=== PATIENT | female | born 1955 | race Caucasian/White ===

== ENCOUNTER 2017-02-05 14:26 | Emergency (ER) | payer MEDICARE, MEDICAID ==
[~2017-02-05] VITALS: Ht 165.1 cm; Wt 52.0 kg
[~2017-02-05 14:26] MED LIST: ALBU6.7H INH; ATOR40TA PO; CITA20TA4 PO; KLON2TAB PO; METH5SOL3 PO; METO25 PO; PERC10TA27 PO; PLAV75TA PO; ZITH250T PO
[2017-02-05 14:34] VITALS: BP 118/73; PULSE 71; RESP 20; TEMP 97.7; O2SAT 86
[2017-02-05 14:39] VITALS: O2SAT 94
[2017-02-05] MEDS ORDERED: LYRI75CA PO (14:51)
[2017-02-05] MEDS ORDERED: PLAV75TA29 PO (14:51)
[2017-02-05] MEDS ORDERED: ALBUAER3 INH (14:51)
[2017-02-05] MEDS ORDERED: CLON2TAB PO (14:51)
[2017-02-05] MEDS ORDERED: PERC10TA27 PO (14:51)
[2017-02-05] MEDS ORDERED: CITA20TA4 PO (14:51)
[2017-02-05] MEDS ORDERED: NITR1SUB3 SL (14:51)
[2017-02-05] MEDS ORDERED: ADVA100A INH (14:51)
[2017-02-05] MEDS ORDERED: PRED5TAB PO (14:51)
[2017-02-05] MEDS ORDERED: METO25TA3 PO (14:51)
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
[2017-02-05 15:06] LABS: BASOPHIL # 0.1 TH/MM3 (0-0.2); BASOPHIL % 0.9 % (0.0-2.0); EOSINOPHIL % 0.2 % (0.0-4.0); HEMATOCRIT 33.3 % (35.0-46.0); LYMPH % 10.7 % (9.0-44.0); LYMPHOCYTE # 1.1 TH/MM3 (1.0-4.8); MEAN CELL VOLUME 90.8 FL (80.0-100.0); MEAN CORPUSCULAR HEMOGLOBIN 28.1 PG (27.0-34.0); MONO % 3.8 % (0.0-8.0); NEUT % 84.4 % (16.0-70.0); PLATELET COUNT 511 TH/MM3 (150-450); RED BLOOD COUNT 3.67 MIL/MM3 (4.00-5.30); RED CELL DISTRIBUTION WIDTH 16.9 % (11.6-17.2); WHITE BLOOD COUNT 10.6 TH/MM3 (4.0-11.0)
--- NOTE | 2017-02-05 15:07 | RADHPO ---
EXAM DATE/TIME: 02/05/2017 14:49 [facility] COMPARISON: CHEST SINGLE AP, June 15, 2016, 11:47. INDICATIONS : Short of breath, right low chest pain MEDICAL HISTORY : Chronic obstructive pulmonary disease. Emphysema. SURGICAL HISTORY : CABG. ENCOUNTER: Initial ACUITY: 3 days PAIN SCORE: 9/10 LOCATION: Right lower chest FINDINGS: A single view of the chest demonstrates the lungs to be symmetrically aerated without evidence of mas s, infiltrate or effusion. The cardiomediastinal contours are unremarkable. Osseous structures are intact. The patient is status post median sternotomy. CONCLUSION: No acute disease. Marc Bender MD on February 05, 2017 at 14:54 Board Certified Radiologist. This report was verified electronically.
[2017-02-05 15:11] LABS: HEMO FLAGS DIFF FINAL
[2017-02-05] MEDS ORDERED: ONDANSETRON HCL 4 MG/2 ML VIAL IV PUSH ONE (15:15)
[2017-02-05] MEDS ORDERED: HYDROmorphone HCL PF 1 MG/ML VIAL IV PUSH ONE (15:15)
[2017-02-05 15:56] VITALS: BP 121/66; PULSE 64; RESP 18; O2SAT 96
[2017-02-05 16:10] LABS: CHLORIDE 101 MEQ/L (98-107); POTASSIUM 4.7 MEQ/L (3.5-5.1); SODIUM (NA) 139 MEQ/L (136-145)
[2017-02-05 16:13] LABS: ANION GAP 7 MEQ/L (5-15); BICARBONATE 31.5 MEQ/L (21.0-32.0); BLOOD UREA NITROGEN 14 MG/DL (7-18)
[2017-02-05 16:16] LABS: GLOMERULAR FILTRATION RATE 83 ML/MIN (>89)
[2017-02-05 16:30] LABS: CREATINE KINASE 47 U/L (26-192)
--- NOTE | 2017-02-06 11:23 | EKG ---
Date Performed: 02/05/2017 Time Performed: 14:31:42 PTAGE: 62 years EKG: Sinus rhythm . Normal ECG PREVIOUS TRACING : 06/15/2016 12.03 DOCTOR: Flip Henson Interpretating Date/Time 02/06/2017 11:18:52
== END 2017-02-05 16:43 | disposition home or self-care (01) ==
LOC: PHED 14:26
DX: R07.89 Other chest pain (principal); J44.9 Chronic obstructive pulmonary disease, unspecified; I10 Essential (primary) hypertension; G25.81 Restless legs syndrome; F17.210 Nicotine dependence, cigarettes, uncomplicated; Z99.81 Dependence on supplemental oxygen
CPT/HCPCS: 71010; 80048; 82550; 84484; 85025; 93005; 96374; 96375; 99285; J1170; J2405

== ENCOUNTER 2017-03-12 19:20 | Emergency (ER) | payer MEDICARE, MEDICAID ==
[~2017-03-12 19:20] MED LIST changes: +ADVA100A INH; -ALBU6.7H INH; +ALBUAER3 INH; -ATOR40TA PO; +CLON2TAB PO; -KLON2TAB PO; +LYRI75CA PO; -METH5SOL3 PO; -METO25 PO; +METO25TA3 PO; +NITR1SUB3 SL; -PLAV75TA PO; +PLAV75TA29 PO; +PRED5TAB PO; -ZITH250T PO
[2017-03-12 19:35] VITALS: BP 135/75; PULSE 56; RESP 20; O2SAT 100
[2017-03-12] MEDS ORDERED: SODIUM CHLORIDE 0.9% FLUSH 10 ML FLUSH IVF PRN (19:45)
[2017-03-12] MEDS ORDERED: methylPREDNISolone SOD SUCC 125 MG/2 ML VIAL IVP ONE (19:45)
--- NOTE | 2017-03-12 19:54 | PD ---
HPI Chief Complaint: General Weakness Time Seen by Provider: 19:44 Travel History International Travel<30 days: No Contact w/Intl Traveler<30days: No Traveled to known affect area: No History of Present Illness HPI 62-year-old female presents to the emergency department by private transportation for complaint of increasing shortness of breath generalized pain and diarrhea. Patient has history of COPD tobaccoism CAD with three-vessel CABG as well as chronic pain syndrome. Patient is followed by Dr. Carroll is her pain management provider and does not recall the name of her primary care provider. Patient states she has had no change in her medications. Patient denies fever or chills. Patient has had cough productive of white sputum. Patient denies hemoptysis. Patient has dyspnea at rest and on exertion but does not report orthopnea or PND. Patient states she has chest pain back pain arm pain and leg pain head pain abdominal pain. Pain is 9/10 in intensity. Patient denies any injury or fall. Patient denies any upper or lower extremity numbness tingling or weakness and does not report any ataxia gait. Patient states she's been using supplemental oxygen at home as needed. Patient is ordered 2 L per minute nasal cannula at all times reportedly. Patient states she did take ibuprofen today without symptom relief. Patient did not take aspirin prior to arrival to the emergency department. Patient does not report any associated sweats nausea vomiting or referred neck jaw back shoulder arm pain. Patient is unable to identify exacerbating or alleviating factors. Denies recent antibiotic use/prescription. Does not describe diarrhea is explosive bloody or mucoid. PFSH Past Medical History Narrative Medical Arthritis COPD CAD CABG hypertension hepatitis C tobaccoism; nursing notes reviewed Arthritis: Yes Cardiovascular Problems: Yes COPD: Yes Diminished Hearing: No Hepatitis: Yes (C) Hypertension: Yes Respiratory: Yes Menopausal: Yes Social History Alcohol Use: No Tobacco Use: Yes Substance Use: No Allergies-Medications (Allergen,Severity, Reaction): Coded Allergies: Morphine (Verified Allergy, Intermediate, ITCHING, NAUSEA, 02/05/17) Vicodin (Verified Allergy, Intermediate, ITCHING, NAUSEA, 02/05/17) Reported Meds & Prescriptions Reported Meds & Active Scripts Active Reported Lyrica (Pregabalin) 75 Mg Cap 75 Mg PO HS Nitroglycerin SL (Nitroglycerin) 0.4 Mg Subl 0.4 Mg SL DIRECTED PRN ONE TABLET UNDER THE TONGUE NEEDED FOR CHEST PAIN, MAY REPEAT EVERY FIVE MINUTES FOR A TOTAL OF 3 DOSES OR CALL 911 IF NO RELIEF Prednisone 5 Mg Tab 5 Mg PO DAILY Proair Hfa 8.5 GM Inh (Albuterol Sulfate) 90 Mcg/Act Aer 2 Puff INH Q4-6H PRN 108 mcg/actuation Advair Diskus Inh (Fluticasone-Salmeterol Inh) 100-50 Mcg/Blist Aer 1 Puff INH BID Rinse mouth after use. Percocet (Oxycodone-Acetaminophen) 10-325 mg Tab 1 Tab PO Q6H PRN Metoprolol Tartrate 25 Mg Tab 25 Mg PO BID Plavix (Clopidogrel Bisulfate) 75 Mg Tab 75 Mg PO DAILY Clonazepam 2 Mg Tab 5 Mg PO HS Citalopram (Citalopram Hydrobromide) 20 Mg Tab 20 Mg PO HS Review of Systems Except as stated in HPI: all other systems reviewed are Neg General / Constitutional: No: Fever, Chills HENT: No: Congestion Cardiovascular: Positive: Chest Pain or Discomfort Respiratory: Positive: Cough, Shortness of Breath, Wheezing Gastrointestinal: Positive: Nausea, Diarrhea, No: Vomiting, Abdominal Pain Genitourinary: No: Dysuria, Flank Pain Musculoskeletal: Positive: Myalgias, Arthralgias Skin: No Rash Neurologic: Positive: Weakness Psychiatric: Positive: Anxiety Hematologic/Lymphatic: Positive: Easy Bruising Physical Exam Narrative GENERAL: Thin elderly appearing female in mild to moderate respiratory distress with some work of breathing and speaking in interrupted sentences. SKIN: Warm and dry. HEAD: Atraumatic. Normocephalic. EYES: Pupils equal and round. No scleral icterus. No injection or drainage. ENT: No nasal bleeding or discharge. Mucous membranes pink and moist. NECK: Trachea midline. No JVD. CARDIOVASCULAR: Regular rate and rhythm. RESPIRATORY: Accessory muscle use. Clear to auscultation. Breath sounds equal and diminished bilaterally. GASTROINTESTINAL: Abdomen soft, non-tender, nondistended. Hepatic and splenic margins not palpable. MUSCULOSKELETAL: Extremities without clubbing, cyanosis, or edema. No obvious deformities. NEUROLOGICAL: Awake and alert. No obvious cranial nerve deficits. Motor grossly within normal limits. Five out of 5 muscle strength in the arms and legs. Normal speech. PSYCHIATRIC: Appropriate mood and affect; insight and judgment normal. Data Data Last Documented VS Vital Signs Date Time Temp Pulse Resp B/P Pulse Ox O2 Delivery O2 Flow Rate FiO2 03/12/17 21:38 97.7 61 18 119/75 97 Nasal Cannula 2 03/12/17 20:45 96 Orders Complete Blood Count With Diff (03/12/17 19:44) Basic Metabolic Panel (Bmp) (03/12/17 19:44) B-Type Natriuretic Peptide (03/12/17 19:44) Act Partial Throm Time (Ptt) (03/12/17 19:44) Prothrombin Time / Inr (Pt) (03/12/17 19:44) Magnesium (Mg) (03/12/17 19:44) Ckmb (Isoenzyme) Profile (03/12/17:44) Troponin I (03/12/17 19:44) Urinalysis - C+S If Indicated (03/12/17 19:44) Iv Access Insert/Monitor (03/12/17 19:44) Electrocardiogram (03/12/17 19:44) Ecg Monitoring (03/12/17 19:44) Oximetry (03/12/17 19:44) Oxygen Administration (03/12/17 19:44) Chest, Single Ap (03/12/17 19:44) Sodium Chloride 0.9% Flush (Ns Flush) (03/12/17 19:45) Methylprednisolone So Succ Inj (Solumedr (03/12/17 19:45) Albuterol-Ipratropium Neb (Duoneb Neb) (03/12/17 19:45) Aspirin Chew (Aspirin Chew) (03/12/17 20:00) Lactic Acid (03/12/17 20:23) Blood Culture (03/12/17 20:23) Oxycodone-Acetamin 5-325 Mg (Percocet (03/12/17 21:30) Labs Laboratory Tests Test 03/12/17 03/12/17 20:11 20:42 White Blood Count 9.1 TH/MM3 Red Blood Count 4.15 MIL/MM3 Hemoglobin 11.2 GM/DL Hematocrit 35.0 % Mean Corpuscular Volume 84.2 FL Mean Corpuscular Hemoglobin 26.9 PG Mean Corpuscular Hemoglobin 31.9 % Concent Red Cell Distribution Width 17.6 % Platelet Count 415 TH/MM3 Mean Platelet Volume 8.6 FL Neutrophils (%) (Auto) 61.2 % Lymphocytes (%) (Auto) 28.8 % Monocytes (%) (Auto) 9.0 % Eosinophils (%) (Auto) 0.6 % Basophils (%) (Auto) 0.4 % Neutrophils # (Auto) 5.6 TH/MM3 Lymphocytes # (Auto) 2.6 TH/MM3 Monocytes # (Auto) 0.8 TH/MM3 Eosinophils # (Auto) 0.1 TH/MM3 Basophils # (Auto) 0.0 TH/MM3 CBC Comment DIFF FINAL Differential Comment Prothrombin Time 10.7 SEC Prothromb Time International 1.0 RATIO Ratio Activated Partial 25.4 SEC Thromboplast Time Sodium Level 145 MEQ/L Potassium Level 4.0 MEQ/L Chloride Level 108 MEQ/L Carbon Dioxide Level 29.8 MEQ/L Anion Gap 7 MEQ/L Blood Urea Nitrogen 23 MG/DL Creatinine 0.58 MG/DL Estimat Glomerular Filtration 105 ML/MIN Rate Random Glucose 100 MG/DL Lactic Acid Level 0.7 mmol/L Calcium Level 9.3 MG/DL Magnesium Level 2.2 MG/DL Total Creatine Kinase 55 U/L Troponin I LESS THAN 0.02 NG/ML B-Type Natriuretic Peptide 21 PG/ML Urine Color YELLOW Urine Turbidity SLIGHT Urine pH 5.5 Urine Specific [place] 1.023 Urine Protein NEG mg/dL Urine Glucose (UA) NEG mg/dL Urine Ketones NEG mg/dL Urine Occult Blood NEG Urine Nitrite NEG Urine Bilirubin NEG Urine Leukocyte Esterase NEG Urine WBC 0-2 /hpf Urine Squamous Epithelial 0-5 /hpf Cells Urine Amorphous Sediment MOD Urine Bacteria OCC /hpf Urine Mucus MOD /lpf Microscopic Urinalysis Comment CULT NOT INDICATED MDM Medical Decision Making Medical Screen Exam Complete: Yes Emergency Medical Condition: Yes Medical Record Reviewed: Yes Interpretation(s) Last Impressions Chest X-Ray 03/12/171943 Signed Impressions: Service Date/Time: Sunday, March 12, 2017 19:56 - CONCLUSION: No infiltrates seen. Hilar and left lung calcifications, stable. Lino Langford MD CBC & BMP Diagram 03/12/17 20:11 Vital Signs Date Time Temp Pulse Resp B/P Pulse Ox O2 Delivery O2 Flow Rate FiO2 03/12/17 20:00 96 Nasal Cannula 2.00 03/12/17 19:35 56 20 135/75 100 Nasal Cannula 2 03/12/17 19:35 20 ck: 55, not elevated ; troponin I: less than 0.02, not elevated; bnp: 21, not elevated lactic acid: 0.7, not elevated Differential Diagnosis Dyspnea, exacerbation COPD, pneumonia, CHF, ACS, OK, anemia, dehydration, ileus I disturbance, UTI, diarrheal illness, colitis Narrative Course Patient placed on classroom monitor IV access obtained specimens collected and sent for resulting EKG performed imaging study done EKG shows sinus bradycardia rate [address] elevation nonspecific anterolateral ST-T changes; patient administered aspirin 162 mg of stress 2 and Solu-Medrol 25 mg blood cultures and lactic acid Chest x-ray no lobar infiltrate cardiomegaly or vascular congestion or effusion ; lung sounds improved after DuoNeb updrafts 2 Patient given Percocet 5/325 for her chronic restless leg and chronic back pain ; patient reports feels clinically improved and is desirous of being discharged home does not want to be admitted or observed; lab values resulted and no acute abnormality identified; lung sounds remained improved after updraft treatments 2; patient reports she has adequate amount of albuterol solution and nebulizer at home to continue as needed nebulized treatments every 4-6 hours; patient is aware she needs to follow up with her primary care provider as well as her pain management provider; patient is encouraged to return to the emergency for free concerns or change condition. Diagnosis Primary Impression: COPD (chronic obstructive pulmonary disease) Qualified Code: J43.9 - Pulmonary emphysema, unspecified emphysema type Additional Impression: Bronchitis Referrals: Pain Management call for appointment Primary Care Physician 1 day Patient Instructions: General Instructions Additional Instructions: Continue current medications as currently prescribed Use albuterol nebulized treatments as needed for wheezing and shortness of breath Follow-up with primary care provider call office in a.m. to schedule follow-up appointment this week Use acetaminophen/Tylenol as needed for fever 100.4F or greater Return to the emergency department for any concerns or change in condition Disposition: 01 DISCHARGE HOME Condition: Stable Yessica Vasques MD Mar 12, 2017 19:54
[2017-03-12] MEDS: RESP: ALBUTEROL 2.5 MG/IPRATROPIUM 0.5 MG NEB (SCH) INH ×2 (19:56→20:12)
[2017-03-12 20:00] VITALS: O2SAT 96
[2017-03-12] MEDS ORDERED: ASPIRIN 81 MG CHEW TAB CHEW ONE (20:00)
--- NOTE | 2017-03-12 20:17 | RADHPO ---
EXAM DATE/TIME: 03/12/2017 19:56 [facility] COMPARISON: CHEST SINGLE AP, June 15, 2016, 11:47. CHEST SINGLE AP, February 05, 2017, 14:49. INDICATIONS : Shortness of breath. MEDICAL HISTORY : Chronic obstructive pulmonary disease. Emphysema. SURGICAL HISTORY : CABG. ENCOUNTER: Initial ACUITY: 1 day PAIN SCORE: 0/10 LOCATION: Bilateral chest FINDINGS: The lungs are symmetrically aerated. Diffuse multiple calcifications in the perihilar region and in the left upper lung are similar to prior. The heart is normal in size. Both hemidiaphragms well del ineated. Evidence of prior median sternotomy and surgery left upper quadrant of the abdomen. CONCLUSION: No infiltrates seen. Hilar and left lung calcifications, stable. Lino Langford MD on March 12, 2017 at 20:14 Board Certified Radiologist. This report was verified electronically.
[2017-03-12 20:45] VITALS: BP 123/87; PULSE 68; RESP 18
[2017-03-12 20:53] LABS: CHLORIDE 108 MEQ/L (98-107); SODIUM (NA) 145 MEQ/L (136-145)
[2017-03-12 20:54] LABS: AUTOMATED NEUTROPHIL # 5.6 TH/MM3 (1.8-7.7); BASOPHIL % 0.4 % (0.0-2.0); EOSINOPHIL # 0.1 TH/MM3 (0-0.4); EOSINOPHIL % 0.6 % (0.0-4.0); HEMO FLAGS DIFF FINAL; LYMPH % 28.8 % (9.0-44.0); LYMPHOCYTE # 2.6 TH/MM3 (1.0-4.8); MEAN CELL VOLUME 84.2 FL (80.0-100.0); MEAN CORPUSCULAR HEMOGLOBIN 26.9 PG (27.0-34.0); MEAN CORPUSCULAR HGB CONC 31.9 % (32.0-36.0); NEUT % 61.2 % (16.0-70.0); PLATELET COUNT 415 TH/MM3 (150-450); RED BLOOD COUNT 4.15 MIL/MM3 (4.00-5.30); RED CELL DISTRIBUTION WIDTH 17.6 % (11.6-17.2); WHITE BLOOD COUNT 9.1 TH/MM3 (4.0-11.0)
[2017-03-12 20:56] LABS: ANION GAP 7 MEQ/L (5-15); APTT (PATIENT) 25.4 SEC (24.3-30.1); BICARBONATE 29.8 MEQ/L (21.0-32.0); BLOOD UREA NITROGEN 23 MG/DL (7-18); MAGNESIUM 2.2 MG/DL (1.5-2.5); PROTHROMBIN TIME - PATIENT 10.7 SEC (9.8-11.6)
[2017-03-12 20:59] LABS: GLOMERULAR FILTRATION RATE 105 ML/MIN (>89)
[2017-03-12 21:04] LABS: BLOOD, URINE NEG (NEG); GLUCOSE,URINE NEG (NEG); KETONE, URINE NEG (NEG); NITRITE,URINE NEG (NEG); PH, URINE 5.5 (5.0-8.5)
[2017-03-12 21:10] LABS: MUCUS URINE MOD /lpf (OCC); URINE COLOR YELLOW (YELLW/STRAW)
[2017-03-12 21:11] LABS: BACTERIA, URINE OCC /hpf; SQUAMOUS EPITHELIAL CELL URINE 0-5 /hpf (0-5); WBC, URINE 0-2 /hpf (0-5)
[2017-03-12 21:12] LABS: COMMENT (UR) CULT NOT INDICATED; CULTURE IF INDICATED CULT NOT INDICATED
[2017-03-12 21:15] LABS: CREATINE KINASE 55 U/L (26-192)
[2017-03-12] MEDS ORDERED: oxyCODONE/ACETAMINOPHEN 5 MG/325 MG TAB PO ONE (21:30)
[2017-03-12 21:38] VITALS: BP 119/75; PULSE 61; RESP 18; TEMP 97.7; O2SAT 97
--- NOTE | 2017-03-13 11:30 | EKG ---
Date Performed: 03/12/2017 Time Performed: 19:47:22 PTAGE: 62 years EKG: Sinus bradycardia. Septal and lateral ST-T changes are nonspecific Since previous tracing, no significant change noted Borderline ECG PREVIOUS TRACING : 02/05/2017 14.31 DOCTOR: Denny Soto Interpretating Date/Time 03/13/2017 11:28:39
== END 2017-03-12 22:06 | disposition home or self-care (01) ==
LOC: PHED 19:20
DX: J44.9 Chronic obstructive pulmonary disease, unspecified (principal); R00.1 Bradycardia, unspecified; I25.10 Atherosclerotic heart disease of native coronary artery without angina pectoris; B19.20 Unspecified viral hepatitis C without hepatic coma; I10 Essential (primary) hypertension; Z95.1 Presence of aortocoronary bypass graft; Z72.0 Tobacco use
CPT/HCPCS: 71010; 80048; 81001; 82550; 83605; 83735; 83880; 84484; 85025; 85610; 85730; 87040; 93005; 94640; 94664; 96374; 99285; J2930

== ENCOUNTER 2017-03-23 13:22 | Inpatient (IN) | payer MEDICARE, MEDICAID ==
[2017-03-23] VITALS (10 sets, daily range): BP systolic 97–132; BP diastolic 64–70; PULSE 49–65; RESP 16–18; TEMP 98.7; O2SAT 92–98
[2017-03-23] MEDS ORDERED: PLAV75TA29 PO (13:33)
[2017-03-23 13:59] LABS: AUTOMATED NEUTROPHIL # 6.4 TH/MM3 (1.8-7.7); BASOPHIL # 0.1 TH/MM3 (0-0.2); BASOPHIL % 0.6 % (0.0-2.0); EOSINOPHIL % 0.4 % (0.0-4.0); HEMATOCRIT 34.9 % (35.0-46.0); HEMO FLAGS DIFF FINAL; LYMPH % 18.8 % (9.0-44.0); LYMPHOCYTE # 1.7 TH/MM3 (1.0-4.8); MEAN CELL VOLUME 83.4 FL (80.0-100.0); MEAN CORPUSCULAR HEMOGLOBIN 26.1 PG (27.0-34.0); MEAN CORPUSCULAR HGB CONC 31.3 % (32.0-36.0); MONO % 10.9 % (0.0-8.0); NEUT % 69.3 % (16.0-70.0); PLATELET COUNT 395 TH/MM3 (150-450); RED BLOOD COUNT 4.18 MIL/MM3 (4.00-5.30); WHITE BLOOD COUNT 9.2 TH/MM3 (4.0-11.0)
[2017-03-23 14:09] LABS: CHLORIDE 107 MEQ/L (98-107); POTASSIUM 3.7 MEQ/L (3.5-5.1); SODIUM (NA) 143 MEQ/L (136-145)
[2017-03-23 14:18] LABS: ANION GAP 11 MEQ/L (5-15); BICARBONATE 25.1 MEQ/L (21.0-32.0); BLOOD UREA NITROGEN 44 MG/DL (7-18)
[2017-03-23 14:21] LABS: GLOMERULAR FILTRATION RATE 42 ML/MIN (>89)
--- NOTE | 2017-03-23 14:22 | PD ---
HPI Chief Complaint: Chest Pain Time Seen by Provider: 14:10 Travel History International Travel<30 days: No Contact w/Intl Traveler<30days: No Traveled to known affect area: No History of Present Illness HPI 62yo F with PMH of COPD, restless leg syndrome, CAD s/p CABG, chronic pain syndrome who follows with pain management presents to the ED with c/o chest pain that started at 5am. States pain started in right chest then radiates to left chest and down left arm. Associated with some sob, diaphoresis. +Nausea. Pt has COPD and uses oxygen at home at night. Denies any abdominal pain, focal weakness or numbness. 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 Pt takes oxycodone 10mg for pain and states it is not helping. PFSH Past Medical History Arthritis: Yes Depression: Yes Cardiovascular Problems: Yes COPD: Yes Diminished Hearing: No Hepatitis: Yes (C) Hypertension: Yes Musculoskeletal: Yes (CHRONIC PAIN) Respiratory: Yes Influenza Vaccination: Yes ?: Not Menopausal: Yes Past Surgical History Coronary Artery Bypass Graft: Yes (double bypass) Other Surgery: Yes (splenectomy) Social History Alcohol Use: No Tobacco Use: Yes (5-6 cigs daily) Substance Use: No Allergies-Medications (Allergen,Severity, Reaction): Coded Allergies: Morphine (Verified Allergy, Intermediate, ITCHING, NAUSEA, 03/23/17) Vicodin (Verified Allergy, Intermediate, ITCHING, NAUSEA, 03/23/17) Reported Meds & Prescriptions Reported Meds & Active Scripts Active Reported Plavix (Clopidogrel Bisulfate) 75 Mg Tab 75 Mg PO DAILY Lyrica (Pregabalin) 75 Mg Cap 75 Mg PO HS Nitroglycerin SL (Nitroglycerin) 0.4 Mg Subl 0.4 Mg SL DIRECTED PRN ONE TABLET UNDER THE TONGUE NEEDED FOR CHEST PAIN, MAY REPEAT EVERY FIVE MINUTES FOR A TOTAL OF 3 DOSES OR CALL 911 IF NO RELIEF Prednisone 5 Mg Tab 5 Mg PO DAILY Proair Hfa 8.5 GM Inh (Albuterol Sulfate) 90 Mcg/Act Aer 2 Puff INH Q4-6H PRN 108 mcg/actuation Advair Diskus Inh (Fluticasone-Salmeterol Inh) 100-50 Mcg/Blist Aer 1 Puff INH BID Rinse mouth after use. Percocet (Oxycodone-Acetaminophen) 10-325 mg Tab 1 Tab PO Q6H PRN Metoprolol Tartrate 25 Mg Tab 25 Mg PO BID Clonazepam 2 Mg Tab 5 Mg PO HS Citalopram (Citalopram Hydrobromide) 20 Mg Tab 20 Mg PO HS Review of Systems Except as stated in HPI: all other systems reviewed are Neg Physical Exam Narrative GEN: 62yo F not in distress. SKIN: warm and dry. HEAD: Normocephalic, atraumatic. ENT: Pupils equal and reactive. CV: S1, S2. Lungs: CTA B/L, equal breath sounds. Abd: soft, NT/ND. EXT: No edema. No calf tenderness. NEURO: No focal neurologic deficits. Data Data Last Documented VS Vital Signs Date Time Temp Pulse Resp B/P Pulse Ox O2 Delivery O2 Flow Rate FiO2 03/23/17 15:19 61 03/23/17 15:19 18 109/70 98 Nasal Cannula 2 03/23/17 13:24 98.7 Orders Electrocardiogram (03/23/17 13:38) Complete Blood Count With Diff (03/23/17 13:38) Basic Metabolic Panel (Bmp) (03/23/17 13:38) Ckmb (Isoenzyme) Profile (03/23/17 13:38) Troponin I (03/23/17 13:38) Chest, Single Ap (03/23/17 13:38) Iv Access Insert/Monitor (03/23/17 13:38) Ecg Monitoring (03/23/17 13:38) Oxygen Administration (03/23/17 13:38) Oximetry (03/23/17 13:38) Morphine Inj (Morphine Inj) (03/23/17 15:00) Aspirin (Aspirin) (03/23/17 15:15) Admit Order (Ed Use Only) (03/23/17 15:51) Labs Laboratory Tests Test 03/23/17 13:25 White Blood Count 9.2 TH/MM3 Red Blood Count 4.18 MIL/MM3 Hemoglobin 10.9 GM/DL Hematocrit 34.9 % Mean Corpuscular Volume 83.4 FL Mean Corpuscular Hemoglobin 26.1 PG Mean Corpuscular Hemoglobin 31.3 % Concent Red Cell Distribution Width 18.0 % Platelet Count 395 TH/MM3 Mean Platelet Volume 9.4 FL Neutrophils (%) (Auto) 69.3 % Lymphocytes (%) (Auto) 18.8 % Monocytes (%) (Auto) 10.9 % Eosinophils (%) (Auto) 0.4 % Basophils (%) (Auto) 0.6 % Neutrophils # (Auto) 6.4 TH/MM3 Lymphocytes # (Auto) 1.7 TH/MM3 Monocytes # (Auto) 1.0 TH/MM3 Eosinophils # (Auto) 0.0 TH/MM3 Basophils # (Auto) 0.1 TH/MM3 CBC Comment DIFF FINAL Differential Comment Sodium Level 143 MEQ/L Potassium Level 3.7 MEQ/L Chloride Level 107 MEQ/L Carbon Dioxide Level 25.1 MEQ/L Anion Gap 11 MEQ/L Blood Urea Nitrogen 44 MG/DL Creatinine 1.30 MG/DL Estimat Glomerular Filtration 42 ML/MIN Rate Random Glucose 96 MG/DL Calcium Level 9.5 MG/DL Total Creatine Kinase 60 U/L Troponin I LESS THAN 0.02 NG/ML MDM Medical Decision Making Medical Screen Exam Complete: Yes Emergency Medical Condition: Yes Interpretation(s) EKG: NSR 64bpm. Normal axis. LVH. Differential Diagnosis ACS vs. pneumonia vs. chronic pain vs. musculoskeletal pain Narrative Course 62yo F with atypical chest pain. However, pt has CAD with history of CABG and has not had recent cardiac work up. Labs reviewed, no leukocytosis. Mild anemia, at baseline. Troponin negative. Creatinine elevated at 1.3, which is elevated from baseline. Will give NS IVF. CXR negative for acute findings. Pt given aspirin and morphine for pain. States she is not allergic to morphine and she had tingling from it but no sob or swelling. Pt wants morphine and after morphine, pain improved and no adverse reaction noted. Discussed with Dr. Toledo and accepted to his service for chest pain center. Diagnosis Primary Impression: OTHER CHEST PAIN Admitting Information Admitting Physician Requests: Faby Garcia DO Mar 23, 2017 14:22
[2017-03-23 14:27] LABS: CREATINE KINASE 60 U/L (26-192)
--- NOTE | 2017-03-23 14:28 | RADRPT ---
EXAM DATE/TIME: 03/23/2017 14:11 [facility] COMPARISON: No previous studies available for comparison. INDICATIONS : Chest pain, body aches, short of breath. MEDICAL HISTORY : Hypertension. Chronic obstructive pulmonary disease. Hepatitis C. Arthritis. SURGICAL HISTORY : CABG. Splenectomy. Left arm. ENCOUNTER: Subsequent ACUITY: 2 weeks PAIN SCORE: 9/10 LOCATION: chest FINDINGS: Postoperative median sternotomy. No focal consolidation. Minimal basal atelectasis or scarring. No ef fusion. Calcified granulomata in both lungs. No pneumothorax. CONCLUSION: 1. No acute findings. Minimal basal scarring. Remote granulomas disease. Previous CABG. Familia Hewitt MD on March 23, 2017 at 14:23 Board Certified Radiologist. This report was verified electronically.
[2017-03-23] MEDS ORDERED: MORPHINE SULFATE 4 MG/ML INJ IV PUSH ONE (15:00)
[2017-03-23] MEDS ORDERED: ASPIRIN 325 MG TAB PO ONE (15:15)
[2017-03-23] MEDS ORDERED: SODIUM CHLORID 0.9% 500 ML INJ 500 ML IV ONE (16:00)
[2017-03-23 17:03] LABS: CREATINE KINASE 51 U/L (26-192)
[2017-03-23] MEDS ORDERED: NITROGLYCERIN 0.4 MG SL 25 TABS/BTL SL PRN (17:15)
[2017-03-23] MEDS ORDERED: ACETAMINOPHEN 500 MG CPLT PO PRN (17:15)
[2017-03-23] MEDS ORDERED: RESP: ALBUTEROL 2.5 MG/IPRATROPIUM 0.5 MG NEB (PRN) NEB (17:15)
[2017-03-23] MEDS ORDERED: SODIUM CHLORIDE 0.9% FLUSH 10 ML FLUSH IV FLUSH PRN (17:15)
[2017-03-23] MEDS ORDERED: ONDANSETRON HCL 4 MG/2 ML VIAL IV PRN (17:15)
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
[2017-03-23] MEDS: oxyCODONE/ACETAMINOPHEN 10 MG/325 MG TAB PO PRN ×2 (17:41→23:12)
[2017-03-23] MEDS: NS + KCL 20 MEQ INJ 1,000 ML IV SCH (18:21)
[2017-03-23 20:16] LABS: CREATINE KINASE 45 U/L (26-192)
[2017-03-23] MEDS: BUDESONIDE-FORMOTEROL 80/4.5 MCG INHALER INH SCH (21:00)
[2017-03-23] MEDS: CITALOPRAM HYDROBROMIDE 20 MG TAB PO SCH (21:17)
[2017-03-23] MEDS: METOPROLOL TARTRATE 25 MG TAB PO SCH (21:17)
[2017-03-23] MEDS: PREGABALIN 75 MG CAP PO SCH (21:17)
[2017-03-23] MEDS: clonazePAM 1 MG TAB PO SCH (21:17)
[2017-03-23] MEDS: SODIUM CHLORIDE 0.9% FLUSH 10 ML FLUSH IV FLUSH SCH (21:18)
[2017-03-24] VITALS (11 sets, daily range): BP systolic 95–117; BP diastolic 56–68; PULSE 50–60; RESP 12–20; TEMP 96.4–97.9; O2SAT 83–97
[2017-03-24] MEDS: oxyCODONE/ACETAMINOPHEN 10 MG/325 MG TAB PO PRN ×3 (04:38→19:29)
[2017-03-24] MEDS: NS + KCL 20 MEQ INJ 1,000 ML IV SCH ×2 (06:18→17:50)
[2017-03-24 06:51] LABS: POTASSIUM 4.1 MEQ/L (3.5-5.1)
[2017-03-24] MEDS: predniSONE 5 MG TAB PO SCH (08:28)
[2017-03-24] MEDS: METOPROLOL TARTRATE 25 MG TAB PO SCH ×2 (08:28→21:06)
[2017-03-24] MEDS: ASPIRIN 325 MG TAB PO SCH (08:28)
[2017-03-24] MEDS: CLOPIDOGREL 75 MG TAB PO SCH (08:29)
[2017-03-24] MEDS: BUDESONIDE-FORMOTEROL 80/4.5 MCG INHALER INH SCH ×2 (08:30→21:06)
[2017-03-24] MEDS: SODIUM CHLORIDE 0.9% FLUSH 10 ML FLUSH IV FLUSH SCH ×2 (08:31→21:00)
[2017-03-24] MEDS ORDERED: REGADENOSON INJ 0.4 MG/5 ML SYR IV ONE (10:04)
--- NOTE | 2017-03-24 11:08 | RADRPT ---
EXAM DATE/TIME: 03/24/2017 09:45 [place] COMPARISON: No previous studies available for comparison. INDICATIONS : Right sided chest pain. Angina. Myocardial infarction. DOSE: 25.9 mCi Tc99m Myoview at stress. 8.2 mCi Tc99m Myoview at rest. 0.4 mg Lexiscan STRESS SYMPTOMS: Short of breath. EJECTION FRACTION: 52% MEDICAL HISTORY : Hepatitis C. Hypertension. Chronic obstructive pulmonary disease. SURGICAL HISTORY : CABG ENCOUNTER: Initial ACUITY: 2 days PAIN SCALE: 2/10 LOCATION: Right chest TECHNIQUE: The patient underwent pharmacologic stress with infusion of prescribed dose. Continuous ECG tracing was monitored during stress. Gated SPECT imaging was performed after stress and conventional SPECT i maging was performed at rest. The examination was performed on a SPECT/CT scanner, both attenuation and non-corrected datasets were reviewed. FINDINGS: DISTRIBUTION: The maximum perfused segment at stress is in the anterolateral wall. PERFUSION STUDY: The pattern of perfusion at stress is within normal limits. GATED STUDY: There is intact wall motion and thickening without hypokinetic or dyskinetic segments. CONCLUSION: 1. No reversibility to suggest ischemia. 2. Normal wall motion with ejection fraction 52%. RISK CATEGORY: Low (<1% Annual Mortality Rate) Familia Hewitt MD on March 24, 2017 at 11:05 Board Certified Radiologist. This report was verified electronically.
--- NOTE | 2017-03-24 12:58 | HHI.PR ---
Subjective Remarks patient c/o cough and dyspnea at rest worsened on exertion denies cp denies fevers/chills Patient has had episodes of oxygen desaturation into the low 90s. bradycardic overnight now much improved. Objective Vitals Vital Signs Date Time Temp Pulse Resp B/P Pulse Ox O2 Delivery O2 Flow Rate FiO2 03/24/17 12:00 97.9 60 19 117/66 94 03/24/17 09:16 94 Nasal Cannula 2.00 03/24/17 08:00 97.7 52 18 106/63 95 03/24/17 08:00 50 03/24/17 04:00 96.4 51 16 103/68 96 03/24/17 00:00 97.8 55 18 116/66 96 03/23/17 23:37 49 03/23/17 22:10 98 Nasal Cannula 2.00 03/23/17 22:09 52 03/23/17 19:04 99 Nasal Cannula 2 03/23/17 19:04 99 Nasal Cannula 2 03/23/17 19:04 65 16 97/64 98 Nasal Cannula 2 03/23/17 18:22 60 18 132/69 98 Nasal Cannula 2 03/23/17 18:21 18 03/23/17 17:55 98 Nasal Cannula 2.00 03/23/17 16:41 63 03/23/17 16:41 63 18 132/65 97 Nasal Cannula 2 03/23/17 15:19 61 03/23/17 15:19 63 18 109/70 98 Nasal Cannula 2 03/23/17 15:17 18 03/23/17 13:51 65 18 131/66 92 Room Air 03/23/17 13:44 97 Room Air 03/23/17 13:25 64 03/23/17 13:24 98.7 65 18 119/70 95 I/O 03/23/17 03/23/17 03/23/17 03/24/17 03/24/17 03/24/17 07:00 15:00 23:00 07:00 15:00 23:00 Intake Total 800 ml 314 ml Balance 800 ml 314 ml Intake IV Total 800 ml 314 ml # Voids 2 Result Diagram: 03/23/17 1325 03/24/17 0607 Imaging Last Impressions Myocardial Perfusion Scan Nuc Med 03/24/17 0000 Signed Impressions: Service Date/Time: Friday, March 24, 2017 09:45 - CONCLUSION: 1. No reversibility to suggest ischemia. 2. Normal wall motion with ejection fraction 52%%. RISK CATEGORY: Low (<1%% Annual Mortality Rate) Familia Hewitt MD Chest X-Ray 03/23/17 1338 Signed Impressions: Service Date/Time: March 14:11 - CONCLUSION: 1. No acute findings. Minimal basal scarring. Remote granulomas disease. Previous CABG. Familia Hewitt MD Objective Remarks GENERAL: Well-developed, well-nourished, in no acute distress. alert and orientated HEENT: Head is normocephalic without any lesions or masses noted. Facial features are symmetric. Eyes: Pupils equal round reactive to light. Extraocular muscles are intact. Conjunctivae were clear. Oropharyngeal: Pharynx without any erythema edema. Tongue is midline without deviation. Buccal mucosa is moist without any masses or lesions NECK: Supple without any masses. Trachea midline no deviation. No JVD, no bruits are appreciated CARDIAC: Regular rhythm, regular rate. S1/S2 are heard. No murmurs gallops or rubs. Reproducible palpable tenderness noted along the mid sternum LUNGS: There is decreased air entry bilaterally with diffuse end expiratory wheezing. No rhonchi or crackles auscultated. ABDOMEN: Soft, nontender. Nondistended. Bowel sounds heard in all 4 quadrants. No organomegaly or masses. Negative rebound, negative guarding EXTREMITIES: No edema, pulses are equal bilaterally. No cyanosis or clubbing NEUROLOGY: Mood and affect appear appropriate. Cranial nerves II through XII grossly intact. Muscle strength 5/5 in upper and lower extremities bilaterally. Deep tendon reflexes are 2+ in upper and lower extremities bilaterally. Procedures None Medications and IVs Current Medications Medications (Trade) Dose Ordered Sig/Anthony Route Start Time Stop Time Status Last Admin (NS Flush) 2 ml UNSCH PRN IV FLUSH 03/23/17 17:15 (NS Flush) 2 ml BID IV FLUSH 03/23/17 21:00 03/23/17 21:18 (Tylenol) 500 mg Q4H PRN PO 03/23/17 17:15 (Zofran Inj) 4 mg Q6H PRN IV 03/23/17 17:15 (Nitrostat Sl) 0.4 mg Q5M PRN SL 03/23/17 17:15 (Aspirin) 325 mg DAILY PO 03/24/17 09:00 03/24/17 08:28 (CeleXA) 20 mg HS PO 03/23/17 21:00 03/23/17 21:17 (KlonoPIN) 5 mg HS PO 03/23/17 21:00 03/23/17 21:17 (Plavix) 75 mg DAILY PO 03/24/17 09:00 03/24/17 08:29 (Lopressor) 25 mg BID PO 03/23/17 21:00 03/24/17 08:28 (Deltasone) 5 mg DAILY PO 03/24/17 09:00 03/24/17 08:28 (Lyrica) 75 mg HS PO 03/23/17 21:00 03/23/17 21:17 (Symbicort 80-4.5 Mcg Inh) 2 puff BID INH 03/23/17 21:00 03/24/17 08:30 Oxycodone/ Acetaminophen 1 tab 1 tab Q6H PRN PO 03/23/17 17:15 03/24/17 12:01 (NS + KCl 20 Meq Inj) 1,000 ml @ 84 mls/hr [id number] IV 03/23/17 18:00 03/24/17 06:18 Urinary Catheter: No Vascular Central Line Catheter: No A/P Problem List: (1) Chest pain ICD Code: R07.9 Status: Acute Plan: Patient was placed under observation in the medical floor Patient does have increased risk factors include age, hypertension, tobacco use Enzymes trended and negative 3. Serial EKGs monitored, last one on 03/23 shows sinus bradycardia without ischemic changes. Patient underwent a nuclear stress test which is negative Patient has been coughing and feeling short of breath. There is expiratory wheezing on exam. I believe the chest pain could be secondary to COPD exacerbation or [place] skeletal after cough and vomiting. Continue current treatment with aspirin, beta todd, nitroglycerin and Percocet when necessary for pain (2) CANDIDO (acute kidney injury) ICD Code: N17.9 Status: Resolved Plan: Data on admission 1.30, likely due to dehydration secondary to vomiting. Creatinine much improved down to 0.55 after IV fluid administration. (3) COPD with exacerbation ICD Code: J44.1 Status: Acute Plan: She was complaining of shortness of breath, persistent and worsening cough along with expiratory wheezing bilaterally on exam. I will start the patient on IV Solu Medrol and IV Levaquin. I will also obtain a home walk test to determine's the patient need for oxygen at home (4) Chronic respiratory failure ICD Code: J96.10 Status: Chronic Plan: On home oxygen. Continue to keep on oxygen saturation more than 92%. Problem Qualifiers (1) Chronic respiratory failure: Qualified Code: J96.11 - Chronic respiratory failure with hypoxia Martir Clark MD Mar 24, 2017 12:57
[2017-03-24] MEDS ORDERED: methylPREDNISolone SOD SUCC 125 MG/2 ML VIAL IV PUSH ONE (13:00)
[2017-03-24] MEDS: LEVOFLOXACIN 750 MG PREMIX INJ 150 ML IV SCH (13:18)
--- NOTE | 2017-03-24 15:33 | TR ---
Date Performed: 03/24/2017 Time Performed: 10:16:09 DOCTOR: Bre Magana DRUG LIST: CLINICAL HISTORY: CHEST PAIN REASON FOR TEST: REASON FOR ENDING: OBSERVATION: CONCLUSION: Lexiscan stress test was performed under standard four minute protocol. Radionuclid e was injected one minute prior to ending the test. No electrocardiographic abormalities were present to suggest ischemia. Nuclear imaging and interpretation are pending. COMMENTS:
--- NOTE | 2017-03-24 15:35 | EKG ---
Date Performed: 03/23/2017 Time Performed: 16:28:54 PTAGE: 62 years EKG: Sinus rhythm NONSPECIFIC T-WAVE ABNORMALITY BORDERLINE ECG Since PREVIOUS TRACING , no significant change noted PREVIOUS TRACIN03/23/2017 13.29 DOCTOR: Bre Magana Interpretating Date/Time 03/24/2017 15:34:30
--- NOTE | 2017-03-24 15:35 | EKG ---
Date Performed: 03/23/2017 Time Performed: 20:16:18 PTAGE: 62 years EKG: SINUS BRADYCARDIA BORDERLINE ECG Since PREVIOUS TRACING , no significant change noted PREVIOUS TRACIN03/23/2017 16.28 DOCTOR: Bre Magana Interpretating Date/Time 03/24/2017 15:33:38
--- NOTE | 2017-03-24 15:36 | EKG ---
Date Performed: 03/23/2017 Time Performed: 13:29:02 PTAGE: 62 years EKG: Sinus rhythm LEFT VENTRICULAR HYPERTROPHY AND ST-T CHANGE ABNORMAL ECG Since PREVIOUS TRACING , no significant change noted PREVIOUS TRACIN03/12/2017 19.47 DOCTOR: Bre Magana Interpretating Date/Time 03/24/2017 15:34:41
[2017-03-24] MEDS: methylPREDNISolone SOD SUCC 40 MG/1 ML VIAL IV PUSH SCH (17:45)
[2017-03-24] MEDS: CITALOPRAM HYDROBROMIDE 20 MG TAB PO SCH (21:05)
[2017-03-24] MEDS: PREGABALIN 75 MG CAP PO SCH (21:06)
[2017-03-24] MEDS: clonazePAM 1 MG TAB PO SCH (21:06)
[2017-03-25] VITALS (9 sets, daily range): BP systolic 100–143; BP diastolic 58–87; PULSE 48–71; RESP 14–22; TEMP 96.2–99.2; O2SAT 93–99
[2017-03-25] MEDS: oxyCODONE/ACETAMINOPHEN 10 MG/325 MG TAB PO PRN ×4 (00:54→20:55)
[2017-03-25] MEDS: methylPREDNISolone SOD SUCC 40 MG/1 ML VIAL IV PUSH SCH ×4 (00:54→20:52)
[2017-03-25] MEDS: NS + KCL 20 MEQ INJ 1,000 ML IV SCH ×2 (05:45→21:13)
[2017-03-25] MEDS: predniSONE 5 MG TAB PO SCH (09:39)
[2017-03-25] MEDS: METOPROLOL TARTRATE 25 MG TAB PO SCH ×2 (09:39→20:54)
[2017-03-25] MEDS: BUDESONIDE-FORMOTEROL 80/4.5 MCG INHALER INH SCH ×2 (09:39→20:52)
[2017-03-25] MEDS: CLOPIDOGREL 75 MG TAB PO SCH (09:39)
[2017-03-25] MEDS: ASPIRIN 325 MG TAB PO SCH (09:39)
[2017-03-25 10:06] LABS: AUTOMATED NEUTROPHIL # 7.7 TH/MM3 (1.8-7.7); BASOPHIL # 0.1 TH/MM3 (0-0.2); BASOPHIL % 1.1 % (0.0-2.0); EOSINOPHIL # 0.1 TH/MM3 (0-0.4); HEMATOCRIT 33.4 % (35.0-46.0); LYMPH % 14.2 % (9.0-44.0); LYMPHOCYTE # 1.3 TH/MM3 (1.0-4.8); MEAN CELL VOLUME 85.1 FL (80.0-100.0); MEAN CORPUSCULAR HEMOGLOBIN 25.8 PG (27.0-34.0); MEAN CORPUSCULAR HGB CONC 30.3 % (32.0-36.0); MONO % 1.4 % (0.0-8.0); NEUT % 82.3 % (16.0-70.0); PLATELET COUNT 360 TH/MM3 (150-450); RED BLOOD COUNT 3.92 MIL/MM3 (4.00-5.30); RED CELL DISTRIBUTION WIDTH 18.4 % (11.6-17.2); WHITE BLOOD COUNT 9.3 TH/MM3 (4.0-11.0)
[2017-03-25 10:15] LABS: CHLORIDE 109 MEQ/L (98-107); POTASSIUM 4.2 MEQ/L (3.5-5.1); SODIUM (NA) 144 MEQ/L (136-145)
[2017-03-25 10:17] LABS: HEMO FLAGS AUTO DIFF
[2017-03-25 10:27] LABS: BLOOD UREA NITROGEN 14 MG/DL (7-18); GLOMERULAR FILTRATION RATE 91 ML/MIN (>89)
[2017-03-25 10:28] LABS: ALKALINE PHOSPHATASE 43 U/L (45-117); ALT (GPT) 16 U/L (10-53); ANION GAP 9 MEQ/L (5-15); AST (GOT) 12 U/L (15-37); BICARBONATE 25.7 MEQ/L (21.0-32.0); TOTAL BILIRUBIN ADULT 0.1 MG/DL (0.2-1.0)
[2017-03-25 10:51] LABS: SCAN/DIFF AUTO DIFF CONFIRMED
[2017-03-25] MEDS ORDERED: GLUCAGON 1 MG/ML VIAL OTHER PRN (12:30)
[2017-03-25] MEDS ORDERED: DEXTROSE 50% IN WATER 50 ML VIAL(D50) IV PRN (12:30)
--- NOTE | 2017-03-25 12:35 | HHI.PR ---
Subjective Remarks Patient states she feels sick to her stomch nauseous denies cp/sob cough improving Patient is having episodes of oxygen desaturation Objective Vitals Vital Signs Date Time Temp Pulse Resp B/P Pulse Ox O2 Delivery O2 Flow Rate FiO2 03/25/17 10:12 64 03/25/17 08:00 97.3 71 20 143/87 94 03/25/17 08:00 93 Nasal Cannula 2.00 03/25/17 05:02 97.1 60 14 111/70 95 03/25/17 00:57 96.2 59 16 100/61 93 03/24/17 20:56 97.0 54 12 95/56 96 03/24/17 20:30 97 Nasal Cannula 2.00 03/24/17 19:59 56 03/24/17 16:00 97.7 54 20 105/63 96 03/24/17 13:54 18 83 03/24/17 13:41 18 92 I/O 03/24/17 03/24/17 03/24/17 03/25/17 03/25/17 03/25/17 07:00 15:00 23:00 07:00 15:00 23:00 Intake Total 314 ml 360 ml 1228 ml Balance 314 ml 360 ml 1228 ml Intake Oral 360 ml IV Total 314 ml 1228 ml # Voids 3 1 3 # Bowel Movements 0 Result Diagram: 03/25/17 0948 03/25/17 0948 Imaging Last Impressions Myocardial Perfusion Scan Nuc Med 03/24/17 0000 Signed Impressions: Service Date/Time: Friday, March 24, 2017 09:45 - CONCLUSION: 1. No reversibility to suggest ischemia. 2. Normal wall motion with ejection fraction 52%%. RISK CATEGORY: Low (<1%% Annual Mortality Rate) Familia Hewitt MD Chest X-Ray 03/23/17 1338 Signed Impressions: Service Date/Time: March 14:11 - CONCLUSION: 1. No acute findings. Minimal basal scarring. Remote granulomas disease. Previous CABG. Familia Hewitt MD Objective Remarks GENERAL: Well-developed, well-nourished, in no acute distress. alert and orientated HEENT: Head is normocephalic without any lesions or masses noted. Facial features are symmetric. Eyes: Pupils equal round reactive to light. Extraocular muscles are intact. Conjunctivae were clear. Oropharyngeal: Pharynx without any erythema edema. Tongue is midline without deviation. Buccal mucosa is moist without any masses or lesions NECK: Supple without any masses. Trachea midline no deviation. No JVD, no bruits are appreciated CARDIAC: Regular rhythm, regular rate. S1/S2 are heard. No murmurs gallops or rubs. Reproducible palpable tenderness noted along the mid sternum LUNGS: There is decreased air entry bilaterally with diffuse end expiratory wheezing. No rhonchi or crackles auscultated. ABDOMEN: Soft, nontender. Nondistended. Bowel sounds heard in all 4 quadrants. No organomegaly or masses. Negative rebound, negative guarding EXTREMITIES: No edema, pulses are equal bilaterally. No cyanosis or clubbing NEUROLOGY: Mood and affect appear appropriate. Cranial nerves II through XII grossly intact. Muscle strength 5/5 in upper and lower extremities bilaterally. Deep tendon reflexes are 2+ in upper and lower extremities bilaterally. Procedures None Medications and IVs Current Medications Medications (Trade) Dose Ordered Sig/Anthony Route Start Time Stop Time Status Last Admin (NS Flush) 2 ml UNSCH PRN IV FLUSH 03/23/17 17:15 (NS Flush) 2 ml BID IV FLUSH 03/23/17 21:00 03/23/17 21:18 (Tylenol) 500 mg Q4H PRN PO 03/23/17 17:15 (Zofran Inj) 4 mg Q6H PRN IV 03/23/17 17:15 (Nitrostat Sl) 0.4 mg Q5M PRN SL 03/23/17 17:15 (Aspirin) 325 mg DAILY PO 03/24/17 09:00 03/25/17 09:39 (CeleXA) 20 mg HS PO 03/23/17 21:00 03/24/17 21:05 (KlonoPIN) 5 mg HS PO 03/23/17 21:00 03/24/17 21:06 (Plavix) 75 mg DAILY PO 03/24/17 09:00 03/25/17 09:39 (Lopressor) 25 mg BID PO 03/23/17 21:00 03/25/17 09:39 (Deltasone) 5 mg DAILY PO 03/24/17 09:00 03/25/17 09:39 (Lyrica) 75 mg HS PO 03/23/17 21:00 03/24/17 21:06 (Symbicort 80-4.5 Mcg Inh) 2 puff BID INH 03/23/17 21:00 03/25/17 09:39 Oxycodone/ Acetaminophen 1 tab 1 tab Q6H PRN PO 03/23/17 17:15 03/25/17 06:17 (NS + KCl 20 Meq Inj) 1,000 ml @ 84 mls/hr [id number] IV 03/23/17 18:00 03/24/17 06:18 Methylprednisolone Sodium Succinate 40 mg 40 mg Q6HR IV PUSH 03/24/17 18:00 03/25/17 06:17 (Levaquin 750 Mg Premix Inj) 150 ml @ 100 mls/hr Q24H IV 03/24/17 13:00 03/24/17 13:18 Urinary Catheter: No Vascular Central Line Catheter: No A/P Problem List: (1) Chest pain ICD Code: R07.9 Status: Acute Plan: Patient was placed under observation in the medical floor Patient does have increased risk factors include age, hypertension, tobacco use Enzymes trended and negative 3. Serial EKGs monitored, last one on 03/23 shows sinus bradycardia without ischemic changes. Patient underwent a nuclear stress test which is negative Patient has been coughing and feeling short of breath. There is expiratory wheezing on exam. I believe the chest pain could be secondary to COPD exacerbation or [place] skeletal after cough and vomiting. Continue current treatment with aspirin, beta todd, nitroglycerin and Percocet when necessary for pain (2) CANDIDO (acute kidney injury) ICD Code: N17.9 Status: Resolved Plan: Creatinine on admission 1.30, likely due to dehydration secondary to vomiting. Creatinine much improved down to 0.55 after IV fluid administration. (3) COPD with exacerbation ICD Code: J44.1 Status: Acute Plan: She was complaining of shortness of breath, persistent and worsening cough along with expiratory wheezing bilaterally on exam. The patient was started on IVs for Medrol and IV Levaquin for a moderate COPD exacerbation. Patient having episodes of oxygen saturation in the low 80s. Patient has chronic respiratory failure and is currently on home oxygen 03/25 shows of breath improving, cough much improved. I will decrease the dose of IV Solu Medrol to every 12 hours. Continue supplemental oxygen to keep oxygen saturation more than 92%, continue bronchodilator therapy. (4) Chronic respiratory failure ICD Code: J96.10 Status: Chronic Plan: On home oxygen. Continue to keep on oxygen saturation more than 92%. Assessment and Plan GI prophylaxis: We'll start the patient on PPI since she's having some abdominal discomfort. DVT prophylaxis: SCDs, will add Lovenox subcutaneously Discharge Planning Discharge pending clinical improvement. Possible discharge in a.m. Problem Qualifiers (1) Chest pain: Qualified Code: R07.9 - Chest pain, unspecified type (2) Chronic respiratory failure: Qualified Code: J96.11 - Chronic respiratory failure with hypoxia Martir Clark MD Mar 25, 2017 12:35
[2017-03-25] MEDS: LEVOFLOXACIN 750 MG PREMIX INJ 150 ML IV SCH (13:30)
[2017-03-25] MEDS: SODIUM CHLORIDE 0.9% FLUSH 10 ML FLUSH IV FLUSH SCH ×2 (13:34→20:52)
[2017-03-25] MEDS: INSULIN ASPART SUPPLEMENTAL SCALE SQ SCH ×2 (16:00→20:55)
[2017-03-25] MEDS: CITALOPRAM HYDROBROMIDE 20 MG TAB PO SCH (20:54)
[2017-03-25] MEDS: PREGABALIN 75 MG CAP PO SCH (20:54)
[2017-03-25] MEDS: clonazePAM 1 MG TAB PO SCH (20:54)
[2017-03-26 00:20] VITALS: BP 121/66; PULSE 55; RESP 18; TEMP 97.6; O2SAT 95
[2017-03-26] MEDS: oxyCODONE/ACETAMINOPHEN 10 MG/325 MG TAB PO PRN ×2 (04:59→14:37)
[2017-03-26 05:06] VITALS: BP 121/68; PULSE 49; RESP 14; TEMP 97; O2SAT 90
[2017-03-26] MEDS: NS + KCL 20 MEQ INJ 1,000 ML IV SCH (06:32)
[2017-03-26] MEDS: INSULIN ASPART SUPPLEMENTAL SCALE SQ SCH (07:00)
[2017-03-26 08:00] VITALS: BP 125/67; PULSE 44; RESP 20; TEMP 97.5; O2SAT 96
[2017-03-26] MEDS: BUDESONIDE-FORMOTEROL 80/4.5 MCG INHALER INH SCH (08:50)
[2017-03-26] MEDS: SODIUM CHLORIDE 0.9% FLUSH 10 ML FLUSH IV FLUSH SCH (08:50)
[2017-03-26] MEDS: methylPREDNISolone SOD SUCC 40 MG/1 ML VIAL IV PUSH SCH (08:50)
[2017-03-26] MEDS: predniSONE 5 MG TAB PO SCH (08:51)
[2017-03-26] MEDS: CLOPIDOGREL 75 MG TAB PO SCH (08:51)
[2017-03-26] MEDS: ASPIRIN 325 MG TAB PO SCH (08:51)
[2017-03-26 12:00] VITALS: BP 137/74; PULSE 49; RESP 20; TEMP 97.2; O2SAT 97
[2017-03-26] MEDS ORDERED: LEVO500T8 PO (12:43)
[2017-03-26] MEDS ORDERED: METO25TA3 PO (12:43)
[2017-03-26] MEDS ORDERED: PLAV75TA29 PO (12:43)
[2017-03-26] MEDS ORDERED: PRED20 PO (12:43)
[2017-03-26] MEDS ORDERED: ADVA100A INH (12:43)
--- NOTE | 2017-03-26 12:44 | HHI.DCPOC ---
Discharge Care Plan Diagnosis: (1) Chronic obstructive pulmonary disease (2) Chest pain (3) Chronic respiratory failure (4) CANDIDO (acute kidney injury) (5) COPD with exacerbation (6) Chest pain, musculoskeletal Goals to Promote Your Health * To prevent worsening of your condition and complications * To maintain your health at the optimal level Directions to Meet Your Goals Take your medications as prescribed Follow your dietary instruction Follow activity as directed Keep your appointments as scheduled Take your immunizations and boosters as scheduled If your symptoms worsen call your PCP, if no PCP go to Urgent Care Center or Emergency Room Smoking is Dangerous to Your Health. Avoid second hand smoke Call the 24-hour hour crisis hotline for domestic abuse at Martir Clark MD Mar 26, 2017 12:44
--- NOTE | 2017-03-26 12:47 | HHI.DS ---
Discharge Summary Admission Date Mar 23, 2017 at 15:51 Discharge Date: Mar 26, 2017 Admitting Diagnosis Chest pain (1) Chest pain ICD Code: R07.9 Diagnosis: Principal (2) CANDIDO (acute kidney injury) ICD Code: N17.9 Diagnosis: Principal (3) COPD with exacerbation ICD Code: J44.1 Diagnosis: Principal (4) Chronic respiratory failure ICD Code: J96.10 Diagnosis: Principal Procedures None Brief History - From Admission Written by Blaise Noel, acting as scribe for Dr. Tloedo on 03/23/17 at 17:33. 62-year-old female with known history of chronic respiratory failure, chronic obstructive pulmonary disease, hypertension, restless leg syndrome, anxiety who presented to the hospital because of nausea, vomiting, diaphoresis, chest pain. Patient states that her symptoms started yesterday where she just didn't feel right, had general malaise. She started having nausea, vomiting and diaphoresis. She woke up this morning and she had pain all over and then started developing pain in the right side of her chest. She took a nitroglycerin and the pain went away. The patient got up and exerts herself she started developing pain in the middle part of her chest radiating into her back and left arm. She had some nausea but no vomiting, she developed diaphoresis. She was short of breath and the pain was worsened with deep breath. He did have some lightheadedness and dizziness when standing. Because reasons her daughter brought her to the hospital for evaluation. Patient workup done emergency department and the ER physician recommended patient be observed in the chest pain center. At the time evaluating the patient she is resting comfortably in bed. She is without pain at this time. I discussed with her the plan for observation and stress testing and she is in agreement. CBC/BMP: 03/25/17 0948 03/25/17 0948 Significant Findings Laboratory Tests Test 03/23/17 03/23/17 03/23/17 03/24/17 13:25 16:28 19:50 06:07 Hemoglobin 10.9 GM/DL (11.6-15.3) Hematocrit 34.9 % (35.0-46.0) Mean Corpuscular Hemoglobin 26.1 PG (27.0-34.0) Mean Corpuscular Hemoglobin 31.3 % Concent (32.0-36.0) Red Cell Distribution Width 18.0 % (11.6-17.2) Monocytes (%) (Auto) 10.9 % (0.0-8.0) Monocytes # (Auto) 1.0 TH/MM3 (0-0.9) Blood Urea Nitrogen 44 MG/DL (7-18) 28 MG/DL (7-18) Creatinine 1.30 MG/DL (0.50-1.00) Estimat Glomerular Filtration 42 ML/MIN (>89) Rate Troponin I LESS THAN 0.02 LESS THAN 0.02 LESS THAN 0.02 NG/ML NG/ML NG/ML (0.02-0.05) (0.02-0.05) (0.02-0.05) Chloride Level 113 MEQ/L (98-107) Calcium Level 8.0 MG/DL (8.5-10.1) Test 03/25/17 09:48 Red Blood Count 3.92 MIL/MM3 (4.00-5.30) Hemoglobin 10.1 GM/DL (11.6-15.3) Hematocrit 33.4 % (35.0-46.0) Mean Corpuscular Hemoglobin 25.8 PG (27.0-34.0) Mean Corpuscular Hemoglobin 30.3 % Concent (32.0-36.0) Red Cell Distribution Width 18.4 % (11.6-17.2) Neutrophils (%) (Auto) 82.3 % (16.0-70.0) Chloride Level 109 MEQ/L (98-107) Random Glucose 246 MG/DL (74-106) Total Bilirubin 0.1 MG/DL (0.2-1.0) Aspartate Amino Transf 12 U/L (15-37) (AST/SGOT) Alkaline Phosphatase 43 U/L (45-117) Total Protein 6.0 GM/DL (6.4-8.2) Albumin 2.8 GM/DL (3.4-5.0) Imaging Last Impressions Myocardial Perfusion Scan Nuc Med 03/24/17 0000 Signed Impressions: Service Date/Time: Friday, March 24, 2017 09:45 - CONCLUSION: 1. No reversibility to suggest ischemia. 2. Normal wall motion with ejection fraction 52%%. RISK CATEGORY: Low (<1%% Annual Mortality Rate) Familia Hewitt MD Chest X-Ray 03/23/17 1338 Signed Impressions: Service Date/Time: March 14:11 - CONCLUSION: 1. No acute findings. Minimal basal scarring. Remote granulomas disease. Previous CABG. Familia Hewitt MD PE at Discharge GENERAL: Well-developed, well-nourished, in no acute distress. alert and orientated HEENT: Head is normocephalic without any lesions or masses noted. Facial features are symmetric. Eyes: Pupils equal round reactive to light. Extraocular muscles are intact. Conjunctivae were clear. Oropharyngeal: Pharynx without any erythema edema. Tongue is midline without deviation. Buccal mucosa is moist without any masses or lesions NECK: Supple without any masses. Trachea midline no deviation. No JVD, no bruits are appreciated CARDIAC: Regular rhythm, regular rate. S1/S2 are heard. No murmurs gallops or rubs. Reproducible palpable tenderness noted along the mid sternum LUNGS: There is decreased air entry bilaterally with diffuse end expiratory wheezing. No rhonchi or crackles auscultated. ABDOMEN: Soft, nontender. Nondistended. Bowel sounds heard in all 4 quadrants. No organomegaly or masses. Negative rebound, negative guarding EXTREMITIES: No edema, pulses are equal bilaterally. No cyanosis or clubbing NEUROLOGY: Mood and affect appear appropriate. Cranial nerves II through XII grossly intact. Muscle strength 5/5 in upper and lower extremities bilaterally. Deep tendon reflexes are 2+ in upper and lower extremities bilaterally. Pt update on day of discharge Denies cp. SOB back to baseline. Denies fevers and chills. Stable vital signs. Pt Condition on Discharge: Stable Discharge Disposition: Discharge Home Discharge Time: > 30 minutes Discharge Instructions DIET: Follow Instructions for: Heart Healthy Diet Activities you can perform: Regular-No Restrictions Activities to Avoid: Strenuous Activity Follow up Referrals: PCP Follow-up - 1 Week New Medications: Levofloxacin (Levofloxacin) 500 Mg Tablet 500 MG PO DAILY Infection #5 Ref 0 TAB Prednisone (Prednisone) 20 Mg Tab 20 MG PO DIRECTED 40 MG twice a day x 3 days, then 20 MG daily x 3 days, then 10 MG daily x 3 days Inflammation #11 Ref 0 TAB Continued Medications: Albuterol 8.5 GM Inh (Proair Hfa 8.5 GM Inh) 90 Mcg/Act Aer 2 PUFF INH Q4-6H 108 mcg/actuation PRN SHORTNESS OF BREATH #1 Ref 0 INHALER Citalopram (Citalopram) 20 Mg Tab 20 MG PO HS Control Depression #30 Ref 0 TAB Clonazepam (Clonazepam) 2 Mg Tab 5 MG PO HS #60 Ref 0 TAB Clopidogrel (Plavix) 75 Mg Tab 75 MG PO DAILY Blood Clot Prevention #30 Ref 0 TAB (This prescription has been renewed) Fluticasone-Salmeterol Inh (Advair Diskus Inh) 100-50 Mcg/Blist Aer 1 PUFF INH BID Rinse mouth after use. Asthma Management #1 Ref 0 INHALER (This prescription has been renewed) Metoprolol Tartrate (Metoprolol Tartrate) 25 Mg Tab 25 MG PO BID Blood Pressure Management #60 Ref 0 TAB (This prescription has been renewed) Nitroglycerin SL (Nitroglycerin SL) 0.4 Mg Subl 0.4 MG SL DIRECTED ONE TABLET UNDER THE TONGUE NEEDED FOR CHEST PAIN, MAY REPEAT EVERY FIVE MINUTES FOR A TOTAL OF 3 DOSES OR CALL 911 IF NO RELIEF PRN CHEST PAIN #100 Ref 0 TAB.SL Oxycodone-Acetaminophen (Percocet) 10-325 mg Tab 1 TAB PO Q6H PRN PAIN Ref 0 TAB Prednisone (Prednisone) 5 Mg Tab 5 MG PO DAILY Ref 0 TAB Pregabalin (Lyrica) 75 Mg Cap 75 MG PO HS #30 Ref 0 CAP Martir Clark MD Mar 26, 2017 12:47
[2017-03-26 13:50] LABS: HEMOGLOBIN A1a 0.9 %; HEMOGLOBIN A1b 2.1 %; HEMOGLOBIN Ao 81.9 %; HEMOGLOBIN LA1C 3.2 %; HEMOGLOBIN P3 4.4 %
== END 2017-03-26 15:16 | disposition home or self-care (01) | DRG 191 ==
LOC: PHED 13:22 → PHEDA 15:51 → PH3A 20:26 → OBSVTOIN 03-25 10:33
PROVIDERS: ADMIT Hospitalist; ATTEND Hospitalist
DX: J44.1 Chronic obstructive pulmonary disease with (acute) exacerbation (principal); J96.11 Chronic respiratory failure with hypoxia; N17.9 Acute kidney failure, unspecified; G25.81 Restless legs syndrome; I25.10 Atherosclerotic heart disease of native coronary artery without angina pectoris; G89.4 Chronic pain syndrome; F32.9 Major depressive disorder, single episode, unspecified; I10 Essential (primary) hypertension; F17.210 Nicotine dependence, cigarettes, uncomplicated; R73.9 Hyperglycemia, unspecified; D64.9 Anemia, unspecified; F41.9 Anxiety disorder, unspecified; M19.90 Unspecified osteoarthritis, unspecified site; E86.0 Dehydration; R00.1 Bradycardia, unspecified; Z95.1 Presence of aortocoronary bypass graft; Z99.81 Dependence on supplemental oxygen
CPT/HCPCS: 71010; 78452; 80048; 80053; 82550; 82948; 83036; 84484; 85025; 93005; 93017; A9502; J1956; J2270; J2785; J2920; J2930; J3480; J7040; J7512

== ENCOUNTER 2017-04-19 13:01 | Emergency (ER) | payer MEDICARE, MEDICAID ==
[~2017-04-19 13:01] MED LIST changes: +LEVO500T8 PO; +PRED20 PO
[2017-04-19 13:11] VITALS: BP 110/61; PULSE 49; RESP 24; TEMP 98.1; O2SAT 89
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
[2017-04-19] MEDS: RESP: ALBUTEROL 2.5 MG/IPRATROPIUM 0.5 MG NEB (SCH) INH ×4 (13:29→14:12)
[2017-04-19 13:30] VITALS: RESP 18; O2SAT 100; O2SAT 97
[2017-04-19] MEDS ORDERED: SODIUM CHLORIDE 0.9% FLUSH 10 ML FLUSH IVF PRN (13:30)
[2017-04-19] MEDS ORDERED: methylPREDNISolone SOD SUCC 125 MG/2 ML VIAL IVP ONE (13:30)
[2017-04-19 13:55] LABS: CHLORIDE 107 MEQ/L (98-107); POTASSIUM 4.1 MEQ/L (3.5-5.1); SODIUM (NA) 143 MEQ/L (136-145)
[2017-04-19 13:57] LABS: BASOPHIL # 0.2 TH/MM3 (0-0.2); BASOPHIL % 1.5 % (0.0-2.0); EOSINOPHIL # 0.1 TH/MM3 (0-0.4); EOSINOPHIL % 0.9 % (0.0-4.0); HEMATOCRIT 34.5 % (35.0-46.0); LYMPH % 14.9 % (9.0-44.0); LYMPHOCYTE # 1.6 TH/MM3 (1.0-4.8); MEAN CELL VOLUME 82.2 FL (80.0-100.0); MEAN CORPUSCULAR HEMOGLOBIN 25.2 PG (27.0-34.0); MEAN CORPUSCULAR HGB CONC 30.7 % (32.0-36.0); MONO % 6.8 % (0.0-8.0); NEUT % 75.9 % (16.0-70.0); PLATELET COUNT 406 TH/MM3 (150-450); RED CELL DISTRIBUTION WIDTH 18.3 % (11.6-17.2); WHITE BLOOD COUNT 10.6 TH/MM3 (4.0-11.0)
[2017-04-19 13:59] LABS: ANION GAP 5 MEQ/L (5-15); APTT (PATIENT) 24.2 SEC (24.3-30.1); BICARBONATE 31.2 MEQ/L (21.0-32.0); BLOOD UREA NITROGEN 18 MG/DL (7-18); PROTHROMBIN TIME - PATIENT 10.7 SEC (9.8-11.6)
--- NOTE | 2017-04-19 14:00 | RADRPT ---
EXAM DATE/TIME: 04/19/2017 13:45 [facility] COMPARISON: CHEST SINGLE AP, March 23, 2017, 14:11. INDICATIONS : Short of breath, chest pain. MEDICAL HISTORY : Chronic obstructive pulmonary disease. Hypertension SURGICAL HISTORY : CABG. Splenectomy. ENCOUNTER: Initial ACUITY: 3 days PAIN SCORE: 2/10 LOCATION: Bilateral chest FINDINGS: Lungs are hyperexpanded with mild interstitial prominence similar to prior exam. Calcified granuloma are again noted in the lungs bilaterally. There are also calcified hilar nodes. No significant pleura l or parenchymal opacities. Median sternotomy wires are again noted. Cardiomediastinal contours are s table. Remainder of the exam is unchanged. CONCLUSION: 1. No acute abnormality or significant interval change. Cody Lamb MD on April 19, 2017 at 13:57 Board Certified Radiologist. This report was verified electronically.
[2017-04-19 14:02] LABS: ALT (GPT) 20 U/L (10-53); AST (GOT) 19 U/L (15-37); GLOMERULAR FILTRATION RATE 73 ML/MIN (>89)
[2017-04-19 14:03] LABS: TOTAL BILIRUBIN ADULT 0.3 MG/DL (0.2-1.0)
[2017-04-19 14:04] LABS: HEMO FLAGS DIFF FINAL
[2017-04-19 14:05] VITALS: BP 108/60; PULSE 54; RESP 18; O2SAT 98
[2017-04-19 14:05] LABS: ALKALINE PHOSPHATASE 57 U/L (45-117)
[2017-04-19 14:26] LABS: CREATINE KINASE 35 U/L (26-192)
[2017-04-19] MEDS ORDERED: PRED50 PO (15:00)
[2017-04-19] MEDS ORDERED: ADVA100A INH (15:00)
[2017-04-19] MEDS ORDERED: ZITHTAB PO (15:00)
[2017-04-19] MEDS ORDERED: ALBUAER3 INH (15:00)
[2017-04-19 15:05] VITALS: BP 110/63; PULSE 50; RESP 18; O2SAT 98
--- NOTE | 2017-04-20 19:11 | EKG ---
Date Performed: 04/19/2017 Time Performed: 13:27:34 PTAGE: 62 years EKG: SINUS BRADYCARDIA LEFT VENTRICULAR HYPERTROPHY AND ST-T CHANGE ABNORMAL ECG PREVIOUS TRACING : 03/23/2017 20.16 Compared to prior tracing no significant change DOCTOR: Bre Magana Interpretating Date/Time 04/20/2017 19:08:44
== END 2017-04-19 15:28 | disposition home or self-care (01) ==
LOC: PHED 13:01
DX: J44.9 Chronic obstructive pulmonary disease, unspecified (principal); J45.909 Unspecified asthma, uncomplicated; I10 Essential (primary) hypertension; F17.210 Nicotine dependence, cigarettes, uncomplicated
CPT/HCPCS: 71010; 80053; 82550; 83880; 84484; 85025; 85610; 85730; 87040; 93005; 94640; 94664; 96374; 99285; J2930

== ENCOUNTER 2017-05-25 21:06 | Inpatient (IN) | payer MEDICARE, MEDICAID ==
[~2017-05-25] VITALS: Ht 165.1 cm; Wt 48.5 kg
[2017-05-25 21:00] VITALS: O2SAT 97
[~2017-05-25 21:06] MED LIST changes: -PRED20 PO; +PRED50 PO; +ZITHTAB PO
[2017-05-25 21:13] VITALS: BP 138/79; PULSE 51; RESP 20; TEMP 97.4; O2SAT 98
[2017-05-25 21:25] VITALS: O2SAT 100
[2017-05-25] MEDS ORDERED: SODIUM CHLORIDE 0.9% FLUSH 10 ML FLUSH IVF PRN ×2 (21:30→23:45)
[2017-05-25] MEDS: RESP: ALBUTEROL 2.5 MG/IPRATROPIUM 0.5 MG NEB (SCH) INH ×2 (21:39→21:40)
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
[2017-05-25 21:50] LABS: BLOOD, URINE NEG (NEG); GLUCOSE,URINE NEG (NEG); KETONE, URINE NEG (NEG); NITRITE,URINE NEG (NEG); PH, URINE 5.5 (5.0-8.5)
[2017-05-25 21:55] LABS: AUTOMATED NEUTROPHIL # 7.3 TH/MM3 (1.8-7.7); BASOPHIL # 0.1 TH/MM3 (0-0.2); BASOPHIL % 0.7 % (0.0-2.0); EOSINOPHIL # 0.2 TH/MM3 (0-0.4); EOSINOPHIL % 1.3 % (0.0-4.0); HEMATOCRIT 29.3 % (35.0-46.0); LYMPH % 24.3 % (9.0-44.0); LYMPHOCYTE # 2.8 TH/MM3 (1.0-4.8); MEAN CELL VOLUME 83.8 FL (80.0-100.0); MEAN CORPUSCULAR HEMOGLOBIN 25.1 PG (27.0-34.0); MONO % 10.7 % (0.0-8.0); PLATELET COUNT 410 TH/MM3 (150-450); RED BLOOD COUNT 3.49 MIL/MM3 (4.00-5.30); RED CELL DISTRIBUTION WIDTH 19.4 % (11.6-17.2); WHITE BLOOD COUNT 11.6 TH/MM3 (4.0-11.0)
[2017-05-25 21:57] LABS: CHLORIDE 106 MEQ/L (98-107); HEMO FLAGS DIFF FINAL; POTASSIUM 3.2 MEQ/L (3.5-5.1); SODIUM (NA) 142 MEQ/L (136-145)
[2017-05-25 22:01] LABS: ANION GAP 5 MEQ/L (5-15); BICARBONATE 30.9 MEQ/L (21.0-32.0); BLOOD UREA NITROGEN 17 MG/DL (7-18); MAGNESIUM 1.7 MG/DL (1.5-2.5)
[2017-05-25 22:02] LABS: APTT (PATIENT) 22.7 SEC (24.3-30.1); PROTHROMBIN TIME - PATIENT 10.7 SEC (9.8-11.6)
[2017-05-25 22:03] LABS: COMMENT (UR) CULT NOT INDICATED; CULTURE IF INDICATED CULT NOT INDICATED; SQUAMOUS EPITHELIAL CELL URINE 0-5 /hpf (0-5); URINE COLOR STRAW (YELLW/STRAW); WBC, URINE 0-2 /hpf (0-5)
[2017-05-25 22:04] LABS: ALT (GPT) 22 U/L (10-53); AST (GOT) 19 U/L (15-37); GLOMERULAR FILTRATION RATE 77 ML/MIN (>89)
[2017-05-25 22:05] LABS: TOTAL BILIRUBIN ADULT 0.3 MG/DL (0.2-1.0)
[2017-05-25 22:06] LABS: ALKALINE PHOSPHATASE 66 U/L (45-117)
[2017-05-25 22:09] LABS: CREATINE KINASE 43 U/L (26-192)
[2017-05-25 22:22] LABS: BLOOD GAS BASE EXCESS 7.3 mmol/L (-2-2); BLOOD GAS HCO3 32 mmol/L (22-26); BLOOD GAS METHEMOGLOBIN 0.7 % (0-2); BLOOD GAS O2 HGB SATURATION 91 % (90-100); BLOOD GAS OXYGEN CONTENT 11.3 Vol % (12.0-20.0); BLOOD GAS PCO2 55 mmHG (38-42); BLOOD GAS PO2 80 mmHG (61-120); BLOOD GAS TOTAL HGB 8.7 G/DL (12.0-16.0); TEMP CORR TO 98.6
[2017-05-25 22:23] LABS: CRITICAL VALUE YES; DRAW SITE RT BRACHIAL; FIO2 40 %; NUMBER OF ARTERIAL PUNCTURES 1; OXYGEN DEVICE BIPAP; STAT YES; ULNAR PULSE Y; VENT SETTINGS IPAP10/EPAP5
[2017-05-25 22:30] VITALS: BP 130/74; PULSE 55; O2SAT 100
[2017-05-25 22:45] VITALS: O2SAT 93
[2017-05-25] MEDS ORDERED: POTASSIUM CHLORIDE 20 MEQ CONTROLLED RELEASE TAB PO ONE ×2 (22:45→23:45)
[2017-05-25 23:00] VITALS: BP 118/74; PULSE 58; RESP 18; O2SAT 93
--- NOTE | 2017-05-25 23:00 | RADRPT ---
EXAM DATE/TIME: 05/25/2017 21:32 [facility] COMPARISON: CHEST SINGLE AP, April 19, 2017, 13:45. INDICATIONS : Short of breath. MEDICAL HISTORY : Hypertension. SURGICAL HISTORY : CABG. Splenectomy. ENCOUNTER: Initial ACUITY: 2 days PAIN SCORE: 0/10 LOCATION: Bilateral chest FINDINGS: A single view of the chest demonstrates the lungs to be symmetrically aerated without evidence of mas s, infiltrate or effusion. The cardiomediastinal contours are unremarkable. Osseous structures are intact. Clips overlie left upper abdomen consistent with splenectomy CONCLUSION: Normal examination. Extensive hilar calcifications. Clips suggest median sternotomy Jose Martin Kitchen MD on May 25, 2017 at 22:58 Board Certified Radiologist. This report was verified electronically.
[2017-05-25] MEDS ORDERED: IOHEXOL 350 MG/ML 10 ML VIAL (for RAD DIAG) IV PUSH ONE (23:45)
[2017-05-25] MEDS ORDERED: RESP: ALBUTEROL 2.5 MG/IPRATROPIUM 0.5 MG NEB (PRN) NEB (23:45)
[2017-05-25] MEDS ORDERED: SODIUM CHLORIDE 0.9% FLUSH 10 ML FLUSH IV FLUSH PRN (23:45)
[2017-05-25] MEDS ORDERED: NALOXONE HCL 0.4 MG/ML AMP IV PRN (23:45)
[2017-05-26] VITALS (8 sets, daily range): BP systolic 116–137; BP diastolic 68–82; PULSE 56–117; RESP 16–22; TEMP 96–97.3; O2SAT 89–95
[2017-05-26] MEDS ORDERED: IOHEXOL 350 MG/ML 10 ML VIAL (for RAD DIAG) IVCONTRAST ONE (00:07)
[2017-05-26] MEDS: methylPREDNISolone SOD SUCC 40 MG/1 ML VIAL IV PUSH SCH ×4 (00:31→17:45)
--- NOTE | 2017-05-26 00:34 | RADRPT ---
EXAM DATE/TIME: 05/26/2017 00:07 [facility] COMPARISON: No previous studies available for comparison. INDICATIONS : Shortness of breath for 1 week IV CONTRAST: 75 cc Omnipaque 350 (iohexol) IV RADIATION DOSE: 5.50 CTDIvol (mGy) MEDICAL HISTORY : Chronic obstructive pulmonary disease. Hepatitis C. Hypertension. SURGICAL HISTORY : Splenectomy. CABG ENCOUNTER: Initial ACUITY: 1 week PAIN SCALE: 8/10 LOCATION: chest TECHNIQUE: Volumetric scanning of the chest was performed using a pulmonary embolism protocol MIP images were re constructed. Using automated exposure control and adjustment of the mA and/or kV according to patien t size, radiation dose was kept as low as reasonably achievable to obtain optimal diagnostic quality images. DICOM format image data is available electronically for review and comparison. Follow-up recommendations for detected pulmonary nodules are based at a minimum on nodule size and pa tient risk factors according to Fleischner Society Guidelines. FINDINGS: PULMONARY ARTERIES: In the left lower lobe there is a density change in the anterior segment of the left lower lobe pulmo nary artery suggesting a pulmonary embolism. LUNGS: There is no consolidation or pneumothorax . No concerning pulmonary nodule is visualized. There is d iffuse interstitial lung disease present particularly in the periphery and apices with bullous diseas e PLEURAE: There is no pleural thickening or pleural effusion. MEDIASTINUM: There is good visualization of the great vessels of the middle mediastinum. No evidence of mediastin al or hilar adenopathy/mass. MUSCULOSKELETAL: Within normal limits for patient age. MISCELLANEOUS: The visualized upper abdominal organs demonstrate no acute abnormality. CONCLUSION: A filling defect in the anterior segment left lower lobe pulmonary artery suspicious for pulmonary em bolism. The rest of the lower lobe pulmonary arteries are unremarkable. Jose Martin Kitchen MD on May 26, 2017 at 0:29 Board Certified Radiologist. This report was verified electronically.
[2017-05-26] MEDS ORDERED: PREGABALIN 75 MG CAP PO ONE (00:45)
[2017-05-26] MEDS ORDERED: oxyCODONE/ACETAMINOPHEN 5 MG/325 MG TAB PO ONE (00:45)
[2017-05-26] MEDS ORDERED: HEPARIN-D5W 25,000 U/250 ML 250 ML IV PRN (01:11)
[2017-05-26] MEDS ORDERED: HEPARIN SODIUM - IV 10,000 UNITS/10 ML VIAL IV ONE (01:15)
[2017-05-26] MEDS: RESP: ALBUTEROL 2.5 MG/IPRATROPIUM 0.5 MG NEB (SCH) NEB ×5 (03:20→20:11)
[2017-05-26] MEDS ORDERED: POTASSIUM CHLORIDE 25 MEQ EFFERVESCENT TAB PO ONE (03:30)
[2017-05-26 07:01] LABS: AUTOMATED NEUTROPHIL # 8.2 TH/MM3 (1.8-7.7); BASOPHIL % 0.2 % (0.0-2.0); EOSINOPHIL % 0.1 % (0.0-4.0); HEMATOCRIT 28.6 % (35.0-46.0); LYMPH % 5.1 % (9.0-44.0); LYMPHOCYTE # 0.5 TH/MM3 (1.0-4.8); MEAN CELL VOLUME 80.6 FL (80.0-100.0); MEAN CORPUSCULAR HEMOGLOBIN 24.9 PG (27.0-34.0); MEAN CORPUSCULAR HGB CONC 30.8 % (32.0-36.0); MONO % 0.6 % (0.0-8.0); PLATELET COUNT 412 TH/MM3 (150-450); RED BLOOD COUNT 3.55 MIL/MM3 (4.00-5.30); RED CELL DISTRIBUTION WIDTH 19.2 % (11.6-17.2); WHITE BLOOD COUNT 8.9 TH/MM3 (4.0-11.0)
[2017-05-26 07:09] LABS: HEMO FLAGS DIFF FINAL
[2017-05-26 07:46] LABS: BICARBONATE 29.4 MEQ/L (21.0-32.0); POTASSIUM 4.2 MEQ/L (3.5-5.1)
[2017-05-26 08:57] LABS: APTT (PATIENT) 49.5 SEC (24.3-30.1)
[2017-05-26] MEDS ORDERED: SODIUM CHLORIDE 0.9% FLUSH 10 ML FLUSH IV FLUSH SCH (09:00)
[2017-05-26] MEDS: SODIUM CHLORIDE 0.9% FLUSH 10 ML FLUSH IV FLUSH SCH ×2 (09:00→20:31)
[2017-05-26] MEDS: PANTOPRAZOLE SOD 40 MG DELAYED RELEASE TAB PO SCH (09:19)
[2017-05-26] MEDS ORDERED: LACTULOSE SYRUP 20 GM/30 ML CUP PO PRN (10:45)
[2017-05-26] MEDS ORDERED: BISACODYL 10 MG SUPP RECTAL PRN (10:45)
[2017-05-26] MEDS ORDERED: SENNOSIDES 8.6 MG TAB PO PRN (10:45)
[2017-05-26] MEDS ORDERED: MAGNESIUM HYDROXIDE SUSP 30 ML CUP PO PRN (10:45)
[2017-05-26] MEDS ORDERED: NITROGLYCERIN 0.4 MG SL 25 TABS/BTL SL PRN (10:45)
[2017-05-26] MEDS ORDERED: ONDANSETRON HCL 4 MG/2 ML VIAL IVP PRN (10:45)
--- NOTE | 2017-05-26 11:54 | EKG ---
Date Performed: 05/25/2017 Time Performed: 21:37:45 PTAGE: 62 years EKG: Supraventricular rhythm, etiology indeterminate due to baseline artifact BORDERLINE ECG PREVIOUS TRACING : 04/19/2017 13.27 DOCTOR: James Perez Interpretating Date/Time 05/26/2017 11:48:07
[2017-05-26] MEDS: oxyCODONE/ACETAMINOPHEN 10 MG/325 MG TAB PO PRN ×2 (12:43→17:52)
[2017-05-26 14:21] LABS: APTT (PATIENT) 43.8 SEC (24.3-30.1)
--- NOTE | 2017-05-26 15:31 | HHI.HP ---
[facility] FREDRICK Steve Admission Diagnosis exacerbation copd, chf Diagnoses: Chief Complaint: Shortness of breath Travel History International Travel<30 Days: No Contact w/Intl Traveler <30 Da: No Traveled to Known Affected Are: No History of Present Illness This is a 63-year-old female with a history of COPD with ongoing tobacco use, chronic respiratory failure on oxygen, coronary artery disease status post CABG , CVA, hypertension, hepatitis C status post treatment, anxiety and depression. She presents to the emergency department complaining of worsening dyspnea associated with wheezing for the past week. She describes orthopnea, PND and dyspnea on exertion despite oxygen and nebulizations. Denies fever, chills and cough. En route to the hospital as she required BiPAP and 50 mg IV Lasix. She also complained of right sided discomfort that lasted for half an hour scale of 8 out of 10 while she was lying down. No radiation of pain. CTA shows left- sided pulmonary embolism. Patient denies history of DVT, PE, leg pain, swelling and recent immobilization. She has been started on IV heparin drip which she is tolerating. No bleeding. Discussed with patient and daughter, pros and cons of anticoagulation as well as different types. I preferred novel agents. Patient and daughter agreed to proceed with anticoagulation. Discussed with patient's medical record coder, recommended to discontinue Plavix as patient never had cardiac stent. Left message with patient's PCP. All other systems reviewed negative Review of Systems Except as stated in HPI: all other systems reviewed are Neg Past Family Social History Past Medical History As previously mentioned Past Surgical History Orthopedic surgery, CABG and splenectomy Reported Medications Advair Diskus Inh (Fluticasone-Salmeterol Inh) 100-50 Mcg/Blist Aer 1 Puff INH BID Rinse mouth after use. Proair Hfa 8.5 GM Inh (Albuterol Sulfate) 90 Mcg/Act Aer 2 Puff INH Q4-6H PRN 108 mcg/actuation Plavix (Clopidogrel Bisulfate) 75 Mg Tab 75 Mg PO DAILY Metoprolol Tartrate 25 Mg Tab 25 Mg PO BID Reported Lyrica (Pregabalin) 75 Mg Cap 75 Mg PO HS Nitroglycerin SL (Nitroglycerin) 0.4 Mg Subl 0.4 Mg SL DIRECTED PRN ONE TABLET UNDER THE TONGUE NEEDED FOR CHEST PAIN, MAY REPEAT EVERY FIVE MINUTES FOR A TOTAL OF 3 DOSES OR CALL 911 IF NO RELIEF Prednisone 5 Mg Tab 5 Mg PO DAILY Percocet (Oxycodone-Acetaminophen) 10-325 mg Tab 1 Tab PO Q6H PRN Clonazepam 2 Mg Tab 5 Mg PO HS Citalopram (Citalopram Hydrobromide) 20 Mg Tab 20 Mg PO HS Allergies: Coded Allergies: acetaminophen (Unverified Allergy, Intermediate, ITCHING, NAUSEA, 05/16/17) hydrocodone (Unverified Allergy, Intermediate, ITCHING, NAUSEA, 05/16/17) morphine (Unverified Allergy, Intermediate, ITCHING, NAUSEA, 05/16/17) Family History Breast and bone cancer Social History Continues to smoke 5 cigarettes a day. Doesn't drink Physical Exam Vital Signs Vital Signs Date Time Temp Pulse Resp B/P (MAP) Pulse Ox O2 Delivery O2 Flow Rate FiO2 05/26/17 12:21 97.2 67 19 118/71 (87) 93 05/26/17 10:06 93 Nasal Cannula 2.00 05/26/17 08:19 97.0 56 19 117/70 (86) 94 05/26/17 02:55 96.0 57 16 137/82 (100) 95 05/26/17 00:53 56 18 116/68 (84) 93 Nasal Cannula 2.00 05/25/17 23:00 93 Nasal Cannula 2.00 05/25/17 23:00 58 18 118/74 (89) 93 Nasal Cannula 2.00 05/25/17 22:45 93 Nasal Cannula 2.00 05/25/17 22:30 55 130/74 (92) 100 CPAP 40 05/25/17 21:25 100 CPAP 40 05/25/17 21:25 100 05/25/17 21:13 97.4 51 20 138/79 (98) 98 05/25/17 21:00 97 40 Physical Exam GENERAL: This is a well-nourished, well-developed patient, in no apparent distress on 2 L nasal cannula. SKIN: Ecchymosis bilateral lower extremities HEAD: Atraumatic. Normocephalic. No temporal or scalp tenderness. EYES: Pupils equal round and reactive. Extraocular motions intact. No scleral icterus. No injection or drainage. ENT: Nose without bleeding, purulent drainage or septal hematoma. Throat without erythema, tonsillar hypertrophy or exudate. Uvula midline. Airway patent. NECK: Trachea midline. No JVD or lymphadenopathy. Supple, nontender, no meningeal signs. CARDIOVASCULAR: Regular rate and rhythm without murmurs, gallops, or rubs. RESPIRATORY: Clear to auscultation. Decreased breath sounds right lung. No wheezes, rales, or rhonchi. GASTROINTESTINAL: Abdomen soft, non-tender, nondistended. No guarding. MUSCULOSKELETAL: Extremities without clubbing, cyanosis, or edema. No joint tenderness, effusion, or edema noted. No calf tenderness. Negative Homans sign bilaterally. NEUROLOGICAL: Awake and alert. Cranial nerves II through XII intact. Motor and sensory grossly within normal limits. Five out of 5 muscle strength in all muscle groups. Normal speech. Laboratory Laboratory Tests Test 05/25/17 21:10 05/25/17 22:10 05/25/17 22:12 05/25/17 22:41 White Blood Count 11.6 Red Blood Count 3.49 Hemoglobin 8.8 Hematocrit 29.3 Mean Corpuscular Volume 83.8 Mean Corpuscular Hemoglobin 25.1 Mean Corpuscular Hemoglobin Concent 30.0 Red Cell Distribution Width 19.4 Platelet Count 410 Mean Platelet Volume 8.9 Neutrophils (%) (Auto) 63.0 Lymphocytes (%) (Auto) 24.3 Monocytes (%) (Auto) 10.7 Eosinophils (%) (Auto) 1.3 Basophils (%) (Auto) 0.7 Neutrophils # (Auto) 7.3 Lymphocytes # (Auto) 2.8 Monocytes # (Auto) 1.2 Eosinophils # (Auto) 0.2 Basophils # (Auto) 0.1 CBC Comment DIFF FINAL Differential Comment Prothrombin Time 10.7 Prothromb Time International Ratio 1.0 Activated Partial Thromboplast Time 22.7 Urine Color STRAW Urine Turbidity CLEAR Urine pH 5.5 Urine Specific [place] 1.010 Urine Protein NEG Urine Glucose (UA) NEG Urine Ketones NEG Urine Occult Blood NEG Urine Nitrite NEG Urine Bilirubin NEG Urine Leukocyte Esterase NEG Urine WBC 0-2 Urine Squamous Epithelial Cells 0-5 Microscopic Urinalysis Comment CULT NOT INDICATED Blood Urea Nitrogen 17 Creatinine 0.76 Random Glucose 107 Total Protein 6.7 Albumin 3.3 Calcium Level 8.1 Magnesium Level 1.7 Alkaline Phosphatase 66 Aspartate Amino Transf (AST/SGOT) 19 Alanine Aminotransferase (ALT/SGPT) 22 Total Bilirubin 0.3 Sodium Level 142 Potassium Level 3.2 Chloride Level 106 Carbon Dioxide Level 30.9 Anion Gap 5 Estimat Glomerular Filtration Rate 77 Total Creatine Kinase 43 Troponin I LESS THAN 0.02 B-Type Natriuretic Peptide 270 Blood Gas Puncture Site RT BRACHIAL Blood Gas Patient Temperature 98.6 Blood Gas HCO3 32 Blood Gas Base Excess 7.3 Blood Gas Oxygen Saturation 91 Arterial Blood pH 7.39 Arterial Blood Partial Pressure CO2 55 Arterial Blood Partial Pressure O2 80 Arterial Blood Oxygen Content 11.3 Arterial Blood Carboxyhemoglobin 5.0 Arterial Blood Methemoglobin 0.7 Blood Gas Hemoglobin 8.7 Oxygen Delivery Device BIPAP Blood Gas Ventilator Setting IPAP10/[id number] Blood Gas Inspired Oxygen 40 D-Dimer Quantitative (PE/DVT) 3.03 Lactic Acid Level 0.7 Test 05/26/17 06:35 05/26/17 07:50 05/26/17 14:00 White Blood Count 8.9 Red Blood Count 3.55 Hemoglobin 8.8 Hematocrit 28.6 Mean Corpuscular Volume 80.6 Mean Corpuscular Hemoglobin 24.9 Mean Corpuscular Hemoglobin Concent 30.8 Red Cell Distribution Width 19.2 Platelet Count 412 Mean Platelet Volume 9.1 Neutrophils (%) (Auto) 94.0 Lymphocytes (%) (Auto) 5.1 Monocytes (%) (Auto) 0.6 Eosinophils (%) (Auto) 0.1 Basophils (%) (Auto) 0.2 Neutrophils # (Auto) 8.2 Lymphocytes # (Auto) 0.5 Monocytes # (Auto) 0.1 Eosinophils # (Auto) 0.0 Basophils # (Auto) 0.0 CBC Comment DIFF FINAL Differential Comment Blood Urea Nitrogen 15 Creatinine 0.65 Random Glucose 146 Calcium Level 8.7 Sodium Level 141 Potassium Level 4.2 Chloride Level 105 Carbon Dioxide Level 29.4 Anion Gap 7 Estimat Glomerular Filtration Rate 92 Activated Partial Thromboplast Time 49.5 43.8 Date/Time Source Procedure Growth Status 05/25/17 22:15 Blood Peripheral Aerobic Blood Culture - Preliminary NO GROWTH IN 1 DAY Resulted 05/25/17 22:15 Blood Peripheral Anaerobic Blood Culture - Preliminary NO GROWTH IN 1 DAY Resulted Result Diagram: 05/26/17 0635 05/26/17 0635 Imaging EKG tracing interpreted by me with sinus rhythm Chest x-ray with no acute cardiopulmonary disease image reviewed by me Last Impressions Chest X-Ray 05/25/172118 Signed Impressions: Service Date/Time: May 21:32 - CONCLUSION: Normal examination. Extensive hilar calcifications. Clips suggest median sternotomy Jose Martin Kitchen MD CT Angiography 05/25/17 0000 Signed Impressions: Service Date/Time: Friday, May 26, 2017 00:07 - CONCLUSION: A filling defect in the anterior segment left lower lobe pulmonary artery suspicious for pulmonary embolism. The rest of the lower lobe pulmonary arteries are unremarkable. Jose Martin Kitchen MD Caprini VTE Risk Assessment Caprini VTE Risk Assessment: Mod/High Risk (score >= 2) Caprini Risk Assessment Model Point Value = 1 Point Value = 2 Point Value = 3 Point Value = 5 Age 41-60 Minor surgery BMI > 25 kg/m2 Swollen legs Varicose veins or History of unexplained or recurrent spontaneous Oral contraceptives or hormone replacement Sepsis (< 1 month) Serious lung disease, including pneumonia (< 1 month) Abnormal pulmonary function Acute myocardial infarction Congestive heart failure (< 1 month) History of inflammatory bowel disease Medical patient at bed rest Age 61-74 Arthroscopic surgery Major open surgery (> 45 min) Laparoscopic surgery (> 45 min) Malignancy Confined to bed (> 72 hours) Immobilizing plaster cast Central venous access Age >= 75 History of VTE Family history of VTE Factor V Leiden Prothrombin [id number] Lupus anticoagulant Anticardiolipin antibodies Elevated serum homocysteine Heparin-induced thrombocytopenia Other congenital or acquired thrombophilia Stroke (< 1 month) Elective arthroplasty Hip, pelvis, or leg fracture Acute spinal cord injury (< 1 month) Prophylaxis Regimen Total Risk Factor Score Risk Level Prophylaxis Regimen 0-1 Low Early ambulation 2 Moderate Order ONE of the following: *Sequential Compression Device (SCD) *Heparin 5000 units SQ BID 3-4 Higher Order ONE of the following medications: *Heparin 5000 units SQ TID *Enoxaparin/Lovenox 40 mg SQ daily (WT < 150 kg, CrCl > 30 mL/min) *Enoxaparin/Lovenox 30 mg SQ daily (WT < 150 kg, CrCl > 10-29 mL/min) *Enoxaparin/Lovenox 30 mg SQ BID (WT < 150 kg, CrCl > 30 mL/min) AND/OR *Sequential Compression Device (SCD) 5 or more Highest Order ONE of the following medications: *Heparin 5000 units SQ TID (Preferred with Epidurals) *Enoxaparin/Lovenox 40 mg SQ daily (WT < 150 kg, CrCl > 30 mL/min) *Enoxaparin/Lovenox 30 mg SQ daily (WT < 150 kg, CrCl > 10-29 mL/min) *Enoxaparin/Lovenox 30 mg SQ BID (WT < 150 kg, CrCl > 30 mL/min) AND *Sequential Compression Device (SCD) Assessment and Plan Problem List: (1) COPD with exacerbation ICD Code: J44.1 - Chronic obstructive pulmonary disease with (acute) exacerbation Status: Acute (2) Pulmonary embolism ICD Code: I26.99 - Other pulmonary embolism without acute cor pulmonale Status: Acute Assessment and Plan This is a 63-year-old female with a history of COPD with ongoing tobacco use, chronic respiratory failure on oxygen, coronary artery disease status post CABG , CVA, hypertension, hepatitis C status post treatment, anxiety and depression. She presents to the emergency department complaining of worsening dyspnea associated with wheezing for the past week. She also complains of chest pain CTA shows left-sided pulmonary embolism. Acute on chronic respiratory failure status post BiPAP and IV Lasix. Improved continue oxygen to keep saturation at least 92% Acute pulmonary embolism. No clear precipitating factor. Obtain CT of the abdomen and hypercoagulable workup. Continue anticoagulation switch to Xarelto. Discussed with cardiology will discontinue Plavix COPD exacerbation. Improving continue oxygen, nebulizations and steroids. Hypokalemia. Improved status post replacement DVT prophylaxis with SCD and Xarelto Code Status DO NOT INTUBATE Discussed Condition With Patient, daughter and cardiology Problem Qualifiers (1) Pulmonary embolism: Cal Manjarrez MD May 26, 2017 15:31
[2017-05-26] MEDS: METOPROLOL TARTRATE 25 MG TAB PO SCH (20:30)
[2017-05-26] MEDS: BUDESONIDE-FORMOTEROL 80/4.5 MCG INHALER INH SCH (20:30)
[2017-05-26] MEDS: DOCUSATE SODIUM 50 MG/SENNA 8.6 MG TAB PO SCH (20:30)
[2017-05-26] MEDS: RIVAROXABAN 15 MG TAB PO SCH (20:30)
[2017-05-26] MEDS ORDERED: clonazePAM 0.5 MG TAB PO SCH (21:00)
[2017-05-26] MEDS ORDERED: CITALOPRAM HYDROBROMIDE 20 MG TAB PO SCH (21:00)
[2017-05-26] MEDS ORDERED: PREGABALIN 75 MG CAP PO SCH (21:00)
[2017-05-27 00:40] VITALS: BP 119/71; PULSE 67; RESP 20; TEMP 97.7; O2SAT 93
[2017-05-27] MEDS: oxyCODONE/ACETAMINOPHEN 10 MG/325 MG TAB PO PRN ×2 (00:43→06:36)
[2017-05-27] MEDS: methylPREDNISolone SOD SUCC 40 MG/1 ML VIAL IV PUSH SCH ×3 (00:44→13:29)
[2017-05-27 04:51] VITALS: BP 112/82; PULSE 60; RESP 20; TEMP 96.9; O2SAT 93
[2017-05-27 08:00] VITALS: BP 119/69; PULSE 61; RESP 18; TEMP 97.1; O2SAT 93
[2017-05-27] MEDS ORDERED: DIATRIZOATE MEGLUM/DIATRIZOATE SOD 9 ML CUP PO ONE (08:00)
[2017-05-27] MEDS: RESP: ALBUTEROL 2.5 MG/IPRATROPIUM 0.5 MG NEB (SCH) NEB ×2 (08:11→11:48)
[2017-05-27 08:12] VITALS: O2SAT 92
[2017-05-27] MEDS ORDERED: CLOPIDOGREL 75 MG TAB PO SCH (09:00)
[2017-05-27] MEDS ORDERED: ASPIRIN EC 81 MG TABEC PO SCH (09:00)
[2017-05-27] MEDS: METOPROLOL TARTRATE 25 MG TAB PO SCH (09:02)
[2017-05-27] MEDS: PANTOPRAZOLE SOD 40 MG DELAYED RELEASE TAB PO SCH (09:02)
[2017-05-27] MEDS: BUDESONIDE-FORMOTEROL 80/4.5 MCG INHALER INH SCH (09:03)
[2017-05-27] MEDS: DOCUSATE SODIUM 50 MG/SENNA 8.6 MG TAB PO SCH (09:03)
[2017-05-27] MEDS: RIVAROXABAN 15 MG TAB PO SCH (09:03)
[2017-05-27] MEDS: SODIUM CHLORIDE 0.9% FLUSH 10 ML FLUSH IV FLUSH SCH (09:07)
[2017-05-27] MEDS ORDERED: ASPI-99 PO (10:55)
[2017-05-27] MEDS ORDERED: XARE15TA PO (10:55)
[2017-05-27] MEDS ORDERED: PRED20 PO (10:56)
--- NOTE | 2017-05-27 10:57 | HHI.DCPOC ---
Discharge Care Plan Diagnosis: (1) COPD with exacerbation (2) Pulmonary embolism Your Health Problems Are: Difficulty with ADL Exercise Tolerance Goals to Promote Your Health * To prevent worsening of your condition and complications * To maintain your health at the optimal level Directions to Meet Your Goals Take your medications as prescribed Follow your dietary instruction Follow activity as directed Keep your appointments as scheduled Take your immunizations and boosters as scheduled If your symptoms worsen call your PCP, if no PCP go to Urgent Care Center or Emergency Room Smoking is Dangerous to Your Health. Avoid second hand smoke Call the 24-hour hour crisis hotline for domestic abuse at Cal Manjarrez MD May 27, 2017 10:57
[2017-05-27] MEDS ORDERED: IOHEXOL 350 MG/ML 10 ML VIAL (for RAD DIAG) IVCONTRAST ONE ×2 (11:02→11:16)
--- NOTE | 2017-05-27 11:03 | HHI.PR ---
Subjective Remarks Follow-up PE and COPD exacerbation. She feels better denies shortness of breath. She has been out of bed. Tolerating Xarelto. Discussed with RN Objective Vitals Vital Signs Date Time Temp Pulse Resp B/P (MAP) Pulse Ox O2 Delivery O2 Flow Rate FiO2 05/27/17 08:12 92 Nasal Cannula 2.00 05/27/17 08:00 97.1 61 18 119/69 (86) 93 05/27/17 04:51 96.9 60 20 112/82 (92) 93 05/27/17 00:40 97.7 67 20 119/71 (87) 93 05/26/17 20:23 97.3 67 22 119/73 (88) 89 05/26/17 20:10 93 Nasal Cannula 2.00 05/26/17 18:52 18 05/26/17 18:48 97.1 117 19 116/69 (85) 95 05/26/17 12:21 97.2 67 19 118/71 (87) 93 I/O 05/26/17 05/26/17 05/26/17 05/27/17 05/27/17 05/27/17 07:00 15:00 23:00 07:00 15:00 23:00 Intake Total 240 ml 500 ml 322 ml 180 ml Balance 240 ml 500 ml 322 ml 180 ml Intake Oral 240 ml 500 ml 250 ml 180 ml IV Total 72 ml # Voids 2 1 # Bowel Movements 0 1 Result Diagram: 05/26/17 0635 05/26/17 0635 Imaging Last Impressions Chest X-Ray 05/25/179 Signed Impressions: Service Date/Time: May 21:32 - CONCLUSION: Normal examination. Extensive hilar calcifications. Clips suggest median sternotomy Jose Martin Kitchen MD CT Angiography 05/25/17 0000 Signed Impressions: Service Date/Time: Friday, May 26, 2017 00:07 - CONCLUSION: A filling defect in the anterior segment left lower lobe pulmonary artery suspicious for pulmonary embolism. The rest of the lower lobe pulmonary arteries are unremarkable. Jose Martin Kitchen MD Objective Remarks Well-developed, well-nourished in no distress on nasal cannula Ecchymosis bilateral lower extremities from weed wacking(pt advised against such activity and contact sports that increases risk of bleeding leo on Xarelto) No JVD no bruit Regular rate and rhythm Equal in expansion decreased breath sounds no wheezes Abdomen soft nontender Extremities no edema no cyanosis Alert and oriented nonfocal Procedures none A/P Problem List: (1) COPD with exacerbation ICD Code: J44.1 - Chronic obstructive pulmonary disease with (acute) exacerbation Status: Acute (2) Pulmonary embolism ICD Code: I26.99 - Other pulmonary embolism without acute cor pulmonale Status: Acute Assessment and Plan This is a 63-year-old female with a history of COPD with ongoing tobacco use, chronic respiratory failure on oxygen, coronary artery disease status post CABG , CVA, hypertension, hepatitis C status post treatment, anxiety and depression. She presents to the emergency department complaining of worsening dyspnea associated with wheezing for the past week. She also complains of chest pain CTA shows left-sided pulmonary embolism. Acute on chronic respiratory failure status post BiPAP and IV Lasix. Improved continue oxygen to keep saturation at least 92% Acute pulmonary embolism. No clear precipitating factor. Follow-up CT of the abdomen and hypercoagulable workup. Continue anticoagulation with Xarelto. Discussed with cardiology will continue aspirin and discontinue Plavix COPD exacerbation. Improving continue oxygen, nebulizations and steroids. Switch to by mouth steroids. Increase activity Hypokalemia. Improved status post replacement DVT prophylaxis with SCD and Xarelto Discharge Planning Discharge patient to home. She has significantly improved earlier than anticipated Condition on discharge: Improved Regular Diet as tolerated Ad Tiny activity no contact sports and weed wacking Rx written: Xarelto and prednisone Follow-up with primary care physician, pulmonary and cardiology Problem Qualifiers (1) Pulmonary embolism: Cal Manjarrez MD May 27, 2017 11:03
--- NOTE | 2017-05-27 11:27 | RADRPT ---
EXAM DATE/TIME: 05/27/2017 11:02 [facility] COMPARISON: No previous studies available for comparison. INDICATIONS : COPD, evaluate for mass. IV CONTRAST: 75 cc Omnipaque 350 (iohexol) IV ORAL CONTRAST: Prescribed oral contrast ingested. RADIATION DOSE: 4.44 CTDIvol (mGy) MEDICAL HISTORY : Chronic obstructive pulmonary disease. Cerebrovascular disease. Hepatitis C.hypertesnsion. SURGICAL HISTORY : CABG ENCOUNTER: Initial ACUITY: 2 days PAIN SCALE: 0/10 LOCATION: abdomen. TECHNIQUE: Volumetric scanning of the abdomen and pelvis was performed. Using automated exposure control and ad justment of the mA and/or kV according to patient size, radiation dose was kept as low as reasonably achievable to obtain optimal diagnostic quality images. DICOM format image data is available electro nically for review and comparison. FINDINGS: LOWER LUNGS: Emphysema and mild atelectasis seen of the visualized lung bases. LIVER: Homogeneous density without lesion. There is no dilation of the biliary tree. No calcified gallston es. SPLEEN: Normal size without lesion. PANCREAS: Within normal limits. KIDNEYS: 11 mm right upper pole cyst. 2 mm nonobstructing stone in the right mid zone. No hydronephrosis. ADRENAL GLANDS: Within normal limits. VASCULAR: Mildly atherosclerotic abdominal aorta. The vessel has slight dilatation in its mid infrarenal portio n measuring up to 2.6 cm. BOWEL/MESENTERY: There is diverticulosis of the sigmoid colon but no acute inflammatory changes demonstrated. Moderate to large stool throughout the colon. ABDOMINAL WALL: Within normal limits. RETROPERITONEUM: There is no lymphadenopathy. BLADDER: No wall thickening or mass. REPRODUCTIVE: Within normal limits. INGUINAL: There is no lymphadenopathy or hernia. MUSCULOSKELETAL: No acute bony abnormality demonstrated. CONCLUSION: 1. No mass lesion or other acute abnormality. 2. Sigmoid colon diverticulosis. No diverticulitis. 3. Moderate to large stool throughout the colon. Nonobstructive pattern. 4. Atherosclerosis and very mild dilatation of the abdominal aorta. Please see above. 5. Small, benign cyst and a tiny nonobstructing stone of the right kidney. Eladio Merrill MD on May 27, 2017 at 11:19 Board Certified Radiologist. This report was verified electronically.
[2017-05-27 12:00] VITALS: BP 103/59; PULSE 93; RESP 17; TEMP 97.8; O2SAT 93
[2017-05-27] MEDS ORDERED: SENN1TAB PO (13:32)
== END 2017-05-27 15:47 | disposition home or self-care (01) | DRG 175 ==
LOC: PHED 21:06 → PHEDA 23:44 → OBSVTOIN 23:44 → PH3A 05-26 02:55
PROVIDERS: ADMIT Internal Medicine; ATTEND Internal Medicine
PROC: 5A09357 Assistance with Respiratory Ventilation, Less than 24 Consecutive Hours, Continuous Positive Airway Pressure (ICD-10-PCS; principal; 2017-05-25)
DX: I26.99 Other pulmonary embolism without acute cor pulmonale (principal); J96.20 Acute and chronic respiratory failure, unspecified whether with hypoxia or hypercapnia; Z99.81 Dependence on supplemental oxygen; J44.1 Chronic obstructive pulmonary disease with (acute) exacerbation; F17.210 Nicotine dependence, cigarettes, uncomplicated; F41.9 Anxiety disorder, unspecified; F32.9 Major depressive disorder, single episode, unspecified; M19.90 Unspecified osteoarthritis, unspecified site; I25.10 Atherosclerotic heart disease of native coronary artery without angina pectoris; I10 Essential (primary) hypertension; G89.29 Other chronic pain; E87.6 Hypokalemia; Z86.73 Personal history of transient ischemic attack (TIA), and cerebral infarction without residual deficits; Z95.1 Presence of aortocoronary bypass graft
CPT/HCPCS: 36600; 71010; 71275; 74177; 80048; 80053; 81001; 81240; 81241; 81291; 82550; 82805; 83090; 83605; 83735; 83880; 84484; 85025; 85240; 85300; 85303; 85306; 85307; 85379; 85610; 85613; 85730; 86146; 86147; 86148; 87040; 93005; 94002; 94640; 94664; J1644; J2920; Q9963; Q9967

== ENCOUNTER 2017-07-16 16:42 | Inpatient (IN) | payer MEDICARE, MEDICAID ==
[~2017-07-16] VITALS: Ht 162.6 cm; Wt 48.4 kg
[2017-07-16] VITALS (7 sets, daily range): BP systolic 101–151; BP diastolic 58–68; PULSE 50–56; RESP 17–20; TEMP 98.7–98.8; O2SAT 98
[~2017-07-16 16:42] MED LIST changes: +ASPI-99 PO; -LEVO500T8 PO; -PLAV75TA29 PO; +PRED20 PO; -PRED50 PO; +SENN1TAB PO; +XARE15TA PO; -ZITHTAB PO
[2017-07-16] MEDS ORDERED: IOHEXOL 350 MG/ML 10 ML VIAL (for RAD DIAG) IVCONTRAST ONE (16:43)
[2017-07-16] MEDS ORDERED: SODIUM CHLOR 0.9% 1000 ML INJ 1,000 ML IV ONE (16:48)
[2017-07-16 16:59] LABS: BASOPHIL # 0.2 TH/MM3 (0-0.2); BASOPHIL % 1.3 % (0.0-2.0); EOSINOPHIL # 0.1 TH/MM3 (0-0.4); EOSINOPHIL % 0.8 % (0.0-4.0); HEMATOCRIT 29.6 % (35.0-46.0); HEMO FLAGS DIFF FINAL; LYMPH % 24.3 % (9.0-44.0); LYMPHOCYTE # 3.1 TH/MM3 (1.0-4.8); MEAN CELL VOLUME 76.7 FL (80.0-100.0); MEAN CORPUSCULAR HEMOGLOBIN 22.2 PG (27.0-34.0); MONO % 11.7 % (0.0-8.0); NEUT % 61.9 % (16.0-70.0); PLATELET COUNT 443 TH/MM3 (150-450); RED BLOOD COUNT 3.86 MIL/MM3 (4.00-5.30); RED CELL DISTRIBUTION WIDTH 19.5 % (11.6-17.2); WHITE BLOOD COUNT 12.9 TH/MM3 (4.0-11.0)
[2017-07-16] MEDS ORDERED: ATOR40TA16 PO (17:00)
[2017-07-16] MEDS ORDERED: WARF-23 PO (17:00)
[2017-07-16 17:08] LABS: APTT (PATIENT) 26.1 SEC (24.3-30.1); I-STAT POTASSIUM 4.9 MMOL/L (3.5-4.9); I-STAT SODIUM 144 MMOL/L (138-146); INTERNATIONAL NORMALIZED RATIO 1.1 RATIO; PROTHROMBIN TIME - PATIENT 12.7 SEC (9.8-11.6)
--- NOTE | 2017-07-16 17:27 | RADRPT ---
EXAM DATE/TIME: 07/16/2017 16:48 [facility] COMPARISON: No previous studies available for comparison. INDICATIONS : Stroke alert. Right sided weakness. RADIATION DOSE: 56.35 CTDIvol (mGy) ; Patient motion This report was called by Dr. Ramirez to Dr. Zafar at 1720 MEDICAL HISTORY : Non-responsive. SURGICAL HISTORY : Non-responsive. ENCOUNTER: Initial ACUITY: 1 day PAIN SCALE: Non-responsive LOCATION: Bilateral head TECHNIQUE: Multiple contiguous axial images were obtained of the head. Using automated exposure control and adj ustment of the mA and/or kV according to patient size, radiation dose was kept as low as reasonably a chievable to obtain optimal diagnostic quality images. DICOM format image data is available electro nically for review and comparison. FINDINGS: CEREBRUM: The ventricles are normal for age. No evidence of midline shift, mass lesion, hemorrhage or acute in farction. No extra-axial fluid collections are seen. POSTERIOR FOSSA: The cerebellum and brainstem are intact. The 4th ventricle is midline. The cerebellopontine angle i s unremarkable. EXTRACRANIAL: The visualized portion of the orbits is intact. SKULL: The calvaria is intact. No evidence of skull fracture. CONCLUSION: 1. No evidence of acute intracranial pathology. No masses are identified. Edy Ramirez MD on July 16, 2017 at 17:25 Board Certified Radiologist. This report was verified electronically.
[2017-07-16] MEDS ORDERED: ALTEPLASE BOLUS 9 MG/9 ML SYR IV ONE (18:00)
[2017-07-16] MEDS ORDERED: MISCELLANEOUS NURSING INFORMATION XX PRN (18:00)
[2017-07-16] MEDS ORDERED: SODIUM CHLORIDE 0.9% 50 ML BAG IVF ONE (18:00)
[2017-07-16] MEDS ORDERED: ALTEPLASE DRIP 40.5 MG in SYRINGE/BAG 1 EA IV ONE (18:00)
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
[2017-07-16 18:16] LABS: BETA HCG QUANT 4 MIU/ML (0-5); CREATINE KINASE 185 U/L (26-192)
--- NOTE | 2017-07-16 18:21 | RADRPT ---
EXAM DATE/TIME: 07/16/2017 17:35 [facility] COMPARISON: No previous studies available for comparison. INDICATIONS : Stroke alert, Right sided weakness. IV CONTRAST: 96 cc Omnipaque 350 (iohexol) IV RADIATION DOSE: 13.77 CTDIvol (mGy) MEDICAL HISTORY : Stroke. Hepatitis C. SURGICAL HISTORY : Splenectomy. ENCOUNTER: Initial ACUITY: 1 day PAIN SCALE: Non-responsive LOCATION: Bilateral head TECHNIQUE: Volumetric scanning was performed using a multi-row detector CT scanner. The data was post processed with a variety of visualization algorithms including full volume maximum intensity projection, multi -planar sliding thin slab reformation, curved planar reformation, and surface rendering techniques. Using automated exposure control and adjustment of the mA and/or kV according to patient size, radiat ion dose was kept as low as reasonably achievable to obtain optimal diagnostic quality images. DICO M format image data is available electronically for review and comparison. FINDINGS: There is excellent visualization of the major intracranial arteries out to the second-order branch ve ssels. Significant decrease flow is identified in the left middle cerebral artery vessels. There is occlusiv e thrombus identified at the terminus of the M1 segment extending into proximal M2 branches. The right cerebral circulation and posterior circulation are intact. No other stenotic or occlusive l esions identified. CONCLUSION: 1. Occlusive thrombus identified in the distal left M1 and proximal M2 branches of the MCA. 2. No other significant stenotic or occlusive lesions. Scar Evans MD on July 16, 2017 at 18:16 Board Certified Radiologist. This report was verified electronically.
--- NOTE | 2017-07-16 18:25 | RADRPT ---
EXAM DATE/TIME: 07/16/2017 17:35 [facility] COMPARISON: No previous studies available for comparison. INDICATIONS : Stroke alert, right sided weakness. IV CONTRAST: 96 cc Omnipaque 350 (iohexol) IV ; Cumulative dose for multiple exams. RADIATION DOSE: 13.77 CTDIvol (mGy) ; Combined studies MEDICAL HISTORY : Stroke. Hepatitis C. SURGICAL HISTORY : CABG ENCOUNTER: Initial ACUITY: 1 day PAIN SCALE: Non-responsive LOCATION: Bilateral neck Elevated flow velocities and ICA/CCA ratios have been found to correlate with increased degrees of vessel stenosis, calculated as percentage of diameter relative to a normal segment of distal ICA/CCA. TECHNIQUE: Volumetric scanning was performed using a multirow detector CT scanner. The data was post processed with a variety of visualization algorithms including full-volume maximum intensity projection, multip lanar sliding thin-slab reformation, curved-planar reformation, and surface-rendering techniques. Us ing automated exposure control and adjustment of the mA and/or kV according to patient size, radiatio n dose was kept as low as reasonably achievable to obtain optimal diagnostic quality images. DICOM f ormat image data is available electronically for review and comparison. FINDINGS: AORTIC ARCH: There is a three-vessel origin of the great vessels from the aorta. No evidence of ostial narrowing. RIGHT CAROTID: The common carotid artery is intact. The carotid bulb has a normal configuration without ulceration o r narrowing. The internal carotid artery lumen is smooth without stenosis. The external carotid courtney ry is intact. LEFT CAROTID: The common carotid artery is intact. The carotid bulb has a normal configuration without ulceration or narrowing. The internal carotid artery lumen is smooth without stenosis. The external carotid ar julio is intact. VERTEBRALS: Vertebral arteries are asymmetric in size with the right being dominant. The left vertebral artery or iginates from the aortic arch CONCLUSION: 1. Normal extracranial carotid arteries without evidence of stenosis, significant plaque or dissectio n. 2. Dominant right vertebral artery. 3. Small left vertebral artery originating from the aortic arch. Scar Evans MD on July 16, 2017 at 18:20 Board Certified Radiologist. This report was verified electronically.
[2017-07-16] MEDS ORDERED: niCARdipine INJ 25 MG in SODIUM CHLOR 0.9% 250 ML INJ 240 ML IV PRN (18:45)
[2017-07-16] MEDS ORDERED: hydrALAZINE HCL 20 MG/ML VIAL IV PUSH PRN (18:45)
[2017-07-16] MEDS ORDERED: SODIUM CHLORIDE 0.9% FLUSH 5 ML FLUSH IV FLUSH PRN (18:45)
[2017-07-16] MEDS ORDERED: LABETALOL HCL 100 MG/20 ML VIAL IV PUSH PRN (18:45)
[2017-07-16] MEDS ORDERED: DEXTROSE 50% IN WATER 50 ML VIAL(D50) IV PUSH PRN (18:45)
[2017-07-16] MEDS ORDERED: GLUCAGON 1 MG/ML VIAL OTHER PRN (18:45)
[2017-07-16 18:55] LABS: BLOOD, URINE NEG (NEG); GLUCOSE,URINE NEG (NEG); KETONE, URINE NEG (NEG); MUCUS URINE FEW /lpf (OCC); NITRITE,URINE NEG (NEG); SQUAMOUS EPITHELIAL CELL URINE <1 /hpf (0-5); URINE COLOR YELLOW (YELLW/STRAW)
[2017-07-16] MEDS ORDERED: LACTULOSE SYRUP 20 GM/30 ML CUP PO PRN (19:45)
[2017-07-16] MEDS ORDERED: SODIUM CHLORIDE 0.9% FLUSH 10 ML FLUSH IV FLUSH PRN (19:45)
[2017-07-16] MEDS ORDERED: SENNOSIDES 8.6 MG TAB PO PRN (19:45)
[2017-07-16] MEDS ORDERED: ONDANSETRON HCL 4 MG/2 ML VIAL IV PUSH PRN (19:45)
[2017-07-16] MEDS ORDERED: MAGNESIUM HYDROXIDE SUSP 30 ML CUP PO PRN (19:45)
[2017-07-16] MEDS ORDERED: MISCELLANEOUS NURSING INFORMATION XX SCH (19:45)
[2017-07-16] MEDS ORDERED: ALBUTEROL SULFATE 90 MCG/ACT HFA 18 GM INHALER INH PRN (19:45)
[2017-07-16] MEDS ORDERED: CHLORHEXIDINE GLUCONATE 2 % 1 PACK (2 CLOTHS) TOP PRN (19:45)
[2017-07-16] MEDS ORDERED: BISACODYL 10 MG SUPP RECTAL PRN (19:45)
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
--- NOTE | 2017-07-16 20:12 | MB ---
cc: LORRAINE BELLAMY M.D. DATE OF CONSULTATION: 07/16/2017. REASON FOR CONSULTATION: Stroke alert. HISTORY OF PRESENT ILLNESS: She is a 62-year-old seen in neurological evaluation for a stroke alert. The case was discussed with Dr. Zafar on a couple of occasions earlier today. Initially she came in with a sudden onset of aphasia and right hemiplegia. We understood she had been taking Coumadin and apparently the INR a week or so ago was 2.0. We did not think she was going to be a candidate for tPA but her INR turned out to be in barron range. There was no bleed on the CT scan and the patient was subsequently a candidate for tPA which was given. She has made some improvement but still has major neurological deficits. The CT angio neck was unremarkable but the head CT angio showed occlusion in the distal M1 / M2 segment of the left middle cerebral artery. The patient has been on Coumadin for a pulmonary embolus. She has a history of severe COPD, anemia and chronic pain. Apparent history of bypass heart surgery in 2010. She is a smoker and occasional alcohol but no recreational drug use. PHYSICAL EXAMINATION: On exam she was lethargic but awakened and was following some simple commands and now has started to move the right lower extremity, she flexes the knee and wiggles the toes and the foot. There is some mild, about 2/5 movements of the right upper extremity at this point. She moves the left-sided limbs well. Pupils about same size and reactive. She mouthed a few words that were appropriate. LABORATORY DATA: Laboratory data is reviewed and in part discussed above. Basic chemistry is normal with glucose 115. ASSESSMENT: Left middle cerebral artery distribution acute infarct with a thrombus in the distal M1 and proximal M2 branches and tPA given with some mild improvement of the symptomatology. In my discussion with Dr. Zafar the interventional radiologist, Dr. Ramirez, felt that this patient was not a very good candidate for intervention due to the thrombus being distal in the M1 branch, but I will place a call to the radiologist and discuss the possibility of intervention in this setting. The onset of the symptoms was at 4:00 p.m. today, just about four hours ago. Thank you for asking us to assist in her care. MD SCAR Barnett/JUDI /7:53 PM /8:02 PM
[2017-07-16] MEDS: INSULIN ASPART SUPPLEMENTAL SCALE SQ SCH (21:00)
[2017-07-16] MEDS: PREGABALIN 75 MG CAP PO SCH (21:00)
[2017-07-16] MEDS: BUDESONIDE-FORMOTEROL 80/4.5 MCG INHALER INH SCH (21:00)
[2017-07-16] MEDS: DOCUSATE SODIUM 50 MG/SENNA 8.6 MG TAB PO SCH (21:00)
[2017-07-16] MEDS: ATORVASTATIN 40 MG TAB PO SCH (21:00)
--- NOTE | 2017-07-16 21:11 | RADRPT ---
EXAM DATE/TIME: 07/16/2017 20:25 [place] COMPARISON: CT BRAIN W/O CONTRAST, July 16, 2017, 16:48. INDICATIONS : Follow up stroke. RADIATION DOSE: 56.35 CTDIvol (mGy) MEDICAL HISTORY : Non-responsive. SURGICAL HISTORY : Non-responsive. ENCOUNTER: Subsequent ACUITY: 1 day PAIN SCALE: Non-responsive LOCATION: cranial TECHNIQUE: Multiple contiguous axial images were obtained of the head. Using automated exposure control and adj ustment of the mA and/or kV according to patient size, radiation dose was kept as low as reasonably a chievable to obtain optimal diagnostic quality images. DICOM format image data is available electro nically for review and comparison. FINDINGS: CEREBRUM: Increasing hypodensity with mass effect is identified in the left insula and left supratemporal lobe. The degree of hypodensity appears to be greater than one third of the total left MCA distribution. T here is no evidence of acute hemorrhage. POSTERIOR FOSSA: The cerebellum and brainstem are intact. The 4th ventricle is midline. The cerebellopontine angle i s unremarkable. EXTRACRANIAL: The visualized portion of the orbits is intact. SKULL: The calvaria is intact. No evidence of skull fracture. CONCLUSION: 1. Progressive hypodensity in the left insula and temporal lobe characteristic of an involving acute infarct which appears greater than one third of the left MCA distribution. 2. No evidence of acute hemorrhage 3. No other significant abnormality. Scar Evans MD on July 16, 2017 at 21:07 Board Certified Radiologist. This report was verified electronically.
[2017-07-16] MEDS ORDERED: HYDROCORTISONE SOD SUCCINATE 100 MG VIAL IV PUSH ONE (21:30)
[2017-07-16] MEDS: SODIUM CHLORIDE 0.9% FLUSH 10 ML FLUSH IV FLUSH SCH (22:35)
[2017-07-16] MEDS: SODIUM CHLORIDE 0.9% FLUSH 5 ML FLUSH IV FLUSH SCH (22:36)
[2017-07-17] VITALS (15 sets, daily range): BP systolic 121–142; BP diastolic 60–71; PULSE 50–65; RESP 17–30; TEMP 97.9–98.7; O2SAT 94–100
[2017-07-17] MEDS: CHLORHEXIDINE GLUCONATE 2 % 1 PACK (2 CLOTHS) TOP SCH (03:26)
[2017-07-17 04:30] LABS: AUTOMATED NEUTROPHIL # 7.8 TH/MM3 (1.8-7.7); BASOPHIL # 0.1 TH/MM3 (0-0.2); EOSINOPHIL % 0.4 % (0.0-4.0); HEMATOCRIT 29.8 % (35.0-46.0); HEMO FLAGS DIFF FINAL; LYMPH % 11.9 % (9.0-44.0); LYMPHOCYTE # 1.1 TH/MM3 (1.0-4.8); MEAN CELL VOLUME 76.8 FL (80.0-100.0); MEAN CORPUSCULAR HEMOGLOBIN 22.5 PG (27.0-34.0); MONO % 1.8 % (0.0-8.0); NEUT % 84.9 % (16.0-70.0); PLATELET COUNT 465 TH/MM3 (150-450); RED BLOOD COUNT 3.88 MIL/MM3 (4.00-5.30); RED CELL DISTRIBUTION WIDTH 19.6 % (11.6-17.2); WHITE BLOOD COUNT 9.2 TH/MM3 (4.0-11.0)
[2017-07-17 04:35] LABS: MEAN CORPUSCULAR HGB CONC 29.3 % (32.0-36.0)
[2017-07-17 06:04] LABS: ALT (GPT) 14 U/L (10-53); ANION GAP 5 MEQ/L (5-15); AST (GOT) 18 U/L (15-37); BICARBONATE 27.6 MEQ/L (21.0-32.0); BLOOD UREA NITROGEN 12 MG/DL (7-18); CHLORIDE 111 MEQ/L (98-107); GLOMERULAR FILTRATION RATE 122 ML/MIN (>89); MAGNESIUM 1.8 MG/DL (1.5-2.5); POTASSIUM 4.1 MEQ/L (3.5-5.1); SODIUM (NA) 144 MEQ/L (136-145)
[2017-07-17 06:17] LABS: ALKALINE PHOSPHATASE 44 U/L (45-117)
[2017-07-17 06:18] LABS: HDL CHOLESTEROL 59.3 MG/DL (40.0-60.0); LDL CHOLESTEROL 48 MG/DL (0-99); TOTAL BILIRUBIN ADULT 0.2 MG/DL (0.2-1.0)
[2017-07-17] MEDS: predniSONE 5 MG TAB PO SCH ×2 (07:51→08:25)
[2017-07-17] MEDS: ATORVASTATIN 40 MG TAB PO SCH (07:51)
[2017-07-17] MEDS: PREGABALIN 75 MG CAP PO SCH ×5 (07:51→21:00)
[2017-07-17] MEDS: DOCUSATE SODIUM 50 MG/SENNA 8.6 MG TAB PO SCH ×3 (07:51→21:00)
[2017-07-17] MEDS: CITALOPRAM HYDROBROMIDE 20 MG TAB PO SCH ×2 (07:51→08:25)
[2017-07-17] MEDS: SODIUM CHLORIDE 0.9% FLUSH 5 ML FLUSH IV FLUSH SCH ×2 (07:52→21:00)
[2017-07-17] MEDS: SODIUM CHLORIDE 0.9% FLUSH 10 ML FLUSH IV FLUSH SCH ×2 (07:52→21:18)
[2017-07-17] MEDS: BUDESONIDE-FORMOTEROL 80/4.5 MCG INHALER INH SCH ×4 (07:59→21:18)
[2017-07-17] MEDS: PANTOPRAZOLE SODIUM 40 MG VIAL IV PUSH SCH (07:59)
[2017-07-17] MEDS: INSULIN ASPART SUPPLEMENTAL SCALE SQ SCH ×5 (08:00→21:00)
[2017-07-17] MEDS ORDERED: MAGNESIUM OXIDE 400 MG TAB PO PRN (08:15)
[2017-07-17] MEDS ORDERED: MAGNESIUM SULFATE INJ 4 GM in SODIUM CHLORIDE 0.9% INJ 92 ML IV PRN (08:15)
[2017-07-17] MEDS ORDERED: POTASSIUM PHOSPHATE INJ 30 MMOL in SODIUM CHLOR 0.9% 250 ML INJ 250 ML IV PRN (08:15)
[2017-07-17] MEDS ORDERED: POTASSIUM CHLOR 40 MEQ PREMIX 100 ML IV PRN ×2 (08:15)
[2017-07-17] MEDS ORDERED: POTASSIUM CHLOR 20 MEQ PREMIX 100 ML IV PRN (08:15)
[2017-07-17] MEDS ORDERED: MAGNESIUM SULFATE INJ 2 GM in SODIUM CHLORIDE 0.9% INJ 96 ML IV PRN (08:15)
[2017-07-17] MEDS ORDERED: POTASSIUM PHOSPHATE MONOBASIC 500 MG TAB PO/TUBE PRN (08:15)
[2017-07-17] MEDS ORDERED: SODIUM PHOSPHATE INJ 30 MMOL in SODIUM CHLOR 0.9% 250 ML INJ 240 ML IV PRN (08:15)
[2017-07-17] MEDS ORDERED: POTASSIUM PHOSPHATE MONOBASIC 500 MG TAB PO PRN (08:15)
--- NOTE | 2017-07-17 08:56 | HHI.CCPN ---
Subjective Remarks/Hospital Course Hospital Course: This is a 62-year-old female. Date of admission 07/16/2017. Past records includes depression/anxiety, COPD, CABG 2, hepatitis C treated, ongoing tobaccoism, hypertension, restless leg syndrome and osteoarthritis. She is on chronic prednisone treatment. She was last seen in her normal state of health at 1600 hrs. today. She is found to be held including a right facial droop, expressive aphasia and generalized weakness right greater than left side. She was taken to [facility] for evaluation A stroke alert was called. CT brain negative. CT neck revealed a dominant right vertebral artery. A small left vertebral artery. CT angiogram of the brain revealed occlusion of the distal M1 segment and proximal M2 segment of the middle cerebral artery. Was evaluated by Dr. Ramirez radiology interventional along with Dr. Booker/neurology. Due to the location of the occlusion not a candidate for intervention. Patient to receive alteplase 4.5 mg followed by 40.5 mg in the ED. NIH score was 22. One for LOC, 2 for each. She was aphasic. Dysarthric. Right facial droop. Right greater than left- sided weakness. No sensory deficit. Subjective: 07/17: stable. denies complaints. still with slight expressive aphasia. right facial droop is improving. moves all extremities, slightly weaker on the right. Objective Vital Signs Date Time Temp Pulse Resp B/P (MAP) Pulse Ox O2 Delivery O2 Flow Rate FiO2 07/17/17 07:00 94 Room Air 07/17/17 06:00 50 07/17/17 04:00 98.1 22 126/60 (82) 07/17/17 00:05 2.00 07/16/17 17:21 21 Intake and Output 07/17/17 07/17/17 07/18/17 08:00 16:00 00:00 Intake Total 1000 ml Output Total 600 ml Balance 400 ml Result Diagram: 07/17/17 0415 07/17/[address] brain negative. CTA neck with dominant right vertebral artery. Small left vertebral artery. CTA brain with occlusion distal left M1 proximal M2 Objective Remarks GENERAL: 60-year-old female, currently on nasal cannula SKIN: Warm and dry. HEAD: Atraumatic. Normocephalic. EYES: Pupils equal and round around 3 mm bilaterally and reactive. No scleral icterus. No injection or drainage. ENT: No nasal bleeding or discharge. Mucous membranes pink and moist. NECK: Trachea midline. No JVD. CARDIOVASCULAR: normal rate, regular rhythm. RESPIRATORY: Clear to auscultation. Breath sounds equal bilaterally. GASTROINTESTINAL: Abdomen soft, non-tender, nondistended. MUSCULOSKELETAL: Extremities without significant peripheral edema. No obvious deformities. NEUROLOGICAL: Awake and alert. Right facial droop improving. Expressive aphasia improving but persistent. Right upper extremities strength 4 out of 5. RLE AYO 4/5, LUE/LLE 5/5. A/P Assessment and Plan assessment: 62yF with recent PE in 05/2017 now with left M1 MCA CVA s/p systemic TPA. She was noncompliant and subtherapeutic on her coumadin at home. have discussed case with neurology: if repeat serial CT brain negative for hemorrhage at 24h, will restart anticoagulation. With very recent PE, will need to be bridged with either heparin or lovenox. if stable x 24h, can leave ICU. Neuro/Psych: Left MCA CVA Depression/anxiety Restless leg syndrome CT brain 07/16 revealed no acute intracranial findings CTA brain 07/16 revealed occlusion left MCA distal M1/proximal M2 segments Evaluated by Dr. Ramirez, intervention radiology. Not deemed candidate for intervention Evaluated by Dr. Booker, neurology Status post alteplase 4.5 mg IV 1 followed by 41.5 mg over 1 hour Holding clonazepam 0.5 mg twice a day. Resume when clinically indicated Holding pregabalin 75 mg twice a day for restless leg syndrome Okay to resume citalopram 10 mg daily for depression Noted allergies to acetaminophen and hydrocodone morphine Goal keep systolic blood pressure less than 185/110. Check hemoglobin A1c and lipid panel 2-D echocardiogram ordered CV: Hypertension Dyslipidemia Sinus bradycardia Currently holding home medication of metoprolol 25 mg twice a day and aspirin 81 mg daily. Resume as clinically indicated Continue atorvastatin 40 mg by mouth daily for dyslipidemia As needed hydralazine, labetalol and Cardene drip to maintain systolic blood pressure less than 185, diastolic blood pressure less than 110 2-D echocardiogram and lipid panel pending Resp: Recent history of pulmonary embolism COPD Ongoing tobaccoism Nasal cannula to maintain saturations greater than equal to 92% Incentive spirometry while awake Continue fluticasone/salmeterol 100/50 one inhalation twice a day On albuterol inhaler every 4 hours as needed home Tobacco cessation will be encouraged Warfarin is currently on hold GI: History of hepatitis C/treated Patient is currently nothing by mouth Pantoprazole for GI prophylaxis Docusate sodium/senna for bowel regimen nursing bedside swallow evaluation and slow advancement of diet. : No indication for Sage catheter Endo: Chronic prednisone use Check TSH Sliding-scale insulin if indicated to maintain euglycemia between 140 and 180 1 dose of hydrocortisone overnight 50 mg. Prednisone 5 mill grams daily in a.m. Renal: Creatinine currently within normal limits Monitor urine output Accurate I's and O's Heme: Leukocytosis Microcytic anemia Warfarin use - 5 mg daily for pulmonary embolism, subtherapeutic Monitor CBC daily. Follow trends INR was 1.[address] head negative at 24h, will need bridging to therapeutic coumadinization. ID: Monitor for infection MSK: PT/OT/ST evaluate and treat FEN: Replace electrolytes as clinically indicated Access - Utilize peripheral IV. Central line if indicated Prophylaxis - GI - pantoprazole - DVT - SCD/holding pharmacological prophylaxis status post alteplase 24 hours Giorgi Agudelo MD Jul 17, 2017 08:56
--- NOTE | 2017-07-17 09:47 | HHI.PR ---
Review/Management Daily Summary more alert and responsive right hemiparesis less severe, moves and raises UE but finger motor poor right leg motor better than last night global aphasia but verbalizes some words denies pain/hill ct seen, more than 1/3 left mca infarct and localization of embolus discouraged intervention stroke rehab, repeat ct later today per protocol resume coumadin if ct negative bleed, probably no heparin bridging unless underlying medical condition warrants Subjective Subjective Comments No new events reported No headache Active Medications Current Medications Medications (Trade) Dose Ordered Sig/Anthony Route Start Time Stop Time Status Last Admin Miscellaneous Information No Heparin, Warfarin, Aspir... UNSCH PRN XX 07/16/17 18:00 07/17/17 17:59 (NS Flush) 2 ml BID IV FLUSH 07/16/17 21:00 07/17/17 07:52 (NS Flush) 2 ml UNSCH PRN IV FLUSH 07/16/17 18:45 Nicardipine HCl 25 mg/Sodium Chloride 250 ml @ 50 mls/hr TITRATE PRN IV 07/16/17 18:45 (NovoLOG SUPPLEMENTAL SCALE) 1 ACHS SQ 07/16/17 21:00 (D50w (Vial) Inj) 50 ml UNSCH PRN IV PUSH 07/16/17 18:45 (Glucagon Inj) 1 mg UNSCH PRN OTHER 07/16/17 18:45 (Trandate Inj) 10 mg Q1HR PRN IV PUSH 07/16/17 18:45 (Apresoline Inj) 10 mg Q1HR PRN IV PUSH 07/16/17 18:45 (NS Flush) 2 ml UNSCH PRN IV FLUSH 07/16/17 19:45 (NS Flush) 2 ml BID IV FLUSH 07/16/17 21:00 07/17/17 07:52 (Protonix Inj) 40 mg DAILY IV PUSH 07/17/17 09:00 07/17/17 07:59 (Zofran Inj) 4 mg Q6H PRN IV PUSH 07/16/17 19:45 (Albuterol Neb) 2.5 mg Q2HR NEB PRN INH 07/16/17 19:45 Miscellaneous Information 1 Q361D XX 07/16/17 19:45 (Chlorhexidine 2% Cloth) 3 pack Taper DAILY@04 TOP 07/17/17 04:00 07/13/18 03:59 07/17/17 03:26 (Chlorhexidine 2% Cloth) 3 pack UNSCH PRN TOP 07/16/17 19:45 (Ann-Colace) 1 tab BID PO 07/16/17 21:00 07/17/17 08:25 (Milk Of Magnesia Liq) 30 ml Q12H PRN PO 07/16/17 19:45 (Senokot) 17.2 mg Q12H PRN PO 07/16/17 19:45 (Dulcolax Supp) 10 mg DAILY PRN RECTAL 07/16/17 19:45 (Lactulose Liq) 30 ml DAILY PRN PO 07/16/17 19:45 (Lipitor) 40 mg HS PO 07/16/17 21:00 (CeleXA) 10 mg DAILY PO 07/17/17 09:00 07/17/17 08:25 (Deltasone) 5 mg DAILY PO 07/17/17 09:00 07/17/17 08:25 (Lyrica) 75 mg BID PO 07/16/17 21:00 (Symbicort 80-4.5 Mcg Inh) 2 puff BID INH 07/16/17 21:00 (Mag-Ox) 800 mg UNSCH PRN PO 07/17/17 08:15 Magnesium Sulfate 4 gm/Sodium Chloride 100 ml @ 50 mls/hr UNSCH PRN IV 07/17/17 08:15 Magnesium Sulfate 2 gm/Sodium Chloride 100 ml @ 50 mls/hr UNSCH PRN IV 07/17/17 08:15 Potassium Chloride 100 ml @ 50 mls/hr Q2H PRN IV 07/17/17 08:15 Potassium Chloride 100 ml @ 50 mls/hr Q2H PRN IV 07/17/17 08:15 Potassium Chloride 100 ml @ 50 mls/hr Q2H PRN IV 07/17/17 08:15 Potassium Chloride 100 ml @ 25 mls/hr UNSCH PRN IV 07/17/17 08:15 (K-Phos) 2,000 mg Q4H PRN PO 07/17/17 08:15 (K-Phos) 2,000 mg UNSCH PRN PO/TUBE 07/17/17 08:15 Potassium Phosphate 30 mmol/ Sodium Chloride 260 ml @ 42 mls/hr UNSCH PRN IV 07/17/17 08:15 Sodium Phosphate 30 mmol/Sodium Chloride 250 ml @ 42 mls/hr UNSCH PRN IV 07/17/17 08:15 Allergies Allergies Coded Allergies acetaminophen (Unverified Allergy, Intermediate, ITCHING, NAUSEA, 05/16/17) hydrocodone (Unverified Allergy, Intermediate, ITCHING, NAUSEA, 05/16/17) morphine (Unverified Allergy, Intermediate, ITCHING, NAUSEA, 05/16/17) Exam I&O / VS 07/17/17 07/17/17 07/18/17 14:59 22:59 06:59 Intake Total 180 ml Balance 180 ml Intake IV Total 180 ml Vital Signs Date Time Temp Pulse Resp B/P (MAP) Pulse Ox O2 Delivery O2 Flow Rate FiO2 07/17/17 07:00 94 Room Air 07/17/17 06:00 50 07/17/17 04:00 98.1 57 22 126/60 (82) 99 07/17/17 04:00 57 07/17/17 02:00 52 07/17/17 00:05 100 Nasal Cannula 2.00 07/17/17 00:00 98.7 50 17 141/71 (94) 100 07/17/17 00:00 50 07/16/17 22:00 100 Nasal Cannula 2.00 07/16/17 22:00 50 07/16/17 21:00 98.7 51 20 151/68 (95) 98 07/16/17 20:30 07/16/17 18:00 52 18 122/58 (79) 98 Nasal Cannula 2.00 07/16/17 17:25 98 Nasal Cannula 2.00 07/16/17 17:21 98 21 07/16/17 17:15 56 17 101/59 (73) 98 Room Air 07/16/17 17:14 98 Room Air 07/16/17 16:45 98.8 55 20 120/68 (85) 98 Objective Radiology Results Last [address] 07/16/172029 Signed Impressions: Service Date/Time: Sunday, July 16, 2017 20:25 - CONCLUSION: 1. Progressive hypodensity in the left insula and temporal lobe characteristic of an involving acute infarct which appears greater than one third of the left MCA distribution. 2. No evidence of acute hemorrhage 3. No other significant abnormality. Scar Evans MD Head CTA 07/16/17 1727 Signed Impressions: Service Date/Time: Sunday, July 16, 2017 17:35 - CONCLUSION: 1. Occlusive thrombus identified in the distal left M1 and proximal M2 branches of the MCA. 2. No other significant stenotic or occlusive lesions. Scar Evans MD Neck CTA 07/16/17 0000 Signed Impressions: Service Date/Time: Sunday, July 16, 2017 17:35 - CONCLUSION: 1. Normal extracranial carotid arteries without evidence of stenosis, significant plaque or dissection. 2. Dominant right vertebral artery. 3. Small left vertebral artery originating from the aortic arch. Scar Evans MD Head CT 07/16/17 0000 Signed Impressions: Service Date/Time: Sunday, July 16, 2017 16:48 - CONCLUSION: 1. No evidence of acute intracranial pathology. No masses are identified. Edy Ramirez MD Micro and Labs Laboratory Tests Test 07/16/17 16:49 07/16/17 18:00 07/16/17 19:43 07/17/17 04:15 White Blood Count 12.9 9.2 Red Blood Count 3.86 3.88 Hemoglobin 8.6 8.7 Bedside Hemoglobin 10.5 Hematocrit 29.6 29.8 Bedside Hematocrit 31.0 Mean Corpuscular Volume 76.7 76.8 Mean Corpuscular Hemoglobin 22.2 22.5 Mean Corpuscular Hemoglobin Concent 29.0 29.3 Red Cell Distribution Width 19.5 19.6 Platelet Count 443 465 Mean Platelet Volume 8.2 8.2 Neutrophils (%) (Auto) 61.9 84.9 Lymphocytes (%) (Auto) 24.3 11.9 Monocytes (%) (Auto) 11.7 1.8 Eosinophils (%) (Auto) 0.8 0.4 Basophils (%) (Auto) 1.3 1.0 Neutrophils # (Auto) 8.0 7.8 Lymphocytes # (Auto) 3.1 1.1 Monocytes # (Auto) 1.5 0.2 Eosinophils # (Auto) 0.1 0.0 Basophils # (Auto) 0.2 0.1 CBC Comment DIFF FINAL DIFF FINAL Differential Comment Prothrombin Time 12.7 Prothromb Time International Ratio 1.1 Activated Partial Thromboplast Time 26.1 Fibrinogen 328 Bedside Sodium 144 Bedside Potassium 4.9 Bedside Chloride 106 Bedside Blood Urea Nitrogen 25 Bedside Creatinine 0.7 Bedside Glucose 115 Total Creatine Kinase 185 Troponin I LESS THAN 0.02 Human Chorionic Gonadotropin, Quant 4 Urine Color YELLOW Urine Turbidity HAZY Urine pH 6.0 Urine Specific [place] GREATER THAN 1.050 Urine Protein TRACE Urine Glucose (UA) NEG Urine Ketones NEG Urine Occult Blood NEG Urine Nitrite NEG Urine Bilirubin NEG Urine Urobilinogen LESS THAN 2.0 Urine Leukocyte Esterase NEG Urine WBC 2 Urine Squamous Epithelial Cells <1 Urine Mucus FEW Urine Opiates Screen NEG Urine Barbiturates Screen NEG Urine Amphetamines Screen NEG Urine Benzodiazepines Screen POS Urine Cocaine Screen NEG Urine Cannabinoids Screen NEG Nasal Screen MRSA (PCR) MRSA NOT DETECTED Test 07/17/17 05:20 Blood Urea Nitrogen 12 Creatinine 0.51 Random Glucose 114 Total Protein 6.0 Albumin 2.8 Calcium Level 8.2 Phosphorus Level 2.2 Magnesium Level 1.8 Alkaline Phosphatase 44 Aspartate Amino Transf (AST/SGOT) 18 Alanine Aminotransferase (ALT/SGPT) 14 Total Bilirubin 0.2 Sodium Level 144 Potassium Level 4.1 Chloride Level 111 Carbon Dioxide Level 27.6 Anion Gap 5 Estimat Glomerular Filtration Rate 122 Triglycerides Level 80 Cholesterol Level 123 LDL Cholesterol 48 HDL Cholesterol 59.3 Cholesterol/HDL Ratio 2.07 Lexi Booker MD Jul 17, 2017 09:47
[2017-07-17 16:46] LABS: HEMOGLOBIN A1a 1.1 %; HEMOGLOBIN Ao 82.5 %; HEMOGLOBIN LA1C 2.2 %; HEMOGLOBIN P3 4.2 %
[2017-07-17] MEDS: RESP: ALBUTEROL 2.5 MG/3 ML NEB (PRN) INH (20:20)
--- NOTE | 2017-07-17 20:53 | RADRPT ---
EXAM DATE/TIME: 07/17/2017 20:34 [facility] COMPARISON: CT BRAIN W/O CONTRAST, July 16, 2017, 20:25. INDICATIONS : Post-TPA evaluation. RADIATION DOSE: 27.53 CTDIvol (mGy) MEDICAL HISTORY : Stroke. Cardiovascular disease Hypertension. SURGICAL HISTORY : None. ENCOUNTER: Subsequent ACUITY: 1 day PAIN SCALE: 0/10 LOCATION: cranial TECHNIQUE: Multiple contiguous axial images were obtained of the head. Using automated exposure control and adj ustment of the mA and/or kV according to patient size, radiation dose was kept as low as reasonably a chievable to obtain optimal diagnostic quality images. DICOM format image data is available electro nically for review and comparison. FINDINGS: CEREBRUM: The ventricles are normal for age. No evidence of midline shift, mass lesion or hemorrhage. There is evolving hypodensity in the distribution of left middle cerebral artery involving the temporal and p arietal lobe.. No extra-axial fluid collections are seen. POSTERIOR FOSSA: The cerebellum and brainstem are intact. The 4th ventricle is midline. The cerebellopontine angle i s unremarkable. EXTRACRANIAL: The visualized portion of the orbits is intact. SKULL: The calvaria is intact. No evidence of skull fracture. CONCLUSION: Evolving stroke left middle cerebral artery hypodensity distribution of the left temporal and parieta l lobes. No evidence of hemorrhage. Raul Cui MD on July 17, 2017 at 20:50 Board Certified Radiologist. This report was verified electronically.
--- NOTE | 2017-07-17 22:55 | EKG ---
Date Performed: 07/16/2017 Time Performed: 17:15:47 PTAGE: 62 years EKG: SINUS BRADYCARDIA BORDERLINE ECG PREVIOUS TRACING : 05/25/2017 21.37 Compared to prior tracing no significant change DOCTOR: Phi Flores Interpretating Date/Time 07/17/2017 22:49:38
[2017-07-18] VITALS (9 sets, daily range): BP systolic 72–161; BP diastolic 63–85; PULSE 49–70; RESP 20–30; TEMP 97.6–99; O2SAT 92–100
[2017-07-18] MEDS: RESP: ALBUTEROL 2.5 MG/3 ML NEB (PRN) INH ×2 (03:44→06:32)
[2017-07-18] MEDS: CHLORHEXIDINE GLUCONATE 2 % 1 PACK (2 CLOTHS) TOP SCH (04:00)
[2017-07-18 04:27] LABS: HEMATOCRIT 31.8 % (35.0-46.0); MEAN CELL VOLUME 75.3 FL (80.0-100.0); PLATELET COUNT 479 TH/MM3 (150-450); RED BLOOD COUNT 4.23 MIL/MM3 (4.00-5.30); RED CELL DISTRIBUTION WIDTH 19.5 % (11.6-17.2); REVIEW FLAG FINAL; WHITE BLOOD COUNT 12.3 TH/MM3 (4.0-11.0)
[2017-07-18 04:37] LABS: MEAN CORPUSCULAR HGB CONC 29.3 % (32.0-36.0)
[2017-07-18 05:01] LABS: BICARBONATE 27.8 MEQ/L (21.0-32.0); POTASSIUM 3.1 MEQ/L (3.5-5.1)
[2017-07-18] MEDS: POTASSIUM CHLOR 20 MEQ PREMIX 100 ML IV PRN ×4 (05:19→12:50)
--- NOTE | 2017-07-18 05:36 | RADRPT ---
EXAM DATE/TIME: 07/18/2017 05:25 [facility] COMPARISON: CT BRAIN W/O CONTRAST, July 17, 2017, 20:34. CHEST SINGLE AP, May 25, 2017, 21:32. INDICATIONS : Short of breath. MEDICAL HISTORY : Stroke. Cardiovascular disease. Hypertension. SURGICAL HISTORY : CABG. ENCOUNTER: Initial ACUITY: 1 day PAIN SCORE: Non-responsive. LOCATION: Bilateral chest FINDINGS: The cardiac silhouette is normal in transverse diameter. Median sternotomy wires are present. The cash gs are free of acute parenchymal opacity. No effusions are identified. CONCLUSION: 1. No acute cardiopulmonary disease. Edy Ramirez MD on July 18, 2017 at 5:34 Board Certified Radiologist. This report was verified electronically.
[2017-07-18] MEDS: SODIUM CHLORIDE 0.9% FLUSH 5 ML FLUSH IV FLUSH SCH ×2 (07:31→21:00)
[2017-07-18] MEDS: SODIUM CHLORIDE 0.9% FLUSH 10 ML FLUSH IV FLUSH SCH ×2 (07:31→21:00)
[2017-07-18] MEDS: BUDESONIDE-FORMOTEROL 80/4.5 MCG INHALER INH SCH ×2 (07:35→22:41)
[2017-07-18] MEDS: PANTOPRAZOLE SODIUM 40 MG VIAL IV PUSH SCH (07:47)
[2017-07-18] MEDS: DOCUSATE SODIUM 50 MG/SENNA 8.6 MG TAB PO SCH ×2 (07:47→21:23)
[2017-07-18] MEDS: predniSONE 5 MG TAB PO SCH (07:47)
[2017-07-18] MEDS: CITALOPRAM HYDROBROMIDE 20 MG TAB PO SCH (07:47)
[2017-07-18] MEDS: PREGABALIN 75 MG CAP PO SCH ×2 (07:47→22:41)
[2017-07-18] MEDS: ENOXAPARIN SODIUM 60 MG/0.6 ML SYRINGE SQ SCH ×2 (07:47→23:14)
--- NOTE | 2017-07-18 08:19 | HHI.PR ---
Review/Management Daily Summary more alert and responsive right hemiparesis less severe, moves and raises UE but finger motor poor right leg motor better than last night global aphasia but verbalizes some words denies pain/hill ct seen, more than 1/3 left mca infarct and localization of embolus discouraged intervention stroke rehab, repeat ct later today per protocol resume coumadin if ct negative bleed, probably no heparin bridging unless underlying medical condition warrants 07/18 awakened this am, no distress moves 4 limbs with right hemiparesis which is stable aphasia persists on lovenox check echo ldl low 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 Subjective Subjective Comments no obvious distress but aphasic Active Medications Current Medications Medications (Trade) Dose Ordered Sig/Anthony Route Start Time Stop Time Status Last Admin (NS Flush) 2 ml BID IV FLUSH 07/16/17 21:00 07/18/17 07:31 (NS Flush) 2 ml UNSCH PRN IV FLUSH 07/16/17 18:45 Nicardipine HCl 25 mg/Sodium Chloride 250 ml @ 50 mls/hr TITRATE PRN IV 07/16/17 18:45 (Trandate Inj) 10 mg Q1HR PRN IV PUSH 07/16/17 18:45 (Apresoline Inj) 10 mg Q1HR PRN IV PUSH 07/16/17 18:45 (NS Flush) 2 ml UNSCH PRN IV FLUSH 07/16/17 19:45 (NS Flush) 2 ml BID IV FLUSH 07/16/17 21:00 07/18/17 07:31 (Protonix Inj) 40 mg DAILY IV PUSH 07/17/17 09:00 07/18/17 07:47 (Zofran Inj) 4 mg Q6H PRN IV PUSH 07/16/17 19:45 (Albuterol Neb) 2.5 mg Q2HR NEB PRN INH 07/16/17 19:45 07/18/17 06:32 Miscellaneous Information 1 Q361D XX 07/16/17 19:45 (Chlorhexidine 2% Cloth) 3 pack Taper DAILY@04 TOP 07/17/17 04:00 07/13/18 03:59 07/18/17 04:00 (Chlorhexidine 2% Cloth) 3 pack UNSCH PRN TOP 07/16/17 19:45 (Ann-Colace) 1 tab BID PO 07/16/17:00 07/18/17 07:47 (Milk Of Magnesia Liq) 30 ml Q12H PRN PO 07/16/17 19:45 (Senokot) 17.2 mg Q12H PRN PO 07/16/17 19:45 (Dulcolax Supp) 10 mg DAILY PRN RECTAL 07/16/17 19:45 (Lactulose Liq) 30 ml DAILY PRN PO 07/16/17 19:45 (Lipitor) 40 mg HS PO 07/16/17 21:00 (CeleXA) 10 mg DAILY PO 07/17/17 09:00 07/18/17 07:47 (Deltasone) 5 mg DAILY PO 07/17/17 09:00 07/18/17 07:47 (Lyrica) 75 mg BID PO 07/16/17 21:00 07/18/17 07:47 (Symbicort 80-4.5 Mcg Inh) 2 puff BID INH 07/16/17 21:00 07/18/17 07:35 (Mag-Ox) 800 mg UNSCH PRN PO 07/17/17 08:15 Magnesium Sulfate 4 gm/Sodium Chloride 100 ml @ 50 mls/hr UNSCH PRN IV 07/17/17 08:15 Magnesium Sulfate 2 gm/Sodium Chloride 100 ml @ 50 mls/hr UNSCH PRN IV 07/17/17 08:15 Potassium Chloride 100 ml @ 50 mls/hr Q2H PRN IV 07/17/17 08:15 07/18/17 07:53 Potassium Chloride 100 ml @ 50 mls/hr Q2H PRN IV 07/17/17 08:15 Potassium Chloride 100 ml @ 50 mls/hr Q2H PRN IV 07/17/17 08:15 Potassium Chloride 100 ml @ 25 mls/hr UNSCH PRN IV 07/17/17 08:15 (K-Phos) 2,000 mg Q4H PRN PO 07/17/17 08:15 (K-Phos) 2,000 mg UNSCH PRN PO/TUBE 07/17/17 08:15 Potassium Phosphate 30 mmol/ Sodium Chloride 260 ml @ 42 mls/hr UNSCH PRN IV 07/17/17 08:15 Sodium Phosphate 30 mmol/Sodium Chloride 250 ml @ 42 mls/hr UNSCH PRN IV 07/17/17 08:15 07/17/17 12:25 Pharmacy Profile Note 0 ml @ 0 mls/hr UNSCH OTHER 07/18/17 06:30 (Lovenox Inj) 50 mg Q12H SQ 07/18/17 08:00 07/18/17 07:47 Allergies Allergies Coded Allergies acetaminophen (Unverified Allergy, Intermediate, ITCHING, NAUSEA, 05/16/17) hydrocodone (Unverified Allergy, Intermediate, ITCHING, NAUSEA, 05/16/17) morphine (Unverified Allergy, Intermediate, ITCHING, NAUSEA, 05/16/17) Exam I&O / VS 07/18/17 07/18/17 07/19/17 15:00 23:00 07:00 Intake Total 100 ml Balance 100 ml IV Total 100 ml Vital Signs Date Time Temp Pulse Resp B/P (MAP) Pulse Ox O2 Delivery O2 Flow Rate FiO2 07/18/17 08:00 62 07/18/17 08:00 99.0 56 24 72/ 96 07/18/17 07:00 98 Nasal Cannula 2.00 07/18/17 06:00 58 07/18/17 04:00 98.1 70 30 105/85 (92) 92 07/18/17 04:00 70 07/18/17 02:00 49 07/18/17 00:00 54 07/18/17 00:00 98.8 53 24 129/63 (85) 100 07/17/17 22:00 50 07/17/17 20:20 98 Nasal Cannula 2.00 07/17/17 20:20 100 Nasal Cannula 2.00 07/17/17 20:00 65 07/17/17 20:00 98.1 62 30 142/67 (92) 94 07/17/17 18:00 65 07/17/17 16:00 56 07/17/17 16:00 98.4 56 24 136/65 (88) 94 07/17/17 14:00 57 07/17/17 12:00 98.5 55 24 137/65 (89) 96 07/17/17 12:00 55 07/17/17 11:53 96 21 07/17/17 10:00 57 Objective Micro and Labs Laboratory Tests Test 07/18/17 03:42 White Blood Count 12.3 Red Blood Count 4.23 Hemoglobin 9.3 Hematocrit 31.8 Mean Corpuscular Volume 75.3 Mean Corpuscular Hemoglobin 22.0 Mean Corpuscular Hemoglobin Concent 29.3 Red Cell Distribution Width 19.5 Platelet Count 479 Mean Platelet Volume 8.6 Blood Urea Nitrogen 8 Creatinine 0.64 Random Glucose 87 Calcium Level 9.2 Sodium Level 144 Potassium Level 3.1 Chloride Level 107 Carbon Dioxide Level 27.8 Anion Gap 9 Estimat Glomerular Filtration Rate 94 Phosphorus Level 2.5 Lexi Booker MD Jul 18, 2017 08:19
--- NOTE | 2017-07-18 14:15 | ECHRPT ---
Indication: CVA/TIA CONCLUSIONS Normal left ventricular size. Wall thickness is normal. The left ventricular systolic function is low normal or mildly reduced with an estimated ejection fr action in the range of 45-50%. The right ventricle is mildly dilated. The right ventricular systoilc function is mildly decreased. There is trace tricuspid valve regurgitation. The estimated pulmonary arterial pressure is 38.1 mmHg. BP: 126 / 60 HR: 57 Rhythm: Sinus MEASUREMENTS (Male / Female) Normal Values Technical Quality:Fair 2D ECHO LV Diastolic Diameter PLAX 5.0 cm 4.2 - 5.9 / 3.9 - 5.3 cm LV Systolic Diameter PLAX 4.0 cm IVS Diastolic Thickness 0.8 cm 0.6 - 1.0 / 0.6 - 0.9 cm LVPW Diastolic Thickness 0.8 cm 0.6 - 1.0 / 0.6 - 0.9 cm LV Relative Wall Thickness 0.3 LVOT Diameter 2.0 cm Aortic Root Diameter 3.1 cm LA Systolic Diameter LX 3.0 cm 3.0 - 4.0 / 2.7 - 3.8 cm M-MODE AV Cusp Separation MM 1.9 cm DOPPLER AV Peak Velocity 141.0 cm/s AV Peak Gradient 8.0 mmHg AV Mean Gradient 4.0 mmHg AV Velocity Time Integral 25.3 cm LVOT Peak Velocity 109.0 cm/s LVOT Peak Gradient 4.8 mmHg LVOT Velocity Time Integral 17.9 cm LVOT Cardiac Index 2144.1 cm/minm AV Area Cont Eq vti 2.2 cm AV Area Cont Eq pk 2.4 cm Mitral E Point Velocity 81.9 cm/s Mitral A Point Velocity 95.3 cm/s Mitral E to A Ratio 0.9 LV E' Lateral Velocity 6.3 cm/s Mitral E to LV E' Lateral Ratio 12.9 LV E' Septal Velocity 4.9 cm/s Mitral E to LV E' Septal Ratio 16.8 TR Peak Velocity 265.0 cm/s TR Peak Gradient 28.1 mmHg Right Atrial Pressure 10.0 mmHg Pulmonary Artery Systolic Pressu 38.1 mmHg Right Ventricular Systolic Press 38.1 mmHg PV Peak Velocity 88.7 cm/s PV Peak Gradient 3.1 mmHg FINDINGS LEFT VENTRICLE Normal left ventricular size. Wall thickness is normal. The left ventricular systolic function is low normal or mildly reduced with an estimated ejection fr action in the range of 45-50%. RIGHT VENTRICLE The right ventricle is mildly dilated. The right ventricular systoilc function is mildly decreased. TRICUSPID VALVE There is trace tricuspid valve regurgitation. The estimated pulmonary arterial pressure is 38.1 mmHg. Denny Soto MD (Electronically Signed) Final Date:18 July 2017 14:15
--- NOTE | 2017-07-18 14:50 | HHI.CCPN ---
Subjective Remarks/Hospital Course Hospital Course: This is a 62-year-old female. Date of admission 07/16/2017. Past records includes depression/anxiety, COPD, CABG 2, hepatitis C treated, ongoing tobaccoism, hypertension, restless leg syndrome and osteoarthritis. She is on chronic prednisone treatment. She was last seen in her normal state of health at 1600 hrs. today. She is found to be held including a right facial droop, expressive aphasia and generalized weakness right greater than left side. She was taken to [facility] for evaluation A stroke alert was called. CT brain negative. CT neck revealed a dominant right vertebral artery. A small left vertebral artery. CT angiogram of the brain revealed occlusion of the distal M1 segment and proximal M2 segment of the middle cerebral artery. Was evaluated by Dr. Ramirez radiology interventional along with Dr. Booekr/neurology. Due to the location of the occlusion not a candidate for intervention. Patient to receive alteplase 4.5 mg followed by 40.5 mg in the ED. NIH score was 22. One for LOC, 2 for each. She was aphasic. Dysarthric. Right facial droop. Right greater than left- sided weakness. No sensory deficit. Subjective: 07/17: stable. denies complaints. still with slight expressive aphasia. right facial droop is improving. moves all extremities, slightly weaker on the right. 07/18: stable. neuro exam slowly improving. some difficulty with swallowing, but tolerating diet. will add aggressive pulmonary toilet. without evidence of bleed on serial CT. Objective Vital Signs Date Time Temp Pulse Resp B/P (MAP) Pulse Ox O2 Delivery O2 Flow Rate FiO2 07/18/17 12:00 61 07/18/17 12:00 98.7 24 138/74 (95) 97 07/18/17 07:00 Nasal Cannula 2.00 07/17/17 11:53 21 Intake and Output 07/18/17 07/18/17 07/19/17 08:00 16:00 00:00 Intake Total 220 ml 700 ml Balance 220 ml 700 ml Result Diagram: 07/18/17 0342 07/18/[address] brain negative. CTA neck with dominant right vertebral artery. Small left vertebral artery. CTA brain with occlusion distal left M1 proximal M2 Objective Remarks GENERAL: 60-year-old female, currently on nasal cannula SKIN: Warm and dry. HEAD: Atraumatic. Normocephalic. EYES: Pupils equal and round around 3 mm bilaterally and reactive. No scleral icterus. No injection or drainage. ENT: No nasal bleeding or discharge. Mucous membranes pink and moist. NECK: Trachea midline. No JVD. CARDIOVASCULAR: normal rate, regular rhythm. RESPIRATORY: Clear to auscultation. Breath sounds equal bilaterally. GASTROINTESTINAL: Abdomen soft, non-tender, nondistended. MUSCULOSKELETAL: Extremities without significant peripheral edema. No obvious deformities. NEUROLOGICAL: Awake and alert. Right facial droop improving. Expressive aphasia improving but persistent. Right upper extremities strength 4 out of 5. RLE YAO 4/5, LUE/LLE 5/5. A/P Assessment and Plan Assessment: 62yF with recent PE in 05/2017 now with left M1 MCA CVA s/p systemic TPA. She was noncompliant and subtherapeutic on her coumadin at home. Given negative head CT, will start bridge with lovenox back to coumadin. can transfer out of ICU. aggressive pulmonary toilet. will consult hospitalist service. Neuro/Psych: Left MCA CVA Depression/anxiety Restless leg syndrome CT brain 07/16 revealed no acute intracranial findings CTA brain 07/16 revealed occlusion left MCA distal M1/proximal M2 segments Evaluated by Dr. Ramirez, intervention radiology. Not deemed candidate for intervention Evaluated by Dr. Booker, neurology Status post alteplase 4.5 mg IV 1 followed by 41.5 mg over 1 hour Holding clonazepam 0.5 mg twice a day. Resume when clinically indicated Holding pregabalin 75 mg twice a day for restless leg syndrome Okay to resume citalopram 10 mg daily for depression Noted allergies to acetaminophen and hydrocodone morphine Goal keep systolic blood pressure less than 185/110. Check hemoglobin A1c and lipid panel 2-D echocardiogram ordered CV: Hypertension Dyslipidemia Sinus bradycardia Recent PE Currently holding home medication of metoprolol 25 mg twice a day and aspirin 81 mg daily. Resume as clinically indicated Continue atorvastatin 40 mg by mouth daily for dyslipidemia As needed hydralazine, labetalol and Cardene drip to maintain systolic blood pressure less than 185, diastolic blood pressure less than 110 2d echo with RA dilation, EF 40-45%. Resp: Recent history of pulmonary embolism COPD Ongoing tobaccoism Nasal cannula to maintain saturations greater than equal to 92% Incentive spirometry while awake Continue fluticasone/salmeterol 100/50 one inhalation twice a day On albuterol inhaler every 4 hours as needed home Tobacco cessation will be encouraged restart warfarin with therapeutic lovenox GI: History of hepatitis C/treated heart healthy diet as tolerated. Pantoprazole for GI prophylaxis Docusate sodium/senna for bowel regimen passed nursing bedside swallow evaluation : No indication for Sage catheter Endo: Chronic prednisone use Check TSH Sliding-scale insulin if indicated to maintain euglycemia between 140 and 180 1 dose of hydrocortisone overnight 50 mg. Prednisone 5 mg daily in a.m. Renal: Creatinine currently within normal limits Monitor urine output Accurate I's and O's Heme: Leukocytosis Microcytic anemia Warfarin use - 5 mg daily for pulmonary embolism, subtherapeutic Monitor CBC daily. Follow trends INR was 1.1 on admission start lovenox 1mg/kg q12h. coumadin with pharmacy dosing. ID: Monitor for infection MSK: PT/OT/ST evaluate and treat FEN: Replace electrolytes as clinically indicated Access - Utilize peripheral IV. Central line if indicated Prophylaxis - GI - pantoprazole - DVT - SCD/full anticoagulation Transfer to floor with hospitalist following. Giorgi Agudelo MD Jul 18, 2017 14:50
[2017-07-18] MEDS: WARFARIN SOD 5 MG TAB PO SCH (17:15)
[2017-07-18] MEDS: ATORVASTATIN 40 MG TAB PO SCH (21:24)
[2017-07-18] MEDS: IBUPROFEN 600 MG TAB PO PRN (23:14)
[2017-07-19] VITALS (8 sets, daily range): BP systolic 135–149; BP diastolic 72–91; PULSE 46–102; RESP 18–22; TEMP 97.4–98.7; O2SAT 92–98
[2017-07-19] MEDS: CHLORHEXIDINE GLUCONATE 2 % 1 PACK (2 CLOTHS) TOP SCH (04:00)
[2017-07-19] MEDS: RESP: ALBUTEROL 2.5 MG/3 ML NEB (PRN) INH (06:21)
[2017-07-19 06:23] LABS: AUTOMATED NEUTROPHIL # 5.8 TH/MM3 (1.8-7.7); BASOPHIL # 0.1 TH/MM3 (0-0.2); BASOPHIL % 0.7 % (0.0-2.0); EOSINOPHIL # 0.1 TH/MM3 (0-0.4); EOSINOPHIL % 1.1 % (0.0-4.0); HEMATOCRIT 33.3 % (35.0-46.0); HEMO FLAGS DIFF FINAL; LYMPH % 35.7 % (9.0-44.0); LYMPHOCYTE # 4.5 TH/MM3 (1.0-4.8); MEAN CELL VOLUME 74.7 FL (80.0-100.0); MEAN CORPUSCULAR HEMOGLOBIN 22.6 PG (27.0-34.0); MEAN CORPUSCULAR HGB CONC 30.2 % (32.0-36.0); MONO % 16.1 % (0.0-8.0); NEUT % 46.4 % (16.0-70.0); PLATELET COUNT 444 TH/MM3 (150-450); RED BLOOD COUNT 4.45 MIL/MM3 (4.00-5.30); RED CELL DISTRIBUTION WIDTH 19.8 % (11.6-17.2); WHITE BLOOD COUNT 12.5 TH/MM3 (4.0-11.0)
[2017-07-19 06:28] LABS: INTERNATIONAL NORMALIZED RATIO 1.1 RATIO
[2017-07-19 06:50] LABS: ALT (GPT) 15 U/L (10-53); ANION GAP 6 MEQ/L (5-15); AST (GOT) 14 U/L (15-37); BICARBONATE 26.6 MEQ/L (21.0-32.0); BLOOD UREA NITROGEN 9 MG/DL (7-18); CHLORIDE 107 MEQ/L (98-107); GLOMERULAR FILTRATION RATE 94 ML/MIN (>89); MAGNESIUM 2.2 MG/DL (1.5-2.5); POTASSIUM 3.9 MEQ/L (3.5-5.1); SODIUM (NA) 140 MEQ/L (136-145)
[2017-07-19 07:06] LABS: ALKALINE PHOSPHATASE 52 U/L (45-117); FREE T4 1.05 NG/DL (0.76-1.46); TOTAL BILIRUBIN ADULT 0.5 MG/DL (0.2-1.0)
[2017-07-19] MEDS: ENOXAPARIN SODIUM 60 MG/0.6 ML SYRINGE SQ SCH ×2 (08:00→22:47)
[2017-07-19] MEDS: PANTOPRAZOLE SODIUM 40 MG VIAL IV PUSH SCH ×2 (09:00→09:22)
[2017-07-19] MEDS: SODIUM CHLORIDE 0.9% FLUSH 10 ML FLUSH IV FLUSH SCH (09:00)
[2017-07-19] MEDS: BUDESONIDE-FORMOTEROL 80/4.5 MCG INHALER INH SCH ×2 (09:00→21:00)
[2017-07-19] MEDS: CITALOPRAM HYDROBROMIDE 20 MG TAB PO SCH ×2 (09:00→09:22)
[2017-07-19] MEDS: PREGABALIN 75 MG CAP PO SCH ×2 (09:00→17:27)
[2017-07-19] MEDS: predniSONE 5 MG TAB PO SCH ×2 (09:00→09:22)
[2017-07-19] MEDS: DOCUSATE SODIUM 50 MG/SENNA 8.6 MG TAB PO SCH (09:22)
--- NOTE | 2017-07-19 12:05 | HHI.PR ---
Subjective Remarks This is a 62-year-old female. Date of admission 07/16/2017. Past records includes depression/anxiety, COPD, CABG 2, hepatitis C treated, ongoing tobaccoism, hypertension, restless leg syndrome and osteoarthritis. She is on chronic prednisone treatment. She was last seen in her normal state of health at 1600 hrs. today. She is found to be held including a right facial droop, expressive aphasia and generalized weakness right greater than left side. She was taken to [facility] for evaluation A stroke alert was called. CT brain negative. CT neck revealed a dominant right vertebral artery. A small left vertebral artery. CT angiogram of the brain revealed occlusion of the distal M1 segment and proximal M2 segment of the middle cerebral artery. Was evaluated by Dr. Ramirez radiology interventional along with Dr. Booker/neurology. Due to the location of the occlusion not a candidate for intervention. Patient to receive alteplase 4.5 mg followed by 40.5 mg in the ED. NIH score was 22. One for LOC, 2 for each. She was aphasic. Dysarthric. Right facial droop. Right greater than left- sided weakness. No sensory deficit. Subjective: 07/17: stable. denies complaints. still with slight expressive aphasia. right facial droop is improving. moves all extremities, slightly weaker on the right. 07/18: stable. neuro exam slowly improving. some difficulty with swallowing, but tolerating diet. will add aggressive pulmonary toilet. without evidence of bleed on serial CT. 07-19 REMAINS VERY APHASIC SOME DIFFICULTY SWALLOWING SPEECH TO EVAL CONTINUE PT AND OT AND ST UNINTELLIGIBLE SPEECH AT THIS POINT TRANSFERRED TO OUR SERVICE TODAY 07-19 Objective Vitals Vital Signs Date Time Temp Pulse Resp B/P (MAP) Pulse Ox O2 Delivery O2 Flow Rate FiO2 07/19/17 08:00 97.7 54 20 139/77 (97) 97 07/19/17 05:09 95 Nasal Cannula 2.00 07/19/17 04:00 97.4 46 22 149/91 (110) 97 07/19/17 00:00 97.9 59 22 149/80 (103) 93 07/18/17 20:45 Nasal Cannula 2.00 07/18/17 20:00 97.6 55 22 150/63 (92) 97 07/18/17 16:00 98.6 62 20 161/73 (102) 95 07/18/17 15:30 95 Nasal Cannula 2.00 07/18/17 12:00 61 07/18/17 12:00 98.7 61 24 138/74 (95) 97 I/O 07/18/17 07/18/17 07/18/17 07/19/17 07/19/17 07/19/17 07:00 15:00 23:00 07:00 15:00 23:00 Intake Total 120 ml 800 ml Balance 120 ml 800 ml Intake Oral 120 ml 400 ml IV Total 400 ml # Voids 2 2 1 1 # Bowel Movements 2 1 0 Result Diagram: 07/19/17 0614 07/19/17 0614 Other Results Laboratory Tests Test 07/16/17 16:49 07/16/17 18:00 07/16/17 19:43 07/17/17 04:15 White Blood Count 12.9 TH/MM3 9.2 TH/MM3 Red Blood Count 3.86 MIL/MM3 3.88 MIL/MM3 Hemoglobin 8.6 GM/DL 8.7 GM/DL Bedside Hemoglobin 10.5 G/DL Hematocrit 29.6 % 29.8 % Bedside Hematocrit 31.0 % Mean Corpuscular Volume 76.7 FL 76.8 FL Mean Corpuscular Hemoglobin 22.2 PG 22.5 PG Mean Corpuscular Hemoglobin Concent 29.0 % 29.3 % Red Cell Distribution Width 19.5 % 19.6 % Platelet Count 443 TH/MM3 465 TH/MM3 Mean Platelet Volume 8.2 FL 8.2 FL Neutrophils (%) (Auto) 61.9 % 84.9 % Lymphocytes (%) (Auto) 24.3 % 11.9 % Monocytes (%) (Auto) 11.7 % 1.8 % Eosinophils (%) (Auto) 0.8 % 0.4 % Basophils (%) (Auto) 1.3 % 1.0 % Neutrophils # (Auto) 8.0 TH/MM3 7.8 TH/MM3 Lymphocytes # (Auto) 3.1 TH/MM3 1.1 TH/MM3 Monocytes # (Auto) 1.5 TH/MM3 0.2 TH/MM3 Eosinophils # (Auto) 0.1 TH/MM3 0.0 TH/MM3 Basophils # (Auto) 0.2 TH/MM3 0.1 TH/MM3 CBC Comment DIFF FINAL DIFF FINAL Differential Comment Prothrombin Time 12.7 SEC Prothromb Time International Ratio 1.1 RATIO Activated Partial Thromboplast Time 26.1 SEC Fibrinogen 328 mg/dL Bedside Sodium 144 MMOL/L Bedside Potassium 4.9 MMOL/L Bedside Chloride 106 MMOL/L Bedside Blood Urea Nitrogen 25 MG/DL Bedside Creatinine 0.7 MG/DL Bedside Glucose 115 MG/DL Total Creatine Kinase 185 U/L Troponin I LESS THAN 0.02 NG/ML Human Chorionic Gonadotropin, Quant 4 MIU/ML Urine Color YELLOW Urine Turbidity HAZY Urine pH 6.0 Urine Specific [place] GREATER THAN 1.050 Urine Protein TRACE mg/dL Urine Glucose (UA) NEG mg/dL Urine Ketones NEG mg/dL Urine Occult Blood NEG Urine Nitrite NEG Urine Bilirubin NEG Urine Urobilinogen LESS THAN 2.0 MG/DL Urine Leukocyte Esterase NEG Urine WBC 2 /hpf Urine Squamous Epithelial Cells <1 /hpf Urine Mucus FEW /lpf Urine Opiates Screen NEG Urine Barbiturates Screen NEG Urine Amphetamines Screen NEG Urine Benzodiazepines Screen POS Urine Cocaine Screen NEG Urine Cannabinoids Screen NEG Nasal Screen MRSA (PCR) MRSA NOT DETECTED Test 07/17/17 05:20 07/18/17 03:42 07/19/17 06:14 Blood Urea Nitrogen 12 MG/DL 8 MG/DL 9 MG/DL Creatinine 0.51 MG/DL 0.64 MG/DL 0.64 MG/DL Random Glucose 114 MG/DL 87 MG/DL 98 MG/DL Total Protein 6.0 GM/DL 7.1 GM/DL Albumin 2.8 GM/DL 3.5 GM/DL Calcium Level 8.2 MG/DL 9.2 MG/DL 9.6 MG/DL Phosphorus Level 2.2 MG/DL 2.5 MG/DL 3.7 MG/DL Magnesium Level 1.8 MG/DL 2.2 MG/DL Alkaline Phosphatase 44 U/L 52 U/L Aspartate Amino Transf (AST/SGOT) 18 U/L 14 U/L Alanine Aminotransferase (ALT/SGPT) 14 U/L 15 U/L Total Bilirubin 0.2 MG/DL 0.5 MG/DL Sodium Level 144 MEQ/L 144 MEQ/L 140 MEQ/L Potassium Level 4.1 MEQ/L 3.1 MEQ/L 3.9 MEQ/L Chloride Level 111 MEQ/L 107 MEQ/L 107 MEQ/L Carbon Dioxide Level 27.6 MEQ/L 27.8 MEQ/L 26.6 MEQ/L Anion Gap 5 MEQ/L 9 MEQ/L 6 MEQ/L Estimat Glomerular Filtration Rate 122 ML/MIN 94 ML/MIN 94 ML/MIN Hemoglobin A1c 6.5 % Triglycerides Level 80 MG/DL Cholesterol Level 123 MG/DL LDL Cholesterol 48 MG/DL HDL Cholesterol 59.3 MG/DL Cholesterol/HDL Ratio 2.07 RATIO White Blood Count 12.3 TH/MM3 12.5 TH/MM3 Red Blood Count 4.23 MIL/MM3 4.45 MIL/MM3 Hemoglobin 9.3 GM/DL 10.1 GM/DL Hematocrit 31.8 % 33.3 % Mean Corpuscular Volume 75.3 FL 74.7 FL Mean Corpuscular Hemoglobin 22.0 PG 22.6 PG Mean Corpuscular Hemoglobin Concent 29.3 % 30.2 % Red Cell Distribution Width 19.5 % 19.8 % Platelet Count 479 TH/MM3 444 TH/MM3 Mean Platelet Volume 8.6 FL 8.2 FL Neutrophils (%) (Auto) 46.4 % Lymphocytes (%) (Auto) 35.7 % Monocytes (%) (Auto) 16.1 % Eosinophils (%) (Auto) 1.1 % Basophils (%) (Auto) 0.7 % Neutrophils # (Auto) 5.8 TH/MM3 Lymphocytes # (Auto) 4.5 TH/MM3 Monocytes # (Auto) 2.0 TH/MM3 Eosinophils # (Auto) 0.1 TH/MM3 Basophils # (Auto) 0.1 TH/MM3 CBC Comment DIFF FINAL Differential Comment Prothrombin Time 12.0 SEC Prothromb Time International Ratio 1.1 RATIO Free Thyroxine 1.05 NG/DL Thyroid Stimulating Hormone 3rd Gen 0.606 uIU/ML Imaging Last Impressions Chest X-Ray 07/18/17 0000 Signed Impressions: Service Date/Time: Tuesday, July 18, 2017 05:25 - CONCLUSION: 1. No acute cardiopulmonary disease. Edy Ramirez MD Head CT 07/17/17 1800 Signed Impressions: Service Date/Time: Monday, July 17, 2017 20:34 - CONCLUSION: Evolving stroke left middle cerebral artery hypodensity distribution of the left temporal and parietal lobes. No evidence of hemorrhage. Raul Cui MD Head CTA 07/16/17 1727 Signed Impressions: Service Date/Time: Sunday, July 16, 2017 17:35 - CONCLUSION: 1. Occlusive thrombus identified in the distal left M1 and proximal M2 branches of the MCA. 2. No other significant stenotic or occlusive lesions. Scar Evans MD Neck CTA 07/16/17 0000 Signed Impressions: Service Date/Time: Sunday, July 16, 2017 17:35 - CONCLUSION: 1. Normal extracranial carotid arteries without evidence of stenosis, significant plaque or dissection. 2. Dominant right vertebral artery. 3. Small left vertebral artery originating from the aortic arch. Scar Evans MD Objective Remarks GENERAL: 60-year-old female, currently on nasal cannula SKIN: Warm and dry. HEAD: Atraumatic. Normocephalic. EYES: Pupils equal and round around 3 mm bilaterally and reactive. No scleral icterus. No injection or drainage. ENT: No nasal bleeding or discharge. Mucous membranes pink and moist. NECK: Trachea midline. No JVD. SUPPLE CARDIOVASCULAR: normal rate, regular rhythm.S1, S2 NO S3 OR S4 RESPIRATORY: Clear to auscultation. Breath sounds equal bilaterally. GASTROINTESTINAL: Abdomen soft, non-tender, nondistended. MUSCULOSKELETAL: Extremities without significant peripheral edema. No obvious deformities. NEUROLOGICAL: Awake and alert. Right facial droop improving. Expressive aphasia improving but persistent. Right upper extremities strength 4 out of 5. RLE AYO 4/5, LUE/LLE 5/5. NOT ABLE TO ASSESS INSIGHT AND JUDGEMENT NOT ABLE TO ASSESS MOOD AND BEHAVIOR Procedures TPA Medications and IVs Current Medications Sodium Chloride 1,000 ml @ 70 mls/hr [id number] ONCE IV Last administered on 17:35; Start 07/16/17 at 16:48; Stop 07/17/17 at 07:05; Status DC Iohexol (Omnipaque 350 Inj) 96 ml STK-MED ONCE IVCONTRAST Last administered on 07/16/17 16:43; Start 07/16/17 at 16:43; Stop 07/16/17 at 17:46; Status DC Alteplase, Recombinant (Activase Bolus) 4.5 mg ONCE ONCE IV Last administered on 07/16/17 18:03; Start 07/16/17 at 18:00; Stop 07/16/17 at 18:01; Status DC Alteplase, Recombinant 40.5 mg/Syringe / Bag 40.5 ml @ 40.5 mls/hr ONCE ONCE IV Last administered on 07/16/17 18:16; Start 07/16/17 at 18:00; Stop 07/16 at 18:59; Status DC Sodium Chloride (NS Inj) 30 ml ONCE ONCE IVF Last administered on 07/16/17 18:17; Start 07/16/17 at 18:00; Stop 07/16/17 at 18:01; Status DC Miscellaneous Information No Heparin, Warfarin, Aspir... UNSCH PRN XX SEE DOSE INSTRUCTIONS; Start 07/16/17 at 18:00; Stop 07/17/17 at 17:59; Status DC IV Flush (NS Flush) 2 ml BID IV FLUSH Last administered on 07/18/17 21:00; Start 07/16/17 at 21:00 IV Flush (NS Flush) 2 ml UNSCH PRN IV FLUSH FLUSH AFTER USING IV ACCESS; Start 07/16/17 at 18:45 Nicardipine HCl 25 mg/Sodium Chloride 250 ml @ 50 mls/hr TITRATE PRN IV Maintain BP goal; Start 07/16/17 at 18:45; Stop 07/19/17 at 11:33; Status DC Insulin Aspart (NovoLOG SUPPLEMENTAL SCALE) 1 ACHS SQ ; Start 07/16/17 at 21:00 ; Stop 07/18/17 at 07:44; Status DC Dextrose (D50w (Vial) Inj) 50 ml UNSCH PRN IV PUSH HYPOGLYCEMIA-SEE COMMENTS; Start 07/16/17 at 18:45; Stop 07/18/17 at 07:44; Status DC Glucagon (Glucagon Inj) 1 mg UNSCH PRN OTHER HYPOGLYCEMIA-SEE COMMENTS; Start 07/16/17 at 18:45; Stop 07/18/17 at 07:44; Status DC Labetalol HCl (Trandate Inj) 10 mg Q1HR PRN IV PUSH SBP>185, DBP>110, HR>65; Start 07/16/17 at 18:45; Stop 07/19/17 at 03:08; Status DC Hydralazine HCl (Apresoline Inj) 10 mg Q1HR PRN IV PUSH SBP> OR = 185, DBP> OR = 110; Start 07/16/17 at 18:45; Stop 07/19/17 at 03:08; Status DC Sodium Chloride (NS Flush) 2 ml UNSCH PRN IV FLUSH FLUSH AFTER USING IV ACCESS ; Start 07/16/17 at 19:45 Sodium Chloride (NS Flush) 2 ml BID IV FLUSH Last administered on 07/18/17 21 :00; Start 07/16/17 at 21:00 Pantoprazole Sodium (Protonix Inj) 40 mg DAILY IV PUSH Last administered on 09:22; Start 07/17/17 at 09:00 Ondansetron HCl (Zofran Inj) 4 mg Q6H PRN IV PUSH NAUSEA OR VOMITING; Start at 19:45 Albuterol Sulfate (Albuterol Neb) 2.5 mg Q2HR NEB PRN INH SOB/WHEEZING Last administered on 07/19/17 06:21; Start 07/16/17 at 19:45 Miscellaneous Information 1 Q361D XX ; Start 07/16/17 at 19:45 Chlorhexidine Gluconate (Chlorhexidine 2% Cloth) 3 pack Taper DAILY@04 TOP Last administered on 07/18/17 04:00; Start 07/17/17 at 04:00; Stop 07/13/18 at 03:59 Chlorhexidine Gluconate (Chlorhexidine 2% Cloth) 3 pack UNSCH PRN TOP HYGIENIC CARE; Start 07/16/17 at 19:45 Senna/Docusate Sodium (Nan-Colace) 1 tab BID PO Last administered on 09:22; Start 07/16/17 at 21:00 Magnesium Hydroxide (Milk Of Magnesia Liq) 30 ml Q12H PRN PO Mild constipation ; Start 07/16/17 at 19:45 Sennosides (Senokot) 17.2 mg Q12H PRN PO Moderate constipation; Start at 19:45 Bisacodyl (Dulcolax Supp) 10 mg DAILY PRN RECTAL SEVERE CONSITIPATION; Start 07/16/17 at 19:45 Lactulose (Lactulose Liq) 30 ml DAILY PRN PO SEVERE CONSITIPATION; Start 07/16 at 19:45 Albuterol Sulfate (Ventolin Hfa Inh) 2 puff Q4HR PRN INH SHORTNESS OF BREATH; Start 07/16/17 at 19:45; Stop 07/16/17 at 21:37; Status DC Atorvastatin Calcium (Lipitor) 40 mg HS PO Last administered on 07/18/17 21: 24; Start 07/16/17 at 21:00 Citalopram Hydrobromide (CeleXA) 10 mg DAILY PO Last administered on 09:22; Start 07/17/17 at 09:00 Prednisone (Deltasone) 5 mg DAILY PO Last administered on 07/19/17 09:22; Start 07/17/17 at 09:00 Pregabalin (Lyrica) 75 mg BID PO Last administered on 07/18/17 22:41; Start 07/16/17 at 21:00 Budesonide/ Formoterol Fumarate (Symbicort 80-4.5 Mcg Inh) 2 puff BID INH Last administered on 07/18/17 22:41; Start 07/16/17 at 21:00 Hydrocortisone Sodium Succinate (SoluCORTEF INJ) 50 mg ONCE ONCE IV PUSH Last administered on 07/16/17 22:54; Start 07/16/17 at 21:30; Stop 07/16/17 at 21 :31; Status DC Magnesium Oxide (Mag-Ox) 800 mg UNSCH PRN PO For Magnesium 1.2 - 1.6 mg/dL; Start 07/17/17 at 08:15; Stop 07/19/17 at 11:01; Status DC Magnesium Sulfate 4 gm/Sodium Chloride 100 ml @ 50 mls/hr UNSCH PRN IV For Magnesium 0.9 - 1.1 mg/dL; Start 07/17/17 at 08:15; Stop 07/19/17 at 11:01; Status DC Magnesium Sulfate 2 gm/Sodium Chloride 100 ml @ 50 mls/hr UNSCH PRN IV For Magnesium 1.2 - 1.6 mg/dL; Start 07/17/17 at 08:15; Stop 07/19/17 at 11:01; Status DC Potassium Chloride 100 ml @ 50 mls/hr Q2H PRN IV For Potassium 2.8 - 3.2 mEq/ L Last administered on 07/18/17 12:50; Start 07/17/17 at 08:15; Stop at 11:01; Status DC Potassium Chloride 100 ml @ 50 mls/hr Q2H PRN IV For Potassium 3.3 - 3.5 mEq/L ; Start 07/17/17 at 08:15; Stop 07/19/17 at 11:01; Status DC Potassium Chloride 100 ml @ 50 mls/hr Q2H PRN IV For Potassium 2.8 - 3.2 mEq/L ; Start 07/17/17 at 08:15; Stop 07/19/17 at 11:01; Status DC Potassium Chloride 100 ml @ 25 mls/hr UNSCH PRN IV For Potassium 3.3 - 3.5 mEq /L; Start 07/17/17 at 08:15; Stop 07/19/17 at 11:01; Status DC Potassium Phosphate (K-Phos) 2,000 mg Q4H PRN PO For Phosphorus < 2.5 mg/dL; Start 07/17/17 at 08:15; Stop 07/19/17 at 11:01; Status DC Potassium Phosphate (K-Phos) 2,000 mg UNSCH PRN PO/TUBE SEE LABEL COMMENTS; Start 07/17/17 at 08:15; Stop 07/19/17 at 11:01; Status DC Potassium Phosphate 30 mmol/ Sodium Chloride 260 ml @ 42 mls/hr UNSCH PRN IV SEE LABEL COMMENTS; Start 07/17/17 at 08:15; Stop 07/19/17 at 11:01; Status DC Sodium Phosphate 30 mmol/Sodium Chloride 250 ml @ 42 mls/hr UNSCH PRN IV For Phosphorus < 2.5 mg/dL Last administered on 07/17/17 12:25; Start 07/17/17 at 08:15; Stop 07/19/17 at 11:01; Status DC Pharmacy Profile Note 0 ml @ 0 mls/hr UNSCH OTHER ; Start 07/18/17 at 06:30 Enoxaparin Sodium (Lovenox Inj) 50 mg Q12H SQ Last administered on 07/18/17 23:14; Start 07/18/17 at 08:00 Warfarin Sodium (Coumadin) 5 mg DAILY@1600 PO Last administered on 07/18/17 17:15; Start 07/18/17 at 16:00 Patient Medication Teaching (Coumadin Booklet) 1 ONCE ONCE .XX Last administered on 07/18/17 17:42; Start 07/18/17 at 16:00; Stop 07/18/17 at 16 :01; Status DC Ibuprofen (Motrin) 600 mg Q6H PRN PO Headache Last administered on 07/18/17t 23:14; Start 07/18/17 at 23:00 Urinary Catheter: No Vascular Central Line Catheter: No A/P Problem List: (1) CVA (cerebral vascular accident) ICD Code: I63.9 - Cerebral infarction, unspecified (2) Depression ICD Code: F32.9 - Major depressive disorder, single episode, unspecified (3) Hepatitis C ICD Code: B19.20 - Unspecified viral hepatitis C without hepatic coma (4) Osteoarthritis ICD Code: M19.90 - Unspecified osteoarthritis, unspecified site (5) Leukocytosis ICD Code: D72.829 - Elevated white blood cell count, unspecified (6) Current chronic use of systemic steroids ICD Code: Z79.52 - correction (current) use of systemic steroids (7) Anemia ICD Code: D64.9 - Anemia, unspecified Status: Acute (8) COPD (chronic obstructive pulmonary disease) ICD Code: J44.9 - Chronic obstructive pulmonary disease, unspecified Status: Acute Assessment and Plan Assessment: 62yF with recent PE in 05/2017 now with left M1 MCA CVA s/p systemic TPA. She was noncompliant and subtherapeutic on her coumadin at home. Given negative head CT, will start bridge with lovenox back to coumadin. can transfer out of ICU. aggressive pulmonary toilet.WAS TRANSFERRED TO OUR SERVICE 07-19 Neuro/Psych: Left MCA CVA Depression/anxiety Restless leg syndrome CT brain 07/16 revealed no acute intracranial findings CTA brain 07/16 revealed occlusion left MCA distal M1/proximal M2 segments Evaluated by Dr. Ramirez, intervention radiology. Not deemed candidate for intervention Evaluated by Dr. Booker, neurology Status post alteplase 4.5 mg IV 1 followed by 41.5 mg over 1 hour Holding clonazepam 0.5 mg twice a day. Resume when clinically indicated Holding pregabalin 75 mg twice a day for restless leg syndrome Okay to resume citalopram 10 mg daily for depression Noted allergies to acetaminophen and hydrocodone morphine Goal keep systolic blood pressure less than 185/110. Check hemoglobin A1c and lipid panel 2-D echocardiogram ordered CV: Hypertension Dyslipidemia Sinus bradycardia Recent PE Currently holding home medication of metoprolol 25 mg twice a day and aspirin 81 mg daily. Resume as clinically indicated Continue atorvastatin 40 mg by mouth daily for dyslipidemia As needed hydralazine, labetalol and Cardene drip to maintain systolic blood pressure less than 185, diastolic blood pressure less than 110 2d echo with RA dilation, EF 40-45%. LISINOPRIL 5MG PO DAILY Resp: Recent history of pulmonary embolism COPD Ongoing tobaccoism Nasal cannula to maintain saturations greater than equal to 92% Incentive spirometry while awake Continue fluticasone/salmeterol 100/50 one inhalation twice a day On albuterol inhaler every 4 hours as needed home Tobacco cessation will be encouraged restart warfarin with therapeutic lovenox GI: History of hepatitis C/treated heart healthy diet as tolerated. Pantoprazole for GI prophylaxis Docusate sodium/senna for bowel regimen passed nursing bedside swallow evaluation : No indication for Sage catheter Endo: Chronic prednisone use Check TSH Sliding-scale insulin if indicated to maintain euglycemia between 140 and 180 1 dose of hydrocortisone overnight 50 mg. Prednisone 5 mg daily in a.m. Renal: Creatinine currently within normal limits Monitor urine output Accurate I's and O's Heme: Leukocytosis Microcytic anemia Warfarin use - 5 mg daily for pulmonary embolism, subtherapeutic Monitor CBC daily. Follow trends INR was 1.1 on admission start lovenox 1mg/kg q12h. coumadin with pharmacy dosing. ID: Monitor for infection MSK: PT/OT/ST evaluate and treat FEN: Replace electrolytes as clinically indicated Access - Utilize peripheral IV. Central line if indicated Prophylaxis - GI - pantoprazole - DVT - SCD/full anticoagulation TRANSFERRED TO OUR SERVICE 10-18 AM LABS, PT , OT , ST Discharge Planning SAFE PLACEMENT PT AND OT , ST Problem Qualifiers (1) CVA (cerebral vascular accident): Qualified Codes: I63.512 - Cerebral infarction due to unspecified occlusion or stenosis of left middle cerebral artery (2) Depression: Qualified Codes: F33.1 - Major depressive disorder, recurrent, moderate (3) Hepatitis C: (4) Osteoarthritis: (5) Leukocytosis: Qualified Codes: D72.829 - Elevated white blood cell count, unspecified (6) Anemia: Qualified Codes: D64.9 - Anemia, unspecified (7) COPD (chronic obstructive pulmonary disease): Qualified Codes: J44.9 - Chronic obstructive pulmonary disease, unspecified Vernon Schultz DO Jul 19, 2017 12:05
[2017-07-19] MEDS ORDERED: LISINOPRIL 5 MG TAB PO ONE (13:30)
--- NOTE | 2017-07-19 16:28 | RADRPT ---
EXAM DATE/TIME: 07/19/2017 16:53 [facility] COMPARISON: No previous studies available for comparison. INDICATIONS : NG tube placement MEDICAL HISTORY : Stroke. Cardiovascular disease. Hypertension SURGICAL HISTORY : CABG. ENCOUNTER: Initial ACUITY: 1 day PAIN SCORE: 0/10 LOCATION: Bilateral upper quadrant FINDINGS: Examination of the abdomen demonstrates a normal bowel gas pattern. No free air is identified. No o rganomegaly is evident. Osseous structures are intact. Weighted feeding tube with the tip in the reg ion of the body of the stomach. CONCLUSION: Tip of NG tube in the region of the body the stomach. Lino Vázquez Jr., MD on July 19, 2017 at 16:25 Board Certified Radiologist. This report was verified electronically.
[2017-07-19] MEDS: WARFARIN SOD 5 MG TAB PO SCH (17:23)
[2017-07-20] VITALS (7 sets, daily range): BP systolic 91–132; BP diastolic 56–83; PULSE 66–96; RESP 18–20; TEMP 98.3–100.3; O2SAT 90–97
[2017-07-20] MEDS: PREGABALIN 75 MG CAP PO SCH ×3 (00:54→21:22)
[2017-07-20] MEDS: DOCUSATE SODIUM 50 MG/SENNA 8.6 MG TAB PO SCH ×3 (00:54→21:22)
[2017-07-20] MEDS: ATORVASTATIN 40 MG TAB PO SCH ×2 (00:54→21:22)
[2017-07-20] MEDS: SODIUM CHLORIDE 0.9% FLUSH 10 ML FLUSH IV FLUSH SCH ×3 (00:55→21:00)
--- NOTE | 2017-07-20 00:55 | RADRPT ---
EXAM DATE/TIME: 07/20/2017 01:25 [facility] COMPARISON: ABDOMEN SINGLE VIEW, July 19, 2017, 16:53. INDICATIONS : NG tube placement after patient pulled out previous tube MEDICAL HISTORY : Stroke. Cardiovascular disease. Hypertension SURGICAL HISTORY : CABG. ENCOUNTER: Initial ACUITY: 1 day PAIN SCORE: Non-responsive. LOCATION: Bilateral upper quadrant FINDINGS: The bowel gas pattern appears normal. No free air is identified. No organomegaly is evident. Dobbhoff tube is in the stomach. CONCLUSION: 1. Dobbhoff tube in the stomach Edy Ramirez MD on July 20, 2017 at 0:53 Board Certified Radiologist. This report was verified electronically.
[2017-07-20] MEDS: CHLORHEXIDINE GLUCONATE 2 % 1 PACK (2 CLOTHS) TOP SCH ×2 (04:00→21:22)
[2017-07-20 04:59] LABS: AUTOMATED NEUTROPHIL # 10.7 TH/MM3 (1.8-7.7); BASOPHIL # 0.1 TH/MM3 (0-0.2); BASOPHIL % 0.5 % (0.0-2.0); EOSINOPHIL % 0.2 % (0.0-4.0); HEMATOCRIT 33.5 % (35.0-46.0); HEMO FLAGS DIFF FINAL; LYMPH % 17.7 % (9.0-44.0); LYMPHOCYTE # 2.7 TH/MM3 (1.0-4.8); MEAN CELL VOLUME 73.9 FL (80.0-100.0); MEAN CORPUSCULAR HEMOGLOBIN 22.2 PG (27.0-34.0); MONO % 12.5 % (0.0-8.0); NEUT % 69.1 % (16.0-70.0); PLATELET COUNT 433 TH/MM3 (150-450); RED BLOOD COUNT 4.53 MIL/MM3 (4.00-5.30); RED CELL DISTRIBUTION WIDTH 19.8 % (11.6-17.2); WHITE BLOOD COUNT 15.4 TH/MM3 (4.0-11.0)
[2017-07-20 05:08] LABS: INTERNATIONAL NORMALIZED RATIO 1.2 RATIO; PROTHROMBIN TIME - PATIENT 13.9 SEC (9.8-11.6)
[2017-07-20 05:36] LABS: ANION GAP 10 MEQ/L (5-15); AST (GOT) 19 U/L (15-37); BICARBONATE 24.9 MEQ/L (21.0-32.0); BLOOD UREA NITROGEN 18 MG/DL (7-18); CHLORIDE 103 MEQ/L (98-107); GLOMERULAR FILTRATION RATE 89 ML/MIN (>89); MAGNESIUM 2.1 MG/DL (1.5-2.5); POTASSIUM 3.7 MEQ/L (3.5-5.1); SODIUM (NA) 138 MEQ/L (136-145)
[2017-07-20 05:38] LABS: ALKALINE PHOSPHATASE 57 U/L (45-117); ALT (GPT) 17 U/L (10-53); TOTAL BILIRUBIN ADULT 0.5 MG/DL (0.2-1.0)
--- NOTE | 2017-07-20 08:33 | HHI.PR ---
Review/Management Daily Summary more alert and responsive right hemiparesis less severe, moves and raises UE but finger motor poor right leg motor better than last night global aphasia but verbalizes some words denies pain/hill ct seen, more than 1/3 left mca infarct and localization of embolus discouraged intervention stroke rehab, repeat ct later today per protocol resume coumadin if ct negative bleed, probably no heparin bridging unless underlying medical condition warrants 07/18 awakened this am, no distress moves 4 limbs with right hemiparesis which is stable aphasia persists on lovenox check echo ldl low 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 aphasia but has some understanding follows some simple commands right hemiparesis4/5, 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 rehab pt/oob as tolerated Subjective Subjective Comments aphasia persists Active Medications Current Medications Medications (Trade) Dose Ordered Sig/Anthony Route Start Time Stop Time Status Last Admin (NS Flush) 2 ml UNSCH PRN IV FLUSH 07/16/17 19:45 (NS Flush) 2 ml BID IV FLUSH 07/16/17 21:00 07/20/17 00:55 (Protonix Inj) 40 mg DAILY IV PUSH 07/17/17 09:00 07/18/17 07:47 (Zofran Inj) 4 mg Q6H PRN IV PUSH 07/16/17 19:45 (Albuterol Neb) 2.5 mg Q2HR NEB PRN INH 07/16/17 19:45 07/19/17 06:21 Miscellaneous Information 1 Q361D XX 07/16/17 19:45 (Chlorhexidine 2% Cloth) 3 pack Taper DAILY@04 TOP 07/17/17 04:00 07/13/18 03:59 07/18/17 04:00 (Chlorhexidine 2% Cloth) 3 pack UNSCH PRN TOP 07/16/17 19:45 (Ann-Colace) 1 tab BID PO 07/16/17 21:00 07/20/17 00:54 (Milk Of Magnesia Liq) 30 ml Q12H PRN PO 07/16/17 19:45 (Senokot) 17.2 mg Q12H PRN PO 07/16/17 19:45 (Dulcolax Supp) 10 mg DAILY PRN RECTAL 07/16/17 19:45 (Lactulose Liq) 30 ml DAILY PRN PO 07/16/17 19:45 (Lipitor) 40 mg HS PO 07/16/17 21:00 07/20/17 00:54 (CeleXA) 10 mg DAILY PO 07/17/17 09:00 07/18/17 07:47 (Deltasone) 5 mg DAILY PO 07/17/17 09:00 07/18/17 07:47 (Lyrica) 75 mg BID PO 07/16/17 21:00 07/20/17 00:54 (Symbicort 80-4.5 Mcg Inh) 2 puff BID INH 07/16/17 21:00 07/19/17 21:00 Pharmacy Profile Note 0 ml @ 0 mls/hr UNSCH OTHER 07/18/17 06:30 (Lovenox Inj) 50 mg Q12H SQ 07/18/17 08:00 07/19/17 22:47 (Coumadin) 5 mg DAILY@1600 PO 07/18/17 16:00 07/19/17 17:23 (Motrin) 600 mg Q6H PRN PO 07/18/17 23:00 07/18/17 23:14 (Prinivil) 5 mg DAILY PO 07/20/17 09:00 Allergies Allergies Coded Allergies acetaminophen (Unverified Allergy, Intermediate, ITCHING, NAUSEA, 05/16/17) hydrocodone (Unverified Allergy, Intermediate, ITCHING, NAUSEA, 05/16/17) morphine (Unverified Allergy, Intermediate, ITCHING, NAUSEA, 05/16/17) Exam I&O / VS Vital Signs Date Time Temp Pulse Resp B/P (MAP) Pulse Ox O2 Delivery O2 Flow Rate FiO2 07/20/17 05:17 20 97/67 (77) 97 07/20/17 04:30 99.6 86 18 91/64 (73) 96 07/20/17 00:17 100.3 96 18 132/83 (99) 96 07/19/17 21:50 93 07/19/17 21:45 Nasal Cannula 2.00 07/19/17 20:34 98.5 102 18 141/85 (103) 92 07/19/17 16:00 98.7 92 18 135/80 (98) 98 07/19/17 12:00 98.5 62 18 145/72 (96) 97 07/19/17 10:15 Nasal Cannula 2.00 Objective Micro and Labs Laboratory Tests Test 07/20/17 04:42 White Blood Count 15.4 Red Blood Count 4.53 Hemoglobin 10.0 Hematocrit 33.5 Mean Corpuscular Volume 73.9 Mean Corpuscular Hemoglobin 22.2 Mean Corpuscular Hemoglobin Concent 30.0 Red Cell Distribution Width 19.8 Platelet Count 433 Mean Platelet Volume 8.4 Neutrophils (%) (Auto) 69.1 Lymphocytes (%) (Auto) 17.7 Monocytes (%) (Auto) 12.5 Eosinophils (%) (Auto) 0.2 Basophils (%) (Auto) 0.5 Neutrophils # (Auto) 10.7 Lymphocytes # (Auto) 2.7 Monocytes # (Auto) 1.9 Eosinophils # (Auto) 0.0 Basophils # (Auto) 0.1 CBC Comment DIFF FINAL Differential Comment Prothrombin Time 13.9 Prothromb Time International Ratio 1.2 Blood Urea Nitrogen 18 Creatinine 0.67 Random Glucose 111 Total Protein 7.3 Albumin 3.5 Calcium Level 9.4 Phosphorus Level 3.6 Magnesium Level 2.1 Alkaline Phosphatase 57 Aspartate Amino Transf (AST/SGOT) 19 Alanine Aminotransferase (ALT/SGPT) 17 Total Bilirubin 0.5 Sodium Level 138 Potassium Level 3.7 Chloride Level 103 Carbon Dioxide Level 24.9 Anion Gap 10 Estimat Glomerular Filtration Rate 89 Lexi Booker MD Jul 20, 2017 08:33
[2017-07-20] MEDS: BUDESONIDE-FORMOTEROL 80/4.5 MCG INHALER INH SCH ×2 (09:00→21:00)
--- NOTE | 2017-07-20 09:11 | HHI.PR ---
Subjective Remarks f/u; CVA patient was seen with ST at the bedside. resting comfortably with no distress. denies pain. still on restraints. d/w the RN and reportedly had worsening dysphagia yesterday- now NG tube in place. Objective Vitals Vital Signs Date Time Temp Pulse Resp B/P (MAP) Pulse Ox O2 Delivery O2 Flow Rate FiO2 07/20/17 05:17 20 97/67 (77) 97 07/20/17 04:30 99.6 86 18 91/64 (73) 96 07/20/17 00:17 100.3 96 18 132/83 (99) 96 07/19/17 21:50 93 07/19/17 21:45 Nasal Cannula 2.00 07/19/17 20:34 98.5 102 18 141/85 (103) 92 07/19/17 16:00 98.7 92 18 135/80 (98) 98 07/19/17 12:00 98.5 62 18 145/72 (96) 97 07/19/17 10:15 Nasal Cannula 2.00 I/O 07/19/17 07/19/17 07/19/17 07/20/17 07/20/17 07/20/17 06:59 14:59 22:59 06:59 14:59 22:59 # Voids 1 2 1 # Bowel Movements 0 Result Diagram: 07/20/17 0442 07/20/17 0442 Imaging Last Impressions Abdomen X-Ray 07/20/17 0000 Signed Impressions: Service Date/Time: July 01:25 - CONCLUSION: 1. Dobbhoff tube in the stomach Edy Ramirez MD Chest X-Ray 07/18/17 0000 Signed Impressions: Service Date/Time: Tuesday, July 18, 2017 05:25 - CONCLUSION: 1. No acute cardiopulmonary disease. Edy Ramirez MD Head CT 07/17/17 1800 Signed Impressions: Service Date/Time: Monday, July 17, 2017 20:34 - CONCLUSION: Evolving stroke left middle cerebral artery hypodensity distribution of the left temporal and parietal lobes. No evidence of hemorrhage. Raul Cui MD Head CTA 07/16/17 1727 Signed Impressions: Service Date/Time: Sunday, July 16, 2017 17:35 - CONCLUSION: 1. Occlusive thrombus identified in the distal left M1 and proximal M2 branches of the MCA. 2. No other significant stenotic or occlusive lesions. Scar Evans MD Neck CTA 07/16/17 0000 Signed Impressions: Service Date/Time: Sunday, July 16, 2017 17:35 - CONCLUSION: 1. Normal extracranial carotid arteries without evidence of stenosis, significant plaque or dissection. 2. Dominant right vertebral artery. 3. Small left vertebral artery originating from the aortic arch. Scar Evans MD Objective Remarks GENERAL: This is a well-nourished, well-developed patient, in no apparent distress. CARDIOVASCULAR: Regular rate and regular rhythm without murmurs, gallops, or rubs. RESPIRATORY: Clear to auscultation. Breath sounds equal bilaterally. No wheezes , rales, or rhonchi. GASTROINTESTINAL: Abdomen soft, non-tender, nondistended. Normal, active bowel sounds MUSCULOSKELETAL: Extremities without clubbing, cyanosis, or edema. NEURO: awake, aphasic. Procedures TPA Medications and IVs Current Medications Sodium Chloride 1,000 ml @ 70 mls/hr [id number] ONCE IV Last administered on 17:35; Start 07/16/17 at 16:48; Stop 07/17/17 at 07:05; Status DC Iohexol (Omnipaque 350 Inj) 96 ml STK-MED ONCE IVCONTRAST Last administered on 07/16/17 16:43; Start 07/16/17 at 16:43; Stop 07/16/17 at 17:46; Status DC Alteplase, Recombinant (Activase Bolus) 4.5 mg ONCE ONCE IV Last administered on 07/16/17 18:03; Start 07/16/17 at 18:00; Stop 07/16/17 at 18:01; Status DC Alteplase, Recombinant 40.5 mg/Syringe / Bag 40.5 ml @ 40.5 mls/hr ONCE ONCE IV Last administered on 07/16/17 18:16; Start 07/16/17 at 18:00; Stop 07/16 at 18:59; Status DC Sodium Chloride (NS Inj) 30 ml ONCE ONCE IVF Last administered on 07/16/17 18:17; Start 07/16/17 at 18:00; Stop 07/16/17 at 18:01; Status DC Miscellaneous Information No Heparin, Warfarin, Aspir... UNSCH PRN XX SEE DOSE INSTRUCTIONS; Start 07/16/17 at 18:00; Stop 07/17/17 at 17:59; Status DC IV Flush (NS Flush) 2 ml BID IV FLUSH Last administered on 07/18/17t 21:00; Start 07/16/17 at 21:00; Stop 07/19/17 at 16:05; Status DC IV Flush (NS Flush) 2 ml UNSCH PRN IV FLUSH FLUSH AFTER USING IV ACCESS; Start 07/16/17 at 18:45; Stop 07/19/17 at 16:05; Status DC Nicardipine HCl 25 mg/Sodium Chloride 250 ml @ 50 mls/hr TITRATE PRN IV Maintain BP goal; Start 07/16/17 at 18:45; Stop 07/19/17 at 11:33; Status DC Insulin Aspart (NovoLOG SUPPLEMENTAL SCALE) 1 ACHS SQ ; Start 07/16/17 at 21:00 ; Stop 07/18/17 at 07:44; Status DC Dextrose (D50w (Vial) Inj) 50 ml UNSCH PRN IV PUSH HYPOGLYCEMIA-SEE COMMENTS; Start 07/16/17 at 18:45; Stop 07/18/17 at 07:44; Status DC Glucagon (Glucagon Inj) 1 mg UNSCH PRN OTHER HYPOGLYCEMIA-SEE COMMENTS; Start 07/16/17 at 18:45; Stop 07/18/17 at 07:44; Status DC Labetalol HCl (Trandate Inj) 10 mg Q1HR PRN IV PUSH SBP>185, DBP>110, HR>65; Start 07/16/17 at 18:45; Stop 07/19/17 at 03:08; Status DC Hydralazine HCl (Apresoline Inj) 10 mg Q1HR PRN IV PUSH SBP> OR = 185, DBP> OR = 110; Start 07/16/17 at 18:45; Stop 07/19/17 at 03:08; Status DC Sodium Chloride (NS Flush) 2 ml UNSCH PRN IV FLUSH FLUSH AFTER USING IV ACCESS ; Start 07/16/17 at 19:45 Sodium Chloride (NS Flush) 2 ml BID IV FLUSH Last administered on 07/20/17t 00 :55; Start 07/16/17 at 21:00 Pantoprazole Sodium (Protonix Inj) 40 mg DAILY IV PUSH Last administered on 07:47; Start 07/17/17 at 09:00 Ondansetron HCl (Zofran Inj) 4 mg Q6H PRN IV PUSH NAUSEA OR VOMITING; Start at 19:45 Albuterol Sulfate (Albuterol Neb) 2.5 mg Q2HR NEB PRN INH SOB/WHEEZING Last administered on 07/19/17 06:21; Start 07/16/17 at 19:45 Miscellaneous Information 1 Q361D XX ; Start 07/16/17 at 19:45 Chlorhexidine Gluconate (Chlorhexidine 2% Cloth) 3 pack Taper DAILY@04 TOP Last administered on 07/18/17 04:00; Start 07/17/17 at 04:00; Stop 07/13/18 at 03:59 Chlorhexidine Gluconate (Chlorhexidine 2% Cloth) 3 pack UNSCH PRN TOP HYGIENIC CARE; Start 07/16/17 at 19:45 Senna/Docusate Sodium (Ann-Colace) 1 tab BID PO Last administered on 00:54; Start 07/16/17 at 21:00 Magnesium Hydroxide (Milk Of Magnesia Liq) 30 ml Q12H PRN PO Mild constipation ; Start 07/16/17 at 19:45 Sennosides (Senokot) 17.2 mg Q12H PRN PO Moderate constipation; Start at 19:45 Bisacodyl (Dulcolax Supp) 10 mg DAILY PRN RECTAL SEVERE CONSITIPATION; Start 07/16/17 at 19:45 Lactulose (Lactulose Liq) 30 ml DAILY PRN PO SEVERE CONSITIPATION; Start 07/16 at 19:45 Albuterol Sulfate (Ventolin Hfa Inh) 2 puff Q4HR PRN INH SHORTNESS OF BREATH; Start 07/16/17 at 19:45; Stop 07/16/17 at 21:37; Status DC Atorvastatin Calcium (Lipitor) 40 mg HS PO Last administered on 07/20/17 00: 54; Start 07/16/17 at 21:00 Citalopram Hydrobromide (CeleXA) 10 mg DAILY PO Last administered on 07:47; Start 07/17/17 at 09:00 Prednisone (Deltasone) 5 mg DAILY PO Last administered on 07/18/17 07:47; Start 07/17/17 at 09:00 Pregabalin (Lyrica) 75 mg BID PO Last administered on 07/20/17 00:54; Start 07/16/17 at 21:00 Budesonide/ Formoterol Fumarate (Symbicort 80-4.5 Mcg Inh) 2 puff BID INH Last administered on 07/19/17 21:00; Start 07/16/17 at 21:00 Hydrocortisone Sodium Succinate (SoluCORTEF INJ) 50 mg ONCE ONCE IV PUSH Last administered on 07/16/17 22:54; Start 07/16/17 at 21:30; Stop 07/16/17 at 21 :31; Status DC Magnesium Oxide (Mag-Ox) 800 mg UNSCH PRN PO For Magnesium 1.2 - 1.6 mg/dL; Start 07/17/17 at 08:15; Stop 07/19/17 at 11:01; Status DC Magnesium Sulfate 4 gm/Sodium Chloride 100 ml @ 50 mls/hr UNSCH PRN IV For Magnesium 0.9 - 1.1 mg/dL; Start 07/17/17 at 08:15; Stop 07/19/17 at 11:01; Status DC Magnesium Sulfate 2 gm/Sodium Chloride 100 ml @ 50 mls/hr UNSCH PRN IV For Magnesium 1.2 - 1.6 mg/dL; Start 07/17/17 at 08:15; Stop 07/19/17 at 11:01; Status DC Potassium Chloride 100 ml @ 50 mls/hr Q2H PRN IV For Potassium 2.8 - 3.2 mEq/ L Last administered on 07/18/17 12:50; Start 07/17/17 at 08:15; Stop at 11:01; Status DC Potassium Chloride 100 ml @ 50 mls/hr Q2H PRN IV For Potassium 3.3 - 3.5 mEq/L ; Start 07/17/17 at 08:15; Stop 07/19/17 at 11:01; Status DC Potassium Chloride 100 ml @ 50 mls/hr Q2H PRN IV For Potassium 2.8 - 3.2 mEq/L ; Start 07/17/17 at 08:15; Stop 07/19/17 at 11:01; Status DC Potassium Chloride 100 ml @ 25 mls/hr UNSCH PRN IV For Potassium 3.3 - 3.5 mEq /L; Start 07/17/17 at 08:15; Stop 07/19/17 at 11:01; Status DC Potassium Phosphate (K-Phos) 2,000 mg Q4H PRN PO For Phosphorus < 2.5 mg/dL; Start 07/17/17 at 08:15; Stop 07/19/17 at 11:01; Status DC Potassium Phosphate (K-Phos) 2,000 mg UNSCH PRN PO/TUBE SEE LABEL COMMENTS; Start 07/17/17 at 08:15; Stop 07/19/17 at 11:01; Status DC Potassium Phosphate 30 mmol/ Sodium Chloride 260 ml @ 42 mls/hr UNSCH PRN IV SEE LABEL COMMENTS; Start 07/17/17 at 08:15; Stop 07/19/17 at 11:01; Status DC Sodium Phosphate 30 mmol/Sodium Chloride 250 ml @ 42 mls/hr UNSCH PRN IV For Phosphorus < 2.5 mg/dL Last administered on 07/17/17 12:25; Start 07/17/17 at 08:15; Stop 07/19/17 at 11:01; Status DC Pharmacy Profile Note 0 ml @ 0 mls/hr UNSCH OTHER ; Start 07/18/17 at 06:30 Enoxaparin Sodium (Lovenox Inj) 50 mg Q12H SQ Last administered on 07/19/17 22:47; Start 07/18/17 at 08:00 Warfarin Sodium (Coumadin) 5 mg DAILY@1600 PO Last administered on 07/19/17 17:23; Start 07/18/17 at 16:00 Patient Medication Teaching (Coumadin Booklet) 1 ONCE ONCE .XX Last administered on 07/18/17 17:42; Start 07/18/17 at 16:00; Stop 07/18/17 at 16 :01; Status DC Ibuprofen (Motrin) 600 mg Q6H PRN PO Headache Last administered on 07/18/17 23:14; Start 07/18/17 at 23:00 Lisinopril (Prinivil) 5 mg ONCE ONCE PO Last administered on 07/19/17 17:22 ; Start 07/19/17 at 13:30; Stop 07/19/17 at 13:31; Status DC Lisinopril (Prinivil) 5 mg DAILY PO ; Start 07/20/17 at 09:00 A/P Problem List: (1) CVA (cerebral vascular accident) ICD Code: I63.9 - Cerebral infarction, unspecified (2) Depression ICD Code: F32.9 - Major depressive disorder, single episode, unspecified (3) Hepatitis C ICD Code: B19.20 - Unspecified viral hepatitis C without hepatic coma (4) Osteoarthritis ICD Code: M19.90 - Unspecified osteoarthritis, unspecified site (5) Leukocytosis ICD Code: D72.829 - Elevated white blood cell count, unspecified (6) Current chronic use of systemic steroids ICD 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 Ramirez, intervention radiology. Not deemed candidate for intervention Evaluated by Dr. Booker, neurology Status post alteplase 4.5 mg IV 1 followed by 41.5 mg over 1 hour Holding clonazepam and pregabalin . continue citalopram 10 mg daily for depression Noted allergies to acetaminophen and hydrocodone morphine Goal keep systolic blood pressure less than 185/110. echo with EF 45-50% Hypertension Dyslipidemia Sinus bradycardia Recent PE Currently holding home medication of metoprolol 25 mg twice a day and aspirin 81 mg daily. Resume as clinically indicated Continue atorvastatin 40 mg by mouth daily for dyslipidemia continue lisinopril monitor BP and adjust the BP regimen as needed. Recent history of pulmonary embolism COPD Ongoing tobaccoism Nasal cannula to maintain saturations greater than equal to 92% Incentive spirometry while awake Continue fluticasone/salmeterol 100/50 one inhalation twice a day On albuterol inhaler every 4 hours as needed home Tobacco cessation will be encouraged continue warfarin with bridge with Lovenox History of hepatitis C/treated dysphagia NPO for now- per ST continue with tube feeding via NG tube for now. Chronic prednisone use Sliding-scale insulin if indicated to maintain euglycemia between 140 and 180 continue Prednisone . Leukocytosis Microcytic anemia Warfarin use - 5 mg daily for pulmonary embolism, subtherapeutic Monitor CBC . continue Coumadin and subq Lovenox PT/OT/ST evaluate and treat Discharge Planning dc planning to inpatient rehab. patient still on restraints. Problem Qualifiers (1) CVA (cerebral vascular accident): Qualified Codes: I63.512 - Cerebral infarction due to unspecified occlusion or stenosis of left middle cerebral artery (2) Depression: Qualified Codes: F33.1 - Major depressive disorder, recurrent, moderate (3) Hepatitis C: (4) Osteoarthritis: (5) Leukocytosis: Qualified Codes: D72.829 - Elevated white blood cell count, unspecified (6) Anemia: Qualified Codes: D64.9 - Anemia, unspecified (7) COPD (chronic obstructive pulmonary disease): Qualified Codes: J44.9 - Chronic obstructive pulmonary disease, unspecified Vilma Terry MD Jul 20, 2017 09:11
[2017-07-20] MEDS: ENOXAPARIN SODIUM 60 MG/0.6 ML SYRINGE SQ SCH ×2 (09:43→21:21)
[2017-07-20] MEDS: LISINOPRIL 5 MG TAB PO SCH (09:44)
[2017-07-20] MEDS: predniSONE 5 MG TAB PO SCH (09:44)
[2017-07-20] MEDS: CITALOPRAM HYDROBROMIDE 20 MG TAB PO SCH (09:45)
[2017-07-20] MEDS: PANTOPRAZOLE SODIUM 40 MG VIAL IV PUSH SCH (09:45)
[2017-07-20] MEDS: WARFARIN SOD 5 MG TAB PO SCH (16:28)
[2017-07-21] VITALS (10 sets, daily range): BP systolic 98–130; BP diastolic 63–73; PULSE 67–105; RESP 16–20; TEMP 98–100; O2SAT 92–97
[2017-07-21 05:21] LABS: HEMATOCRIT 34.6 % (35.0-46.0); MEAN CELL VOLUME 74.8 FL (80.0-100.0); MEAN CORPUSCULAR HEMOGLOBIN 22.6 PG (27.0-34.0); MEAN CORPUSCULAR HGB CONC 30.3 % (32.0-36.0); PLATELET COUNT 434 TH/MM3 (150-450); RED BLOOD COUNT 4.63 MIL/MM3 (4.00-5.30); RED CELL DISTRIBUTION WIDTH 20.1 % (11.6-17.2); REVIEW FLAG FINAL; WHITE BLOOD COUNT 13.5 TH/MM3 (4.0-11.0)
[2017-07-21 05:27] LABS: INTERNATIONAL NORMALIZED RATIO 1.4 RATIO; PROTHROMBIN TIME - PATIENT 16.1 SEC (9.8-11.6)
[2017-07-21 05:51] LABS: POTASSIUM 3.7 MEQ/L (3.5-5.1)
--- NOTE | 2017-07-21 06:20 | RADRPT ---
EXAM DATE/TIME: 07/21/2017 05:19 [facility] COMPARISON: ABDOMEN SINGLE VIEW, July 20, 2017, 1:25. INDICATIONS : Evaluate NG placement MEDICAL HISTORY : Stroke. Cardiovascular disease. Hypertension SURGICAL HISTORY : CABG. ENCOUNTER: Subsequent ACUITY: 2 days PAIN SCORE: Non-responsive. LOCATION: Bilateral Abdomen FINDINGS: Examination of the abdomen demonstrates placement of a Dobbhoff tube with tip in distal stomach. Nono bstructive bowel gas pattern. No free air is identified. No organomegaly is evident. Osseous struc tures are intact. CONCLUSION: Dobbhoff tube with tip in distal stomach. No evidence of obstruction. Clarence Quintanilla MD on July 21, 2017 at 6:18 Board Certified Radiologist. This report was verified electronically.
--- NOTE | 2017-07-21 08:05 | HHI.PR ---
Review/Management Daily Summary more alert and responsive right hemiparesis less severe, moves and raises UE but finger motor poor right leg motor better than last night global aphasia but verbalizes some words denies pain/hill ct seen, more than 1/3 left mca infarct and localization of embolus discouraged intervention stroke rehab, repeat ct later today per protocol resume coumadin if ct negative bleed, probably no heparin bridging unless underlying medical condition warrants 07/18 awakened this am, no distress moves 4 limbs with right hemiparesis which is stable aphasia persists on lovenox check echo ldl low 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 follows commands well counts fingers barney moving right side even better than yest continue current norah i will off till Monday, call my group PRN neuro Subjective Subjective Comments No acute events reported No headache No chest pain No dyspnea Active Medications Current Medications Medications (Trade) Dose Ordered Sig/Anthony Route Start Time Stop Time Status Last Admin (NS Flush) 2 ml UNSCH PRN IV FLUSH 07/16/17 19:45 (NS Flush) 2 ml BID IV FLUSH 07/16/17 21:00 07/20/17 21:00 (Protonix Inj) 40 mg DAILY IV PUSH 07/17/17 09:00 07/20/17 09:45 (Zofran Inj) 4 mg Q6H PRN IV PUSH 07/16/17 19:45 (Albuterol Neb) 2.5 mg Q2HR NEB PRN INH 07/16/17 19:45 07/19/17 06:21 Miscellaneous Information 1 Q361D XX 07/16/17 19:45 (Chlorhexidine 2% Cloth) 3 pack Taper DAILY@04 TOP 07/17/17 04:00 07/13/18 03:59 07/18/17 04:00 (Chlorhexidine 2% Cloth) 3 pack UNSCH PRN TOP 07/16/17 19:45 (Ann-Colace) 1 tab BID PO 07/16/17 21:00 07/20/17 21:22 (Milk Of Magnesia Liq) 30 ml Q12H PRN PO 07/16/17 19:45 (Senokot) 17.2 mg Q12H PRN PO 07/16/17 19:45 (Dulcolax Supp) 10 mg DAILY PRN RECTAL 07/16/17 19:45 (Lactulose Liq) 30 ml DAILY PRN PO 07/16/17 19:45 (Lipitor) 40 mg HS PO 07/16/17 21:00 07/20/17 21:22 (CeleXA) 10 mg DAILY PO 07/17/17 09:00 07/20/17 09:45 (Deltasone) 5 mg DAILY PO 07/17/17 09:00 07/20/17 09:44 (Lyrica) 75 mg BID PO 07/16/17 21:00 07/20/17 21:22 (Symbicort 80-4.5 Mcg Inh) 2 puff BID INH 07/16/17 21:00 07/19/17 21:00 Pharmacy Profile Note 0 ml @ 0 mls/hr UNSCH OTHER 07/18/17 06:30 (Lovenox Inj) 50 mg Q12H SQ 07/18/17 08:00 07/20/17 21:21 (Coumadin) 5 mg DAILY@1600 PO 07/18/17 16:00 07/20/17 16:28 (Motrin) 600 mg Q6H PRN PO 07/18/17 23:00 07/18/17 23:14 (Prinivil) 5 mg DAILY PO 07/20/17 09:00 07/20/17 09:44 Allergies Allergies Coded Allergies acetaminophen (Unverified Allergy, Intermediate, ITCHING, NAUSEA, 05/16/17) hydrocodone (Unverified Allergy, Intermediate, ITCHING, NAUSEA, 05/16/17) morphine (Unverified Allergy, Intermediate, ITCHING, NAUSEA, 05/16/17) Exam I&O / VS Vital Signs Date Time Temp Pulse Resp B/P (MAP) Pulse Ox O2 Delivery O2 Flow Rate FiO2 07/21/17 05:21 69 07/21/17 04:57 100.0 105 19 115/73 (87) 94 07/21/17 00:32 99.0 67 18 111/71 (84) 94 07/20/17 20:40 98.6 72 18 105/64 (78) 95 07/20/17 19:00 Nasal Cannula 2.00 21 07/20/17 16:03 98.3 75 20 119/56 (77) 90 07/20/17 12:17 98.9 66 20 109/64 (79) 94 07/20/17 11:48 Nasal Cannula 2.00 07/20/17 11:00 18 07/20/17 10:21 98.6 71 20 95/60 (72) 90 Objective Micro and Labs Laboratory Tests Test 07/21/17 05:08 White Blood Count 13.5 Red Blood Count 4.63 Hemoglobin 10.5 Hematocrit 34.6 Mean Corpuscular Volume 74.8 Mean Corpuscular Hemoglobin 22.6 Mean Corpuscular Hemoglobin Concent 30.3 Red Cell Distribution Width 20.1 Platelet Count 434 Mean Platelet Volume 8.7 Prothrombin Time 16.1 Prothromb Time International Ratio 1.4 Blood Urea Nitrogen 23 Creatinine 0.76 Random Glucose 121 Calcium Level 10.0 Sodium Level 141 Potassium Level 3.7 Chloride Level 105 Carbon Dioxide Level 30.0 Anion Gap 6 Estimat Glomerular Filtration Rate 77 Lexi Booker MD Jul 21, 2017 08:05
--- NOTE | 2017-07-21 09:09 | HHI.PR ---
Subjective Remarks in no acute distress. looks fairly comfortable. awake- still on wrist restraints. had a low grade fever earlier. follows the commands. Objective Vitals Vital Signs Date Time Temp Pulse Resp B/P (MAP) Pulse Ox O2 Delivery O2 Flow Rate FiO2 07/21/17 08:28 98.8 78 16 125/71 (89) 93 07/21/17 05:21 69 07/21/17 04:57 100.0 105 19 115/73 (87) 94 07/21/17 00:32 99.0 67 18 111/71 (84) 94 07/20/17 20:40 98.6 72 18 105/64 (78) 95 07/20/17 19:00 Nasal Cannula 2.00 21 07/20/17 16:03 98.3 75 20 119/56 (77) 90 07/20/17 12:17 98.9 66 20 109/64 (79) 94 07/20/17 11:48 Nasal Cannula 2.00 07/20/17 11:00 18 07/20/17 10:21 98.6 71 20 95/60 (72) 90 I/O 07/20/17 07/20/17 07/20/17 07/21/17 07/21/17 07/21/17 07:00 15:00 23:00 07:00 15:00 23:00 # Voids 1 1 1 1 # Bowel Movements 0 1 1 Result Diagram: 07/21/17 0508 07/21/17 0508 Imaging Last Impressions Abdomen X-Ray 07/21/17 0000 Signed Impressions: Service Date/Time: Friday, July 21, 2017 05:19 - CONCLUSION: Dobbhoff tube with tip in distal stomach. No evidence of obstruction. Clarence Quintanilla MD Chest X-Ray 07/18/17 0000 Signed Impressions: Service Date/Time: Tuesday, July 18, 2017 05:25 - CONCLUSION: 1. No acute cardiopulmonary disease. Edy Ramirez MD Head CT 07/17/17 1800 Signed Impressions: Service Date/Time: Monday, July 17, 2017 20:34 - CONCLUSION: Evolving stroke left middle cerebral artery hypodensity distribution of the left temporal and parietal lobes. No evidence of hemorrhage. Raul Cui MD Head CTA 07/16/17 1727 Signed Impressions: Service Date/Time: Sunday, July 16, 2017 17:35 - CONCLUSION: 1. Occlusive thrombus identified in the distal left M1 and proximal M2 branches of the MCA. 2. No other significant stenotic or occlusive lesions. Scar Evans MD Neck CTA 07/16/17 0000 Signed Impressions: Service Date/Time: Sunday, July 16, 2017 17:35 - CONCLUSION: 1. Normal extracranial carotid arteries without evidence of stenosis, significant plaque or dissection. 2. Dominant right vertebral artery. 3. Small left vertebral artery originating from the aortic arch. Scar Evans MD Objective Remarks GENERAL: This is a well-nourished, well-developed patient, in no apparent distress. CARDIOVASCULAR: Regular rate and regular rhythm without murmurs, gallops, or rubs. RESPIRATORY: Clear to auscultation. Breath sounds equal bilaterally. No wheezes , rales, or rhonchi. GASTROINTESTINAL: Abdomen soft, non-tender, nondistended. Normal, active bowel sounds MUSCULOSKELETAL: Extremities without clubbing, cyanosis, or edema. NEURO: awake, aphasic. Procedures TPA Medications and IVs Current Medications Sodium Chloride 1,000 ml @ 70 mls/hr [id number] ONCE IV Last administered on 17:35; Start 07/16/17 at 16:48; Stop 07/17/17 at 07:05; Status DC Iohexol (Omnipaque 350 Inj) 96 ml STK-MED ONCE IVCONTRAST Last administered on 07/16/17 16:43; Start 07/16/17 at 16:43; Stop 07/16/17 at 17:46; Status DC Alteplase, Recombinant (Activase Bolus) 4.5 mg ONCE ONCE IV Last administered on 07/16/17 18:03; Start 07/16/17 at 18:00; Stop 07/16/17 at 18:01; Status DC Alteplase, Recombinant 40.5 mg/Syringe / Bag 40.5 ml @ 40.5 mls/hr ONCE ONCE IV Last administered on 07/16/17 18:16; Start 07/16/17 at 18:00; Stop 07/16 at 18:59; Status DC Sodium Chloride (NS Inj) 30 ml ONCE ONCE IVF Last administered on 10/15/17at 18:17; Start 07/16/17 at 18:00; Stop 07/16/17 at 18:01; Status DC Miscellaneous Information No Heparin, Warfarin, Aspir... UNSCH PRN XX SEE DOSE INSTRUCTIONS; Start 07/16/17 at 18:00; Stop 07/17/17 at 17:59; Status DC IV Flush (NS Flush) 2 ml BID IV FLUSH Last administered on 07/18/17t 21:00; Start 07/16/17 at 21:00; Stop 07/19/17 at 16:05; Status DC IV Flush (NS Flush) 2 ml UNSCH PRN IV FLUSH FLUSH AFTER USING IV ACCESS; Start 07/16/17 at 18:45; Stop 07/19/17 at 16:05; Status DC Nicardipine HCl 25 mg/Sodium Chloride 250 ml @ 50 mls/hr TITRATE PRN IV Maintain BP goal; Start 07/16/17 at 18:45; Stop 07/19/17 at 11:33; Status DC Insulin Aspart (NovoLOG SUPPLEMENTAL SCALE) 1 ACHS SQ ; Start 07/16/17 at 21:00 ; Stop 07/18/17 at 07:44; Status DC Dextrose (D50w (Vial) Inj) 50 ml UNSCH PRN IV PUSH HYPOGLYCEMIA-SEE COMMENTS; Start 07/16/17 at 18:45; Stop 07/18/17 at 07:44; Status DC Glucagon (Glucagon Inj) 1 mg UNSCH PRN OTHER HYPOGLYCEMIA-SEE COMMENTS; Start 07/16/17 at 18:45; Stop 07/18/17 at 07:44; Status DC Labetalol HCl (Trandate Inj) 10 mg Q1HR PRN IV PUSH SBP>185, DBP>110, HR>65; Start 07/16/17 at 18:45; Stop 07/19/17 at 03:08; Status DC Hydralazine HCl (Apresoline Inj) 10 mg Q1HR PRN IV PUSH SBP> OR = 185, DBP> OR = 110; Start 07/16/17 at 18:45; Stop 07/19/17 at 03:08; Status DC Sodium Chloride (NS Flush) 2 ml UNSCH PRN IV FLUSH FLUSH AFTER USING IV ACCESS ; Start 07/16/17 at 19:45 Sodium Chloride (NS Flush) 2 ml BID IV FLUSH Last administered on 07/20/17 21 :00; Start 07/16/17 at 21:00 Pantoprazole Sodium (Protonix Inj) 40 mg DAILY IV PUSH Last administered on 09:45; Start 07/17/17 at 09:00 Ondansetron HCl (Zofran Inj) 4 mg Q6H PRN IV PUSH NAUSEA OR VOMITING; Start at 19:45 Albuterol Sulfate (Albuterol Neb) 2.5 mg Q2HR NEB PRN INH SOB/WHEEZING Last administered on 07/19/17 06:21; Start 07/16/17 at 19:45 Miscellaneous Information 1 Q361D XX ; Start 07/16/17 at 19:45 Chlorhexidine Gluconate (Chlorhexidine 2% Cloth) 3 pack Taper DAILY@04 TOP Last administered on 07/18/17 04:00; Start 07/17/17 at 04:00; Stop 07/13/18 at 03:59 Chlorhexidine Gluconate (Chlorhexidine 2% Cloth) 3 pack UNSCH PRN TOP HYGIENIC CARE; Start 07/16/17 at 19:45 Senna/Docusate Sodium (Ann-Colace) 1 tab BID PO Last administered on 21:22; Start 07/16/17 at 21:00 Magnesium Hydroxide (Milk Of Magnesia Liq) 30 ml Q12H PRN PO Mild constipation ; Start 07/16/17 at 19:45 Sennosides (Senokot) 17.2 mg Q12H PRN PO Moderate constipation; Start at 19:45 Bisacodyl (Dulcolax Supp) 10 mg DAILY PRN RECTAL SEVERE CONSITIPATION; Start 07/16/17 at 19:45 Lactulose (Lactulose Liq) 30 ml DAILY PRN PO SEVERE CONSITIPATION; Start 07/16 at 19:45 Albuterol Sulfate (Ventolin Hfa Inh) 2 puff Q4HR PRN INH SHORTNESS OF BREATH; Start 07/16/17 at 19:45; Stop 07/16/17 at 21:37; Status DC Atorvastatin Calcium (Lipitor) 40 mg HS PO Last administered on 07/20/17 21: 22; Start 07/16/17 at 21:00 Citalopram Hydrobromide (CeleXA) 10 mg DAILY PO Last administered on 09:45; Start 07/17/17 at 09:00 Prednisone (Deltasone) 5 mg DAILY PO Last administered on 07/20/17 09:44; Start 07/17/17 at 09:00 Pregabalin (Lyrica) 75 mg BID PO Last administered on 07/20/17 21:22; Start 07/16/17 at 21:00 Budesonide/ Formoterol Fumarate (Symbicort 80-4.5 Mcg Inh) 2 puff BID INH Last administered on 07/19/17 21:00; Start 07/16/17 at 21:00 Hydrocortisone Sodium Succinate (SoluCORTEF INJ) 50 mg ONCE ONCE IV PUSH Last administered on 07/16/17 22:54; Start 07/16/17 at 21:30; Stop 07/16/17 at 21 :31; Status DC Magnesium Oxide (Mag-Ox) 800 mg UNSCH PRN PO For Magnesium 1.2 - 1.6 mg/dL; Start 07/17/17 at 08:15; Stop 07/19/17 at 11:01; Status DC Magnesium Sulfate 4 gm/Sodium Chloride 100 ml @ 50 mls/hr UNSCH PRN IV For Magnesium 0.9 - 1.1 mg/dL; Start 07/17/17 at 08:15; Stop 07/19/17 at 11:01; Status DC Magnesium Sulfate 2 gm/Sodium Chloride 100 ml @ 50 mls/hr UNSCH PRN IV For Magnesium 1.2 - 1.6 mg/dL; Start 07/17/17 at 08:15; Stop 07/19/17 at 11:01; Status DC Potassium Chloride 100 ml @ 50 mls/hr Q2H PRN IV For Potassium 2.8 - 3.2 mEq/ L Last administered on 07/18/17 12:50; Start 07/17/17 at 08:15; Stop at 11:01; Status DC Potassium Chloride 100 ml @ 50 mls/hr Q2H PRN IV For Potassium 3.3 - 3.5 mEq/L ; Start 07/17/17 at 08:15; Stop 07/19/17 at 11:01; Status DC Potassium Chloride 100 ml @ 50 mls/hr Q2H PRN IV For Potassium 2.8 - 3.2 mEq/L ; Start 07/17/17 at 08:15; Stop 07/19/17 at 11:01; Status DC Potassium Chloride 100 ml @ 25 mls/hr UNSCH PRN IV For Potassium 3.3 - 3.5 mEq /L; Start 07/17/17 at 08:15; Stop 07/19/17 at 11:01; Status DC Potassium Phosphate (K-Phos) 2,000 mg Q4H PRN PO For Phosphorus < 2.5 mg/dL; Start 07/17/17 at 08:15; Stop 07/19/17 at 11:01; Status DC Potassium Phosphate (K-Phos) 2,000 mg UNSCH PRN PO/TUBE SEE LABEL COMMENTS; Start 07/17/17 at 08:15; Stop 07/19/17 at 11:01; Status DC Potassium Phosphate 30 mmol/ Sodium Chloride 260 ml @ 42 mls/hr UNSCH PRN IV SEE LABEL COMMENTS; Start 07/17/17 at 08:15; Stop 07/19/17 at 11:01; Status DC Sodium Phosphate 30 mmol/Sodium Chloride 250 ml @ 42 mls/hr UNSCH PRN IV For Phosphorus < 2.5 mg/dL Last administered on 07/17/17 12:25; Start 07/17/17 at 08:15; Stop 07/19/17 at 11:01; Status DC Pharmacy Profile Note 0 ml @ 0 mls/hr UNSCH OTHER ; Start 07/18/17 at 06:30 Enoxaparin Sodium (Lovenox Inj) 50 mg Q12H SQ Last administered on 07/20/17 21:21; Start 07/18/17 at 08:00 Warfarin Sodium (Coumadin) 5 mg DAILY@1600 PO Last administered on 07/20/17 16:28; Start 07/18/17 at 16:00 Patient Medication Teaching (Coumadin Booklet) 1 ONCE ONCE .XX Last administered on 07/18/17 17:42; Start 07/18/17 at 16:00; Stop 07/18/17 at 16 :01; Status DC Ibuprofen (Motrin) 600 mg Q6H PRN PO Headache Last administered on 07/18/17 23:14; Start 07/18/17 at 23:00 Lisinopril (Prinivil) 5 mg ONCE ONCE PO Last administered on 07/19/17 17:22 ; Start 07/19/17 at 13:30; Stop 07/19/17 at 13:31; Status DC Lisinopril (Prinivil) 5 mg DAILY PO Last administered on 07/20/17t 09:44; Start 07/20/17 at 09:00 A/P Problem List: (1) CVA (cerebral vascular accident) ICD Code: I63.9 - Cerebral infarction, unspecified (2) Depression ICD Code: F32.9 - Major depressive disorder, single episode, unspecified (3) Hepatitis C ICD Code: B19.20 - Unspecified viral hepatitis C without hepatic coma (4) Osteoarthritis ICD Code: M19.90 - Unspecified osteoarthritis, unspecified site (5) Leukocytosis ICD Code: D72.829 - Elevated white blood cell count, unspecified (6) Current chronic use of systemic steroids ICD Code: Z79.52 - [employer] (current) use of systemic steroids (7) Anemia ICD Code: D64.9 - Anemia, unspecified Status: Acute (8) COPD (chronic obstructive pulmonary disease) ICD Code: J44.9 - Chronic obstructive pulmonary disease, unspecified Status: Acute Assessment and Plan A/P Left MCA CVA Depression/anxiety Restless leg syndrome CT brain 07/16 revealed no acute intracranial findings CTA brain 07/16 revealed occlusion left MCA distal M1/proximal M2 segments Evaluated by Dr. Ramirez, intervention radiology. Not deemed candidate for intervention Evaluated by Dr. Booker, neurology Status post alteplase 4.5 mg IV 1 followed by 41.5 mg over 1 hour Holding clonazepam and pregabalin . continue citalopram 10 mg daily for depression Noted allergies to acetaminophen and hydrocodone morphine low-grade fever check UA- monitor temps- will do blood cultures for fever> 101.- monitor for now. Hypertension Dyslipidemia Sinus bradycardia Recent PE Currently holding home medication of metoprolol 25 mg twice a day and aspirin 81 mg daily. Resume as clinically indicated Continue atorvastatin 40 mg by mouth daily for dyslipidemia continue lisinopril monitor BP and adjust the BP regimen as needed. Recent history of pulmonary embolism COPD Ongoing tobaccoism Nasal cannula to maintain saturations greater than equal to 92% Incentive spirometry while awake Continue fluticasone/salmeterol 100/50 one inhalation twice a day On albuterol inhaler every 4 hours as needed home Tobacco cessation will be encouraged continue warfarin with bridge with Lovenox History of hepatitis C/treated dysphagia NPO for now- per ST continue with tube feeding via NG tube for now. Chronic prednisone use Sliding-scale insulin if indicated to maintain euglycemia between 140 and 180 continue Prednisone . Leukocytosis Microcytic anemia Warfarin use - 5 mg daily for pulmonary embolism, subtherapeutic Monitor CBC . continue Coumadin and subq Lovenox PT/OT/ST evaluate and treat Discharge Planning dc planning to inpatient rehab. patient still on restraints. Problem Qualifiers (1) CVA (cerebral vascular accident): Qualified Codes: I63.512 - Cerebral infarction due to unspecified occlusion or stenosis of left middle cerebral artery (2) Depression: Qualified Codes: F33.1 - Major depressive disorder, recurrent, moderate (3) Hepatitis C: (4) Osteoarthritis: (5) Leukocytosis: Qualified Codes: D72.829 - Elevated white blood cell count, unspecified (6) Anemia: Qualified Codes: D64.9 - Anemia, unspecified (7) COPD (chronic obstructive pulmonary disease): Qualified Codes: J44.9 - Chronic obstructive pulmonary disease, unspecified Vilma Terry MD Jul 21, 2017 09:09
[2017-07-21] MEDS: PANTOPRAZOLE SODIUM 40 MG VIAL IV PUSH SCH (10:28)
[2017-07-21] MEDS: ENOXAPARIN SODIUM 60 MG/0.6 ML SYRINGE SQ SCH ×2 (10:28→20:37)
[2017-07-21] MEDS: PREGABALIN 75 MG CAP PO SCH ×2 (10:28→20:38)
[2017-07-21] MEDS: predniSONE 5 MG TAB PO SCH (10:29)
[2017-07-21] MEDS: LISINOPRIL 5 MG TAB PO SCH (10:30)
[2017-07-21] MEDS: DOCUSATE SODIUM 50 MG/SENNA 8.6 MG TAB PO SCH ×2 (10:30→20:37)
[2017-07-21] MEDS: CITALOPRAM HYDROBROMIDE 20 MG TAB PO SCH (10:31)
[2017-07-21] MEDS: BUDESONIDE-FORMOTEROL 80/4.5 MCG INHALER INH SCH ×2 (10:32→20:37)
[2017-07-21] MEDS: SODIUM CHLORIDE 0.9% FLUSH 10 ML FLUSH IV FLUSH SCH ×2 (10:33→21:00)
[2017-07-21 14:29] LABS: BACTERIA, URINE MANY /hpf; BLOOD, URINE SMALL (NEG); GLUCOSE,URINE NEG (NEG); HYALINE CAST, URINE 3 /lpf (RARE); KETONE, URINE NEG (NEG); MUCUS URINE MANY /lpf (OCC); NITRITE,URINE POS (NEG); PH, URINE 5.5 (5.0-8.5); SQUAMOUS EPITHELIAL CELL URINE 1 /hpf (0-5); TRANSITIONAL EPI CELLS, URINE <1 /hpf; URINE COLOR YELLOW (YELLW/STRAW)
[2017-07-21 14:31] LABS: COMMENT (UR) CULTURE INDICATED; CULTURE IF INDICATED CULTURE INDICATED
[2017-07-21] MEDS: WARFARIN SOD 5 MG TAB PO SCH (16:02)
[2017-07-21] MEDS: ATORVASTATIN 40 MG TAB PO SCH (20:37)
[2017-07-21] MEDS: CHLORHEXIDINE GLUCONATE 2 % 1 PACK (2 CLOTHS) TOP SCH (20:38)
[2017-07-22] VITALS (9 sets, daily range): BP systolic 126–157; BP diastolic 60–82; PULSE 64–85; RESP 20–21; TEMP 97.3–99.3; O2SAT 91–96
[2017-07-22] MEDS ORDERED: diphenhydrAMINE HCL 50 MG/ML VIAL IV PUSH ONE (03:00)
[2017-07-22 07:08] LABS: HEMATOCRIT 32.2 % (35.0-46.0); MEAN CORPUSCULAR HEMOGLOBIN 22.2 PG (27.0-34.0); PLATELET COUNT 353 TH/MM3 (150-450); RED BLOOD COUNT 4.29 MIL/MM3 (4.00-5.30); RED CELL DISTRIBUTION WIDTH 19.9 % (11.6-17.2); REVIEW FLAG FINAL
[2017-07-22 07:14] LABS: MEAN CORPUSCULAR HGB CONC 29.5 % (32.0-36.0)
[2017-07-22 07:17] LABS: INTERNATIONAL NORMALIZED RATIO 1.4 RATIO
[2017-07-22] MEDS: LISINOPRIL 5 MG TAB PO SCH (09:00)
[2017-07-22] MEDS: PREGABALIN 75 MG CAP PO SCH ×2 (09:00→21:13)
[2017-07-22] MEDS: DOCUSATE SODIUM 50 MG/SENNA 8.6 MG TAB PO SCH ×2 (09:00→21:13)
[2017-07-22] MEDS: CITALOPRAM HYDROBROMIDE 20 MG TAB PO SCH (09:00)
[2017-07-22] MEDS: predniSONE 5 MG TAB PO SCH (09:00)
[2017-07-22] MEDS: ENOXAPARIN SODIUM 60 MG/0.6 ML SYRINGE SQ SCH ×2 (09:31→21:13)
[2017-07-22] MEDS: PANTOPRAZOLE SODIUM 40 MG VIAL IV PUSH SCH (09:31)
[2017-07-22] MEDS: BUDESONIDE-FORMOTEROL 80/4.5 MCG INHALER INH SCH ×2 (09:31→21:00)
[2017-07-22] MEDS: SODIUM CHLORIDE 0.9% FLUSH 10 ML FLUSH IV FLUSH SCH ×2 (09:32→21:00)
--- NOTE | 2017-07-22 11:36 | HHI.PR ---
Subjective Remarks in no acute distress. still confused. d/w the RN; restless at night; still on four-point restraints. no fever. Objective Vitals Vital Signs Date Time Temp Pulse Resp B/P (MAP) Pulse Ox O2 Delivery O2 Flow Rate FiO2 07/22/17 08:00 98.5 71 157/69 (98) 95 07/22/17 05:09 97.6 64 20 126/75 (92) 96 07/22/17 01:00 95 Nasal Cannula 2.00 07/22/17 00:58 97.3 68 20 132/60 (84) 93 07/21/17 23:30 68 07/21/17 20:44 98.0 77 20 130/71 (90) 97 07/21/17 19:00 Nasal Cannula 2.00 07/21/17 16:02 98.9 80 17 98/69 (79) 95 07/21/17 13:18 94 Nasal Cannula 2.00 07/21/17 12:13 98.7 76 17 116/63 (80) 92 I/O 07/21/17 07/21/17 07/21/17 07/22/17 07/22/17 07/22/17 07:00 15:00 23:00 07:00 15:00 23:00 Output Total 1 ml Balance -1 ml Stool Total 1 ml # Voids 1 1 1 # Bowel Movements 1 Result Diagram: 07/22/17 0558 07/21/17 0508 Imaging Last Impressions Abdomen X-Ray 07/21/17 0000 Signed Impressions: Service Date/Time: Friday, July 21, 2017 05:19 - CONCLUSION: Dobbhoff tube with tip in distal stomach. No evidence of obstruction. Clarence Quintanilla MD Chest X-Ray 07/18/17 0000 Signed Impressions: Service Date/Time: Tuesday, July 18, 2017 05:25 - CONCLUSION: 1. No acute cardiopulmonary disease. Edy Ramirez MD Head CT 07/17/17 1800 Signed Impressions: Service Date/Time: Monday, July 17, 2017 20:34 - CONCLUSION: Evolving stroke left middle cerebral artery hypodensity distribution of the left temporal and parietal lobes. No evidence of hemorrhage. Raul Cui MD Head CTA 07/16/17 1727 Signed Impressions: Service Date/Time: Sunday, July 16, 2017 17:35 - CONCLUSION: 1. Occlusive thrombus identified in the distal left M1 and proximal M2 branches of the MCA. 2. No other significant stenotic or occlusive lesions. Scar Evans MD Neck CTA 07/16/17 0000 Signed Impressions: Service Date/Time: Sunday, July 16, 2017 17:35 - CONCLUSION: 1. Normal extracranial carotid arteries without evidence of stenosis, significant plaque or dissection. 2. Dominant right vertebral artery. 3. Small left vertebral artery originating from the aortic arch. Scar Evans MD Objective Remarks GENERAL: in no apparent distress. CARDIOVASCULAR: Regular rate and regular rhythm without murmurs, gallops, or rubs. RESPIRATORY: Clear to auscultation. Breath sounds equal bilaterally. No wheezes , rales, or rhonchi. GASTROINTESTINAL: Abdomen soft, non-tender, nondistended. Normal, active bowel sounds MUSCULOSKELETAL: Extremities without clubbing, cyanosis, or edema. NEURO: awake but confused. Procedures TPA Medications and IVs Current Medications Sodium Chloride 1,000 ml @ 70 mls/hr [id number] ONCE IV Last administered on 17:35; Start 07/16/17 at 16:48; Stop 07/17/17 at 07:05; Status DC Iohexol (Omnipaque 350 Inj) 96 ml STK-MED ONCE IVCONTRAST Last administered on 07/16/17 16:43; Start 07/16/17 at 16:43; Stop 07/16/17 at 17:46; Status DC Alteplase, Recombinant (Activase Bolus) 4.5 mg ONCE ONCE IV Last administered on 07/16/17 18:03; Start 07/16/17 at 18:00; Stop 07/16/17 at 18:01; Status DC Alteplase, Recombinant 40.5 mg/Syringe / Bag 40.5 ml @ 40.5 mls/hr ONCE ONCE IV Last administered on 07/16/17 18:16; Start 07/16/17 at 18:00; Stop 07/16 at 18:59; Status DC Sodium Chloride (NS Inj) 30 ml ONCE ONCE IVF Last administered on 07/16/17 18:17; Start 07/16/17 at 18:00; Stop 07/16/17 at 18:01; Status DC Miscellaneous Information No Heparin, Warfarin, Aspir... UNSCH PRN XX SEE DOSE INSTRUCTIONS; Start 07/16/17 at 18:00; Stop 07/17/17 at 17:59; Status DC IV Flush (NS Flush) 2 ml BID IV FLUSH Last administered on 07/18/17t 21:00; Start 07/16/17 at 21:00; Stop 07/19/17 at 16:05; Status DC IV Flush (NS Flush) 2 ml UNSCH PRN IV FLUSH FLUSH AFTER USING IV ACCESS; Start 07/16/17 at 18:45; Stop 07/19/17 at 16:05; Status DC Nicardipine HCl 25 mg/Sodium Chloride 250 ml @ 50 mls/hr TITRATE PRN IV Maintain BP goal; Start 07/16/17 at 18:45; Stop 07/19/17 at 11:33; Status DC Insulin Aspart (NovoLOG SUPPLEMENTAL SCALE) 1 ACHS SQ ; Start 07/16/17 at 21:00 ; Stop 07/18/17 at 07:44; Status DC Dextrose (D50w (Vial) Inj) 50 ml UNSCH PRN IV PUSH HYPOGLYCEMIA-SEE COMMENTS; Start 07/16/17 at 18:45; Stop 07/18/17 at 07:44; Status DC Glucagon (Glucagon Inj) 1 mg UNSCH PRN OTHER HYPOGLYCEMIA-SEE COMMENTS; Start 07/16/17 at 18:45; Stop 07/18/17 at 07:44; Status DC Labetalol HCl (Trandate Inj) 10 mg Q1HR PRN IV PUSH SBP>185, DBP>110, HR>65; Start 07/16/17 at 18:45; Stop 07/19/17 at 03:08; Status DC Hydralazine HCl (Apresoline Inj) 10 mg Q1HR PRN IV PUSH SBP> OR = 185, DBP> OR = 110; Start 07/16/17 at 18:45; Stop 07/19/17 at 03:08; Status DC Sodium Chloride (NS Flush) 2 ml UNSCH PRN IV FLUSH FLUSH AFTER USING IV ACCESS ; Start 07/16/17 at 19:45 Sodium Chloride (NS Flush) 2 ml BID IV FLUSH Last administered on 07/22/17t 09 :32; Start 07/16/17 at 21:00 Pantoprazole Sodium (Protonix Inj) 40 mg DAILY IV PUSH Last administered on 09:31; Start 07/17/17 at 09:00 Ondansetron HCl (Zofran Inj) 4 mg Q6H PRN IV PUSH NAUSEA OR VOMITING; Start at 19:45 Albuterol Sulfate (Albuterol Neb) 2.5 mg Q2HR NEB PRN INH SOB/WHEEZING Last administered on 07/19/17 06:21; Start 07/16/17 at 19:45 Miscellaneous Information 1 Q361D XX ; Start 07/16/17 at 19:45 Chlorhexidine Gluconate (Chlorhexidine 2% Cloth) Taper DAILY@04 TOP Last administered on 07/18/17 04:00; Start 07/17/17 at 04:00; Stop 07/13/18 at 03 :59 Chlorhexidine Gluconate (Chlorhexidine 2% Cloth) 3 pack UNSCH PRN TOP HYGIENIC CARE; Start 07/16/17 at 19:45 Senna/Docusate Sodium (Ann-Colace) 1 tab BID PO Last administered on 20:37; Start 07/16/17 at 21:00 Magnesium Hydroxide (Milk Of Magnesia Liq) 30 ml Q12H PRN PO Mild constipation ; Start 07/16/17 at 19:45 Sennosides (Senokot) 17.2 mg Q12H PRN PO Moderate constipation; Start at 19:45 Bisacodyl (Dulcolax Supp) 10 mg DAILY PRN RECTAL SEVERE CONSITIPATION; Start 07/16/17 at 19:45 Lactulose (Lactulose Liq) 30 ml DAILY PRN PO SEVERE CONSITIPATION; Start 07/16 at 19:45 Albuterol Sulfate (Ventolin Hfa Inh) 2 puff Q4HR PRN INH SHORTNESS OF BREATH; Start 07/16/17 at 19:45; Stop 07/16/17 at 21:37; Status DC Atorvastatin Calcium (Lipitor) 40 mg HS PO Last administered on 07/21/17 20: 37; Start 07/16/17 at 21:00 Citalopram Hydrobromide (CeleXA) 10 mg DAILY PO Last administered on 10:31; Start 07/17/17 at 09:00 Prednisone (Deltasone) 5 mg DAILY PO Last administered on 07/21/17 10:29; Start 07/17/17 at 09:00 Pregabalin (Lyrica) 75 mg BID PO Last administered on 07/21/17 20:38; Start 07/16/17 at 21:00 Budesonide/ Formoterol Fumarate (Symbicort 80-4.5 Mcg Inh) 2 puff BID INH Last administered on 07/22/17 09:31; Start 07/16/17 at 21:00 Hydrocortisone Sodium Succinate (SoluCORTEF INJ) 50 mg ONCE ONCE IV PUSH Last administered on 07/16/17 22:54; Start 07/16/17 at 21:30; Stop 07/16/17 at 21 :31; Status DC Magnesium Oxide (Mag-Ox) 800 mg UNSCH PRN PO For Magnesium 1.2 - 1.6 mg/dL; Start 07/17/17 at 08:15; Stop 07/19/17 at 11:01; Status DC Magnesium Sulfate 4 gm/Sodium Chloride 100 ml @ 50 mls/hr UNSCH PRN IV For Magnesium 0.9 - 1.1 mg/dL; Start 07/17/17 at 08:15; Stop 07/19/17 at 11:01; Status DC Magnesium Sulfate 2 gm/Sodium Chloride 100 ml @ 50 mls/hr UNSCH PRN IV For Magnesium 1.2 - 1.6 mg/dL; Start 07/17/17 at 08:15; Stop 07/19/17 at 11:01; Status DC Potassium Chloride 100 ml @ 50 mls/hr Q2H PRN IV For Potassium 2.8 - 3.2 mEq/ L Last administered on 07/18/17 12:50; Start 07/17/17 at 08:15; Stop at 11:01; Status DC Potassium Chloride 100 ml @ 50 mls/hr Q2H PRN IV For Potassium 3.3 - 3.5 mEq/L ; Start 07/17/17 at 08:15; Stop 07/19/17 at 11:01; Status DC Potassium Chloride 100 ml @ 50 mls/hr Q2H PRN IV For Potassium 2.8 - 3.2 mEq/L ; Start 07/17/17 at 08:15; Stop 07/19/17 at 11:01; Status DC Potassium Chloride 100 ml @ 25 mls/hr UNSCH PRN IV For Potassium 3.3 - 3.5 mEq /L; Start 07/17/17 at 08:15; Stop 07/19/17 at 11:01; Status DC Potassium Phosphate (K-Phos) 2,000 mg Q4H PRN PO For Phosphorus < 2.5 mg/dL; Start 07/17/17 at 08:15; Stop 07/19/17 at 11:01; Status DC Potassium Phosphate (K-Phos) 2,000 mg UNSCH PRN PO/TUBE SEE LABEL COMMENTS; Start 07/17/17 at 08:15; Stop 07/19/17 at 11:01; Status DC Potassium Phosphate 30 mmol/ Sodium Chloride 260 ml @ 42 mls/hr UNSCH PRN IV SEE LABEL COMMENTS; Start 07/17/17 at 08:15; Stop 07/19/17 at 11:01; Status DC Sodium Phosphate 30 mmol/Sodium Chloride 250 ml @ 42 mls/hr UNSCH PRN IV For Phosphorus < 2.5 mg/dL Last administered on 07/17/17 12:25; Start 07/17/17 at 08:15; Stop 07/19/17 at 11:01; Status DC Pharmacy Profile Note 0 ml @ 0 mls/hr UNSCH OTHER ; Start 07/18/17 at 06:30 Enoxaparin Sodium (Lovenox Inj) 50 mg Q12H SQ Last administered on 07/22/17 09:31; Start 07/18/17 at 08:00 Warfarin Sodium (Coumadin) 5 mg DAILY@1600 PO Last administered on 07/21/17 16:02; Start 07/18/17 at 16:00; Stop 07/22/17 at 10:43; Status DC Patient Medication Teaching (Coumadin Booklet) 1 ONCE ONCE .XX Last administered on 07/18/17 17:42; Start 07/18/17 at 16:00; Stop 07/18/17 at 16 :01; Status DC Ibuprofen (Motrin) 600 mg Q6H PRN PO Headache Last administered on 07/18/17 23:14; Start 07/18/17 at 23:00 Lisinopril (Prinivil) 5 mg ONCE ONCE PO Last administered on 07/19/17 17:22 ; Start 07/19/17 at 13:30; Stop 07/19/17 at 13:31; Status DC Lisinopril (Prinivil) 5 mg DAILY PO Last administered on 07/21/17 10:30; Start 07/20/17 at 09:00 Diphenhydramine HCl (Benadryl Inj) 25 mg ONCE ONCE IV PUSH Last administered on 07/22/17 03:09; Start 07/22/17 at 03:00; Stop 07/22/17 at 03:31; Status DC Warfarin Sodium (Coumadin) 7.5 mg DAILY@1600 PO ; Start 07/22/17 at 16:00 A/P Problem List: (1) CVA (cerebral vascular accident) ICD Code: I63.9 - Cerebral infarction, unspecified (2) Depression ICD Code: F32.9 - Major depressive disorder, single episode, unspecified (3) Hepatitis C ICD Code: B19.20 - Unspecified viral hepatitis C without hepatic coma (4) Osteoarthritis ICD Code: M19.90 - Unspecified osteoarthritis, unspecified site (5) Leukocytosis ICD Code: D72.829 - Elevated white blood cell count, unspecified (6) Current chronic use of systemic steroids ICD Code: Z79.52 - retirement (current) use of systemic steroids (7) Anemia ICD Code: D64.9 - Anemia, unspecified Status: Acute (8) COPD (chronic obstructive pulmonary disease) ICD Code: J44.9 - Chronic obstructive pulmonary disease, unspecified Status: Acute Assessment and Plan A/P Left MCA CVA Depression/anxiety Restless leg syndrome CT brain 07/16 revealed no acute intracranial findings CTA brain 07/16 revealed occlusion left MCA distal M1/proximal M2 segments Evaluated by Dr. Ramirez, intervention radiology. Not deemed candidate for intervention Evaluated by Dr. Booker, neurology Status post alteplase 4.5 mg IV 1 followed by 41.5 mg over 1 hour continue Coumadin continue citalopram 10 mg daily for depression start on Seroquel at bedtime UTI start on Cipro and follow the . Hypertension Dyslipidemia Sinus bradycardia Recent PE Currently holding home medication of metoprolol 25 mg twice a day and aspirin 81 mg daily. Resume as clinically indicated Continue atorvastatin 40 mg by mouth daily for dyslipidemia continue lisinopril monitor BP and adjust the BP regimen as needed. Recent history of pulmonary embolism COPD Ongoing tobaccoism Nasal cannula to maintain saturations greater than equal to 92% Incentive spirometry while awake Continue fluticasone/salmeterol 100/50 one inhalation twice a day On albuterol inhaler every 4 hours as needed home Tobacco cessation will be encouraged continue warfarin with bridge with Lovenox History of hepatitis C/treated dysphagia started on Puree diet per ST. following. Chronic prednisone use Sliding-scale insulin if indicated to maintain euglycemia between 140 and 180 continue Prednisone . Leukocytosis Microcytic anemia Warfarin use - 5 mg daily for pulmonary embolism, subtherapeutic Monitor CBC . continue Coumadin and subq Lovenox continue PT/OT/ST. Discharge Planning dc planning to inpatient rehab. patient still on restraints. Problem Qualifiers (1) CVA (cerebral vascular accident): Qualified Codes: I63.512 - Cerebral infarction due to unspecified occlusion or stenosis of left middle cerebral artery (2) Depression: Qualified Codes: F33.1 - Major depressive disorder, recurrent, moderate (3) Hepatitis C: (4) Osteoarthritis: (5) Leukocytosis: Qualified Codes: D72.829 - Elevated white blood cell count, unspecified (6) Anemia: Qualified Codes: D64.9 - Anemia, unspecified (7) COPD (chronic obstructive pulmonary disease): Qualified Codes: J44.9 - Chronic obstructive pulmonary disease, unspecified Vilma Terry MD Jul 22, 2017 11:36
[2017-07-22] MEDS ORDERED: QUEtiapine FUMARATE 25 MG TAB PO ONE (12:00)
[2017-07-22] MEDS: CIPROFLOXACIN 250 MG TAB PO SCH ×2 (12:32→21:13)
[2017-07-22] MEDS ORDERED: WARFARIN SOD 7.5 MG TAB PO SCH (16:00)
[2017-07-22] MEDS: QUEtiapine FUMARATE 25 MG TAB PO SCH (21:13)
[2017-07-22] MEDS: ATORVASTATIN 40 MG TAB PO SCH (21:13)
[2017-07-23] VITALS (8 sets, daily range): BP systolic 125–139; BP diastolic 70–85; PULSE 62–84; RESP 17–20; TEMP 98.1–99.3; O2SAT 90–97
[2017-07-23] MEDS: CHLORHEXIDINE GLUCONATE 2 % 1 PACK (2 CLOTHS) TOP SCH (04:00)
[2017-07-23] MEDS: BUDESONIDE-FORMOTEROL 80/4.5 MCG INHALER INH SCH ×2 (09:00→22:33)
[2017-07-23] MEDS: ENOXAPARIN SODIUM 60 MG/0.6 ML SYRINGE SQ SCH ×2 (09:23→23:03)
[2017-07-23] MEDS: PANTOPRAZOLE SODIUM 40 MG VIAL IV PUSH SCH (09:23)
[2017-07-23] MEDS: DOCUSATE SODIUM 50 MG/SENNA 8.6 MG TAB PO SCH ×2 (09:23→22:31)
[2017-07-23] MEDS: predniSONE 5 MG TAB PO SCH (09:23)
[2017-07-23] MEDS: CITALOPRAM HYDROBROMIDE 20 MG TAB PO SCH (09:23)
[2017-07-23] MEDS: PREGABALIN 75 MG CAP PO SCH ×2 (09:23→22:31)
[2017-07-23] MEDS: LISINOPRIL 5 MG TAB PO SCH (09:23)
[2017-07-23] MEDS: CIPROFLOXACIN 250 MG TAB PO SCH ×2 (09:23→22:31)
[2017-07-23] MEDS: SODIUM CHLORIDE 0.9% FLUSH 10 ML FLUSH IV FLUSH SCH ×2 (09:24→22:32)
--- NOTE | 2017-07-23 09:40 | HHI.PR ---
Subjective Remarks in no acute distress. looks calm today. however still on wrist restraints. d/w the RN and no acute issues over night. Objective Vitals Vital Signs Date Time Temp Pulse Resp B/P (MAP) Pulse Ox O2 Delivery O2 Flow Rate FiO2 07/23/17 09:10 96 Nasal Cannula 2.00 07/23/17 08:00 98.9 72 19 139/75 (96) 90 07/23/17 07:47 96 Nasal Cannula 2.00 07/23/17 05:35 98.1 62 20 138/81 (100) 97 07/23/17 01:06 98.1 79 20 137/85 (102) 07/22/17 21:00 98.3 73 20 143/82 (102) 95 07/22/17 19:16 96 Nasal Cannula 3.00 07/22/17 19:00 Nasal Cannula 2.00 21 07/22/17 16:00 98.9 79 21 148/69 (95) 94 07/22/17 12:00 99.3 75 149/75 (99) 91 07/22/17 09:41 Nasal Cannula 2.00 I/O 07/22/17 07/22/17 07/22/17 07/23/17 07/23/17 07/23/17 07:00 15:00 23:00 07:00 15:00 23:00 Intake Total 240 ml Output Total 300 ml Balance -60 ml Intake Oral 240 ml Output Urine Total 300 ml Bladder Scan Volume Amount 282 ml # Voids 1 Result Diagram: 07/22/17 0558 07/21/17 0508 Imaging Last Impressions Abdomen X-Ray 07/21/17 0000 Signed Impressions: Service Date/Time: Friday, July 21, 2017 05:19 - CONCLUSION: Dobbhoff tube with tip in distal stomach. No evidence of obstruction. Clarence Quintanilla MD Chest X-Ray 07/18/17 0000 Signed Impressions: Service Date/Time: Tuesday, July 18, 2017 05:25 - CONCLUSION: 1. No acute cardiopulmonary disease. Edy Ramirez MD Head CT 07/17/17 1800 Signed Impressions: Service Date/Time: Monday, July 17, 2017 20:34 - CONCLUSION: Evolving stroke left middle cerebral artery hypodensity distribution of the left temporal and parietal lobes. No evidence of hemorrhage. Raul Cui MD Head CTA 07/16/17 1727 Signed Impressions: Service Date/Time: Sunday, July 16, 2017 17:35 - CONCLUSION: 1. Occlusive thrombus identified in the distal left M1 and proximal M2 branches of the MCA. 2. No other significant stenotic or occlusive lesions. Scar Evans MD Neck CTA 07/16/17 0000 Signed Impressions: Service Date/Time: Sunday, July 16, 2017 17:35 - CONCLUSION: 1. Normal extracranial carotid arteries without evidence of stenosis, significant plaque or dissection. 2. Dominant right vertebral artery. 3. Small left vertebral artery originating from the aortic arch. Scar Evans MD Objective Remarks GENERAL: in no apparent distress. CARDIOVASCULAR: Regular rate and regular rhythm without murmurs, gallops, or rubs. RESPIRATORY: Clear to auscultation. Breath sounds equal bilaterally. No wheezes , rales, or rhonchi. GASTROINTESTINAL: Abdomen soft, non-tender, nondistended. Normal, active bowel sounds MUSCULOSKELETAL: Extremities without clubbing, cyanosis, or edema. NEURO: awake but confused. Procedures TPA Medications and IVs Current Medications Sodium Chloride 1,000 ml @ 70 mls/hr [id number] ONCE IV Last administered on 17:35; Start 07/16/17 at 16:48; Stop 07/17/17 at 07:05; Status DC Iohexol (Omnipaque 350 Inj) 96 ml STK-MED ONCE IVCONTRAST Last administered on 07/16/17 16:43; Start 07/16/17 at 16:43; Stop 07/16/17 at 17:46; Status DC Alteplase, Recombinant (Activase Bolus) 4.5 mg ONCE ONCE IV Last administered on 07/16/17 18:03; Start 07/16/17 at 18:00; Stop 07/16/17 at 18:01; Status DC Alteplase, Recombinant 40.5 mg/Syringe / Bag 40.5 ml @ 40.5 mls/hr ONCE ONCE IV Last administered on 07/16/17 18:16; Start 07/16/17 at 18:00; Stop 07/16 at 18:59; Status DC Sodium Chloride (NS Inj) 30 ml ONCE ONCE IVF Last administered on 10/15/17at 18:17; Start 07/16/17 at 18:00; Stop 07/16/17 at 18:01; Status DC Miscellaneous Information No Heparin, Warfarin, Aspir... UNSCH PRN XX SEE DOSE INSTRUCTIONS; Start 07/16/17 at 18:00; Stop 07/17/17 at 17:59; Status DC IV Flush (NS Flush) 2 ml BID IV FLUSH Last administered on 07/18/17t 21:00; Start 07/16/17 at 21:00; Stop 07/19/17 at 16:05; Status DC IV Flush (NS Flush) 2 ml UNSCH PRN IV FLUSH FLUSH AFTER USING IV ACCESS; Start 07/16/17 at 18:45; Stop 07/19/17 at 16:05; Status DC Nicardipine HCl 25 mg/Sodium Chloride 250 ml @ 50 mls/hr TITRATE PRN IV Maintain BP goal; Start 07/16/17 at 18:45; Stop 07/19/17 at 11:33; Status DC Insulin Aspart (NovoLOG SUPPLEMENTAL SCALE) 1 ACHS SQ ; Start 07/16/17 at 21:00 ; Stop 07/18/17 at 07:44; Status DC Dextrose (D50w (Vial) Inj) 50 ml UNSCH PRN IV PUSH HYPOGLYCEMIA-SEE COMMENTS; Start 07/16/17 at 18:45; Stop 07/18/17 at 07:44; Status DC Glucagon (Glucagon Inj) 1 mg UNSCH PRN OTHER HYPOGLYCEMIA-SEE COMMENTS; Start 07/16/17 at 18:45; Stop 07/18/17 at 07:44; Status DC Labetalol HCl (Trandate Inj) 10 mg Q1HR PRN IV PUSH SBP>185, DBP>110, HR>65; Start 07/16/17 at 18:45; Stop 07/19/17 at 03:08; Status DC Hydralazine HCl (Apresoline Inj) 10 mg Q1HR PRN IV PUSH SBP> OR = 185, DBP> OR = 110; Start 07/16/17 at 18:45; Stop 07/19/17 at 03:08; Status DC Sodium Chloride (NS Flush) 2 ml UNSCH PRN IV FLUSH FLUSH AFTER USING IV ACCESS ; Start 07/16/17 at 19:45 Sodium Chloride (NS Flush) 2 ml BID IV FLUSH Last administered on 07/23/17 09 :24; Start 07/16/17 at 21:00 Pantoprazole Sodium (Protonix Inj) 40 mg DAILY IV PUSH Last administered on 09:23; Start 07/17/17 at 09:00 Ondansetron HCl (Zofran Inj) 4 mg Q6H PRN IV PUSH NAUSEA OR VOMITING; Start at 19:45 Albuterol Sulfate (Albuterol Neb) 2.5 mg Q2HR NEB PRN INH SOB/WHEEZING Last administered on 07/19/17 06:21; Start 07/16/17 at 19:45 Miscellaneous Information 1 Q361D XX ; Start 07/16/17 at 19:45 Chlorhexidine Gluconate (Chlorhexidine 2% Cloth) Taper DAILY@04 TOP Last administered on 07/18/17 04:00; Start 07/17/17 at 04:00; Stop 07/13/18 at 03 :59 Chlorhexidine Gluconate (Chlorhexidine 2% Cloth) 3 pack UNSCH PRN TOP HYGIENIC CARE; Start 07/16/17 at 19:45 Senna/Docusate Sodium (Ann-Colace) 1 tab BID PO Last administered on 09:23; Start 07/16/17 at 21:00 Magnesium Hydroxide (Milk Of Magnesia Liq) 30 ml Q12H PRN PO Mild constipation ; Start 07/16/17 at 19:45 Sennosides (Senokot) 17.2 mg Q12H PRN PO Moderate constipation; Start at 19:45 Bisacodyl (Dulcolax Supp) 10 mg DAILY PRN RECTAL SEVERE CONSITIPATION; Start 07/16/17 at 19:45 Lactulose (Lactulose Liq) 30 ml DAILY PRN PO SEVERE CONSITIPATION; Start 07/16 at 19:45 Albuterol Sulfate (Ventolin Hfa Inh) 2 puff Q4HR PRN INH SHORTNESS OF BREATH; Start 07/16/17 at 19:45; Stop 07/16/17 at 21:37; Status DC Atorvastatin Calcium (Lipitor) 40 mg HS PO Last administered on 07/22/17 21: 13; Start 07/16/17 at 21:00 Citalopram Hydrobromide (CeleXA) 10 mg DAILY PO Last administered on 09:23; Start 07/17/17 at 09:00 Prednisone (Deltasone) 5 mg DAILY PO Last administered on 07/23/17 09:23; Start 07/17/17 at 09:00 Pregabalin (Lyrica) 75 mg BID PO Last administered on 07/23/17 09:23; Start 07/16/17 at 21:00 Budesonide/ Formoterol Fumarate (Symbicort 80-4.5 Mcg Inh) 2 puff BID INH Last administered on 07/23/17 09:00; Start 07/16/17 at 21:00 Hydrocortisone Sodium Succinate (SoluCORTEF INJ) 50 mg ONCE ONCE IV PUSH Last administered on 07/16/17 22:54; Start 07/16/17 at 21:30; Stop 07/16/17 at 21 :31; Status DC Magnesium Oxide (Mag-Ox) 800 mg UNSCH PRN PO For Magnesium 1.2 - 1.6 mg/dL; Start 07/17/17 at 08:15; Stop 07/19/17 at 11:01; Status DC Magnesium Sulfate 4 gm/Sodium Chloride 100 ml @ 50 mls/hr UNSCH PRN IV For Magnesium 0.9 - 1.1 mg/dL; Start 07/17/17 at 08:15; Stop 07/19/17 at 11:01; Status DC Magnesium Sulfate 2 gm/Sodium Chloride 100 ml @ 50 mls/hr UNSCH PRN IV For Magnesium 1.2 - 1.6 mg/dL; Start 07/17/17 at 08:15; Stop 07/19/17 at 11:01; Status DC Potassium Chloride 100 ml @ 50 mls/hr Q2H PRN IV For Potassium 2.8 - 3.2 mEq/ L Last administered on 07/18/17 12:50; Start 07/17/17 at 08:15; Stop at 11:01; Status DC Potassium Chloride 100 ml @ 50 mls/hr Q2H PRN IV For Potassium 3.3 - 3.5 mEq/L ; Start 07/17/17 at 08:15; Stop 07/19/17 at 11:01; Status DC Potassium Chloride 100 ml @ 50 mls/hr Q2H PRN IV For Potassium 2.8 - 3.2 mEq/L ; Start 07/17/17 at 08:15; Stop 07/19/17 at 11:01; Status DC Potassium Chloride 100 ml @ 25 mls/hr UNSCH PRN IV For Potassium 3.3 - 3.5 mEq /L; Start 07/17/17 at 08:15; Stop 07/19/17 at 11:01; Status DC Potassium Phosphate (K-Phos) 2,000 mg Q4H PRN PO For Phosphorus < 2.5 mg/dL; Start 07/17/17 at 08:15; Stop 07/19/17 at 11:01; Status DC Potassium Phosphate (K-Phos) 2,000 mg UNSCH PRN PO/TUBE SEE LABEL COMMENTS; Start 07/17/17 at 08:15; Stop 07/19/17 at 11:01; Status DC Potassium Phosphate 30 mmol/ Sodium Chloride 260 ml @ 42 mls/hr UNSCH PRN IV SEE LABEL COMMENTS; Start 07/17/17 at 08:15; Stop 07/19/17 at 11:01; Status DC Sodium Phosphate 30 mmol/Sodium Chloride 250 ml @ 42 mls/hr UNSCH PRN IV For Phosphorus < 2.5 mg/dL Last administered on 07/17/17 12:25; Start 07/17/17 at 08:15; Stop 07/19/17 at 11:01; Status DC Pharmacy Profile Note 0 ml @ 0 mls/hr UNSCH OTHER ; Start 07/18/17 at 06:30 Enoxaparin Sodium (Lovenox Inj) 50 mg Q12H SQ Last administered on 07/23/17 09:23; Start 07/18/17 at 08:00 Warfarin Sodium (Coumadin) 5 mg DAILY@1600 PO Last administered on 07/21/17 16:02; Start 07/18/17 at 16:00; Stop 07/22/17 at 10:43; Status DC Patient Medication Teaching (Coumadin Booklet) 1 ONCE ONCE .XX Last administered on 07/18/17 17:42; Start 07/18/17 at 16:00; Stop 07/18/17 at 16 :01; Status DC Ibuprofen (Motrin) 600 mg Q6H PRN PO Headache Last administered on 07/18/17 23:14; Start 07/18/17 at 23:00 Lisinopril (Prinivil) 5 mg ONCE ONCE PO Last administered on 07/19/17 17:22 ; Start 07/19/17 at 13:30; Stop 07/19/17 at 13:31; Status DC Lisinopril (Prinivil) 5 mg DAILY PO Last administered on 07/23/17 09:23; Start 07/20/17 at 09:00 Diphenhydramine HCl (Benadryl Inj) 25 mg ONCE ONCE IV PUSH Last administered on 07/22/17 03:09; Start 07/22/17 at 03:00; Stop 07/22/17 at 03:31; Status DC Warfarin Sodium (Coumadin) 7.5 mg DAILY@1600 PO Last administered on 16:54; Start 07/22/17 at 16:00 Quetiapine Fumarate (SEROquel) 25 mg ONCE ONCE PO Last administered on 12:31; Start 07/22/17 at 12:00; Stop 07/22/17 at 12:01; Status DC Quetiapine Fumarate (SEROquel) 25 mg HS PO Last administered on 07/22/17 21: 13; Start 07/22/17 at 21:00 Ciprofloxacin (Cipro) 250 mg Q12HR PO Last administered on 07/23/17 09:23; Start 07/22/17 at 12:00 A/P Problem List: (1) CVA (cerebral vascular accident) ICD Code: I63.9 - Cerebral infarction, unspecified (2) Depression ICD Code: F32.9 - Major depressive disorder, single episode, unspecified (3) Hepatitis C ICD Code: B19.20 - Unspecified viral hepatitis C without hepatic coma (4) Osteoarthritis ICD Code: M19.90 - Unspecified osteoarthritis, unspecified site (5) Leukocytosis ICD Code: D72.829 - Elevated white blood cell count, unspecified (6) Current chronic use of systemic steroids ICD Code: Z79.52 - senior living (current) use of systemic steroids (7) Anemia ICD Code: D64.9 - Anemia, unspecified Status: Acute (8) COPD (chronic obstructive pulmonary disease) ICD Code: J44.9 - Chronic obstructive pulmonary disease, unspecified Status: Acute Assessment and Plan A/P Left MCA CVA Depression/anxiety Restless leg syndrome CT brain 07/16 revealed no acute intracranial findings CTA brain 07/16 revealed occlusion left MCA distal M1/proximal M2 segments Evaluated by Dr. Ramirez, intervention radiology. Not deemed candidate for intervention Evaluated by Dr. Booker, neurology Status post alteplase 4.5 mg IV 1 followed by 41.5 mg over 1 hour continue Coumadin and Lovenox; will dc Lovenox when INR is therapeutic. continue citalopram 10 mg daily for depression started on Seroquel at bedtime d/w the RN today; will try to gradually remove the restraints . UTI started on Cipro.follow the . Hypertension Dyslipidemia Sinus bradycardia Currently holding home medication of metoprolol 25 mg twice a day and aspirin 81 mg daily. Resume as clinically indicated Continue atorvastatin 40 mg by mouth daily for dyslipidemia continue lisinopril monitor BP and adjust the BP regimen as needed. Recent history of pulmonary embolism COPD Ongoing tobaccoism Nasal cannula to maintain saturations greater than equal to 92% Incentive spirometry while awake Continue fluticasone/salmeterol On albuterol inhaler continue warfarin with bridge with Lovenox History of hepatitis C/treated dysphagia started on Puree diet per . following. Chronic prednisone use Sliding-scale insulin continue Prednisone . Leukocytosis Microcytic anemia Warfarin use - 5 mg daily for pulmonary embolism, subtherapeutic Monitor CBC . continue Coumadin and subq Lovenox continue PT/OT/ST. Discharge Planning dc planning to inpatient rehab when off the restraints. Problem Qualifiers (1) CVA (cerebral vascular accident): Qualified Codes: I63.512 - Cerebral infarction due to unspecified occlusion or stenosis of left middle cerebral artery (2) Depression: Qualified Codes: F33.1 - Major depressive disorder, recurrent, moderate (3) Hepatitis C: (4) Osteoarthritis: (5) Leukocytosis: Qualified Codes: D72.829 - Elevated white blood cell count, unspecified (6) Anemia: Qualified Codes: D64.9 - Anemia, unspecified (7) COPD (chronic obstructive pulmonary disease): Qualified Codes: J44.9 - Chronic obstructive pulmonary disease, unspecified Vilma Terry MD Jul 23, 2017 09:40
[2017-07-23 11:15] LABS: HEMATOCRIT 34.3 % (35.0-46.0); MEAN CELL VOLUME 75.2 FL (80.0-100.0); MEAN CORPUSCULAR HEMOGLOBIN 22.5 PG (27.0-34.0); PLATELET COUNT 372 TH/MM3 (150-450); RED BLOOD COUNT 4.56 MIL/MM3 (4.00-5.30); RED CELL DISTRIBUTION WIDTH 20.8 % (11.6-17.2); REVIEW FLAG FINAL; WHITE BLOOD COUNT 15.3 TH/MM3 (4.0-11.0)
[2017-07-23 11:24] LABS: PROTHROMBIN TIME - PATIENT 23.2 SEC (9.8-11.6)
[2017-07-23 11:36] LABS: MEAN CORPUSCULAR HGB CONC 29.8 % (32.0-36.0)
[2017-07-23] MEDS ORDERED: WARFARIN SOD 2.5 MG TAB PO SCH (16:00)
[2017-07-23] MEDS: QUEtiapine FUMARATE 25 MG TAB PO SCH (22:31)
[2017-07-23] MEDS: ATORVASTATIN 40 MG TAB PO SCH (22:32)
[2017-07-24] VITALS (7 sets, daily range): BP systolic 115–124; BP diastolic 63–83; PULSE 58–98; RESP 18–20; TEMP 97.5–98.7; O2SAT 90–94
[2017-07-24] MEDS: CHLORHEXIDINE GLUCONATE 2 % 1 PACK (2 CLOTHS) TOP SCH (04:00)
[2017-07-24] MEDS: BUDESONIDE-FORMOTEROL 80/4.5 MCG INHALER INH SCH (07:59)
[2017-07-24] MEDS: PREGABALIN 75 MG CAP PO SCH (08:00)
[2017-07-24] MEDS: predniSONE 5 MG TAB PO SCH (08:00)
[2017-07-24] MEDS: RESP: ALBUTEROL 2.5 MG/3 ML NEB (PRN) INH (08:00)
[2017-07-24] MEDS: CIPROFLOXACIN 250 MG TAB PO SCH (08:00)
[2017-07-24] MEDS: DOCUSATE SODIUM 50 MG/SENNA 8.6 MG TAB PO SCH (08:00)
[2017-07-24] MEDS: CITALOPRAM HYDROBROMIDE 20 MG TAB PO SCH (08:00)
[2017-07-24] MEDS: SODIUM CHLORIDE 0.9% FLUSH 10 ML FLUSH IV FLUSH SCH (08:00)
[2017-07-24] MEDS: PANTOPRAZOLE SODIUM 40 MG VIAL IV PUSH SCH (08:01)
[2017-07-24] MEDS: ENOXAPARIN SODIUM 60 MG/0.6 ML SYRINGE SQ SCH (08:01)
[2017-07-24] MEDS: LISINOPRIL 5 MG TAB PO SCH (08:21)
[2017-07-24] MEDS: IBUPROFEN 600 MG TAB PO PRN (08:21)
[2017-07-24 08:59] LABS: HEMATOCRIT 34.6 % (35.0-46.0); MEAN CELL VOLUME 75.1 FL (80.0-100.0); MEAN CORPUSCULAR HEMOGLOBIN 22.7 PG (27.0-34.0); MEAN CORPUSCULAR HGB CONC 30.2 % (32.0-36.0); PLATELET COUNT 379 TH/MM3 (150-450); RED BLOOD COUNT 4.61 MIL/MM3 (4.00-5.30); RED CELL DISTRIBUTION WIDTH 20.3 % (11.6-17.2); REVIEW FLAG FINAL
[2017-07-24 09:11] LABS: PROTHROMBIN TIME - PATIENT 22.7 SEC (9.8-11.6)
[2017-07-24] MEDS ORDERED: ALBU0.08 INH (11:33)
[2017-07-24] MEDS ORDERED: COUM2.5T PO (11:33)
[2017-07-24] MEDS ORDERED: LISI-519 PO (11:33)
[2017-07-24] MEDS ORDERED: PRED5TAB PO (11:33)
--- NOTE | 2017-07-24 12:40 | HHI.PR ---
Subjective Remarks up on the chair good po no complains no nausea or vomiting pleasant and cooperative- off restraints last 24 hours Objective Vitals Vital Signs Date Time Temp Pulse Resp B/P (MAP) Pulse Ox O2 Delivery O2 Flow Rate FiO2 07/24/17 09:10 18 07/24/17 09:10 18 07/24/17 08:09 90 Nasal Cannula 4.00 07/24/17 08:00 58 07/24/17 08:00 98.7 93 20 121/81 (94) 93 07/24/17 07:00 93 Nasal Cannula 4.00 07/24/17 04:25 93 Nasal Cannula 2.00 07/24/17 04:00 97.5 65 18 115/63 (80) 94 07/24/17 01:17 76 07/24/17 00:00 98.1 89 18 124/83 (97) 93 07/23/17 22:21 Nasal Cannula 2.00 07/23/17 20:00 99.3 84 18 128/70 (89) 93 07/23/17 16:00 98.8 83 17 125/77 (93) 94 I/O 07/23/17 07/23/17 07/23/17 07/24/17 07/24/17 07/24/17 07:00 15:00 23:00 07:00 15:00 23:00 Intake Total 960 ml Output Total 700 ml Balance 260 ml Intake Oral 960 ml Output Urine Total 700 ml # Voids 1 1 # Bowel Movements 0 Result Diagram: 07/24/17 0609 07/21/17 0508 Imaging Last Impressions Abdomen X-Ray 07/21/17 0000 Signed Impressions: Service Date/Time: Friday, July 21, 2017 05:19 - CONCLUSION: Dobbhoff tube with tip in distal stomach. No evidence of obstruction. Clarence Quintanilla MD Chest X-Ray 07/18/17 0000 Signed Impressions: Service Date/Time: Tuesday, July 18, 2017 05:25 - CONCLUSION: 1. No acute cardiopulmonary disease. Edy Ramirez MD Head CT 07/17/17 1800 Signed Impressions: Service Date/Time: Monday, July 17, 2017 20:34 - CONCLUSION: Evolving stroke left middle cerebral artery hypodensity distribution of the left temporal and parietal lobes. No evidence of hemorrhage. Raul Cui MD Head CTA 07/16/17 1727 Signed Impressions: Service Date/Time: Sunday, July 16, 2017 17:35 - CONCLUSION: 1. Occlusive thrombus identified in the distal left M1 and proximal M2 branches of the MCA. 2. No other significant stenotic or occlusive lesions. Scar Evans MD Neck CTA 07/16/17 0000 Signed Impressions: Service Date/Time: Sunday, July 16, 2017 17:35 - CONCLUSION: 1. Normal extracranial carotid arteries without evidence of stenosis, significant plaque or dissection. 2. Dominant right vertebral artery. 3. Small left vertebral artery originating from the aortic arch. 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 no edema Procedures TPA A/P Problem List: (1) CVA (cerebral vascular accident) ICD Code: I63.9 - Cerebral infarction, unspecified (2) Depression ICD Code: F32.9 - Major depressive disorder, single episode, unspecified (3) Hepatitis C ICD Code: B19.20 - Unspecified viral hepatitis C without hepatic coma (4) Osteoarthritis ICD Code: M19.90 - Unspecified osteoarthritis, unspecified site (5) Leukocytosis ICD Code: D72.829 - Elevated white blood cell count, unspecified (6) Current chronic use of systemic steroids ICD Code: Z79.52 - [place] (current) use of systemic steroids (7) Anemia ICD Code: D64.9 - Anemia, unspecified Status: Acute (8) COPD (chronic obstructive pulmonary disease) ICD Code: J44.9 - Chronic obstructive pulmonary disease, unspecified Status: Chronic Assessment and Plan 62 years old female Left MCA CVA Depression/anxiety Restless leg syndrome CT brain 07/16 revealed no acute intracranial findings CTA brain 07/16 revealed occlusion left MCA distal M1/proximal M2 segments Evaluated by Dr. Ramirez, intervention radiology. Not deemed candidate for intervention Evaluated by Dr. Booker, neurology Status post alteplase 4.5 mg IV 1 followed by 41.5 mg over 1 hour continue Coumadin and Lovenox; will dc Lovenox when INR is therapeutic. continue citalopram 10 mg daily for depression on Seroquel at bedtime UTI- Ecoli- resistant to cipro -- DC cipro. - start Bactrim DS po bid x 3 days Hypertension Dyslipidemia Sinus bradycardia Currently holding home medication of metoprolol 25 mg twice a day and aspirin 81 mg daily. Resume as clinically indicated Continue atorvastatin 40 mg by mouth daily for dyslipidemia continue lisinopril monitor BP and adjust the BP regimen as needed. Recent history of pulmonary embolism COPD- per patient on at home Ongoing tobaccoism Nasal cannula to maintain saturations greater than equal to 92% Incentive spirometry while awake Continue fluticasone/salmeterol On albuterol inhaler continue warfarin with bridge with Lovenox History of hepatitis C/treated dysphagia started on Puree diet per . . Chronic prednisone use Sliding-scale insulin continue Prednisone . Leukocytosis Microcytic anemia Warfarin use - 5 mg daily for pulmonary embolism, subtherapeutic Monitor CBC . continue Coumadin and subq Lovenox continue PT/OT/ST. Discharge Planning dc planning to inpatient rehab when off the restraints. Problem Qualifiers Problem Qualifiers (1) CVA (cerebral vascular accident): Qualified Codes: I63.512 - Cerebral infarction due to unspecified occlusion or stenosis of left middle cerebral artery (2) Depression: Qualified Codes: F33.1 - Major depressive disorder, recurrent, moderate (3) Hepatitis C: (4) Osteoarthritis: (5) Leukocytosis: Qualified Codes: D72.829 - Elevated white blood cell count, unspecified (6) Anemia: Qualified Codes: D64.9 - Anemia, unspecified (7) COPD (chronic obstructive pulmonary disease): Qualified Codes: J44.9 - Chronic obstructive pulmonary disease, unspecified Nubia Lazaro MD Jul 24, 2017 12:40
[2017-07-24] MEDS ORDERED: CEFUROXIME AXETIL 500 MG TAB PO SCH (12:45)
--- NOTE | 2017-07-24 12:48 | HHI.DS ---
Discharge Summary Admission Date Jul 16, 2017 at 18:48 Discharge Date: Jul 24, 2017 Admitting Diagnosis acute cva, copd, anemia (1) CVA (cerebral vascular accident) ICD Code: I63.9 - Cerebral infarction, unspecified Diagnosis: Principal (2) Depression ICD Code: F32.9 - Major depressive disorder, single episode, unspecified Diagnosis: Secondary (3) Hepatitis C ICD Code: B19.20 - Unspecified viral hepatitis C without hepatic coma Diagnosis: Secondary (4) Osteoarthritis ICD Code: M19.90 - Unspecified osteoarthritis, unspecified site Diagnosis: Principal (5) Leukocytosis ICD Code: D72.829 - Elevated white blood cell count, unspecified Diagnosis: Principal (6) Current chronic use of systemic steroids ICD Code: Z79.52 - USP (current) use of systemic steroids Diagnosis: Secondary (7) Anemia ICD Code: D64.9 - Anemia, unspecified Diagnosis: Principal Status: Acute (8) COPD (chronic obstructive pulmonary disease) ICD Code: J44.9 - Chronic obstructive pulmonary disease, unspecified Diagnosis: Principal Status: Chronic (9) UTI (urinary tract infection) ICD Code: N39.0 - Urinary tract infection, site not specified Diagnosis: Principal Status: Acute Procedures TPA Brief History - From Admission This is a 62-year-old female. Date of admission 07/16/2017. Past records includes depression/anxiety, COPD, CABG 2, hepatitis C treated, ongoing tobaccoism, hypertension, restless leg syndrome and osteoarthritis. She is on chronic prednisone treatment. She was last seen in her normal state of health at 1600 hrs. today. She is found to be held including a right facial droop, expressive aphasia and generalized weakness right greater than left side. She was taken to [facility] for evaluation A stroke alert was called. CT brain negative. CT neck revealed a dominant right vertebral artery. A small left vertebral artery. CT angiogram of the brain revealed occlusion of the distal M1 segment and proximal M2 segment of the middle cerebral artery. Was evaluated by Dr. Ramirez radiology interventional along with Dr. Booker/neurology. Due to the location of the occlusion not a candidate for intervention. Patient to receive alteplase 4.5 mg followed by 40.5 mg in the ED. NIH score was 22. One for LOC, 2 for each. She was aphasic. Dysarthric. Right facial droop. Right greater than left- sided weakness. No sensory deficit. CBC/BMP: 07/24/17 0609 07/21/17 0508 Significant Findings Laboratory Tests Test 07/21/17 13:55 07/22/17 05:58 07/23/17 10:50 07/24/17 06:09 Urine Turbidity HAZY (CLEAR) Urine Occult Blood SMALL (NEG) Urine Nitrite POS (NEG) Urine Leukocyte Esterase SMALL (NEG) Urine WBC 14 /hpf (0-5) Urine Bacteria MANY /hpf (NONE) Urine Mucus MANY /lpf (OCC) White Blood Count 12.0 TH/MM3 (4.0-11.0) 15.3 TH/MM3 (4.0-11.0) Hemoglobin 9.5 GM/DL (11.6-15.3) 10.2 GM/DL (11.6-15.3) 10.4 GM/DL (11.6-15.3) Hematocrit 32.2 % (35.0-46.0) 34.3 % (35.0-46.0) 34.6 % (35.0-46.0) Mean Corpuscular Volume 75.0 FL (80.0-100.0) 75.2 FL (80.0-100.0) 75.1 FL (80.0-100.0) Mean Corpuscular Hemoglobin 22.2 PG (27.0-34.0) 22.5 PG (27.0-34.0) 22.7 PG (27.0-34.0) Mean Corpuscular Hemoglobin Concent 29.5 % (32.0-36.0) 29.8 % (32.0-36.0) 30.2 % (32.0-36.0) Red Cell Distribution Width 19.9 % (11.6-17.2) 20.8 % (11.6-17.2) 20.3 % (11.6-17.2) Prothrombin Time 16.0 SEC (9.8-11.6) 23.2 SEC (9.8-11.6) 22.7 SEC (9.8-11.6) Imaging Last Impressions Abdomen X-Ray 07/21/17 0000 Signed Impressions: Service Date/Time: Friday, July 21, 2017 05:19 - CONCLUSION: Dobbhoff tube with tip in distal stomach. No evidence of obstruction. Clarence Quintanilla MD Chest X-Ray 07/18/17 0000 Signed Impressions: Service Date/Time: Tuesday, July 18, 2017 05:25 - CONCLUSION: 1. No acute cardiopulmonary disease. Edy Ramirez MD Head CT 07/17/17 1800 Signed Impressions: Service Date/Time: Monday, July 17, 2017 20:34 - CONCLUSION: Evolving stroke left middle cerebral artery hypodensity distribution of the left temporal and parietal lobes. No evidence of hemorrhage. Raul Cui MD Head CTA 07/16/17 1727 Signed Impressions: Service Date/Time: Sunday, July 16, 2017 17:35 - CONCLUSION: 1. Occlusive thrombus identified in the distal left M1 and proximal M2 branches of the MCA. 2. No other significant stenotic or occlusive lesions. Scar Evans MD Neck CTA 07/16/17 0000 Signed Impressions: Service Date/Time: Sunday, July 16, 2017 17:35 - CONCLUSION: 1. Normal extracranial carotid arteries without evidence of stenosis, significant plaque or dissection. 2. Dominant right vertebral artery. 3. Small left vertebral artery originating from the aortic arch. Scar Evans MD PE at Discharge awake and alert, no acute distress, oriented to person, pleasantly confused, ff all commands though anicteric no nuchal rigidity lungs - no rales or wheezes regular rhythm abdomen= soft, nontender extremities- hand electroless plater equal on both hands no edema Pt update on day of discharge awake and alert, no wheezes good po moves all extremities spontaenously Hospital Course 62 years old female Left MCA CVA Depression/anxiety Restless leg syndrome CT brain 07/16 revealed no acute intracranial findings CTA brain 07/16 revealed occlusion left MCA distal M1/proximal M2 segments Evaluated by Dr. Ramirez, intervention radiology. Not deemed candidate for intervention Evaluated by Dr. Booker, neurology Status post alteplase 4.5 mg IV 1 followed by 41.5 mg over 1 hour continue Coumadin and Lovenox; will dc Lovenox when INR is therapeutic. continue citalopram 10 mg daily for depression on Seroquel at bedtime UTI- Ecoli- resistant to cipro -- DC cipro. - start Bactrim DS po bid x 3 days Hypertension Dyslipidemia Sinus bradycardia Currently holding home medication of metoprolol 25 mg twice a day and aspirin 81 mg daily. Resume as clinically indicated Continue atorvastatin 40 mg by mouth daily for dyslipidemia continue lisinopril monitor BP and adjust the BP regimen as needed. Recent history of pulmonary embolism COPD- per patient on at home Ongoing tobaccoism Nasal cannula to maintain saturations greater than equal to 92% Incentive spirometry while awake Continue fluticasone/salmeterol On albuterol inhaler continue warfarin with bridge with Lovenox History of hepatitis C/treated dysphagia started on Puree diet per following. Chronic prednisone use Sliding-scale insulin continue Prednisone . Leukocytosis Microcytic anemia Warfarin use - 5 mg daily for pulmonary embolism, subtherapeutic Monitor CBC . continue Coumadin and subq Lovenox continue PT/OT/ST. Pt Condition on Discharge: Stable Discharge Disposition: Rehab Inpatient Discharge Instructions DIET: Follow Instructions for: Heart Healthy Diet Speech Therapy-Diet Recommends: Pureed, [place]anova Thickened Liquids Additional Diet Instructions: pureed with thickened naectar fluids Activities you can perform: Weight Bearing as Sigifredo Other Activity Instructions: PT/OT supervision daily New Medications: Albuterol Neb (Albuterol Neb) 2.5 Mg/3 Ml Neb 2.5 MG INH Q2HR NEB PRN for SOB/WHEEZING, #14 NEBULE Lisinopril (Lisinopril) 5 Mg Tab 5 MG PO DAILY for Blood Pressure Management, #30 TAB Prednisone (Prednisone) 5 Mg Tab 5 MG PO DAILY for Broncospasm, #10 TAB Sulfamethoxazole-Trimethoprim (Sulfamethoxazole-Trimethoprim) 800-160 Mg Tab 1 TAB PO Q12HR for UTI for 3 Days, #6 TAB Warfarin (Coumadin) 2.5 Mg Tab 2.5 MG PO DAILY@1600 for Blood Clot Prevention, #30 TAB Continued Medications: Albuterol 8.5 GM Inh (Proair Hfa 8.5 GM Inh) 90 Mcg/Act Aer 2 PUFF INH Q4-6H PRN for SHORTNESS OF BREATH, #1 INHALER 0 Refills 108 mcg/actuation Atorvastatin (Atorvastatin) 40 Mg Tab 40 MG PO HS for Cholesterol Management, #30 TAB 0 Refills Citalopram (Citalopram) 20 Mg Tab 10 MG PO DAILY for Control Depression, #30 TAB 0 Refills Fluticasone-Salmeterol Inh (Advair Diskus Inh) 100-50 Mcg/Blist Aer 1 PUFF INH BID for Asthma Management, #1 INHALER 0 Refills Rinse mouth after use. Pregabalin (Lyrica) 75 Mg Cap 75 MG PO BID, #30 CAP 0 Refills Sennosides-Docusate Sodium (Senna Plus 8.6-50 mg) 1 Tab Tab 1 TAB PO BID for Constipation, #60 TAB Discontinued Medications: Prednisone (Prednisone) 5 Mg Tab 5 MG PO DAILY, TAB 0 Refills start on 06/02/17 after prednisone 40 mg daily for 5 days Nubia Lazaro MD Jul 24, 2017 12:48
[2017-07-24] MEDS ORDERED: SULF1TAB23 PO (12:57)
[2017-07-24] MEDS ORDERED: SULFAMETHOXAZOLE-TRIMETHOPRIM DS 800-160 MG TAB PO SCH (14:00)
[2017-07-25] MEDS ORDERED: RESP: ALBUTEROL 2.5 MG/IPRATROPIUM 0.5 MG NEB (PRN) NEB (17:00)
== END 2017-07-24 14:46 | DRG 62 ==
LOC: NEPE 16:42 → NEDA 18:48 → N03B 20:54 → N05A 07-18 14:57
PROVIDERS: ADMIT Internal Medicine; ATTEND Internal Medicine
DX: I63.312 Cerebral infarction due to thrombosis of left middle cerebral artery (principal); F33.1 Major depressive disorder, recurrent, moderate; G81.91 Hemiplegia, unspecified affecting right dominant side; I10 Essential (primary) hypertension; F17.210 Nicotine dependence, cigarettes, uncomplicated; D50.9 Iron deficiency anemia, unspecified; N39.0 Urinary tract infection, site not specified; R00.1 Bradycardia, unspecified; R47.01 Aphasia; E78.5 Hyperlipidemia, unspecified; R29.722 NIHSS score 22; R13.10 Dysphagia, unspecified; G25.81 Restless legs syndrome; F41.9 Anxiety disorder, unspecified; R29.810 Facial weakness; R47.1 Dysarthria and anarthria; M19.90 Unspecified osteoarthritis, unspecified site; J44.9 Chronic obstructive pulmonary disease, unspecified; G89.29 Other chronic pain; B96.20 Unspecified Escherichia coli [E. coli] as the cause of diseases classified elsewhere; Z16.23 Resistance to quinolones and fluoroquinolones; Z78.1 Physical restraint status; Z91.19 Patient's noncompliance with other medical treatment and regimen; Z79.899 Other long term (current) drug therapy; Z79.52 Long term (current) use of systemic steroids; Z79.82 Long term (current) use of aspirin; Z79.01 Long term (current) use of anticoagulants; Z86.19 Personal history of other infectious and parasitic diseases; Z86.711 Personal history of pulmonary embolism; Z95.1 Presence of aortocoronary bypass graft; Z86.73 Personal history of transient ischemic attack (TIA), and cerebral infarction without residual deficits
CPT/HCPCS: 51702; 70450; 70496; 70498; 71010; 74000; 76937; 80048; 80053; 80061; 80307; 81001; 82435; 82550; 82565; 82947; 82948; 83036; 83735; 84100; 84132; 84295; 84439; 84443; 84484; 84520; 84702; 85025; 85027; 85384; 85610; 85730; 86850; 86900; 86901; 87077; 87086; 87186; 87641; 93005; 93306; 94150; 94640; 94664; 94667; 94668; 96361; 96374; C9113; J1200; J1650; J1720; J2997; J3480; J7030; J7050; J7512; J7613; Q9967

== ENCOUNTER 2017-09-14 02:20 | Inpatient (IN) | payer MEDICARE, MEDICAID ==
[~2017-09-14] VITALS: Ht 160 cm; Wt 41.9 kg
[2017-09-14] VITALS (22 sets, daily range): BP systolic 93–131; BP diastolic 52–65; PULSE 71–94; RESP 14–46; TEMP 97.9–98.6; O2SAT 84–100
[~2017-09-14 02:20] MED LIST changes: -ALBUAER3 INH; +ASCO500 PO; -ASPI-99 PO; +ATOR40TA16 PO; +Albuterol-Ipratropium Neb NEB; +Budeson-Formot 80-4.5 Mcg Inh INH; +CELE20TA PO; -CLON2TAB PO; +COUM2.5T PO; +COUM6TAB PO; +ENOX40P SQ; +FAMO20TA2 PO; +FERR300S PO; +LIDO1ADH4 T-DERMAL; -METO25TA3 PO; -NITR1SUB3 SL; +NOVOLOGSS SQ; -PERC10TA27 PO; +SULF1TAB23 PO; +THERTAB15 PO; +TRAM50 PO; -XARE15TA PO
[2017-09-14] MEDS ORDERED: SODIUM CHLOR 0.9% 1000 ML INJ 1,000 ML IV ONE ×2 (02:29→14:30)
[2017-09-14] MEDS ORDERED: SODIUM CHLOR 0.9% 1000 ML INJ 800 ML IV ONE (02:29)
[2017-09-14] MEDS ORDERED: RESP: ALBUTEROL 2.5 MG/IPRATROPIUM 0.5 MG NEB (SCH) NEB ONE (02:30)
[2017-09-14] MEDS ORDERED: RESP: ALBUTEROL 2.5 MG/IPRATROPIUM 0.5 MG NEB (SCH) ONE ×2 (02:31→02:32)
[2017-09-14 02:49] LABS: BLOOD GAS VENOUS BASE EXCESS 6.5 mmol/L (-2-2); BLOOD GAS VENOUS HCO3 32 mmol/L (22-26); BLOOD GAS VENOUS O2 HGB SAT 77 % (70-76); BLOOD GAS VENOUS PCO2 55 mmHg (44-48); BLOOD GAS VENOUS PO2 46 mmHg (35-40); BLOOD GAS VENOUS pH 7.38 (7.360-7.400); CRITICAL VALUE NO; LITER FLOW 15 L/M; OXYGEN DEVICE NRB; TEMP CORR TO 98.6
[2017-09-14 02:50] LABS: FIO2 100 %; STAT YES
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
[2017-09-14 03:19] LABS: BASOPHIL # 0.1 TH/MM3 (0-0.2); BASOPHIL % 0.3 % (0.0-2.0); EOSINOPHIL % 0.2 % (0.0-4.0); HEMATOCRIT 40.4 % (35.0-46.0); LYMPH % 3.6 % (9.0-44.0); LYMPHOCYTE # 0.9 TH/MM3 (1.0-4.8); MEAN CELL VOLUME 87.1 FL (80.0-100.0); MEAN CORPUSCULAR HEMOGLOBIN 27.4 PG (27.0-34.0); MEAN CORPUSCULAR HGB CONC 31.5 % (32.0-36.0); MONO % 7.9 % (0.0-8.0); PLATELET COUNT 383 TH/MM3 (150-450); RED BLOOD COUNT 4.64 MIL/MM3 (4.00-5.30); RED CELL DISTRIBUTION WIDTH 29.5 % (11.6-17.2); WHITE BLOOD COUNT 23.9 TH/MM3 (4.0-11.0)
[2017-09-14 03:20] LABS: HEMO FLAGS AUTO DIFF
[2017-09-14 03:32] LABS: APTT (PATIENT) 37.9 SEC (24.3-30.1); INTERNATIONAL NORMALIZED RATIO 2.8 RATIO; PROTHROMBIN TIME - PATIENT 28.4 SEC (9.8-11.6)
[2017-09-14 03:56] LABS: BANDS 20 % (0-6); NEUTROPHIL # MANUAL DIFF 21.5 TH/MM3 (1.8-7.7); POLYS (SEG NEUTROPHILS) 70 % (16-70); WBC DIFF SAMPLE 100
[2017-09-14 03:57] LABS: PLATELET ESTIMATE SMEAR NORMAL (NORMAL); SCAN/DIFF FINAL DIFF MANUAL; TOXIC GRANULATION 1+ (NORMAL)
[2017-09-14 03:58] LABS: TOXIC VACUOLATION PRESENT (NONE SEEN)
[2017-09-14] MEDS ORDERED: VANCOMYCIN INJ 1,000 MG in SODIUM CHLOR 0.9% 250 ML INJ 250 ML IV ONE (04:00)
[2017-09-14] MEDS ORDERED: PIPERACIL-TAZO 4.5 GM PREMIX 100 ML IV ONE (04:00)
--- NOTE | 2017-09-14 04:03 | RADRPT ---
EXAM DATE/TIME: 09/14/2017 03:33 [facility] COMPARISON: No previous studies available for comparison. INDICATIONS : Trauma; altered mental status. RADIATION DOSE: 56.35 CTDIvol (mGy) MEDICAL HISTORY : Stroke. Cardiovascular disease SURGICAL HISTORY : None. ENCOUNTER: Initial ACUITY: 1 day PAIN SCALE: 4/10 LOCATION: cranial TECHNIQUE: Multiple contiguous axial images were obtained of the head. Using automated exposure control and adj ustment of the mA and/or kV according to patient size, radiation dose was kept as low as reasonably a chievable to obtain optimal diagnostic quality images. DICOM format image data is available electro nically for review and comparison. FINDINGS: CEREBRUM: Examination is abnormal demonstrating hypodensity in the left sylvian region extending to high convex ity; this correlates to the left MCA distribution. The ventricles are symmetric in size and no evide nce of midline shift. No evidence of blood products.. There is decreased attenuation in the white m atter of the centrum semiovale bilaterally. POSTERIOR FOSSA: The cerebellum and brainstem are intact. The 4th ventricle is midline. The cerebellopontine angle i s unremarkable. EXTRACRANIAL: The visualized portion of the orbits is intact. Opacified ethmoids and bilateral mucosal thickening in the maxillary and sphenoid sinuses, right greater than left. SKULL: The calvaria is intact. No evidence of skull fracture. CONCLUSION: 1. There is evidence of left MCA infarction, nonhemorrhagic, age-indeterminate. 2. No evidence of acute blood products or mass effect. 3. Moderate severity sinus disease in the ethmoids, maxillary, and sphenoid sinuses. Lino Langford MD on September 14, 2017 at 3:59 Board Certified Radiologist. This report was verified electronically.
--- NOTE | 2017-09-14 04:16 | RADRPT ---
EXAM DATE/TIME: 09/14/2017 03:03 [facility] COMPARISON: No previous studies available for comparison. INDICATIONS : Altered mental status, cough. MEDICAL HISTORY : Unknown SURGICAL HISTORY : CABG. ENCOUNTER: Initial ACUITY: 1 day PAIN SCORE: 0/10 LOCATION: Bilateral chest FINDINGS: There is scattered areas of opacity in the right lower lung suggesting non-consolidative infiltrates. The central bronchopulmonary markings are fairly well delineated. The heart is normal size. Both hemidiaphragms well delineated. Multiple hemoclips seen in the left upper quadrant of the abdomen. Evidence of prior median sternotomy. CONCLUSION: Non-consolidative infiltrates in the right lower lung. Lino Langford MD on September 14, 2017 at 4:14 Board Certified Radiologist. This report was verified electronically.
[2017-09-14] MEDS ORDERED: SODIUM CHLORIDE 0.9% FLUSH 10 ML FLUSH IV FLUSH PRN ×2 (04:45→06:00)
[2017-09-14] MEDS ORDERED: RESP: ALBUTEROL 2.5 MG/IPRATROPIUM 0.5 MG NEB (PRN) INH ×2 (04:45→06:00)
[2017-09-14] MEDS ORDERED: ONDANSETRON HCL 4 MG/2 ML VIAL IV PUSH PRN ×2 (04:45→06:00)
[2017-09-14] MEDS ORDERED: ACETAMINOPHEN 325 MG TAB PO PRN ×2 (04:45→06:00)
[2017-09-14 05:53] LABS: ALT (GPT) 20 U/L (10-53); ANION GAP 6 MEQ/L (5-15); AST (GOT) 38 U/L (15-37); BICARBONATE 28.5 MEQ/L (21.0-32.0); BLOOD UREA NITROGEN 14 MG/DL (7-18); CHLORIDE 108 MEQ/L (98-107); GLOMERULAR FILTRATION RATE 105 ML/MIN (>89); MAGNESIUM 1.7 MG/DL (1.5-2.5); POTASSIUM 3.7 MEQ/L (3.5-5.1); SODIUM (NA) 142 MEQ/L (136-145)
[2017-09-14] MEDS ORDERED: AZITHROMYCIN INJ 500 MG in SODIUM CHLOR 0.9% 250 ML INJ 250 ML IV SCH (06:00)
[2017-09-14] MEDS ORDERED: Vancomycin Consult Pharmacy 1 EA OTHER SCH (06:00)
[2017-09-14] MEDS ORDERED: traMADol HCL 50 MG TAB PO PRN (06:00)
[2017-09-14] MEDS ORDERED: ENOXAPARIN SODIUM 40 MG/0.4 ML SYRINGE SQ SCH (06:00)
[2017-09-14] MEDS ORDERED: MAGNESIUM HYDROXIDE SUSP 30 ML CUP PO PRN (06:00)
[2017-09-14] MEDS ORDERED: CHLORHEXIDINE GLUCONATE 2 % 1 PACK (2 CLOTHS) TOP PRN (06:00)
[2017-09-14] MEDS ORDERED: LACTULOSE SYRUP 20 GM/30 ML CUP PO PRN (06:00)
[2017-09-14] MEDS ORDERED: BISACODYL 10 MG SUPP RECTAL PRN (06:00)
[2017-09-14] MEDS ORDERED: CEFEPIME INJ 2,000 MG in SODIUM CHLORIDE 0.9% INJ 100 ML IV SCH (06:00)
[2017-09-14] MEDS ORDERED: SENNOSIDES 8.6 MG TAB PO PRN (06:00)
[2017-09-14] MEDS ORDERED: VANCOMYCIN INJ 1,000 MG in SODIUM CHLOR 0.9% 250 ML INJ 250 ML IV SCH (06:00)
[2017-09-14] MEDS ORDERED: MISCELLANEOUS NURSING INFORMATION XX SCH (06:00)
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
[2017-09-14 06:12] LABS: ALKALINE PHOSPHATASE 63 U/L (45-117); TOTAL BILIRUBIN ADULT 0.4 MG/DL (0.2-1.0)
[2017-09-14] MEDS ORDERED: COUM5TAB PO (06:35)
[2017-09-14] MEDS: AZITHROMYCIN INJ 500 MG in SODIUM CHLOR 0.9% 250 ML INJ 250 ML IV SCH (06:48)
[2017-09-14 07:02] LABS: BLOOD GAS BASE EXCESS 3.4 mmol/L (-2-2); BLOOD GAS CARBOXYHEMOGLOBIN 1.5 % (0-4); BLOOD GAS HCO3 28 mmol/L (22-26); BLOOD GAS METHEMOGLOBIN 0.5 % (0-2); BLOOD GAS O2 HGB SATURATION 92 % (90-100); BLOOD GAS OXYGEN CONTENT 13.8 Vol % (12.0-20.0); BLOOD GAS PCO2 50 mmHg (38-42); BLOOD GAS PO2 72 mmHG (61-120); BLOOD GAS TOTAL HGB 10.6 G/DL (12.0-16.0); TEMP CORR TO 98.6
[2017-09-14 07:03] LABS: CRITICAL VALUE NO; DRAW SITE LT RADIAL; LITER FLOW 8 L/M; NUMBER OF ARTERIAL PUNCTURES 2; OXYGEN DEVICE SM; STAT NO; ULNAR PULSE PRESENT
[2017-09-14] MEDS: SODIUM CHLOR 0.9% 1000 ML INJ 1,000 ML IV SCH ×2 (07:27→17:15)
[2017-09-14] MEDS: methylPREDNISolone SOD SUCC 40 MG/1 ML VIAL IV PUSH SCH ×2 (07:28→17:15)
[2017-09-14] MEDS: CITALOPRAM HYDROBROMIDE 20 MG TAB PO SCH (09:00)
[2017-09-14] MEDS: FERROUS SULFATE 300 MG /5ML UDC PO SCH ×3 (09:00→21:10)
[2017-09-14] MEDS: DOCUSATE SODIUM 50 MG/SENNA 8.6 MG TAB PO SCH ×3 (09:00→21:10)
[2017-09-14] MEDS: PREGABALIN 75 MG CAP PO SCH ×2 (09:00→21:10)
[2017-09-14] MEDS: SODIUM CHLORIDE 0.9% FLUSH 10 ML FLUSH IV FLUSH SCH ×2 (09:00→21:00)
[2017-09-14] MEDS ORDERED: CITALOPRAM HYDROBROMIDE 20 MG TAB PO SCH (09:00)
[2017-09-14] MEDS ORDERED: SODIUM CHLORIDE 0.9% FLUSH 10 ML FLUSH IV FLUSH SCH (09:00)
[2017-09-14] MEDS: RESP: ALBUTEROL 2.5 MG/IPRATROPIUM 0.5 MG NEB (SCH) INH ×5 (09:24→23:14)
[2017-09-14] MEDS ORDERED: RESP: ALBUTEROL 2.5 MG/IPRATROPIUM 0.5 MG NEB (SCH) INH (10:00)
[2017-09-14] MEDS: PIPERACIL-TAZO 4.5 GM PREMIX 100 ML IV SCH ×3 (10:51→21:10)
[2017-09-14] MEDS: FAMOTIDINE 20 MG/2 ML VIAL IV PUSH SCH ×2 (10:59→21:10)
[2017-09-14] MEDS: BUDESONIDE-FORMOTEROL 80/4.5 MCG INHALER INH SCH ×2 (11:34→21:00)
[2017-09-14 12:54] LABS: BLOOD, URINE TRACE (NEG); GLUCOSE,URINE NEG (NEG); KETONE, URINE NEG (NEG); NITRITE,URINE POS (NEG); PH, URINE 5.5 (5.0-8.5); URINE COLOR YELLOW (YELLW/STRAW)
[2017-09-14 12:55] LABS: BACTERIA, URINE FEW /hpf; COMMENT (UR) CATH-CULTURE IND; CULTURE IF INDICATED CATH CULTURE IND; RBC, URINE 0-3 /hpf (0-3); SQUAMOUS EPITHELIAL CELL URINE 0-5 /hpf (0-5); WBC, URINE 0-2 /hpf (0-5)
[2017-09-14] MEDS ORDERED: SODIUM PHOSPHATE INJ 30 MMOL in SODIUM CHLOR 0.9% 250 ML INJ 240 ML IV PRN (13:30)
[2017-09-14] MEDS ORDERED: MAGNESIUM SULFATE INJ 2 GM in SODIUM CHLORIDE 0.9% INJ 96 ML IV PRN (13:30)
[2017-09-14] MEDS ORDERED: POTASSIUM CHLOR 40 MEQ PREMIX 100 ML IV PRN ×2 (13:30)
[2017-09-14] MEDS ORDERED: POTASSIUM PHOSPHATE MONOBASIC 500 MG TAB PO PRN (13:30)
[2017-09-14] MEDS ORDERED: DEXTROSE 50% IN WATER 50 ML VIAL(D50) IV PUSH PRN (13:30)
[2017-09-14] MEDS ORDERED: POTASSIUM PHOSPHATE MONOBASIC 500 MG TAB PO/TUBE PRN (13:30)
[2017-09-14] MEDS ORDERED: MAGNESIUM OXIDE 400 MG TAB PO PRN (13:30)
[2017-09-14] MEDS ORDERED: POTASSIUM PHOSPHATE INJ 30 MMOL in SODIUM CHLOR 0.9% 250 ML INJ 250 ML IV PRN (13:30)
[2017-09-14] MEDS ORDERED: POTASSIUM CHLORIDE 25 MEQ EFFERVESCENT TAB PO PRN (13:30)
[2017-09-14] MEDS ORDERED: GLUCAGON 1 MG/ML VIAL OTHER PRN (13:30)
[2017-09-14] MEDS ORDERED: MAGNESIUM SULFATE INJ 4 GM in SODIUM CHLORIDE 0.9% INJ 92 ML IV PRN (13:30)
[2017-09-14] MEDS: INSULIN NovoLIN REGULAR SUPPLEMENTAL SCALE SQ SCH ×2 (13:30→19:30)
[2017-09-14] MEDS ORDERED: POTASSIUM CHLOR 20 MEQ PREMIX 100 ML IV PRN ×2 (13:30)
[2017-09-14 15:55] LABS: AUTOMATED NEUTROPHIL # 21.4 TH/MM3 (1.8-7.7); BASOPHIL % 0.1 % (0.0-2.0); HEMATOCRIT 34.4 % (35.0-46.0); LYMPH % 1.6 % (9.0-44.0); LYMPHOCYTE # 0.4 TH/MM3 (1.0-4.8); MEAN CELL VOLUME 87.3 FL (80.0-100.0); MEAN CORPUSCULAR HEMOGLOBIN 27.3 PG (27.0-34.0); MEAN CORPUSCULAR HGB CONC 31.3 % (32.0-36.0); MONO % 1.7 % (0.0-8.0); NEUT % 96.6 % (16.0-70.0); PLATELET COUNT 340 TH/MM3 (150-450); RED BLOOD COUNT 3.94 MIL/MM3 (4.00-5.30); RED CELL DISTRIBUTION WIDTH 29.4 % (11.6-17.2); WHITE BLOOD COUNT 22.1 TH/MM3 (4.0-11.0)
[2017-09-14 15:59] LABS: HEMO FLAGS AUTO DIFF
[2017-09-14] MEDS ORDERED: WARFARIN SOD 2.5 MG TAB PO SCH (16:00)
--- NOTE | 2017-09-14 16:01 | RADRPT ---
EXAM DATE/TIME: 09/14/2017 14:49 [facility] COMPARISON: No previous studies available for comparison. INDICATIONS : Cerebrovascular accident. MEDICAL HISTORY : Myocardial infarction. CVA. Head trama. CHF. Anticogulant therapy. Hypertension. COPD. Emphysema. Asthma. Dyspnea. Arthritis. PTSD. SURGICAL HISTORY : CABG. Left arm surgery with hardware. ENCOUNTER: Initial ACUITY: 3 days PAIN SCORE: 0/10 LOCATION: Bilateral neck PEAK SYSTOLIC VELOCITIES (cm/sec): ICA/CCA RATIO: Right: 0.8 Left: 1.3 ICA: Right: 59 Left: 90 CCA: Right: 74 Left: 67 ECA: Right: 86 Left: 108 VERTEBRAL: Right: 52 antegrade Left: 36 antegrade Elevated flow velocities and ICA/CCA ratios have been found to correlate with increased degrees of vessel stenosis, calculated as percentage of diameter relative to a normal segment of distal ICA/CCA FINDINGS: RIGHT CAROTID: No significant stenosis is visualized. There is moderate atherosclerotic plaquing at the bifurca tion. The waveforms are within normal limits. LEFT CAROTID: No significant stenosis is visualized. There is moderate atherosclerotic plaquing at the bifurca tion to The waveforms are within normal limits. VERTEBRAL ARTERIES: Antegrade flow is seen in both vertebral arteries. MISCELLANEOUS: None. CONCLUSION: 1. Atherosclerotic plaquing of the bifurcations bilaterally. No hemodynamically significant carotid a rtery stenosis identified. Edward Gonzalez MD on September 14, 2017 at 15:58 Board Certified Radiologist. This report was verified electronically.
[2017-09-14 16:19] LABS: BICARBONATE 25.2 MEQ/L (21.0-32.0); POTASSIUM 3.7 MEQ/L (3.5-5.1)
[2017-09-14 16:32] LABS: OVALOCYTES 2+ (NORMAL); PLATELET ESTIMATE SMEAR NORMAL (NORMAL); PLATELET MORPHOLOGY NORMAL (NORMAL); SCAN/DIFF AUTO DIFF CONFIRMED
--- NOTE | 2017-09-14 16:44 | EKG ---
Date Performed: 09/14/2017 Time Performed: 05:33:21 PTAGE: 62 years EKG: Sinus rhythm WITH SINUS ARRHYTHMIA NONSPECIFIC T-WAVE ABNORMALITY BORDERLINE ECG PREVIOUS TRACING : 07/16/2017 17.15 Since the prior tracing, there has been a slight increase i n the anterior T-wave changes, but no other significant serial change. DOCTOR: Nat Aquino Interpretating Date/Time 09/14/2017 16:43:28
[2017-09-14] MEDS ORDERED: SODIUM CHLORID 0.9% 500 ML INJ 500 ML IV ONE (17:00)
[2017-09-14] MEDS: VANCOMYCIN 1,000 MG/NS 250 ML IV SCH ×2 (17:15)
--- NOTE | 2017-09-14 19:29 | RADRPT ---
EXAM DATE/TIME: 09/14/2017 18:53 [facility] COMPARISON: No previous studies available for comparison. INDICATIONS : Altered mental status. CVA. MEDICAL HISTORY : Chronic obstructive pulmonary disease. Hepatitis C. Cerebrovascular disease. SURGICAL HISTORY : CABG Cholecystectomy. Left arm and leg rodding. ENCOUNTER: Subsequent ACUITY: 1 day PAIN SCORE: 0/10 LOCATION: head. TECHNIQUE: Multiplanar, multisequence MRI of the brain was performed without contrast. FINDINGS: There is a large subacute infarct in the left MCA distribution. There is also a smaller right MCA dis tribution infarct anteriorly. No mass effect or shift. No hydrocephalus There is fluid and mucosal th ickening present in the paranasal sinuses. Gradient echo images reveal some low signal in the left MCA distribution suggesting a small amount of associated hemorrhage. CONCLUSION: 1. Large left MCA distribution subacute infarct associated with a hemosiderin deposits, probably rena chial hemorrhage. 2. Small right anterior portion middle cerebral artery distribution infarct. Pansinus disease. Familia Hewitt MD on September 14, 2017 at 19:24 Board Certified Radiologist. This report was verified electronically.
[2017-09-14] MEDS ORDERED: ATORVASTATIN 40 MG TAB PO SCH (21:00)
[2017-09-14] MEDS: ATORVASTATIN 40 MG TAB PO SCH (21:10)
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
[2017-09-15] VITALS (25 sets, daily range): BP systolic 101–137; BP diastolic 56–86; PULSE 72–99; RESP 20–39; TEMP 98–98.9; O2SAT 86–100
[2017-09-15] MEDS: INSULIN NovoLIN REGULAR SUPPLEMENTAL SCALE SQ SCH ×4 (01:30→18:10)
[2017-09-15] MEDS: RESP: ALBUTEROL 2.5 MG/IPRATROPIUM 0.5 MG NEB (SCH) INH ×6 (03:14→23:39)
[2017-09-15] MEDS: CHLORHEXIDINE GLUCONATE 2 % 1 PACK (2 CLOTHS) TOP SCH (04:00)
[2017-09-15 04:46] LABS: AUTOMATED NEUTROPHIL # 16.9 TH/MM3 (1.8-7.7); HEMATOCRIT 32.1 % (35.0-46.0); LYMPH % 2.4 % (9.0-44.0); LYMPHOCYTE # 0.4 TH/MM3 (1.0-4.8); MEAN CELL VOLUME 86.4 FL (80.0-100.0); MEAN CORPUSCULAR HEMOGLOBIN 27.3 PG (27.0-34.0); MEAN CORPUSCULAR HGB CONC 31.6 % (32.0-36.0); MONO % 2.4 % (0.0-8.0); NEUT % 95.2 % (16.0-70.0); PLATELET COUNT 348 TH/MM3 (150-450); RED BLOOD COUNT 3.72 MIL/MM3 (4.00-5.30); RED CELL DISTRIBUTION WIDTH 29.2 % (11.6-17.2); WHITE BLOOD COUNT 17.7 TH/MM3 (4.0-11.0)
[2017-09-15 04:50] LABS: HEMO FLAGS AUTO DIFF
[2017-09-15 04:54] LABS: PROTHROMBIN TIME - PATIENT 68.3 SEC (9.8-11.6)
[2017-09-15 05:08] LABS: ANION GAP 6 MEQ/L (5-15); AST (GOT) 34 U/L (15-37); BICARBONATE 25.9 MEQ/L (21.0-32.0); BLOOD UREA NITROGEN 11 MG/DL (7-18); CHLORIDE 111 MEQ/L (98-107); GLOMERULAR FILTRATION RATE 157 ML/MIN (>89); MAGNESIUM 1.9 MG/DL (1.5-2.5); POTASSIUM 3.2 MEQ/L (3.5-5.1); SODIUM (NA) 143 MEQ/L (136-145)
[2017-09-15 05:09] LABS: ALT (GPT) 22 U/L (10-53)
[2017-09-15 05:11] LABS: ALKALINE PHOSPHATASE 58 U/L (45-117); TOTAL BILIRUBIN ADULT 0.3 MG/DL (0.2-1.0)
[2017-09-15] MEDS: PIPERACIL-TAZO 4.5 GM PREMIX 100 ML IV SCH ×4 (05:16→22:13)
[2017-09-15] MEDS: SODIUM CHLOR 0.9% 1000 ML INJ 1,000 ML IV SCH ×2 (05:17→16:22)
[2017-09-15 05:19] LABS: INTERNATIONAL NORMALIZED RATIO 6.8 RATIO
[2017-09-15 05:41] LABS: BLOOD GAS BASE EXCESS 0.1 mmol/L (-2-2); BLOOD GAS CARBOXYHEMOGLOBIN 1.1 % (0-4); BLOOD GAS HCO3 24 mmol/L (22-26); BLOOD GAS METHEMOGLOBIN 0.9 % (0-2); BLOOD GAS O2 HGB SATURATION 87 % (90-100); BLOOD GAS OXYGEN CONTENT 12.4 Vol % (12.0-20.0); BLOOD GAS PCO2 39 mmHg (38-42); BLOOD GAS PO2 56 mmHg (61-120); BLOOD GAS TOTAL HGB 10.2 G/DL (12.0-16.0); CRITICAL VALUE YES; DRAW SITE RT BRACHIAL; LITER FLOW 2 L/M; NUMBER OF ARTERIAL PUNCTURES 1; OXYGEN DEVICE NASAL CANNULA; STAT NO; TEMP CORR TO 98.6; ULNAR PULSE PRESENT
[2017-09-15] MEDS: AZITHROMYCIN INJ 500 MG in SODIUM CHLOR 0.9% 250 ML INJ 250 ML IV SCH (05:51)
[2017-09-15] MEDS: VANCOMYCIN 1,000 MG/NS 250 ML IV SCH ×4 (06:49→18:10)
[2017-09-15] MEDS: methylPREDNISolone SOD SUCC 40 MG/1 ML VIAL IV PUSH SCH ×2 (06:49→16:22)
[2017-09-15 07:01] LABS: KERATOCYTES OCC (NORMAL); OVALOCYTES 1+ (NORMAL); PLATELET ESTIMATE SMEAR NORMAL (NORMAL); PLATELET MORPHOLOGY NORMAL (NORMAL); SCAN/DIFF AUTO DIFF CONFIRMED
--- NOTE | 2017-09-15 07:40 | HHI.CCPN ---
Subjective Remarks/Hospital Course 62-year-old female who is currently residing at a rehabilitation facility rehabilitating from a recent stroke presents for evaluation of altered mental status and dyspnea. [facility] staff told EMS they found the patient in a puddle of her own urine. Patient on arrival somewhat difficult to understand, apparently she has some history of dysarthria from the stroke. She is on 2 L nasal cannula at all times, and her 2 L nasal cannula at the [facility] she was saturating 82%. She was turned up to 4 L and a size 6 L for transport and had about a saturation of 89. Patient does admit some cough and congestion. 09/15 Patient is awake , alert on 2L oxygen. Afebrile. MRI brain last night showed large MCA subacute infarct with probable petechial hemorrhage. For repeat CT brain this morning. Objective Vital Signs Date Time Temp Pulse Resp B/P (MAP) Pulse Ox O2 Delivery O2 Flow Rate FiO2 09/15/17 06:00 78 09/15/17 04:00 98.0 31 120/67 (84) 94 09/14/17 20:05 Nasal Cannula 2.00 09/14/17 02:28 100 Intake and Output 09/15/17 09/15/17 09/16/17 08:00 16:00 00:00 Intake Total 1350 ml Output Total 500 ml Balance 850 ml Result Diagram: 09/15/17 0425 09/15/17 0425 Other Results Laboratory Tests Test 09/14/17 12:25 09/14/17 15:40 09/14/17 16:40 09/15/17 04:25 Urine Color YELLOW Urine Turbidity CLEAR Urine pH 5.5 Urine Specific [place] 1.013 Urine Protein NEG mg/dL Urine Glucose (UA) NEG mg/dL Urine Ketones NEG mg/dL Urine Occult Blood TRACE Urine Nitrite POS Urine Bilirubin NEG Urine Urobilinogen 0.2 MG/DL Urine Leukocyte Esterase NEG Urine RBC 0-3 /hpf Urine WBC 0-2 /hpf Urine Squamous Epithelial Cells 0-5 /hpf Urine Bacteria FEW /hpf Microscopic Urinalysis Comment CATH-CULTURE IND White Blood Count 22.1 TH/MM3 17.7 TH/MM3 Red Blood Count 3.94 MIL/MM3 3.72 MIL/MM3 Hemoglobin 10.8 GM/DL 10.1 GM/DL Hematocrit 34.4 % 32.1 % Mean Corpuscular Volume 87.3 FL 86.4 FL Mean Corpuscular Hemoglobin 27.3 PG 27.3 PG Mean Corpuscular Hemoglobin Concent 31.3 % 31.6 % Red Cell Distribution Width 29.4 % 29.2 % Platelet Count 340 TH/MM3 348 TH/MM3 Mean Platelet Volume 8.7 FL 8.3 FL Neutrophils (%) (Auto) 96.6 % 95.2 % Lymphocytes (%) (Auto) 1.6 % 2.4 % Monocytes (%) (Auto) 1.7 % 2.4 % Eosinophils (%) (Auto) 0.0 % 0.0 % Basophils (%) (Auto) 0.1 % 0.0 % Neutrophils # (Auto) 21.4 TH/MM3 16.9 TH/MM3 Lymphocytes # (Auto) 0.4 TH/MM3 0.4 TH/MM3 Monocytes # (Auto) 0.4 TH/MM3 0.4 TH/MM3 Eosinophils # (Auto) 0.0 TH/MM3 0.0 TH/MM3 Basophils # (Auto) 0.0 TH/MM3 0.0 TH/MM3 CBC Comment AUTO DIFF AUTO DIFF Differential Comment AUTO DIFF CONFIRMED AUTO DIFF CONFIRMED Platelet Estimate NORMAL NORMAL Platelet Morphology Comment NORMAL NORMAL Ovalocytes 2+ 1+ Blood Urea Nitrogen 15 MG/DL 11 MG/DL Creatinine 0.49 MG/DL 0.41 MG/DL Random Glucose 148 MG/DL 138 MG/DL Calcium Level 7.8 MG/DL 8.4 MG/DL Phosphorus Level 2.6 MG/DL 2.1 MG/DL Sodium Level 143 MEQ/L 143 MEQ/L Potassium Level 3.7 MEQ/L 3.2 MEQ/L Chloride Level 110 MEQ/L 111 MEQ/L Carbon Dioxide Level 25.2 MEQ/L 25.9 MEQ/L Anion Gap 8 MEQ/L 6 MEQ/L Estimat Glomerular Filtration Rate 128 ML/MIN 157 ML/MIN Nasal Screen MRSA (PCR) MRSA NOT DETECTED Basophilic Stippling FAINT Keratocytes OCC Prothrombin Time 68.3 SEC Prothromb Time International Ratio 6.8 RATIO Total Protein 5.8 GM/DL Albumin 2.0 GM/DL Magnesium Level 1.9 MG/DL Alkaline Phosphatase 58 U/L Aspartate Amino Transf (AST/SGOT) 34 U/L Alanine Aminotransferase (ALT/SGPT) 22 U/L Total Bilirubin 0.3 MG/DL Test 09/15/17 05:25 Blood Gas Puncture Site RT BRACHIAL Blood Gas Patient Temperature 98.6 Blood Gas HCO3 24 mmol/L Blood Gas Base Excess 0.1 mmol/L Blood Gas Oxygen Saturation 87 % Arterial Blood pH 7.41 Arterial Blood Partial Pressure CO2 39 mmHg Arterial Blood Partial Pressure O2 56 mmHg Arterial Blood Oxygen Content 12.4 Vol % Arterial Blood Carboxyhemoglobin 1.1 % Arterial Blood Methemoglobin 0.9 % Blood Gas Hemoglobin 10.2 G/DL Oxygen Delivery Device NASAL CANNULA Blood Gas Liter Flow 2 L/M Imaging Last Impressions Head CT 09/15/17 0600 Signed Impressions: Service Date/Time: Friday, September 15, 2017 09:16 - CONCLUSION: 1. Stable followup CT scan of the brain compared to the prior examination. No evidence of any focal or acute intracranial hemorrhage. 2. Stable Nonhemorrhagic left MCA infarct 3. Stable Nonhemorrhagic infarct involving the anterior right temporal lobe. Jeffery Dorsey MD Chest X-Ray 09/14/17 0229 Signed Impressions: Service Date/Time: September 03:03 - CONCLUSION: Non-consolidative infiltrates in the right lower lung. Lino Langford MD Carotid Artery Ultrasound 09/14/17 0000 Signed Impressions: Service Date/Time: September 14:49 - CONCLUSION: 1. Atherosclerotic plaquing of the bifurcations bilaterally. No hemodynamically significant carotid artery stenosis identified. Edward Gonzalez MD Brain MRI 09/14/17 0000 Signed Impressions: Service Date/Time: September 18:53 - CONCLUSION: 1. Large left MCA distribution subacute infarct associated with a hemosiderin deposits, probably petechial hemorrhage. 2. Small right anterior portion middle cerebral artery distribution infarct. Pansinus disease. Familia Hewitt MD Objective Remarks GENERAL: Well-developed well-nourished, SKIN: Focused skin assessment warm/dry. HEAD: Atraumatic. Normocephalic. EYES: Pupils equal and round. No scleral icterus. No injection or drainage. ENT: No nasal bleeding or discharge. Mucous membranes pink and moist. NECK: Trachea midline. No JVD. CARDIOVASCULAR: RRR, nl S1, S2 RESPIRATORY: Breath sounds equal bilaterally. Good air entry throughout. GASTROINTESTINAL: Abdomen soft, non-tender, nondistended. Hepatic and splenic margins not palpable. MUSCULOSKELETAL: No obvious deformities. No clubbing. No cyanosis. No edema. NEUROLOGICAL: Awake and alert. Follows commands in all 4 extremity's, A/P Assessment and Plan Resp Insuff Pneumonia Left MCA subacute infract s/p Left MCA acute infarct with a thrombus in the distal M1 and proximal M2 branches s/p TPA in July. COPD History of CVA Hypertension Depressions Coagulopathy Anemia Plan Neuro: Monitor neuro status. Awake and alert. MRI brain: Large left MCA distribution subacute infarct associated with a hemosiderin deposits, probably petechial hemorrhage. Small right anterior portion middle cerebral artery distribution infarct CT brain: There is evidence of left MCA infarction, nonhemorrhagic Carotid Doppler US: Atherosclerotic plaquing of the bifurcations bilaterally. No hemodynamically significant carotid artery stenosis identified. Repeat CT brain today-.No evidence of any focal or acute intracranial hemorrhage. . Stable Nonhemorrhagic left MCA infarct. Stable Nonhemorrhagic infarct involving the anterior right temporal lobe. Neuro is following- Discussed with Dr. Rodgers Patient is in normal sinus rhythm, echo showed nl EF 60-65%, no thrombus seen., Carotid US: No stenosis s/p Left MCA acute infarct with a thrombus in the distal M1 and proximal M2 branches s/p TPA in July. Unclear etiology. Check Lupus anticoagulant, DANIEL CV: Monitor HR and BP keep MAP>65mmHg Lactic acid: 1.7. Continue with IVF For 2D echo Pulm: Continue with oxygen keep sat >92% Bronchodilators, on Solumederol 40mg Q12 : Monitor renal function, electrolytes replacement per protocol. On NS@84ml/hr. Will need K, phos replacement today GI: On PO diet ID: Continue with abx ( Vanco, Zosyn, Azithromycin) monitor for signs of infections ( Fever, WBC) WBC is trending down Follow up on Blood and urine cxs. Check strep pneumonia and Legionella urinary ag Heme: Monitor CBC and coags- INR: 6.8 from 2.8. Give 2u FFP, Coumadin on hold. Endo: SSI for glycemic control GI prophylaxis- on Pepcid DVT prophylaxis- INR 6.8, Coumadin held. Level 3 Mary Kay Torres MD Sep 15, 2017 07:40
[2017-09-15] MEDS: BUDESONIDE-FORMOTEROL 80/4.5 MCG INHALER INH SCH ×2 (07:42→21:11)
[2017-09-15] MEDS: SODIUM CHLORIDE 0.9% FLUSH 10 ML FLUSH IV FLUSH SCH ×2 (07:42→20:16)
[2017-09-15] MEDS: DOCUSATE SODIUM 50 MG/SENNA 8.6 MG TAB PO SCH ×2 (07:43→21:00)
[2017-09-15] MEDS: FAMOTIDINE 20 MG/2 ML VIAL IV PUSH SCH ×2 (07:43→21:12)
[2017-09-15] MEDS: CITALOPRAM HYDROBROMIDE 20 MG TAB PO SCH (07:43)
[2017-09-15] MEDS: PREGABALIN 75 MG CAP PO SCH ×2 (07:43→21:12)
[2017-09-15] MEDS: FERROUS SULFATE 300 MG /5ML UDC PO SCH ×2 (07:44→21:12)
--- NOTE | 2017-09-15 09:33 | RADRPT ---
EXAM DATE/TIME: 09/15/2017 09:16 [place] COMPARISON: CT BRAIN W/O CONTRAST, September 14, 2017, 3:33. INDICATIONS : Punctate hemorrhage seen on MRI RADIATION DOSE: 27.93 CTDIvol (mGy) MEDICAL HISTORY : Cerebrovascular disease. Hypertension. Cardiovascular diseaseCOPD, Hepatitis C SURGICAL HISTORY : None. ENCOUNTER: Initial ACUITY: 1 day PAIN SCALE: 0/10 LOCATION: cranial TECHNIQUE: Multiple contiguous axial images were obtained of the head. Using automated exposure control and adj ustment of the mA and/or kV according to patient size, radiation dose was kept as low as reasonably a chievable to obtain optimal diagnostic quality images. DICOM format image data is available electro nically for review and comparison. FINDINGS: Today's exam is compared to the prior study of 09/14/2017. There is no change in the left MCA infarct ion. No focal or acute intracranial hemorrhage is seen. There continues to be an area of decreased de nsity involving the anterior right temporal lobe characteristic of a non-emergent infarction. The kranthi tricles cisterns and sulci remain stable. No mass effect or midline shift. The posterior fossa is sta ble. There continues to be bilateral sinus disease. CONCLUSION: 1. Stable followup CT scan of the brain compared to the prior examination. No evidence of any focal o r acute intracranial hemorrhage. 2. Stable Nonhemorrhagic left MCA infarct 3. Stable Nonhemorrhagic infarct involving the anterior right temporal lobe. Jeffery Dorsey MD on September 15, 2017 at 9:29 Board Certified Radiologist. This report was verified electronically.
--- NOTE | 2017-09-15 14:53 | ECHRPT ---
Indication: left ventricular function CONCLUSIONS Normal left ventricular size and wall thickness. The left ventricular systolic function is normal wi th an estimated ejection fraction in the range of 60-65%. Normal wall motion. Trace mitral valve regurgitation. Trace tricuspid regurgitation. BP: 95 / 52 HR: 81 Rhythm: MEASUREMENTS (Male / Female) Normal Values Technical Quality:Fair 2D ECHO LV Diastolic Diameter PLAX 5.2 cm 4.2 - 5.9 / 3.9 - 5.3 cm LV Systolic Diameter PLAX 3.7 cm IVS Diastolic Thickness 0.9 cm 0.6 - 1.0 / 0.6 - 0.9 cm LVPW Diastolic Thickness 0.9 cm 0.6 - 1.0 / 0.6 - 0.9 cm LV Relative Wall Thickness 0.4 RV Internal Dim ED PLAX 1.8 cm M-MODE Aortic Root Diameter MM 3.3 cm LA Systolic Diameter MM 4.2 cm LA Ao Ratio MM 1.3 AV Cusp Separation MM 1.7 cm DOPPLER Mitral E Point Velocity 115.0 cm/s Mitral A Point Velocity 127.0 cm/s Mitral E to A Ratio 0.9 FINDINGS LEFT VENTRICLE Normal left ventricular size and wall thickness. The left ventricular systolic function is normal wi th an estimated ejection fraction in the range of 60-65%. Normal wall motion. RIGHT VENTRICLE Normal right ventricular size and systolic function. LEFT ATRIUM The left atrial size is normal. RIGHT ATRIUM The right atrial size is normal. ATRIAL SEPTUM Normal atrial septal thickness without atrial level shunting by limited color doppler interrogation. AORTA The aortic root and proximal ascending aorta are not well visualized. MITRAL VALVE Trace mitral valve regurgitation. Structurally normal mitral valve. AORTIC VALVE Trileaflet aortic valve. No aortic valve stenosis or regurgitation. TRICUSPID VALVE Structurally normal tricuspid valve. Trace tricuspid regurgitation. PULMONARY VALVE No pulmonary valve regurgitation or stenosis. PERICARDIUM No pericardial effusion. Santana Mendez MD (Electronically Signed) Final Date:15 September 2017 14:52
--- NOTE | 2017-09-15 15:33 | HHI.PR ---
Review/Management Diagnosis 1. Remote left MCA ischemic stroke status post TPA. 2. Radiological evidence of right anterior MCA stroke. 3. Dysphasia. 4. Encephalopathy likely related to the bilateral infarct. 5. Pneumonia. 6. COPD Review of diagnostic tests: - Head CT scan without contrast revealed evidence of left MCA infarction, non- hemorrhagic age indeterminate, no evidence of acute blood products or mass effect. - Brain MRI without contrast revealed large left MCA distribution subacute infarct associated with hemosiderin deposits probably petechial hemorrhage, small right anterior portion of MCA distribution infarct. -Carotid ultrasound - atherosclerotic plaquing of the bifurcation bilaterally. No hemodynamic significant carotid stenosis identified. - Cardiac ECHO is unremarkable - No evidence of atrial fibrillation . Plan 1. Neuro checks q. one hourly 2. Continue supportive medical therapy 3. Given the petechial hemorrhage in the left MCA territory, want to verify whether there is a strong indication for being on anticoagulation as opposed to antiplatelets 4. Telemetry, rule out atrial fibrillation. 5. Cardiac echo. 6. DVT prophylaxis. 7. PT OT recommendations are appreciated. 8. The patient may be managed in the progressive unit. 9. The patient needs rehabilitation 10. Discussed case at length with lead process engineer Dr. Briones, regarding the possible sources of thrombus, and the reason of being on anticoagulation, agreed to do work up for a prethrombotic state and repeat cardiac ECHO, and may need to do a Holter monitoring as an outpatient, if no episodes of cardiac arrhythmia are captured . Diagnosis/Plan: Subjective Subjective Comments No acute events reported Patient denies any complaint No family at bed side Discussed case with RN and lead process engineer MRI brain revealed a remote left MCA ischemic infarct with microhemorrhages Active Medications Current Medications Medications (Trade) Dose Ordered Sig/Anthony Route Start Time Stop Time Status Last Admin (Tylenol) 650 mg Q4H PRN PO 09/14/17 04:45 Azithromycin 500 mg/Sodium Chloride 250 ml @ 250 mls/hr Q24H IV 09/14/17 05:00 09/15/17 05:51 (Lipitor) 40 mg HS PO 09/14/17 21:00 09/14/17 21:10 (CeleXA) 10 mg DAILY PO 09/14/17 09:00 09/15/17 07:43 (Ferrous Sulfate Liq) 300 mg BID PO 09/14/17 09:00 09/15/17 07:44 (Lyrica) 75 mg BID PO 09/14/17 09:00 09/15/17 07:43 (Ultram) 50 mg Q8H PRN PO 09/14/17 06:00 (Symbicort 80-4.5 Mcg Inh) 2 puff BID INH 09/14/17 09:00 09/15/17 07:42 Sodium Chloride 1,000 ml @ 84 mls/hr [id number] IV 09/14/17 05:49 09/15/17 05:17 (NS Flush) 2 ml UNSCH PRN IV FLUSH 09/14/17 06:00 (NS Flush) 2 ml BID IV FLUSH 09/14/17 09:00 09/15/17 07:42 (Tylenol) 650 mg Q6H PRN PO 09/14/17 06:00 (Pepcid Inj) 20 mg Q12HR IV PUSH 09/14/17 09:00 09/15/17 07:43 (Zofran Inj) 4 mg Q6H PRN IV PUSH 09/14/17 06:00 (Duoneb Neb) 1 ampule Q4HR NEB INH 09/14/17 08:00 09/15/17 15:23 (Duoneb Neb) 1 ampule Q2HR NEB PRN INH 09/14/17 06:00 Miscellaneous Information 1 Q361D XX 09/14/17 06:00 (Chlorhexidine 2% Cloth) 3 pack Taper DAILY@04 TOP 09/15/17 04:00 09/11/18 03:59 09/15/17 04:00 (Chlorhexidine 2% Cloth) 3 pack UNSCH PRN TOP 09/14/17 06:00 (Ann-Colace) 1 tab BID PO 09/14/17 09:00 09/15/17 07:43 (Milk Of Magnesia Liq) 30 ml Q12H PRN PO 09/14/17 06:00 (Senokot) 17.2 mg Q12H PRN PO 09/14/17 06:00 (Dulcolax Supp) 10 mg DAILY PRN RECTAL 09/14/17 06:00 (Lactulose Liq) 30 ml DAILY PRN PO 09/14/17 06:00 Piperacillin Sod/ Tazobactam Sod 100 ml @ 200 mls/hr Q6H IV 09/14/17 10:00 09/15/17 12:14 Pharmacy Profile Note 0 ml @ 0 mls/hr UNSCH OTHER 09/14/17 06:00 (SoluMEDROL INJ) 40 mg Q12H IV PUSH 09/14/17 06:00 09/15/17 06:49 Pharmacy Profile Note 0 ml @ 0 mls/hr UNSCH OTHER 09/14/17 06:00 Vancomycin HCl 1000 mg/Sodium Chloride 250 ml @ 250 mls/hr Q12H IV 09/14/17 17:00 09/15/17 06:49 Miscellaneous Information SPECIFIC LAB TO BE DRAWN:VANCOMYCIN TROUGH DATE TO... ONCE ONCE .XX 09/16/17 04:45 09/16/17 04:46 (D50w (Vial) Inj) 50 ml UNSCH PRN IV PUSH 09/14/17 13:30 (Glucagon Inj) 1 mg UNSCH PRN OTHER 09/14/17 13:30 (NovoLIN R SUPPLEMENTAL SCALE) 1 Q6H SQ 09/14/17 13:30 Potassium Chloride 100 ml @ 50 mls/hr Q2H PRN IV 09/14/17 13:30 Potassium Chloride 100 ml @ 50 mls/hr Q2H PRN IV 09/14/17 13:30 (K-Lyte Cl Eff) 50 meq UNSCH PRN PO 09/14/17 13:30 Potassium Chloride 100 ml @ 25 mls/hr UNSCH PRN IV 09/14/17 13:30 Potassium Chloride 100 ml @ 50 mls/hr Q2H PRN IV 09/14/17 13:30 Magnesium Sulfate 4 gm/Sodium Chloride 100 ml @ 50 mls/hr UNSCH PRN IV 09/14/17 13:30 (Mag-Ox) 800 mg UNSCH PRN PO 09/14/17 13:30 Magnesium Sulfate 2 gm/Sodium Chloride 100 ml @ 50 mls/hr UNSCH PRN IV 09/14/17 13:30 (K-Phos) 2,000 mg Q4H PRN PO 09/14/17 13:30 Sodium Phosphate 30 mmol/Sodium Chloride 250 ml @ 42 mls/hr UNSCH PRN IV 09/14/17 13:30 (K-Phos) 2,000 mg UNSCH PRN PO/TUBE 09/14/17 13:30 Potassium Phosphate 30 mmol/ Sodium Chloride 260 ml @ 42 mls/hr UNSCH PRN IV 09/14/17 13:30 Allergies Allergies Coded Allergies acetaminophen (Unverified Allergy, Intermediate, ITCHING, NAUSEA, 05/16/17) hydrocodone (Unverified Allergy, Intermediate, ITCHING, NAUSEA, 05/16/17) morphine (Unverified Allergy, Intermediate, ITCHING, NAUSEA, 05/16/17) Review of Systems All other ROS: ROS reviewed as documented in chart Exam I&O / VS 09/15/17 09/15/17 09/16/17 15:00 23:00 07:00 Intake Total 236 ml Balance 236 ml FFP 206 ml Blood Product IV Normal Saline Flush 30 ml Vital Signs Date Time Temp Pulse Resp B/P (MAP) Pulse Ox O2 Delivery O2 Flow Rate FiO2 09/15/17 13:44 98.9 99 22 117/67 94 09/15/17 11:35 98.5 83 20 120/63 100 09/15/17 11:14 98.8 83 22 126/69 100 09/15/17 11:01 98 09/15/17 11:01 98 33 126/69 (88) 86 09/15/17 11:00 95 35 95 09/15/17 11:00 95 09/15/17 10:01 88 35 136/65 (88) 86 09/15/17 10:01 88 09/15/17 10:00 87 09/15/17 10:00 87 31 96 09/15/17 09:31 85 26 128/71 (90) 94 09/15/17 09:31 85 09/15/17 09:00 83 09/15/17 09:00 83 29 133/67 (89) 95 09/15/17 08:09 96 Nasal Cannula 3.00 09/15/17 08:00 74 09/15/17 08:00 98.5 74 26 137/68 (91) 98 09/15/17 07:00 100 Simple Mask 4.00 09/15/17 06:00 78 09/15/17 04:00 81 09/15/17 04:00 98.0 81 31 120/67 (84) 94 09/15/17 02:00 78 09/15/17 00:00 98.3 79 32 101/56 (71) 96 09/15/17 00:00 79 09/14/17 22:00 86 09/14/17 20:05 98 Nasal Cannula 2.00 09/14/17 20:00 77 09/14/17 20:00 98.1 77 28 131/57 (81) 92 09/14/17 19:45 79 34 102/59 (73) 85 09/14/17 19:45 79 09/14/17 19:30 81 31 106/58 (74) 100 09/14/17 19:30 81 09/14/17 19:19 75 35 112/56 (74) 91 09/14/17 19:19 75 09/14/17 18:15 84 09/14/17 18:15 84 31 102/63 (76) 97 09/14/17 18:00 98.2 81 29 104/57 (73) 97 09/14/17 18:00 81 09/14/17 17:30 74 09/14/17 17:30 74 46 102/63 (76) 100 09/14/17 17:30 74 09/14/17 17:15 77 41 97/59 (72) 100 09/14/17 17:15 77 09/14/17 17:15 77 09/14/17 17:00 76 09/14/17 17:00 76 31 97/57 (70) 98 09/14/17 17:00 76 09/14/17 16:45 71 09/14/17 16:45 71 09/14/17 16:45 71 43 96/55 (69) 97 Exam Comments GENERAL: Awake and alert, pleasant, dysphasic, poor historian, not in acute distress HEENT: Atraumatic, normocephalic. Intact hearing. Intact vision. NECK: Trachea in the midline. No carotid bruit. No signs of meningeal irritation. CARDIOVASCULAR: Regular rate and rhythm. RESPIRATORY: Clear to auscultation. No wheezes. GASTROINTESTINAL: Soft abdomen, nondistended. MUSCULOSKELETAL: No deformities, cyanosis or clubbing. NEUROLOGIC: Awake, alert, oriented to person, not to place or time. Intact naming, but with neologism. Intact repetition but with neologism. Abnormal comprehension. Abnormal reading, dysphasia sensory type/fluent dysphasia. Cranial nerve examination II-XII is grossly intact. No ptosis. No facial droop. Motor examination unable to perform accurately because of lack of cooperation of the patient. He moves extremities, upper and lower. Reflexes 2+ bilateral symmetrical. plantars are bilaterally downgoing. Bilateral fine action tremor both hands. PSYCHIATRIC: Cooperative, pleasant, no hallucinations. Objective Radiology Results Last [address] 09/15/17 0600 Signed Impressions: Service Date/Time: Friday, September 15, 2017 09:16 - CONCLUSION: 1. Stable followup CT scan of the brain compared to the prior examination. No evidence of any focal or acute intracranial hemorrhage. 2. Stable Nonhemorrhagic left MCA infarct 3. Stable Nonhemorrhagic infarct involving the anterior right temporal lobe. Jeffery Dorsey MD Head CT 09/14/17 022 Signed Impressions: Service Date/Time: September 03:33 - CONCLUSION: 1. There is evidence of left MCA infarction, nonhemorrhagic, age-indeterminate. 2. No evidence of acute blood products or mass effect. 3. Moderate severity sinus disease in the ethmoids, maxillary, and sphenoid sinuses. Lino Langford MD Chest X-Ray 09/14/17228 Signed Impressions: Service Date/Time: September 03:03 - CONCLUSION: Non-consolidative infiltrates in the right lower lung. Lino Langford MD Carotid Artery Ultrasound 09/14/17 0000 Signed Impressions: Service Date/Time: September 14:49 - CONCLUSION: 1. Atherosclerotic plaquing of the bifurcations bilaterally. No hemodynamically significant carotid artery stenosis identified. Edward Gonzalez MD Brain MRI 09/14/17 0000 Signed Impressions: Service Date/Time: September 18:53 - CONCLUSION: 1. Large left MCA distribution subacute infarct associated with a hemosiderin deposits, probably petechial hemorrhage. 2. Small right anterior portion middle cerebral artery distribution infarct. Pansinus disease. Familia Hewitt MD Micro and Labs Laboratory Tests Test 09/14/17 15:40 09/14/17 16:40 09/15/17 04:25 09/15/17 05:25 White Blood Count 22.1 17.7 Red Blood Count 3.94 3.72 Hemoglobin 10.8 10.1 Hematocrit 34.4 32.1 Mean Corpuscular Volume 87.3 86.4 Mean Corpuscular Hemoglobin 27.3 27.3 Mean Corpuscular Hemoglobin Concent 31.3 31.6 Red Cell Distribution Width 29.4 29.2 Platelet Count 340 348 Mean Platelet Volume 8.7 8.3 Neutrophils (%) (Auto) 96.6 95.2 Lymphocytes (%) (Auto) 1.6 2.4 Monocytes (%) (Auto) 1.7 2.4 Eosinophils (%) (Auto) 0.0 0.0 Basophils (%) (Auto) 0.1 0.0 Neutrophils # (Auto) 21.4 16.9 Lymphocytes # (Auto) 0.4 0.4 Monocytes # (Auto) 0.4 0.4 Eosinophils # (Auto) 0.0 0.0 Basophils # (Auto) 0.0 0.0 CBC Comment AUTO DIFF AUTO DIFF Differential Comment AUTO DIFF CONFIRMED AUTO DIFF CONFIRMED Platelet Estimate NORMAL NORMAL Platelet Morphology Comment NORMAL NORMAL Ovalocytes 2+ 1+ Blood Urea Nitrogen 15 11 Creatinine 0.49 0.41 Random Glucose 148 138 Calcium Level 7.8 8.4 Phosphorus Level 2.6 2.1 Sodium Level 143 143 Potassium Level 3.7 3.2 Chloride Level 110 111 Carbon Dioxide Level 25.2 25.9 Anion Gap 8 6 Estimat Glomerular Filtration Rate 128 157 Nasal Screen MRSA (PCR) MRSA NOT DETECTED Basophilic Stippling FAINT Keratocytes OCC Prothrombin Time 68.3 Prothromb Time International Ratio 6.8 Total Protein 5.8 Albumin 2.0 Magnesium Level 1.9 Alkaline Phosphatase 58 Aspartate Amino Transf (AST/SGOT) 34 Alanine Aminotransferase (ALT/SGPT) 22 Total Bilirubin 0.3 Blood Gas Puncture Site RT BRACHIAL Blood Gas Patient Temperature 98.6 Blood Gas HCO3 24 Blood Gas Base Excess 0.1 Blood Gas Oxygen Saturation 87 Arterial Blood pH 7.41 Arterial Blood Partial Pressure CO2 39 Arterial Blood Partial Pressure O2 56 Arterial Blood Oxygen Content 12.4 Arterial Blood Carboxyhemoglobin 1.1 Arterial Blood Methemoglobin 0.9 Blood Gas Hemoglobin 10.2 Oxygen Delivery Device NASAL CANNULA Blood Gas Liter Flow 2 Date/Time Source Procedure Growth Status 09/14/17 02:45 Blood Peripheral Aerobic Blood Culture - Preliminary NO GROWTH IN 1 DAY Resulted 09/14/17 02:45 Blood Peripheral Anaerobic Blood Culture - Preliminary NO GROWTH IN 1 DAY Resulted 09/14/17 16:40 Urine Catheterized Urine Urine Culture - Preliminary IMMATURE GROWTH - REINCUBATE Resulted Claudia Rodgers MD Sep 15, 2017 15:33
[2017-09-15 18:25] LABS: APTT (PATIENT) 44.5 SEC (24.3-30.1); PROTHROMBIN TIME - PATIENT 29.9 SEC (9.8-11.6)
[2017-09-15] MEDS: ATORVASTATIN 40 MG TAB PO SCH (21:12)
[2017-09-16] VITALS (15 sets, daily range): BP systolic 129–160; BP diastolic 79–94; PULSE 64–114; RESP 22–48; TEMP 98–98.6; O2SAT 88–98
[2017-09-16] MEDS: INSULIN NovoLIN REGULAR SUPPLEMENTAL SCALE SQ SCH ×4 (01:30→19:30)
[2017-09-16] MEDS: RESP: ALBUTEROL 2.5 MG/IPRATROPIUM 0.5 MG NEB (SCH) INH ×6 (02:50→23:57)
[2017-09-16] MEDS: CHLORHEXIDINE GLUCONATE 2 % 1 PACK (2 CLOTHS) TOP SCH (04:00)
[2017-09-16] MEDS ORDERED: PHARMACY ORDERED LAB ONE (04:45)
[2017-09-16] MEDS: AZITHROMYCIN INJ 500 MG in SODIUM CHLOR 0.9% 250 ML INJ 250 ML IV SCH (04:46)
[2017-09-16] MEDS: VANCOMYCIN 1,000 MG/NS 250 ML IV SCH ×4 (04:47→17:29)
[2017-09-16] MEDS: PIPERACIL-TAZO 4.5 GM PREMIX 100 ML IV SCH ×4 (04:55→22:17)
[2017-09-16] MEDS: SODIUM CHLOR 0.9% 1000 ML INJ 1,000 ML IV SCH (04:56)
[2017-09-16] MEDS: methylPREDNISolone SOD SUCC 40 MG/1 ML VIAL IV PUSH SCH ×2 (06:10→17:36)
[2017-09-16 06:52] LABS: AUTOMATED NEUTROPHIL # 17.7 TH/MM3 (1.8-7.7); BASOPHIL # 0.1 TH/MM3 (0-0.2); BASOPHIL % 0.3 % (0.0-2.0); LYMPHOCYTE # 1.2 TH/MM3 (1.0-4.8); MEAN CELL VOLUME 86.8 FL (80.0-100.0); MEAN CORPUSCULAR HEMOGLOBIN 27.4 PG (27.0-34.0); MEAN CORPUSCULAR HGB CONC 31.6 % (32.0-36.0); MONO % 7.9 % (0.0-8.0); NEUT % 85.8 % (16.0-70.0); PLATELET COUNT 360 TH/MM3 (150-450); RED BLOOD COUNT 3.68 MIL/MM3 (4.00-5.30); RED CELL DISTRIBUTION WIDTH 29.1 % (11.6-17.2); WHITE BLOOD COUNT 20.7 TH/MM3 (4.0-11.0)
[2017-09-16 06:58] LABS: HEMO FLAGS AUTO DIFF
[2017-09-16 07:01] LABS: INTERNATIONAL NORMALIZED RATIO 3.3 RATIO
[2017-09-16 07:16] LABS: BICARBONATE 25.8 MEQ/L (21.0-32.0); MAGNESIUM 2.1 MG/DL (1.5-2.5); POTASSIUM 3.7 MEQ/L (3.5-5.1)
[2017-09-16] MEDS ORDERED: MIDAZOLAM HCL 2 MG/2 ML VIAL IV PUSH ONE (08:30)
[2017-09-16] MEDS ORDERED: FUROSEMIDE 40 MG/4 ML VIAL IV PUSH ONE (08:30)
[2017-09-16 08:32] LABS: ACANTHOCYTES 1+ (NORMAL); BANDS 11 % (0-6); BURR CELLS 1+ (NORMAL); NEUTROPHIL # MANUAL DIFF 18.2 TH/MM3 (1.8-7.7); PLATELET ESTIMATE SMEAR NORMAL (NORMAL); PLATELET MORPHOLOGY NORMAL (NORMAL); POLYS (SEG NEUTROPHILS) 77 % (16-70); SCAN/DIFF FINAL DIFF MANUAL; WBC DIFF SAMPLE 100
[2017-09-16 08:33] LABS: OVALOCYTES 1+ (NORMAL)
[2017-09-16] MEDS ORDERED: METOPROLOL TARTRATE 5 MG/5 ML VIAL IV PUSH ONE (08:45)
[2017-09-16] MEDS ORDERED: OLANZapine ODT 5 MG TAB PO PRN (08:45)
--- NOTE | 2017-09-16 08:57 | HHI.CCPN ---
Subjective Remarks/Hospital Course 62-year-old female who is currently residing at a rehabilitation facility rehabilitating from a recent stroke presents for evaluation of altered mental status and dyspnea. [facility] staff told EMS they found the patient in a puddle of her own urine. Patient on arrival somewhat difficult to understand, apparently she has some history of dysarthria from the stroke. She is on 2 L nasal cannula at all times, and her 2 L nasal cannula at the halfway she was saturating 82%. She was turned up to 4 L and a size 6 L for transport and had about a saturation of 89. Patient does admit some cough and congestion. 09/15 Patient is awake , alert on 2L oxygen. Afebrile. MRI brain last night showed large MCA subacute infarct with probable petechial hemorrhage. For repeat CT brain this morning. 09/16: patient remains on 2L o2 by NC. seen this AM for severe dyspnea, tachypnea and respiratory distress. patient stating she feels like she can't catch her breath. still on 2L o2 by NC. initially spo2 in 70s, but improved to 90s. ordered versed 2mg iv x 1, metoprolol 5mg iv x 1 for severe tachycardia, HR in 150s, and lasix 40mg iv x 1. patient tells me she does not want to be reintubated or back on BiPAP. when I asked further about goals of care, she says before she wants to make that official, she wants to talk with her son who is coming this morning to see her. leukocytosis persists. remains afebrile. BM x 5 overnight. Objective Vital Signs Date Time Temp Pulse Resp B/P (MAP) Pulse Ox O2 Delivery O2 Flow Rate FiO2 09/16/17 07:33 93 Nasal Cannula 3.00 09/16/17 06:00 93 09/16/17 04:00 98.0 24 158/87 (110) 09/14/17 02:28 100 Intake and Output 09/16/17 09/16/17 09/17/17 08:00 16:00 00:00 Intake Total 240 ml Balance 240 ml Result Diagram: 09/16/1742609/16/17426 Imaging Last Impressions Head CT 09/15/17 0600 Signed Impressions: Service Date/Time: Friday, September 15, 2017 09:16 - CONCLUSION: 1. Stable followup CT scan of the brain compared to the prior examination. No evidence of any focal or acute intracranial hemorrhage. 2. Stable Nonhemorrhagic left MCA infarct 3. Stable Nonhemorrhagic infarct involving the anterior right temporal lobe. Jeffery Dorsey MD Chest X-Ray 09/14/17 0229 Signed Impressions: Service Date/Time: September 03:03 - CONCLUSION: Non-consolidative infiltrates in the right lower lung. Lino Langford MD Carotid Artery Ultrasound 09/14/17 0000 Signed Impressions: Service Date/Time: September 14:49 - CONCLUSION: 1. Atherosclerotic plaquing of the bifurcations bilaterally. No hemodynamically significant carotid artery stenosis identified. Edward Gonzalez MD Brain MRI 09/14/17 0000 Signed Impressions: Service Date/Time: September 18:53 - CONCLUSION: 1. Large left MCA distribution subacute infarct associated with a hemosiderin deposits, probably petechial hemorrhage. 2. Small right anterior portion middle cerebral artery distribution infarct. Pansinus disease. Familia Hewitt MD Objective Remarks GENERAL: middle-aged female appears older than stated age. frail. SKIN: Focused skin assessment warm/dry. HEAD: Atraumatic. Normocephalic. EYES: Pupils equal and round. No scleral icterus. No injection or drainage. ENT: No nasal bleeding or discharge. Mucous membranes pink and moist. NECK: Trachea midline. No JVD. CARDIOVASCULAR: tachycardic rate, regular rhythm. sinus by tele. RESPIRATORY: tachypneic. in distress. nc o2. labored. using accessory muslces to breath. tripod positioning. GASTROINTESTINAL: Abdomen soft, non-tender, nondistended. MUSCULOSKELETAL: No obvious deformities. No clubbing. No cyanosis. No edema. NEUROLOGICAL: Awake and alert. RASS +1. anxious. Follows commands in all 4 extremity's, A/P Assessment and Plan Assessment: 62yF with COPD and recurrent subacute large distribution strokes, now with COPD exacerbation, healthcare associated pneumonia, likely hypercoagulable state, anxiety. Her respiratory distress persists this morning, and I have already had to intervene this morning to prevent decompensation and re-intubation and recurrent respiratory failure. will continue close monitoring. diurese. PT/OT/ST and OOB. critically ill this morning with life- threatening respiratory distress in the setting of multiple recent acute large distribution CVAs. Plan Neuro: Left MCA subacute infract s/p Left MCA acute infarct with a thrombus in the distal M1 and proximal M2 branches s/p TPA in July. Right frontal/MCA subacute infarct Anxiety Depression Monitor neuro status. Awake and alert. versed 2mg iv x 1 now for severe anxiety start zyprexa 5mg po q8h prn for agitation or anxiety (less sedating and less resp depression than benzodiazepines) MRI brain: Large left MCA distribution subacute infarct associated with a hemosiderin deposits, probably petechial hemorrhage. Small right anterior portion middle cerebral artery distribution infarct CT brain: There is evidence of left MCA infarction, nonhemorrhagic Carotid Doppler US: Atherosclerotic plaquing of the bifurcations bilaterally. No hemodynamically significant carotid artery stenosis identified. Repeat CT brain today-.No evidence of any focal or acute intracranial hemorrhage. . Stable Nonhemorrhagic left MCA infarct. Stable Nonhemorrhagic infarct involving the anterior right temporal lobe. Neuro is following- Dr. Rodgers Patient is in normal sinus rhythm, echo showed nl EF 60-65%, no thrombus seen., Carotid US: No stenosis s/p Left MCA acute infarct with a thrombus in the distal M1 and proximal M2 branches s/p TPA in July. Unclear etiology. Lupus anticoagulant, DANIEL: pending. CV: Hypertension Sinus tachycardia Monitor HR and BP keep MAP>65mmHg metoprolol 5mg iv x 1 for tachycardia in the setting of respiratory distress and anxiety. Pulm: Acute hypercarbic respiratory failure COPD Exacerbation Continue with oxygen keep sat >90% Bronchodilators, on Solumederol 40mg Q12 : Acute intravascular volume overload Monitor renal function, electrolytes replacement per protocol. saline lock ivf: appears slightly volume overloaded. Lasix 40mg iv x 1. GI: Acute protein calorie malnutrition- moderate On PO diet daily bmp ID: Healthcare associated pneumonia continue vancomycin, zosyn, azithromycin. (started 09/14). narrow spectrum based on available culture data. Culture data: 09/14 Bl Cx: NGTD 09/14 Urine Cx: NGTD Check strep pneumonia and Legionella urinary ag Heme: Coumadin coagulopathy- supratherapeutic INR Anemia secondary to chronic disease daily cbc, coags continue to hold coumadin Endo: Hyperglycemia of critical illness SSI for glycemic control GI prophylaxis- on Pepcid DVT prophylaxis- INR 6.8, Coumadin held. SCDs Dispo: remain in ICU today. critically ill with acute respiratory distress needing emergent evaluation and treatment to prevent life-threatening respiratory failure Critical care time: 33 minutes, exclusive of separately billable procedures. Giorgi Agudelo MD Sep 16, 2017 08:57
[2017-09-16] MEDS: CITALOPRAM HYDROBROMIDE 20 MG TAB PO SCH (09:05)
[2017-09-16] MEDS: PREGABALIN 75 MG CAP PO SCH ×2 (09:06→20:40)
[2017-09-16] MEDS: DOCUSATE SODIUM 50 MG/SENNA 8.6 MG TAB PO SCH ×2 (09:06→20:42)
[2017-09-16] MEDS: FAMOTIDINE 20 MG/2 ML VIAL IV PUSH SCH ×2 (09:06→20:40)
[2017-09-16] MEDS: FERROUS SULFATE 300 MG /5ML UDC PO SCH ×2 (09:17→20:41)
[2017-09-16] MEDS: SODIUM CHLORIDE 0.9% FLUSH 10 ML FLUSH IV FLUSH SCH ×2 (09:17→20:40)
[2017-09-16] MEDS: BUDESONIDE-FORMOTEROL 80/4.5 MCG INHALER INH SCH ×2 (10:26→20:40)
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
--- NOTE | 2017-09-16 16:38 | MB ---
cc: JULIET LYNN MD DATE OF CONSULTATION 09/16/2017 INDICATION Stroke. HISTORY OF PRESENT ILLNESS A 62-year-old female who presented with altered mental status and shortness of breath. She has prior history of recent stroke and was residing in a rehabilitation facility. When she presented, she was short of breath. Oxygen saturation was 82%. MRI of the brain showed a large MCA subacute infarct with probable petechial hemorrhage, source unknown. She was diagnosed with acute hypercarbic respiratory failure secondary to a COPD exacerbation, started on bronchodilators and Solu-Medrol. We are consulted for consideration of transesophageal echocardiogram. PAST MEDICAL HISTORY 1. Stroke in July of 2017 status post TPA 2. Depression and anxiety, 3. Hepatitis C 4. Hypertension, 5. Osteoarthritis 6. Coronary artery disease 7. Prior coronary artery bypass surgery. FAMILY HISTORY Denies any family history of early coronary disease, sudden cardiac . SOCIAL HISTORY Positive for tobacco use. No drug use. REVIEW OF SYSTEMS 12-point review of systems was performed, negative unless otherwise noted is history of present illness. MEDICATIONS See med reconciliation. PHYSICAL EXAMINATION GENERAL: Alert and oriented x3 in no acute distress. HEENT: Exam shows pupils reactive to light and accommodation, extraocular movements are intact. No elevation in jugular venous distension. No thyromegaly or lymphadenopathy. No carotid bruits. LUNGS: Clear to auscultation bilaterally. CARDIOVASCULAR: She has a regular rate and rhythm without murmurs, rubs or gallops. ABDOMEN: Nontender, nondistended. Good bowel sounds. No hepatosplenomegaly. EXTREMITIES: No clubbing, cyanosis or edema. Good peripheral pulses. NEUROLOGIC: Cranial nerves intact. Motor sensory grossly intact. LABORATORY DATA WBC 20,000, hemoglobin 7.1, platelet count 360, INR is 3.3, Sodium 146, potassium 3.7, chloride 111, creatinine 0.46. ASSESSMENT 1. Prior stroke 2. COPD exacerbation. 3. Hypertension. PLAN Her large left MCA distribution subacute infarct is of unclear etiology, possibly secondary to cardioembolic source. No arrhythmias noted on telemetry. The patient is agreeable to transesophageal echocardiogram to rule out paradoxical systemic embolization. The patient will be n.p.o. after midnight on Monday. We will try to coordinate with anesthesia for transesophageal echocardiogram on Monday afternoon. MD ROBERT Simpson /2:54 PM /4:28 PM
--- NOTE | 2017-09-16 17:39 | RADRPT ---
EXAM DATE/TIME: 09/16/2017 16:55 [facility] COMPARISON: No previous studies available for comparison. INDICATIONS : Pulmonary embolism. MEDICAL HISTORY : Stroke. Myocardial infarction. Congestive heart failure. Neck pain. Glasses. Hypertension. COPD. Asth ma. Dyspnea. Arthritis. Depression. Anxiety. Hepatitis. Pulmonary embolism. SURGICAL HISTORY : CABG Ruben and plate in left arm. Splenectomy. ENCOUNTER: Initial ACUITY: 1 day PAIN SCORE: 0/10 LOCATION: Bilateral legs. TECHNIQUE: Venous ultrasound of the left and right leg was performed from the inguinal ligament to the proximal calf. Real-time, color Doppler and spectral tracing, compression and augmentation techniques were us ed. FINDINGS: RIGHT LEG: There is normal compressibility of the deep venous system from the inguinal region to the proximal ca lf. No echogenic clot is seen in the lumen of the common femoral, femoral, popliteal, and posterior tibial veins. There is a normal response of the venous system to proximal and distal augmentation an d respiration. LEFT LEG: There is normal compressibility of the deep venous system from the inguinal region to the proximal ca lf. No echogenic clot is seen in the lumen of the common femoral, femoral, popliteal, and posterior tibial veins. There is a normal response of the venous system to proximal and distal augmentation an d respiration. CONCLUSION: Normal examination. Familia Hewitt MD on September 16, 2017 at 17:36 Board Certified Radiologist. This report was verified electronically.
[2017-09-16] MEDS: ATORVASTATIN 40 MG TAB PO SCH (20:43)
[2017-09-17] VITALS (12 sets, daily range): BP systolic 124–149; BP diastolic 84–90; PULSE 65–97; RESP 18–27; TEMP 95.8–98.6; O2SAT 91–98
[2017-09-17] MEDS: INSULIN NovoLIN REGULAR SUPPLEMENTAL SCALE SQ SCH ×4 (01:30→22:23)
[2017-09-17] MEDS: RESP: ALBUTEROL 2.5 MG/IPRATROPIUM 0.5 MG NEB (SCH) INH ×5 (03:23→21:16)
[2017-09-17] MEDS: CHLORHEXIDINE GLUCONATE 2 % 1 PACK (2 CLOTHS) TOP SCH (04:00)
[2017-09-17 04:13] LABS: HEMATOCRIT 36.5 % (35.0-46.0); MEAN CELL VOLUME 85.3 FL (80.0-100.0); MEAN CORPUSCULAR HEMOGLOBIN 27.6 PG (27.0-34.0); MEAN CORPUSCULAR HGB CONC 32.4 % (32.0-36.0); PLATELET COUNT 451 TH/MM3 (150-450); RED BLOOD COUNT 4.28 MIL/MM3 (4.00-5.30); RED CELL DISTRIBUTION WIDTH 28.7 % (11.6-17.2); WHITE BLOOD COUNT 14.4 TH/MM3 (4.0-11.0)
[2017-09-17] MEDS: PIPERACIL-TAZO 4.5 GM PREMIX 100 ML IV SCH ×4 (04:16→22:17)
[2017-09-17 04:19] LABS: REVIEW FLAG FINAL
[2017-09-17 04:27] LABS: BICARBONATE 30.8 MEQ/L (21.0-32.0); POTASSIUM 3.3 MEQ/L (3.5-5.1)
[2017-09-17 04:49] LABS: APTT (PATIENT) 42.2 SEC (24.3-30.1); INTERNATIONAL NORMALIZED RATIO 2.7 RATIO; PROTHROMBIN TIME - PATIENT 27.1 SEC (9.8-11.6)
[2017-09-17] MEDS: methylPREDNISolone SOD SUCC 40 MG/1 ML VIAL IV PUSH SCH ×2 (05:18→17:10)
[2017-09-17] MEDS: AZITHROMYCIN INJ 500 MG in SODIUM CHLOR 0.9% 250 ML INJ 250 ML IV SCH (05:18)
[2017-09-17] MEDS: VANCOMYCIN 1,000 MG/NS 250 ML IV SCH ×4 (05:19→17:00)
[2017-09-17] MEDS: CITALOPRAM HYDROBROMIDE 20 MG TAB PO SCH (08:42)
[2017-09-17] MEDS: DOCUSATE SODIUM 50 MG/SENNA 8.6 MG TAB PO SCH ×2 (08:42→22:12)
[2017-09-17] MEDS: PREGABALIN 75 MG CAP PO SCH ×2 (08:42→22:12)
[2017-09-17] MEDS: FERROUS SULFATE 300 MG /5ML UDC PO SCH ×2 (08:43→22:12)
[2017-09-17] MEDS: BUDESONIDE-FORMOTEROL 80/4.5 MCG INHALER INH SCH ×2 (08:43→22:15)
[2017-09-17] MEDS: FAMOTIDINE 20 MG/2 ML VIAL IV PUSH SCH ×2 (08:43→22:12)
[2017-09-17] MEDS: SODIUM CHLORIDE 0.9% FLUSH 10 ML FLUSH IV FLUSH SCH ×2 (08:43→22:13)
[2017-09-17] MEDS ORDERED: FUROSEMIDE 40 MG/4 ML VIAL IV PUSH ONE (10:15)
--- NOTE | 2017-09-17 10:21 | HHI.CCPN ---
Subjective Remarks/Hospital Course 62-year-old female who is currently residing at a rehabilitation facility rehabilitating from a recent stroke presents for evaluation of altered mental status and dyspnea. correction staff told EMS they found the patient in a puddle of her own urine. Patient on arrival somewhat difficult to understand, apparently she has some history of dysarthria from the stroke. She is on 2 L nasal cannula at all times, and her 2 L nasal cannula at the group home she was saturating 82%. She was turned up to 4 L and a size 6 L for transport and had about a saturation of 89. Patient does admit some cough and congestion. 09/15 Patient is awake , alert on 2L oxygen. Afebrile. MRI brain last night showed large MCA subacute infarct with probable petechial hemorrhage. For repeat CT brain this morning. 09/16: patient remains on 2L o2 by NC. seen this AM for severe dyspnea, tachypnea and respiratory distress. patient stating she feels like she can't catch her breath. still on 2L o2 by NC. initially spo2 in 70s, but improved to 90s. ordered versed 2mg iv x 1, metoprolol 5mg iv x 1 for severe tachycardia, HR in 150s, and lasix 40mg iv x 1. patient tells me she does not want to be reintubated or back on BiPAP. when I asked further about goals of care, she says before she wants to make that official, she wants to talk with her son who is coming this morning to see her. leukocytosis persists. remains afebrile. BM x 5 overnight. 09/17: clinically much improved. tolerating diet. on NC. good diuresis by daily weight (unable to accurately measure uop). stable for transfer to floor. denies complaints. ROS negative. Objective Vital Signs Date Time Temp Pulse Resp B/P (MAP) Pulse Ox O2 Delivery O2 Flow Rate FiO2 09/17/17 07:56 95 Nasal Cannula 4.00 09/17/17 06:00 65 09/17/17 04:00 98.6 18 149/84 (105) 09/16/17 19:00 100 Intake and Output 09/17/17 09/17/17 09/18/17 08:00 16:00 00:00 Intake Total 670 ml Balance 670 ml Result Diagram: 09/17/17 0338 09/17/17 0328 Imaging Last Impressions Head CT 09/15/17 0600 Signed Impressions: Service Date/Time: Friday, September 15, 2017 09:16 - CONCLUSION: 1. Stable followup CT scan of the brain compared to the prior examination. No evidence of any focal or acute intracranial hemorrhage. 2. Stable Nonhemorrhagic left MCA infarct 3. Stable Nonhemorrhagic infarct involving the anterior right temporal lobe. Jeffery Dorsey MD Chest X-Ray 09/14/17 0229 Signed Impressions: Service Date/Time: September 03:03 - CONCLUSION: Non-consolidative infiltrates in the right lower lung. Lino Langford MD Carotid Artery Ultrasound 09/14/17 0000 Signed Impressions: Service Date/Time: September 14:49 - CONCLUSION: 1. Atherosclerotic plaquing of the bifurcations bilaterally. No hemodynamically significant carotid artery stenosis identified. Edward Gonzalez MD Brain MRI 09/14/17 0000 Signed Impressions: Service Date/Time: September 18:53 - CONCLUSION: 1. Large left MCA distribution subacute infarct associated with a hemosiderin deposits, probably petechial hemorrhage. 2. Small right anterior portion middle cerebral artery distribution infarct. Pansinus disease. Familia Hewitt MD Objective Remarks GENERAL: middle-aged female appears older than stated age. frail. SKIN: Focused skin assessment warm/dry. HEAD: Atraumatic. Normocephalic. EYES: Pupils equal and round. No scleral icterus. No injection or drainage. ENT: No nasal bleeding or discharge. Mucous membranes pink and moist. NECK: Trachea midline. No JVD. CARDIOVASCULAR: normal rate, regular rhythm. sinus by tele. RESPIRATORY: unlabored this AM. on nc o2. equal chest rise. GASTROINTESTINAL: Abdomen soft, non-tender, nondistended. MUSCULOSKELETAL: No obvious deformities. No clubbing. No cyanosis. No edema. NEUROLOGICAL: Awake and alert. RASS 0. Follows commands in all 4 extremity's, A/P Assessment and Plan Assessment: 62yF with COPD and recurrent subacute large distribution strokes, now with COPD exacerbation, healthcare associated pneumonia, likely hypercoagulable state, anxiety. Clinically much improved from yesterday. stable for transfer to floor. Plan Neuro: Left MCA subacute infract s/p Left MCA acute infarct with a thrombus in the distal M1 and proximal M2 branches s/p TPA in July. Right frontal/MCA subacute infarct Anxiety Depression Monitor neuro status. Awake and alert. zyprexa 5mg po q8h prn for agitation or anxiety (less sedating and less resp depression than benzodiazepines) MRI brain: Large left MCA distribution subacute infarct associated with a hemosiderin deposits, probably petechial hemorrhage. Small right anterior portion middle cerebral artery distribution infarct CT brain: There is evidence of left MCA infarction, nonhemorrhagic Carotid Doppler US: Atherosclerotic plaquing of the bifurcations bilaterally. No hemodynamically significant carotid artery stenosis identified. Repeat CT brain today-.No evidence of any focal or acute intracranial hemorrhage. . Stable Nonhemorrhagic left MCA infarct. Stable Nonhemorrhagic infarct involving the anterior right temporal lobe. Neuro is following- Dr. Rodgers Patient is in normal sinus rhythm, echo showed nl EF 60-65%, no thrombus seen., Carotid US: No stenosis s/p Left MCA acute infarct with a thrombus in the distal M1 and proximal M2 branches s/p TPA in July. Unclear etiology. Lupus anticoagulant, DANIEL: pending. CV: Hypertension Sinus tachycardia Monitor HR and BP keep MAP>65mmHg metoprolol 5mg iv x 1 for tachycardia in the setting of respiratory distress and anxiety. Pulm: Acute hypercarbic respiratory failure - resolving. COPD Exacerbation Continue with oxygen keep sat >90% Bronchodilators, on Solumederol 40mg Q12 : Acute intravascular volume overload - improving. metabolic alkalosis Monitor renal function, electrolytes replacement per protocol. saline lock ivf: appears slightly volume overloaded. Lasix 40mg iv x 1 again today diamox 500mg iv q12 x 2 doses for metabolic alkalosis. GI: Acute protein calorie malnutrition- moderate On PO diet daily bmp ID: Healthcare associated pneumonia continue vancomycin zosyn, azithromycin. (started 09/14). narrow spectrum based on available culture data. Culture data: 09/14 Bl Cx: NGTD 09/14 Urine Cx: gram variable sam Check strep pneumonia and Legionella urinary ag Heme: Coumadin coagulopathy- supratherapeutic INR Anemia secondary to chronic disease daily cbc, coags continue to hold coumadin. Endo: Hyperglycemia of critical illness SSI for glycemic control GI prophylaxis- on Pepcid DVT prophylaxis- INR 6.8, Coumadin held. SCDs Dispo: transfer to floor. hospitalist to assume care. Giorgi Agudelo MD Sep 17, 2017 10:21
[2017-09-17 10:26] LABS: INHIB SCRN PT PATIENT 27.2 SEC (9.8-11.6); INHIBITOR SCRN-PT CONTROL 10.9 SEC
[2017-09-17 10:27] LABS: INHIBITOR SCRN PT NORMAL 10.4 SEC
[2017-09-17 10:28] LABS: PT 1PT:1NL 11.9 SEC (9.8-11.6); PT 1PT:4NL 10.7 SEC (9.8-11.6); PT 4PT:1NL 15.8 SEC (9.8-11.6)
[2017-09-17 10:29] LABS: APTT 1PT:1NL 27.1 SEC (24.3-30.1); INHIBITOR SCREEN-APTT PATIENT 38.2 SEC (24.3-30.1); INHIBITOR SCRN-APTT CONTROL 25.6 SEC
[2017-09-17 10:30] LABS: APTT 1PT:4NL 25.5 SEC (24.3-30.1)
--- NOTE | 2017-09-17 10:49 | PD.CARD.PN ---
Subjective Subjective Remarks awake and alert. breathing better, no chest pain. Objective Medications Current Medications Medications (Trade) Dose Ordered Sig/Anthony Route Start Time Stop Time Status Last Admin (Tylenol) 650 mg Q4H PRN PO 09/14/17 04:45 Azithromycin 500 mg/Sodium Chloride 250 ml @ 250 mls/hr Q24H IV 09/14/17 05:00 09/17/17 05:18 (Lipitor) 40 mg HS PO 09/14/17 21:00 09/16/17 20:43 (CeleXA) 10 mg DAILY PO 09/14/17 09:00 09/17/17 08:42 (Ferrous Sulfate Liq) 300 mg BID PO 09/14/17 09:00 09/16/17 09:17 (Lyrica) 75 mg BID PO 09/14/17 09:00 09/17/17 08:42 (Ultram) 50 mg Q8H PRN PO 09/14/17 06:00 (Symbicort 80-4.5 Mcg Inh) 2 puff BID INH 09/14/17 09:00 09/17/17 08:43 (NS Flush) 2 ml UNSCH PRN IV FLUSH 09/14/17 06:00 (NS Flush) 2 ml BID IV FLUSH 09/14/17 09:00 09/17/17 08:43 (Tylenol) 650 mg Q6H PRN PO 09/14/17 06:00 (Pepcid Inj) 20 mg Q12HR IV PUSH 09/14/17 09:00 09/17/17 08:43 (Zofran Inj) 4 mg Q6H PRN IV PUSH 09/14/17 06:00 (Duoneb Neb) 1 ampule Q2HR NEB PRN INH 09/14/17 06:00 09/16/17 06:15 Miscellaneous Information 1 Q361D XX 09/14/17 06:00 (Chlorhexidine 2% Cloth) 3 pack Taper DAILY@04 TOP 09/15/17 04:00 09/11/18 03:59 09/17/17 04:00 (Chlorhexidine 2% Cloth) 3 pack UNSCH PRN TOP 09/14/17 06:00 (Ann-Colace) 1 tab BID PO 09/14/17 09:00 09/17/17 08:42 (Milk Of Magnesia Liq) 30 ml Q12H PRN PO 09/14/17 06:00 (Senokot) 17.2 mg Q12H PRN PO 09/14/17 06:00 (Dulcolax Supp) 10 mg DAILY PRN RECTAL 09/14/17 06:00 (Lactulose Liq) 30 ml DAILY PRN PO 09/14/17 06:00 Piperacillin Sod/ Tazobactam Sod 100 ml @ 200 mls/hr Q6H IV 09/14/17 10:00 09/17/17 04:16 Pharmacy Profile Note 0 ml @ 0 mls/hr UNSCH OTHER 09/14/17 06:00 (SoluMEDROL INJ) 40 mg Q12H IV PUSH 09/14/17 06:00 09/17/17 05:18 Pharmacy Profile Note 0 ml @ 0 mls/hr UNSCH OTHER 09/14/17 06:00 Vancomycin HCl 1000 mg/Sodium Chloride 250 ml @ 250 mls/hr Q12H IV 09/14/17 17:00 09/17/17 05:19 (D50w (Vial) Inj) 50 ml UNSCH PRN IV PUSH 09/14/17 13:30 (Glucagon Inj) 1 mg UNSCH PRN OTHER 09/14/17 13:30 (NovoLIN R SUPPLEMENTAL SCALE) 1 Q6H SQ 09/14/17 13:30 09/16/17 19:30 Potassium Chloride 100 ml @ 50 mls/hr Q2H PRN IV 09/14/17 13:30 Potassium Chloride 100 ml @ 50 mls/hr Q2H PRN IV 09/14/17 13:30 09/17/17 08:44 (K-Lyte Cl Eff) 50 meq UNSCH PRN PO 09/14/17 13:30 Potassium Chloride 100 ml @ 25 mls/hr UNSCH PRN IV 09/14/17 13:30 Potassium Chloride 100 ml @ 50 mls/hr Q2H PRN IV 09/14/17 13:30 Magnesium Sulfate 4 gm/Sodium Chloride 100 ml @ 50 mls/hr UNSCH PRN IV 09/14/17 13:30 (Mag-Ox) 800 mg UNSCH PRN PO 09/14/17 13:30 Magnesium Sulfate 2 gm/Sodium Chloride 100 ml @ 50 mls/hr UNSCH PRN IV 09/14/17 13:30 (K-Phos) 2,000 mg Q4H PRN PO 09/14/17 13:30 Sodium Phosphate 30 mmol/Sodium Chloride 250 ml @ 42 mls/hr UNSCH PRN IV 09/14/17 13:30 (K-Phos) 2,000 mg UNSCH PRN PO/TUBE 09/14/17 13:30 Potassium Phosphate 30 mmol/ Sodium Chloride 260 ml @ 42 mls/hr UNSCH PRN IV 09/14/17 13:30 09/15/17 16:06 (ZyPREXA ZYDIS ODT) 5 mg Q8H PRN PO 09/16/17 08:45 Miscellaneous Information SPECIFIC LAB TO BE GABO... ONCE ONCE .XX 09/18/17 04:45 09/18/17 04:46 (Duoneb Neb) 1 ampule Q4HR NEB INH 09/17/17 12:00 (Diamox Inj) 500 mg Q12H IV PUSH 09/17/17 11:00 09/17/17 23:01 Vital Signs / I&O Vital Signs Date Time Temp Pulse Resp B/P (MAP) Pulse Ox O2 Delivery O2 Flow Rate FiO2 09/17/17 07:56 95 Nasal Cannula 4.00 09/17/17 06:00 65 09/17/17 04:00 77 09/17/17 04:00 98.6 77 18 149/84 (105) 96 09/17/17 02:00 75 09/17/17 00:00 66 09/17/17 00:00 98.5 66 20 124/84 (97) 95 09/16/17 22:00 73 09/16/17 21:40 22 09/16/17 21:09 92 Nasal Cannula 4.00 09/16/17 20:00 85 09/16/17 20:00 98.6 85 22 129/84 (99) 92 09/16/17 19:38 89 Nasal Cannula 4.00 09/16/17 19:00 Nasal Cannula 3.00 100 09/16/17 18:00 106 09/16/17 16:00 76 09/16/17 16:00 98.5 76 28 136/88 (104) 88 09/16/17 14:00 85 09/16/17 12:00 89 09/16/17 12:00 98.5 89 48 132/82 (99) 98 I/O 09/16/17 09/16/17 09/16/17 09/17/17 09/17/17 09/17/17 07:00 15:00 23:00 07:00 15:00 23:00 Intake Total 240 ml 520 ml 750 ml 670 ml Balance 240 ml 520 ml 750 ml 670 ml Intake Oral 240 ml 300 ml 320 ml IV Total 520 ml 450 ml 350 ml # Voids 6 5 3 # Bowel Movements 5 0 0 Physical Exam GENERAL: SKIN: Warm and dry. HEAD: Atraumatic. Normocephalic. EYES: Pupils equal and round. ENT: No nasal bleeding or discharge. NECK: Trachea midline. No JVD. CARDIOVASCULAR: Regular rate and rhythm. no murmurs RESPIRATORY: No accessory muscle use. Clear to auscultation. Breath sounds equal bilaterally. GASTROINTESTINAL: Abdomen soft, non-tender, nondistended. Hepatic and splenic margins not palpable. MUSCULOSKELETAL: Extremities without clubbing, cyanosis, or edema. NEUROLOGICAL: Awake and alert. No obvious cranial nerve deficits. PSYCHIATRIC: Appropriate mood and affect; insight and judgment normal. Laboratory Laboratory Tests Test 09/16/17 13:57 09/17/17 03:28 09/17/17 03:38 Phosphorus Level 2.6 MG/DL Blood Urea Nitrogen 10 MG/DL Creatinine 0.66 MG/DL Random Glucose 125 MG/DL Calcium Level 9.2 MG/DL Sodium Level 143 MEQ/L Potassium Level 3.3 MEQ/L Chloride Level 106 MEQ/L Carbon Dioxide Level 30.8 MEQ/L Anion Gap 6 MEQ/L Estimat Glomerular Filtration Rate 91 ML/MIN White Blood Count 14.4 TH/MM3 Red Blood Count 4.28 MIL/MM3 Hemoglobin 11.8 GM/DL Hematocrit 36.5 % Mean Corpuscular Volume 85.3 FL Mean Corpuscular Hemoglobin 27.6 PG Mean Corpuscular Hemoglobin Concent 32.4 % Red Cell Distribution Width 28.7 % Platelet Count 451 TH/MM3 Mean Platelet Volume 9.0 FL Prothrombin Time 27.1 SEC Prothromb Time International Ratio 2.7 RATIO Activated Partial Thromboplast Time 42.2 SEC Coagulation Factor Inhibitor Screen Assessment and Plan Problem List: (1) COPD (chronic obstructive pulmonary disease) ICD Codes: J44.9 - Chronic obstructive pulmonary disease, unspecified Status: Chronic (2) Acute ischemic left MCA stroke ICD Codes: I63.512 - Cerebral infarction due to unspecified occlusion or stenosis of left middle cerebral artery (3) Hypotension ICD Codes: I95.9 - Hypotension, unspecified Assessment and Plan 62 yo WF with history of COPD, CAD, CABG, hepatitis C, HTN and recent CVA admitted from rehab facility for altered mental status and SOB. prior CVA- large L MCA subacute infarct. carotid us did not show plaque. no arrhythmia on tele. plan for [facility] tomorrow. keep npo after midnight COPD exacerbation- +PNA, abx, breathing well on nasal cannula. Sangeetha Romano Sep 17, 2017 10:49
[2017-09-17 11:18] LABS: APTT 1N:1P 1HR-37C 29.6 SEC (24.3-30.1); APTT NORM 1 HR-37C 26.2 SEC; PT NORM 1 HR-37C 10.5 SEC
--- NOTE | 2017-09-17 11:46 | PD.ONC.PN ---
Subjective Subjective Remarks Afebrile Per [employer] she had some oozing from L forearm peripheral IV that was difficult to stop so IV was removed and pressure was held. Denies bleeding gums or blood in stool Objective Data Date Time Temp Pulse Resp B/P (MAP) Pulse Ox O2 Delivery O2 Flow Rate FiO2 09/17/17 10:00 83 09/17/17 08:00 74 09/17/17 08:00 98.6 74 27 139/90 (106) 96 09/17/17 07:56 95 Nasal Cannula 4.00 09/17/17 07:00 100 Nasal Cannula 3.00 100 09/17/17 06:00 65 09/17/17 04:00 77 09/17/17 04:00 98.6 77 18 149/84 (105) 96 09/17/17 02:00 75 09/17/17 00:00 66 09/17/17 00:00 98.5 66 20 124/84 (97) 95 09/16/17 22:00 73 09/16/17 21:40 22 09/16/17 21:09 92 Nasal Cannula 4.00 09/16/17 20:00 85 09/16/17 20:00 98.6 85 22 129/84 (99) 92 09/16/17 19:38 89 Nasal Cannula 4.00 09/16/17 19:00 Nasal Cannula 3.00 100 09/16/17 18:00 106 09/16/17 16:00 76 09/16/17 16:00 98.5 76 28 136/88 (104) 88 09/16/17 14:00 85 09/16/17 12:00 89 09/16/17 12:00 98.5 89 48 132/82 (99) 98 09/17/17 09/17/17 09/17/17 07:00 15:00 23:00 Intake Total 670 ml Balance 670 ml Result Diagram: 09/17/17 0338 09/17/17 0328 Laboratory Results Laboratory Tests Test 09/16/17 13:57 09/17/17 03:28 09/17/17 03:38 Phosphorus Level 2.6 MG/DL Blood Urea Nitrogen 10 MG/DL Creatinine 0.66 MG/DL Random Glucose 125 MG/DL Calcium Level 9.2 MG/DL Sodium Level 143 MEQ/L Potassium Level 3.3 MEQ/L Chloride Level 106 MEQ/L Carbon Dioxide Level 30.8 MEQ/L Anion Gap 6 MEQ/L Estimat Glomerular Filtration Rate 91 ML/MIN White Blood Count 14.4 TH/MM3 Red Blood Count 4.28 MIL/MM3 Hemoglobin 11.8 GM/DL Hematocrit 36.5 % Mean Corpuscular Volume 85.3 FL Mean Corpuscular Hemoglobin 27.6 PG Mean Corpuscular Hemoglobin Concent 32.4 % Red Cell Distribution Width 28.7 % Platelet Count 451 TH/MM3 Mean Platelet Volume 9.0 FL Prothrombin Time 27.1 SEC Prothrombin Time Control 10.9 SEC Prothromb Time International Ratio 2.7 RATIO Activated Partial Thromboplast Time 42.2 SEC APTT Control 25.6 SEC Mix PT Normal Plasma Immediate 10.4 SEC Mix PT Normal Plasma 1 Hour 10.5 SEC Mix PT Patient/Normal 1:4 Immediate 10.7 SEC Mix PT Patient/Normal 1:1 Immediate 11.9 SEC Mix PT Patient/Normal 1:1 1 Hr 37c 12.0 SEC Mix PT Patient/Normal 4:1 Immediate 15.8 SEC Mix PT Patient Pre-Incubation 27.2 SEC Mix PTT Normal Plasma Immediate 25.0 SEC Mix PTT Normal Plasma 1 Hour 26.2 SEC Mix PTT Patient/Normal 1:4 Immed 25.5 SEC Mix PTT Patient/Normal 1:1 27.1 SEC Mix PTT Patient/Normal 1:1 1 Hr 37c 29.6 SEC Mix PTT Patient/Normal 4:1 Immed 32.0 SEC Mix PTT Patient Pre-Incubation 38.2 SEC Coagulation Factor Inhibitor Screen Culture Results Microbiology Date/Time Source Procedure Growth Status 09/14/17 16:40 Urine Catheterized Urine Urine Culture - Preliminary Gram Variable Ruben Resulted 09/14/17 12:25 Urine Catheterized Urine Urine Culture - Preliminary Gram Variable Ruben Resulted Administered Medications Medications (Trade) Dose Ordered Sig/Anthony Route PRN Reason Start Time Stop Time Status Last Admin Dose Admin Azithromycin 500 mg/Sodium Chloride 250 ml @ 250 mls/hr Q24H IV 09/14/17 05:00 09/17/17 05:18 Atorvastatin Calcium (Lipitor) 40 mg HS PO 09/14/17 21:00 09/16/17 20:43 Citalopram Hydrobromide (CeleXA) 10 mg DAILY PO 09/14/17 09:00 09/17/17 08:42 Ferrous Sulfate (Ferrous Sulfate Liq) 300 mg BID PO 09/14/17 09:00 09/16/17 09:17 Pregabalin (Lyrica) 75 mg BID PO 09/14/17 09:00 09/17/17 08:42 Budesonide/ Formoterol Fumarate (Symbicort 80-4.5 Mcg Inh) 2 puff BID INH 09/14/17 09:00 09/17/17 08:43 Sodium Chloride (NS Flush) 2 ml BID IV FLUSH 09/14/17 09:00 09/17/17 08:43 Famotidine (Pepcid Inj) 20 mg Q12HR IV PUSH 09/14/17 09:00 09/17/17 08:43 Albuterol/ Ipratropium (Duoneb Neb) 1 ampule Q2HR NEB PRN INH WHEEZING 09/14/17 06:00 09/16/17 06:15 Chlorhexidine Gluconate (Chlorhexidine 2% Cloth) 3 pack Taper DAILY@04 TOP 09/15/17 04:00 09/11/18 03:59 09/17/17 04:00 Senna/Docusate Sodium (Ann-Colace) 1 tab BID PO 09/14/17 09:00 09/17/17 08:42 Piperacillin Sod/ Tazobactam Sod 100 ml @ 200 mls/hr Q6H IV 09/14/17 10:00 09/17/17 04:16 Methylprednisolone Sodium Succinate (SoluMEDROL INJ) 40 mg Q12H IV PUSH 09/14/17 06:00 09/17/17 05:18 Vancomycin HCl 1000 mg/Sodium Chloride 250 ml @ 250 mls/hr Q12H IV 09/14/17 17:00 09/17/17 05:19 Insulin Human Regular (NovoLIN R SUPPLEMENTAL SCALE) 1 Q6H SQ 09/14/17 13:30 09/16/17 19:30 Potassium Chloride 100 ml @ 50 mls/hr Q2H PRN IV For Potassium 2.8 - 3.2 mEq/L 09/14/17 13:30 09/17/17 08:44 Potassium Phosphate 30 mmol/ Sodium Chloride 260 ml @ 42 mls/hr UNSCH PRN IV SEE LABEL COMMENTS 09/14/17 13:30 09/15/17 16:06 Acetazolamide Sodium (Diamox Inj) 500 mg Q12H IV PUSH 09/17/17 11:00 09/17/17 23:01 09/17/17 11:11 Objective Remarks GENERAL: Frail appearing female resting in bed in no acute distress SKIN: Warm and dry. Mild oozing noted to R forearm peripheral IV HEAD: Normocephalic. EYES: No injection or drainage. NECK: Supple, trachea midline. CARDIOVASCULAR: Regular rate and rhythm without murmurs. RESPIRATORY: Clear anteriorly. Breathing unlabored. GASTROINTESTINAL: Abdomen soft, non-tender, nondistended. EXTREMITIES: No cyanosis, or edema. MUSCULOSKELETAL: Adequate muscle tone. NEUROLOGICAL: Mild RLE weakness. Pleasantly confused. Normal speech. Assessment/Plan Problem List: (1) Acute ischemic left MCA stroke ICD Codes: I63.512 - Cerebral infarction due to unspecified occlusion or stenosis of left middle cerebral artery Plan: -- Patient has history of pulmonary embolism and has been on Coumadin -- Presented as a stroke alert in 2017 and received TPA at that time and then ultimately admitted to [facility]. -- Was previously dosed at 6mg po daily. -- This admission she had a remote left MCA ischemic stroke and radiographic evidence of a new right anterior MCA stroke with her dysphasia. -- Concern for paradoxical embolism. -- Will consult cardiology to see if evaluation for ASD is sufficiently excluded with the echocardiogram. -- Will exclude possibility of the high risk thrombophilia such as homozygosity for Factor V Leiden or double heterozygosity for Factor V Leiden and prothrombin gene mutation. A lupus anticoagulant and antiphospholipid antibody will be excluded. Assessment 62 -year-old female with history of pulmonary embolism and recurrent strokes; possibility for paradoxical embolism Plan 1. Await cardiology consult 2. Restart coumadin at 3mg po daily 3. Await coag/mixing studies 4. Monitor for bleeding Attending Statement The exam, history, and the medical decision-making described in the above note were completed with the assistance of the mid-level provider. I reviewed and agree with the findings presented. I attest that I had a [id number] encounter with the patient on the same day, and personally performed and documented my assessment and findings in the medical record. Pt seen and examined. Noted multiple skin tears, fragile skin, dry, bleeding at site of tear. No other bleeding. Appreciate cardiology consult for [facility] ELE[facility]- evaluate for clot and paradoxical embolism. Anticoagulation with Coumadin continue. Mixing study correct. Lizz Armando Sep 17, 2017 11:46 Polly Adhikari MD Sep 17, 2017 11:59
[2017-09-17] MEDS ORDERED: WARFARIN SOD 3 MG TAB PO SCH (16:00)
[2017-09-17] MEDS: WARFARIN SOD 2.5 MG TAB PO SCH (16:00)
[2017-09-17] MEDS: ATORVASTATIN 40 MG TAB PO SCH (22:12)
[2017-09-18] VITALS (8 sets, daily range): BP systolic 117–125; BP diastolic 65–80; PULSE 55–80; RESP 16–20; TEMP 97.1–98.1; O2SAT 91–99
[2017-09-18] MEDS: INSULIN NovoLIN REGULAR SUPPLEMENTAL SCALE SQ SCH ×4 (00:46→18:26)
[2017-09-18] MEDS: RESP: ALBUTEROL 2.5 MG/IPRATROPIUM 0.5 MG NEB (SCH) INH ×6 (01:22→19:13)
[2017-09-18] MEDS: CHLORHEXIDINE GLUCONATE 2 % 1 PACK (2 CLOTHS) TOP SCH (04:00)
[2017-09-18] MEDS: PIPERACIL-TAZO 4.5 GM PREMIX 100 ML IV SCH ×4 (04:22→20:57)
[2017-09-18] MEDS ORDERED: PHARMACY ORDERED LAB ONE ×2 (04:45→16:45)
[2017-09-18] MEDS: methylPREDNISolone SOD SUCC 40 MG/1 ML VIAL IV PUSH SCH ×2 (04:48→16:41)
[2017-09-18] MEDS: AZITHROMYCIN INJ 500 MG in SODIUM CHLOR 0.9% 250 ML INJ 250 ML IV SCH (04:48)
[2017-09-18] MEDS: VANCOMYCIN 1,000 MG/NS 250 ML IV SCH ×4 (05:00→16:48)
[2017-09-18 06:27] LABS: HEMATOCRIT 41.2 % (35.0-46.0); MEAN CELL VOLUME 86.6 FL (80.0-100.0); MEAN CORPUSCULAR HEMOGLOBIN 27.9 PG (27.0-34.0); MEAN CORPUSCULAR HGB CONC 32.2 % (32.0-36.0); PLATELET COUNT 521 TH/MM3 (150-450); RED BLOOD COUNT 4.75 MIL/MM3 (4.00-5.30); RED CELL DISTRIBUTION WIDTH 28.7 % (11.6-17.2); WHITE BLOOD COUNT 9.6 TH/MM3 (4.0-11.0)
[2017-09-18 06:28] LABS: REVIEW FLAG FINAL
[2017-09-18 06:48] LABS: INTERNATIONAL NORMALIZED RATIO 2.5 RATIO; PROTHROMBIN TIME - PATIENT 25.6 SEC (9.8-11.6)
[2017-09-18 06:51] LABS: BICARBONATE 25.8 MEQ/L (21.0-32.0); POTASSIUM 3.4 MEQ/L (3.5-5.1)
--- NOTE | 2017-09-18 08:47 | PD.CARD.PN ---
Subjective Subjective Remarks No shortness of breath while in bed. Denies any chest pain. Denies any residual weakness from stroke. Nothing by mouth for MARIA ELENA today, all questions answered. Objective Medications Current Medications Medications (Trade) Dose Ordered Sig/Anthony Route Start Time Stop Time Status Last Admin (Tylenol) 650 mg Q4H PRN PO 09/14/17 04:45 Azithromycin 500 mg/Sodium Chloride 250 ml @ 250 mls/hr Q24H IV 09/14/17 05:00 09/18/17 04:48 (Lipitor) 40 mg HS PO 09/14/17 21:00 09/17/17 22:12 (CeleXA) 10 mg DAILY PO 09/14/17 09:00 09/17/17 08:42 (Ferrous Sulfate Liq) 300 mg BID PO 09/14/17 09:00 09/17/17 22:12 (Lyrica) 75 mg BID PO 09/14/17 09:00 09/17/17 22:12 (Ultram) 50 mg Q8H PRN PO 09/14/17 06:00 (Symbicort 80-4.5 Mcg Inh) 2 puff BID INH 09/14/17 09:00 09/17/17 22:15 (NS Flush) 2 ml UNSCH PRN IV FLUSH 09/14/17 06:00 (NS Flush) 2 ml BID IV FLUSH 09/14/17 09:00 09/17/17 22:13 (Tylenol) 650 mg Q6H PRN PO 09/14/17 06:00 (Pepcid Inj) 20 mg Q12HR IV PUSH 09/14/17 09:00 09/17/17 22:12 (Zofran Inj) 4 mg Q6H PRN IV PUSH 09/14/17 06:00 (Duoneb Neb) 1 ampule Q2HR NEB PRN INH 09/14/17 06:00 09/16/17 06:15 Miscellaneous Information 1 Q361D XX 09/14/17 06:00 (Chlorhexidine 2% Cloth) 3 pack Taper DAILY@04 TOP 09/15/17 04:00 09/11/18 03:59 09/17/17 04:00 (Chlorhexidine 2% Cloth) 3 pack UNSCH PRN TOP 09/14/17 06:00 (Ann-Colace) 1 tab BID PO 09/14/17 09:00 09/17/17 22:12 (Milk Of Magnesia Liq) 30 ml Q12H PRN PO 09/14/17 06:00 (Senokot) 17.2 mg Q12H PRN PO 09/14/17 06:00 (Dulcolax Supp) 10 mg DAILY PRN RECTAL 09/14/17 06:00 (Lactulose Liq) 30 ml DAILY PRN PO 09/14/17 06:00 Piperacillin Sod/ Tazobactam Sod 100 ml @ 200 mls/hr Q6H IV 09/14/17 10:00 09/18/17 04:22 Pharmacy Profile Note 0 ml @ 0 mls/hr UNSCH OTHER 09/14/17 06:00 (SoluMEDROL INJ) 40 mg Q12H IV PUSH 09/14/17 06:00 09/18/17 04:48 Pharmacy Profile Note 0 ml @ 0 mls/hr UNSCH OTHER 09/14/17 06:00 Vancomycin HCl 1000 mg/Sodium Chloride 250 ml @ 250 mls/hr Q12H IV 09/14/17 17:00 09/18/17 05:00 (D50w (Vial) Inj) 50 ml UNSCH PRN IV PUSH 09/14/17 13:30 (Glucagon Inj) 1 mg UNSCH PRN OTHER 09/14/17 13:30 (NovoLIN R SUPPLEMENTAL SCALE) 1 Q6H SQ 09/14/17 13:30 09/17/17 22:23 (ZyPREXA ZYDIS ODT) 5 mg Q8H PRN PO 09/16/17 08:45 (Duoneb Neb) 1 ampule Q4HR NEB INH 09/17/17 12:00 09/18/17 07:38 (Coumadin) 2.5 mg DAILY@1600 PO 09/17/17 16:00 09/17/17 16:00 Vital Signs / I&O Vital Signs Date Time Temp Pulse Resp B/P (MAP) Pulse Ox O2 Delivery O2 Flow Rate FiO2 09/18/17 07:39 99 Nasal Cannula 3.00 09/18/17 04:29 09/18/17 01:24 93 Nasal Cannula 4.00 09/18/17 00:00 98.1 73 16 125/77 (93) 93 09/17/17 23:15 16 09/17/17 21:42 97.7 97 20 147/90 (109) 91 09/17/17 21:17 98 Nasal Cannula 4.00 09/17/17 18:28 80 09/17/17 18:26 3.00 09/17/17 16:00 95.8 80 19 134/90 (105) 91 09/17/17 12:00 98.4 78 20 149/90 (109) 97 09/17/17 10:00 83 I/O 09/17/17 09/17/17 09/17/17 09/18/17 09/18/17 09/18/17 07:00 15:00 23:00 07:00 15:00 23:00 Intake Total 670 ml 300 ml 250 ml Balance 670 ml 300 ml 250 ml Intake Oral 320 ml 300 ml IV Total 350 ml 250 ml # Voids 3 1 2 # Bowel Movements 0 0 0 Physical Exam GENERAL: Well-developed well-nourished. In no acute distress. NECK: No carotid bruits. No JVD. CARDIOVASCULAR: Regular rate and rhythm. No murmur appreciated. RESPIRATORY: No accessory muscle use. Clear to auscultation. Breath sounds equal bilaterally. MUSCULOSKELETAL: No clubbing or cyanosis. No edema. NEUROLOGICAL: Awake and alert. Normal speech. Laboratory Laboratory Tests Test 09/18/17 05:58 White Blood Count 9.6 TH/MM3 Red Blood Count 4.75 MIL/MM3 Hemoglobin 13.3 GM/DL Hematocrit 41.2 % Mean Corpuscular Volume 86.6 FL Mean Corpuscular Hemoglobin 27.9 PG Mean Corpuscular Hemoglobin Concent 32.2 % Red Cell Distribution Width 28.7 % Platelet Count 521 TH/MM3 Mean Platelet Volume 8.7 FL Prothrombin Time 25.6 SEC Prothromb Time International Ratio 2.5 RATIO Blood Urea Nitrogen 19 MG/DL Creatinine 0.80 MG/DL Random Glucose 106 MG/DL Calcium Level 9.5 MG/DL Sodium Level 141 MEQ/L Potassium Level 3.4 MEQ/L Chloride Level 109 MEQ/L Carbon Dioxide Level 25.8 MEQ/L Anion Gap 6 MEQ/L Estimat Glomerular Filtration Rate 73 ML/MIN Imaging Last Impressions Lower Extremity Ultrasound 09/16/17 0000 Signed Impressions: Service Date/Time: Saturday, September 16, 2017 16:55 - CONCLUSION: Normal examination. Familia Hewitt MD Head CT 09/15/17 0600 Signed Impressions: Service Date/Time: Friday, September 15, 2017 09:16 - CONCLUSION: 1. Stable followup CT scan of the brain compared to the prior examination. No evidence of any focal or acute intracranial hemorrhage. 2. Stable Nonhemorrhagic left MCA infarct 3. Stable Nonhemorrhagic infarct involving the anterior right temporal lobe. Jeffery Dorsey MD Chest X-Ray 09/14/17 0229 Signed Impressions: Service Date/Time: September 03:03 - CONCLUSION: Non-consolidative infiltrates in the right lower lung. Lino Langford MD Carotid Artery Ultrasound 09/14/17 0000 Signed Impressions: Service Date/Time: September 14:49 - CONCLUSION: 1. Atherosclerotic plaquing of the bifurcations bilaterally. No hemodynamically significant carotid artery stenosis identified. Edward Gonzalez MD Brain MRI 09/14/17 0000 Signed Impressions: Service Date/Time: September 18:53 - CONCLUSION: 1. Large left MCA distribution subacute infarct associated with a hemosiderin deposits, probably petechial hemorrhage. 2. Small right anterior portion middle cerebral artery distribution infarct. Pansinus disease. Familia Hewitt MD Assessment and Plan Problem List: (1) COPD (chronic obstructive pulmonary disease) ICD Codes: J44.9 - Chronic obstructive pulmonary disease, unspecified Status: Chronic (2) Acute ischemic left MCA stroke ICD Codes: I63.512 - Cerebral infarction due to unspecified occlusion or stenosis of left middle cerebral artery (3) Hypotension ICD Codes: I95.9 - Hypotension, unspecified Assessment and Plan 62 yo F with history of COPD, CAD, CABG, hepatitis C, HTN and recent CVA admitted from rehab facility for altered mental status and SOB. prior CVA- large L MCA subacute infarct. carotid us did not show plaque. no arrhythmias seen. Nothing by mouth for MARIA ELENA this afternoon to rule out cardioembolic source of CVA. COPD/PNA: breathing well on nasal cannula. Continue antibiotics per primary team. Kingston Hernandez Sep 18, 2017 08:47
[2017-09-18] MEDS: FERROUS SULFATE 300 MG /5ML UDC PO SCH ×2 (09:00→20:58)
[2017-09-18] MEDS: DOCUSATE SODIUM 50 MG/SENNA 8.6 MG TAB PO SCH ×2 (09:00→21:00)
[2017-09-18] MEDS: SODIUM CHLORIDE 0.9% FLUSH 10 ML FLUSH IV FLUSH SCH ×2 (09:40→20:57)
[2017-09-18] MEDS: FAMOTIDINE 20 MG/2 ML VIAL IV PUSH SCH ×2 (09:40→20:58)
[2017-09-18] MEDS: BUDESONIDE-FORMOTEROL 80/4.5 MCG INHALER INH SCH ×2 (09:40→20:56)
[2017-09-18] MEDS: CITALOPRAM HYDROBROMIDE 20 MG TAB PO SCH (09:41)
[2017-09-18] MEDS: PREGABALIN 75 MG CAP PO SCH ×2 (09:41→21:01)
--- NOTE | 2017-09-18 11:27 | HHI.PR ---
Subjective Remarks 62-year-old female who is currently residing at a rehabilitation facility rehabilitating from a recent stroke presents for evaluation of altered mental status and dyspnea. [facility] staff told EMS they found the patient in a puddle of her own urine. Patient on arrival somewhat difficult to understand, apparently she has some history of dysarthria from the stroke. She is on 2 L nasal cannula at all times, and her 2 L nasal cannula at the assisted she was saturating 82%. She was turned up to 4 L and a size 6 L for transport and had about a saturation of 89. Patient does admit some cough and congestion. 09/15 Patient is awake , alert on 2L oxygen. Afebrile. MRI brain last night showed large MCA subacute infarct with probable petechial hemorrhage. For repeat CT brain this morning. 09/16: patient remains on 2L o2 by NC. seen this AM for severe dyspnea, tachypnea and respiratory distress. patient stating she feels like she can't catch her breath. still on 2L o2 by NC. initially spo2 in 70s, but improved to 90s. ordered versed 2mg iv x 1, metoprolol 5mg iv x 1 for severe tachycardia, HR in 150s, and lasix 40mg iv x 1. patient tells me she does not want to be reintubated or back on BiPAP. when I asked further about goals of care, she says before she wants to make that official, she wants to talk with her son who is coming this morning to see her. leukocytosis persists. remains afebrile. BM x 5 overnight. 09/17: clinically much improved. tolerating diet. on NC. good diuresis by daily weight (unable to accurately measure uop). stable for transfer to floor. denies complaints. ROS negative. 09-18 she was been transferred to our service today. Transferred to hospitalist service today many questions answered for daughter and patient. Needs to quit smoking. To go for [facility] today. Patient will more likely need rehabilitation at discharge Needs physical therapy and occupational therapy Chest with patient and RN and case management on rounds Objective Vitals Vital Signs Date Time Temp Pulse Resp B/P (MAP) Pulse Ox O2 Delivery O2 Flow Rate FiO2 09/18/17 08:00 97.6 55 17 117/75 (89) 97 09/18/17 07:39 99 Nasal Cannula 3.00 09/18/17 04:29 12/18/17 01:24 93 Nasal Cannula 4.00 09/18/17 00:00 98.1 73 16 125/77 (93) 93 09/17/17 23:15 16 09/17/17 21:42 97.7 97 20 147/90 (109) 91 09/17/17 21:17 98 Nasal Cannula 4.00 09/17/17 18:28 80 09/17/17 18:26 3.00 09/17/17 16:00 95.8 80 19 134/90 (105) 91 09/17/17 12:00 98.4 78 20 149/90 (109) 97 I/O 09/17/17 09/17/17 09/17/17 09/18/17 09/18/17 09/18/17 07:00 15:00 23:00 07:00 15:00 23:00 Intake Total 670 ml 300 ml 350 ml Balance 670 ml 300 ml 350 ml Intake Oral 320 ml 300 ml IV Total 350 ml 350 ml # Voids 3 1 2 # Bowel Movements 0 0 0 Result Diagram: 09/18/17 0558 09/18/1758 Other Results Laboratory Tests Test 09/15/17 17:30 09/16/17 04:27 09/16/17 05:22 09/16/17 13:57 Prothrombin Time 29.9 SEC 33.0 SEC Prothromb Time International Ratio 3.0 RATIO 3.3 RATIO Activated Partial Thromboplast Time 44.5 SEC White Blood Count 20.7 TH/MM3 Red Blood Count 3.68 MIL/MM3 Hemoglobin 10.1 GM/DL Hematocrit 32.0 % Mean Corpuscular Volume 86.8 FL Mean Corpuscular Hemoglobin 27.4 PG Mean Corpuscular Hemoglobin Concent 31.6 % Red Cell Distribution Width 29.1 % Platelet Count 360 TH/MM3 Mean Platelet Volume 9.0 FL Neutrophils (%) (Auto) 85.8 % Lymphocytes (%) (Auto) 6.0 % Monocytes (%) (Auto) 7.9 % Eosinophils (%) (Auto) 0.0 % Basophils (%) (Auto) 0.3 % Neutrophils # (Auto) 17.7 TH/MM3 Lymphocytes # (Auto) 1.2 TH/MM3 Monocytes # (Auto) 1.6 TH/MM3 Eosinophils # (Auto) 0.0 TH/MM3 Basophils # (Auto) 0.1 TH/MM3 CBC Comment AUTO DIFF Differential Total Cells Counted 100 Neutrophils % (Manual) 77 % Band Neutrophils % 11 % Lymphocytes % 7 % Monocytes % 5 % Neutrophils # (Manual) 18.2 TH/MM3 Differential Comment FINAL DIFF MANUAL Platelet Estimate NORMAL Platelet Morphology Comment NORMAL Ovalocytes 1+ Bromide Cells 1+ Acanthocytes 1+ Blood Urea Nitrogen 12 MG/DL Creatinine 0.46 MG/DL Random Glucose 93 MG/DL Calcium Level 9.0 MG/DL Phosphorus Level 2.3 MG/DL 2.6 MG/DL Magnesium Level 2.1 MG/DL Sodium Level 146 MEQ/L Potassium Level 3.7 MEQ/L Chloride Level 111 MEQ/L Carbon Dioxide Level 25.8 MEQ/L Anion Gap 9 MEQ/L Estimat Glomerular Filtration Rate 138 ML/MIN Vancomycin Level Trough 16.1 MCG/ML Test 09/17/17 03:28 09/17/17 03:38 09/18/17 05:58 Blood Urea Nitrogen 10 MG/DL 19 MG/DL Creatinine 0.66 MG/DL 0.80 MG/DL Random Glucose 125 MG/DL 106 MG/DL Calcium Level 9.2 MG/DL 9.5 MG/DL Sodium Level 143 MEQ/L 141 MEQ/L Potassium Level 3.3 MEQ/L 3.4 MEQ/L Chloride Level 106 MEQ/L 109 MEQ/L Carbon Dioxide Level 30.8 MEQ/L 25.8 MEQ/L Anion Gap 6 MEQ/L 6 MEQ/L Estimat Glomerular Filtration Rate 91 ML/MIN 73 ML/MIN White Blood Count 14.4 TH/MM3 9.6 TH/MM3 Red Blood Count 4.28 MIL/MM3 4.75 MIL/MM3 Hemoglobin 11.8 GM/DL 13.3 GM/DL Hematocrit 36.5 % 41.2 % Mean Corpuscular Volume 85.3 FL 86.6 FL Mean Corpuscular Hemoglobin 27.6 PG 27.9 PG Mean Corpuscular Hemoglobin Concent 32.4 % 32.2 % Red Cell Distribution Width 28.7 % 28.7 % Platelet Count 451 TH/MM3 521 TH/MM3 Mean Platelet Volume 9.0 FL 8.7 FL Prothrombin Time 27.1 SEC 25.6 SEC Prothrombin Time Control 10.9 SEC Prothromb Time International Ratio 2.7 RATIO 2.5 RATIO Activated Partial Thromboplast Time 42.2 SEC APTT Control 25.6 SEC Mix PT Normal Plasma Immediate 10.4 SEC Mix PT Normal Plasma 1 Hour 10.5 SEC Mix PT Patient/Normal 1:4 Immediate 10.7 SEC Mix PT Patient/Normal 1:1 Immediate 11.9 SEC Mix PT Patient/Normal 1:1 1 Hr 37c 12.0 SEC Mix PT Patient/Normal 4:1 Immediate 15.8 SEC Mix PT Patient Pre-Incubation 27.2 SEC Mix PTT Normal Plasma Immediate 25.0 SEC Mix PTT Normal Plasma 1 Hour 26.2 SEC Mix PTT Patient/Normal 1:4 Immed 25.5 SEC Mix PTT Patient/Normal 1:1 27.1 SEC Mix PTT Patient/Normal 1:1 1 Hr 37c 29.6 SEC Mix PTT Patient/Normal 4:1 Immed 32.0 SEC Mix PTT Patient Pre-Incubation 38.2 SEC Coagulation Factor Inhibitor Screen Imaging Last Impressions Lower Extremity Ultrasound 09/16/17 0000 Signed Impressions: Service Date/Time: Saturday, September 16, 2017 16:55 - CONCLUSION: Normal examination. Familia Hewitt MD Head CT 09/15/17 0600 Signed Impressions: Service Date/Time: Friday, September 15, 2017 09:16 - CONCLUSION: 1. Stable followup CT scan of the brain compared to the prior examination. No evidence of any focal or acute intracranial hemorrhage. 2. Stable Nonhemorrhagic left MCA infarct 3. Stable Nonhemorrhagic infarct involving the anterior right temporal lobe. Jeffery Dorsey MD Chest X-Ray 09/14/17 0229 Signed Impressions: Service Date/Time: September 03:03 - CONCLUSION: Non-consolidative infiltrates in the right lower lung. Lino Langford MD Carotid Artery Ultrasound 09/14/17 0000 Signed Impressions: Service Date/Time: September 14:49 - CONCLUSION: 1. Atherosclerotic plaquing of the bifurcations bilaterally. No hemodynamically significant carotid artery stenosis identified. Edward Gonzalez MD Brain MRI 09/14/17 0000 Signed Impressions: Service Date/Time: September 18:53 - CONCLUSION: 1. Large left MCA distribution subacute infarct associated with a hemosiderin deposits, probably petechial hemorrhage. 2. Small right anterior portion middle cerebral artery distribution infarct. Pansinus disease. Familia Hewitt MD Objective Remarks GENERAL: SKIN: Warm and dry. HEAD: Atraumatic. Normocephalic. EYES: Pupils equal and round. No scleral icterus. No injection or drainage. ENT: No nasal bleeding or discharge. Mucous membranes pink and moist. NECK: Trachea midline. No JVD. CARDIOVASCULAR: Regular rate and rhythm. RESPIRATORY: No accessory muscle use. Clear to auscultation. Breath sounds equal bilaterally. GASTROINTESTINAL: Abdomen soft, non-tender, nondistended. Hepatic and splenic margins not palpable. MUSCULOSKELETAL: Extremities without clubbing, cyanosis, or edema. No obvious deformities. NEUROLOGICAL: Awake and alert. No obvious cranial nerve deficits. Motor grossly within normal limits. Five out of 5 muscle strength in the arms and legs. Normal speech. PSYCHIATRIC: Appropriate mood and affect; insight and judgment normal. Medications and IVs Current Medications Sodium Chloride 1,000 ml @ 1,000 mls/hr Q1H ONCE IV Last administered on 09/14 02:35; Start 09/14/17 at 02:29; Stop 09/14/17 at 03:28; Status DC Sodium Chloride 800 ml @ 1,000 mls/hr Q48M ONCE IV Last administered on 02:35; Start 09/14/17 at 02:29; Stop 09/14/17 at 03:16; Status DC Albuterol/ Ipratropium (Duoneb Neb) 3 ampule ONCE ONCE NEB Last administered on 09/14/17 02:58; Start 09/14/17 at 02:30; Stop 09/14/17 at 02:31; Status DC Albuterol/ Ipratropium (Duoneb Neb) 1 ampule STK-MED ONCE .ROUTE ; Start at 02:31; Stop 09/14/17 at 02:32; Status DC Albuterol/ Ipratropium (Duoneb Neb) 2 ampule STK-MED ONCE .ROUTE ; Start at 02:32; Stop 09/14/17 at 02:33; Status DC Vancomycin HCl 1000 mg/Sodium Chloride 250 ml @ 250 mls/hr ONCE ONCE IV Last administered on 09/14/17 04:54; Start 09/14/17 at 04:00; Stop 09/14/17 at 05 :01; Status DC Piperacillin Sod/ Tazobactam Sod 100 ml @ 200 mls/hr ONCE ONCE IV Last administered on 09/14/17 03:56; Start 09/14/17 at 04:00; Stop 09/14/17 at 04 :29; Status DC Sodium Chloride (NS Flush) 2 ml UNSCH PRN IV FLUSH FLUSH AFTER USING IV ACCESS ; Start 09/14/17 at 04:45; Stop 09/14/17 at 06:40; Status DC Sodium Chloride (NS Flush) 2 ml BID IV FLUSH ; Start 09/14/17 at 09:00; Stop 09/14/17 at 09:00; Status DC Albuterol/ Ipratropium (Duoneb Neb) 1 ampule Q6HR NEB INH ; Start 09/14/17 at 10:00; Status Cancel Albuterol/ Ipratropium (Duoneb Neb) 1 ampule Q4HR NEB PRN INH SHORTNESS OF BREATH; Start 09/14/17 at 04:45; Status Cancel Acetaminophen (Tylenol) 650 mg Q4H PRN PO TEMPERATURE > 101 F; Start 09/14/17 at 04:45 Ondansetron HCl (Zofran Inj) 4 mg Q6H PRN IV PUSH NAUSEA; Start 09/14/17 at 04 :45; Status Cancel Cefepime HCl 2000 mg/Sodium Chloride 100 ml @ 200 mls/hr Q8H IV ; Start at 06:00; Stop 09/14/17 at 07:10; Status DC Azithromycin 500 mg/Sodium Chloride 250 ml @ 250 mls/hr Q24H IV Last administered on 09/18/17 04:48; Start 09/14/17 at 05:00 Atorvastatin Calcium (Lipitor) 40 mg HS PO ; Start 09/14/17 at 21:00; Status Cancel Atorvastatin Calcium (Lipitor) 40 mg HS PO Last administered on 09/17/17 22: 12; Start 09/14/17 at 21:00 Citalopram Hydrobromide (CeleXA) 10 mg DAILY PO ; Start 09/14/17 at 09:00; Status Cancel Citalopram Hydrobromide (CeleXA) 10 mg DAILY PO Last administered on 09:41; Start 09/14/17 at 09:00 Enoxaparin Sodium (Lovenox Inj) 40 mg Q12H SQ Last administered on 09/14/17 07:28; Start 09/14/17 at 06:00; Stop 09/14/17 at 09:10; Status DC Ferrous Sulfate (Ferrous Sulfate Liq) 300 mg BID PO Last administered on 22:12; Start 09/14/17 at 09:00 Pregabalin (Lyrica) 75 mg BID PO Last administered on 09/18/17 09:41; Start 09/14/17 at 09:00 Tramadol HCl (Ultram) 50 mg Q8H PRN PO PAIN SCALE 5 TO 10; Start 09/14/17 at 06:00 Warfarin Sodium (Coumadin) 2.5 mg DAILY@1600 PO Last administered on 17:08; Start 09/14/17 at 16:00; Stop 09/15/17 at 07:41; Status DC Budesonide/ Formoterol Fumarate (Symbicort 80-4.5 Mcg Inh) 2 puff BID INH Last administered on 09/18/17 09:40; Start 09/14/17 at 09:00 Sodium Chloride 1,000 ml @ 84 mls/hr [id number] IV Last administered on 04:56; Start 09/14/17 at 05:49; Stop 09/16/17 at 08:40; Status DC Sodium Chloride (NS Flush) 2 ml UNSCH PRN IV FLUSH FLUSH AFTER USING IV ACCESS ; Start 09/14/17 at 06:00 Sodium Chloride (NS Flush) 2 ml BID IV FLUSH Last administered on 09/18/17 09 :40; Start 09/14/17 at 09:00 Acetaminophen (Tylenol) 650 mg Q6H PRN PO PAIN 1-4 AND/OR FEVER >101F; Start 09/14/17 at 06:00 Famotidine (Pepcid Inj) 20 mg Q12HR IV PUSH Last administered on 09/18/17 09: 40; Start 09/14/17 at 09:00 Ondansetron HCl (Zofran Inj) 4 mg Q6H PRN IV PUSH NAUSEA OR VOMITING; Start at 06:00 Albuterol/ Ipratropium (Duoneb Neb) 1 ampule Q4HR NEB INH Last administered on 09/17/17 07:56; Start 09/14/17 at 08:00; Stop 09/17/17 at 10:15; Status DC Albuterol/ Ipratropium (Duoneb Neb) 1 ampule Q2HR NEB PRN INH WHEEZING Last administered on 09/16/17 06:15; Start 09/14/17 at 06:00 Miscellaneous Information 1 Q361D XX ; Start 09/14/17 at 06:00 Chlorhexidine Gluconate (Chlorhexidine 2% Cloth) 3 pack Taper DAILY@04 TOP Last administered on 09/17/17 04:00; Start 09/15/17 at 04:00; Stop 09/11/18 at 03:59 Chlorhexidine Gluconate (Chlorhexidine 2% Cloth) 3 pack UNSCH PRN TOP HYGIENIC CARE; Start 09/14/17 at 06:00 Senna/Docusate Sodium (Ann-Colace) 1 tab BID PO Last administered on 22:12; Start 09/14/17 at 09:00 Magnesium Hydroxide (Milk Of Magnesia Liq) 30 ml Q12H PRN PO Mild constipation ; Start 09/14/17 at 06:00 Sennosides (Senokot) 17.2 mg Q12H PRN PO Moderate constipation; Start at 06:00 Bisacodyl (Dulcolax Supp) 10 mg DAILY PRN RECTAL SEVERE CONSITIPATION; Start 09/14/17 at 06:00 Lactulose (Lactulose Liq) 30 ml DAILY PRN PO SEVERE CONSITIPATION; Start 09/14 at 06:00 Piperacillin Sod/ Tazobactam Sod 100 ml @ 200 mls/hr Q6H IV Last administered on 09/18/17 09:41; Start 09/14/17 at 10:00 Azithromycin 500 mg/Sodium Chloride 250 ml @ 250 mls/hr Q24H IV ; Start at 06:00; Status Cancel Vancomycin HCl 1000 mg/Sodium Chloride 250 ml @ 250 mls/hr Q12H IV ; Start at 06:00; Status Cancel Pharmacy Profile Note 0 ml @ 0 mls/hr UNSCH OTHER ; Start 09/14/17 at 06:00 Methylprednisolone Sodium Succinate (SoluMEDROL INJ) 40 mg Q12H IV PUSH Last administered on 09/18/17 04:48; Start 09/14/17 at 06:00 Pharmacy Profile Note 0 ml @ 0 mls/hr UNSCH OTHER ; Start 09/14/17 at 06:00 Patient Medication Teaching (Coumadin Booklet) 1 ONCE ONCE .XX ; Start at 16:00; Stop 09/14/17 at 16:01; Status DC Vancomycin HCl 1000 mg/Sodium Chloride 250 ml @ 250 mls/hr Q12H IV Last administered on 09/18/17 05:00; Start 09/14/17 at 17:00 Miscellaneous Information SPECIFIC LAB TO BE DRAWN:VANCOMYCIN TROUGH DATE TO... ONCE ONCE .XX Last administered on 09/16/17 04:28; Start 09/16/17 at 04:45 ; Stop 09/16/17 at 04:46; Status DC Dextrose (D50w (Vial) Inj) 50 ml UNSCH PRN IV PUSH HYPOGLYCEMIA-SEE COMMENTS; Start 09/14/17 at 13:30 Glucagon (Glucagon Inj) 1 mg UNSCH PRN OTHER HYPOGLYCEMIA-SEE COMMENTS; Start 09/14/17 at 13:30 Insulin Human Regular (NovoLIN R SUPPLEMENTAL SCALE) 1 Q6H SQ Last administered on 09/17/17 22:23; Start 09/14/17 at 13:30 Potassium Chloride 100 ml @ 50 mls/hr Q2H PRN IV For Potassium 2.8 - 3.2 mEq/L ; Start 09/14/17 at 13:30; Stop 09/17/17 at 15:33; Status DC Potassium Chloride 100 ml @ 50 mls/hr Q2H PRN IV For Potassium 2.8 - 3.2 mEq/ L Last administered on 09/17/17 08:44; Start 09/14/17 at 13:30; Stop at 15:33; Status DC Potassium Bicarb/ Potassium Chloride (K-Lyte Cl Eff) 50 meq UNSCH PRN PO For Potassium 3.3 - 3.5 mEq/L; Start 09/14/17 at 13:30; Stop 09/17/17 at 15:33; Status DC Potassium Chloride 100 ml @ 25 mls/hr UNSCH PRN IV For Potassium 3.3 - 3.5 mEq /L; Start 09/14/17 at 13:30; Stop 09/17/17 at 15:33; Status DC Potassium Chloride 100 ml @ 50 mls/hr Q2H PRN IV For Potassium 3.3 - 3.5 mEq/L ; Start 09/14/17 at 13:30; Stop 09/17/17 at 15:33; Status DC Magnesium Sulfate 4 gm/Sodium Chloride 100 ml @ 50 mls/hr UNSCH PRN IV For Magnesium 0.9 - 1.1 mg/dL; Start 09/14/17 at 13:30; Stop 09/17/17 at 15:33; Status DC Magnesium Oxide (Mag-Ox) 800 mg UNSCH PRN PO For Magnesium 1.2 - 1.6 mg/dL; Start 09/14/17 at 13:30; Stop 09/17/17 at 15:33; Status DC Magnesium Sulfate 2 gm/Sodium Chloride 100 ml @ 50 mls/hr UNSCH PRN IV For Magnesium 1.2 - 1.6 mg/dL; Start 09/14/17 at 13:30; Stop 09/17/17 at 15:33; Status DC Potassium Phosphate (K-Phos) 2,000 mg Q4H PRN PO For Phosphorus < 2.5 mg/dL; Start 09/14/17 at 13:30; Stop 09/17/17 at 15:33; Status DC Sodium Phosphate 30 mmol/Sodium Chloride 250 ml @ 42 mls/hr UNSCH PRN IV For Phosphorus < 2.5 mg/dL; Start 09/14/17 at 13:30; Stop 09/17/17 at 15:33; Status DC Potassium Phosphate (K-Phos) 2,000 mg UNSCH PRN PO/TUBE SEE LABEL COMMENTS; Start 09/14/17 at 13:30; Stop 09/17/17 at 15:33; Status DC Potassium Phosphate 30 mmol/ Sodium Chloride 260 ml @ 42 mls/hr UNSCH PRN IV SEE LABEL COMMENTS Last administered on 09/15/17 16:06; Start 09/14/17 at 13: 30; Stop 09/17/17 at 15:33; Status DC Sodium Chloride 1,000 ml @ 999 mls/hr BOLUS ONCE IV Last administered on 17:08; Start 09/14/17 at 14:30; Stop 09/14/17 at 15:30; Status DC Sodium Chloride 500 ml @ 500 mls/hr BOLUS ONCE IV ; Start 09/14/17 at 17:00; Stop 09/14/17 at 18:02; Status DC Furosemide (Lasix Inj) 40 mg STAT ONCE IV PUSH Last administered on 09:17; Start 09/16/17 at 08:30; Stop 09/16/17 at 09:00; Status DC Midazolam HCl (Versed Inj) 2 mg STAT ONCE IV PUSH Last administered on 09:16; Start 09/16/17 at 08:30; Stop 09/16/17 at 09:01; Status DC Metoprolol Tartrate (Lopressor Inj) 5 mg STAT ONCE IV PUSH Last administered on 09/16/17 08:45; Start 09/16/17 at 08:45; Stop 09/16/17 at 09:00; Status DC Olanzapine (ZyPREXA ZYDIS ODT) 5 mg Q8H PRN PO anxiety; Start 09/16/17 at 08: 45 Miscellaneous Information SPECIFIC LAB TO BE ... ONCE ONCE .XX ; Start at 04:45; Stop 09/18/17 at 04:46; Status DC Albuterol/ Ipratropium (Duoneb Neb) 1 ampule Q4HR NEB INH Last administered on 09/18/17 07:38; Start 09/17/17 at 12:00 Acetazolamide Sodium (Diamox Inj) 500 mg Q12H IV PUSH Last administered on 22:48; Start 09/17/17 at 11:00; Stop 09/17/17 at 23:01; Status DC Furosemide (Lasix Inj) 40 mg ONCE ONCE IV PUSH Last administered on 11:11; Start 09/17/17 at 10:15; Stop 09/17/17 at 10:16; Status DC Warfarin Sodium (Coumadin) 3 mg DAILY@16 PO ; Start 09/17/17 at 16:00; Stop at 16:00; Status DC Warfarin Sodium (Coumadin) 2.5 mg DAILY@1600 PO Last administered on 16:00; Start 09/17/17 at 16:00 A/P Assessment and Plan Assessment and Plan Assessment: 62yF with COPD and recurrent subacute large distribution strokes, now with COPD exacerbation, healthcare associated pneumonia, likely hypercoagulable state, anxiety. Clinically much improved from yesterday. stable for transfer to floor. Neuro: Left MCA subacute infract s/p Left MCA acute infarct with a thrombus in the distal M1 and proximal M2 branches s/p TPA in July. Right frontal/MCA subacute infarct Anxiety Depression Monitor neuro status. Awake and alert. zyprexa 5mg po q8h prn for agitation or anxiety (less sedating and less resp depression than benzodiazepines) MRI brain: Large left MCA distribution subacute infarct associated with a hemosiderin deposits, probably petechial hemorrhage. Small right anterior portion middle cerebral artery distribution infarct CT brain: There is evidence of left MCA infarction, nonhemorrhagic Carotid Doppler US: Atherosclerotic plaquing of the bifurcations bilaterally. No hemodynamically significant carotid artery stenosis identified. Repeat CT brain today-.No evidence of any focal or acute intracranial hemorrhage. . Stable Nonhemorrhagic left MCA infarct. Stable Nonhemorrhagic infarct involving the anterior right temporal lobe. Neuro is following- Dr. Rodgers Patient is in normal sinus rhythm, echo showed nl EF 60-65%, no thrombus seen., Carotid US: No stenosis s/p Left MCA acute infarct with a thrombus in the distal M1 and proximal M2 branches s/p TPA in July. Unclear etiology. Lupus anticoagulant, DANIEL: pending. CV: Hypertension Sinus tachycardia Monitor HR and BP keep MAP>65mmHg metoprolol 5mg iv x 1 for tachycardia in the setting of respiratory distress and anxiety. Pulm: Acute hypercarbic respiratory failure - resolving. COPD Exacerbation Continue with oxygen keep sat >90% Bronchodilators, on Solumederol 40mg Q12 : Acute intravascular volume overload - improving. metabolic alkalosis Monitor renal function, electrolytes replacement per protocol. saline lock ivf: appears slightly volume overloaded. Lasix 40mg iv x 1 again today diamox 500mg iv q12 x 2 doses for metabolic alkalosis. GI: Acute protein calorie malnutrition- moderate On PO diet daily bmp ID: Healthcare associated pneumonia continue vancomycin zosyn, azithromycin. (started 09/14). narrow spectrum based on available culture data. Culture data: 09/14 Bl Cx: NGTD 09/14 Urine Cx: gram variable sam Check strep pneumonia and Legionella urinary ag Heme: Coumadin coagulopathy- supratherapeutic INR Anemia secondary to chronic disease daily cbc, coags continue to hold coumadin. Endo: Hyperglycemia of critical illness SSI for glycemic control GI prophylaxis- on Pepcid DVT prophylaxis- INR 6.8, Coumadin held. SCDs WILL GET AM LABS JOSELO RN AND PT AND DAUGHTER Discharge Planning WILL NEED SNF [facility] [place] Vernon Schultz DO Sep 18, 2017 11:27
[2017-09-18] MEDS ORDERED: RESP: ALBUTEROL 2.5 MG/IPRATROPIUM 0.5 MG NEB (PRN) NEB (11:30)
--- NOTE | 2017-09-18 11:59 | PD.ONC.PN ---
Subjective Subjective Remarks Afebrile overnight. Patient resting in bed. Waiting to go down for MARIA ELENA. Daughter at bedside. Objective Data Date Time Temp Pulse Resp B/P (MAP) Pulse Ox O2 Delivery O2 Flow Rate FiO2 09/18/17 08:00 97.6 55 17 117/75 (89) 97 09/18/17 07:39 99 Nasal Cannula 3.00 09/18/17 04:29 09/18/17 01:24 93 Nasal Cannula 4.00 09/18/17 00:00 98.1 73 16 125/77 (93) 93 09/17/17 23:15 16 09/17/17 21:42 97.7 97 20 147/90 (109) 91 09/17/17 21:17 98 Nasal Cannula 4.00 09/17/17 18:28 80 09/17/17 18:26 3.00 09/17/17 16:00 95.8 80 19 134/90 (105) 91 09/17/17 12:00 98.4 78 20 149/90 (109) 97 09/18/17 09/18/17 09/18/17 07:00 15:00 23:00 Intake Total 350 ml Balance 350 ml Result Diagram: 09/18/17 0558 09/18/17 0558 Laboratory Results Laboratory Tests Test 09/18/17 05:58 White Blood Count 9.6 TH/MM3 Red Blood Count 4.75 MIL/MM3 Hemoglobin 13.3 GM/DL Hematocrit 41.2 % Mean Corpuscular Volume 86.6 FL Mean Corpuscular Hemoglobin 27.9 PG Mean Corpuscular Hemoglobin Concent 32.2 % Red Cell Distribution Width 28.7 % Platelet Count 521 TH/MM3 Mean Platelet Volume 8.7 FL Prothrombin Time 25.6 SEC Prothromb Time International Ratio 2.5 RATIO Blood Urea Nitrogen 19 MG/DL Creatinine 0.80 MG/DL Random Glucose 106 MG/DL Calcium Level 9.5 MG/DL Sodium Level 141 MEQ/L Potassium Level 3.4 MEQ/L Chloride Level 109 MEQ/L Carbon Dioxide Level 25.8 MEQ/L Anion Gap 6 MEQ/L Estimat Glomerular Filtration Rate 73 ML/MIN Administered Medications Medications (Trade) Dose Ordered Sig/Anthony Route PRN Reason Start Time Stop Time Status Last Admin Dose Admin Azithromycin 500 mg/Sodium Chloride 250 ml @ 250 mls/hr Q24H IV 09/14/17 05:00 09/18/17 04:48 Atorvastatin Calcium (Lipitor) 40 mg HS PO 09/14/17 21:00 09/17/17 22:12 Citalopram Hydrobromide (CeleXA) 10 mg DAILY PO 09/14/17 09:00 09/18/17 09:41 Ferrous Sulfate (Ferrous Sulfate Liq) 300 mg BID PO 09/14/17 09:00 09/17/17 22:12 Pregabalin (Lyrica) 75 mg BID PO 09/14/17 09:00 09/18/17 09:41 Budesonide/ Formoterol Fumarate (Symbicort 80-4.5 Mcg Inh) 2 puff BID INH 09/14/17 09:00 09/18/17 09:40 Sodium Chloride (NS Flush) 2 ml BID IV FLUSH 09/14/17 09:00 09/18/17 09:40 Famotidine (Pepcid Inj) 20 mg Q12HR IV PUSH 09/14/17 09:00 09/18/17 09:40 Albuterol/ Ipratropium (Duoneb Neb) 1 ampule Q2HR NEB PRN INH WHEEZING 09/14/17 06:00 09/16/17 06:15 Chlorhexidine Gluconate (Chlorhexidine 2% Cloth) 3 pack Taper DAILY@04 TOP 09/15/17 04:00 09/11/18 03:59 09/17/17 04:00 Senna/Docusate Sodium (Ann-Colace) 1 tab BID PO 09/14/17 09:00 09/17/17 22:12 Piperacillin Sod/ Tazobactam Sod 100 ml @ 200 mls/hr Q6H IV 09/14/17 10:00 09/18/17 09:41 Methylprednisolone Sodium Succinate (SoluMEDROL INJ) 40 mg Q12H IV PUSH 09/14/17 06:00 09/18/17 04:48 Vancomycin HCl 1000 mg/Sodium Chloride 250 ml @ 250 mls/hr Q12H IV 09/14/17 17:00 09/18/17 05:00 Insulin Human Regular (NovoLIN R SUPPLEMENTAL SCALE) 1 Q6H SQ 09/14/17 13:30 09/17/17 22:23 Albuterol/ Ipratropium (Duoneb Neb) 1 ampule Q4HR NEB INH 09/17/17 12:00 09/18/17 11:50 Warfarin Sodium (Coumadin) 2.5 mg DAILY@1600 PO 09/17/17 16:00 09/17/17 16:00 Objective Remarks GENERAL: Middle aged female lying in bed on 3L O2 via NC SKIN: Warm and dry. HEAD: Normocephalic. EYES: No injection or drainage. NECK: Supple, trachea midline. CARDIOVASCULAR: Regular rate and rhythm RESPIRATORY: Breath sounds equal bilaterally. No accessory muscle use. GASTROINTESTINAL: Abdomen soft, non-tender, nondistended. EXTREMITIES: No cyanosis NEUROLOGICAL: awake and alert, normal speech. Assessment/Plan Problem List: (1) Acute ischemic left MCA stroke ICD Codes: I63.512 - Cerebral infarction due to unspecified occlusion or stenosis of left middle cerebral artery Plan: -- Patient has history of pulmonary embolism and is therapeutic on Coumadin -- Presented as a stroke alert in 2016 and received TPA at that time and then ultimately admitted to [facility]. -- Was previously dosed at 6mg po daily. -- This admission she had a remote left MCA ischemic stroke and radiographic evidence of a new right anterior MCA stroke with her dysphasia. -- Concern for paradoxical embolism. -- cardiology following, MARIA ELENA planned for 09/18 -- Will exclude possibility of the high risk thrombophilia such as homozygosity for Factor V Leiden or double heterozygosity for Factor V Leiden and prothrombin gene mutation. A lupus anticoagulant and antiphospholipid antibody will be excluded. Assessment 62 -year-old female with history of pulmonary embolism and recurrent strokes; possibility for paradoxical embolism Plan 1. await MARIA ELENA 2. monitor CBC/INR Attending Statement The exam, history, and the medical decision-making described in the above note were completed with the assistance of the mid-level provider. I reviewed and agree with the findings presented. I attest that I had a [id number] encounter with the patient on the same day, and personally performed and documented my assessment and findings in the medical record. Pt seen and examined. Skin senile purpura, areas of tears with band-aid. INR therapeutic, cont Coumadin 3mg daily. Monitor pt/inr. 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 APA, FVL, and PT gene mutation still pending. Desiree Maki Sep 18, 2017 11:59 Polly Adhikari MD Sep 18, 2017 17:55
[2017-09-18] MEDS ORDERED: PROPOFOL 200 MG/20 ML AMP ONE (14:16)
[2017-09-18 14:44] LABS: MAGNESIUM 2.4 MG/DL (1.5-2.5)
--- NOTE | 2017-09-18 15:39 | ECHRPT ---
Indication: cva/tia CONCLUSIONS BP: / HR: Rhythm: Technical Quality:Good Medications Complications Proc. Components FINDINGS LEFT VENTRICLE Normal left ventricular size. Mild concentric left ventricular hypertrophy. The left ventricular systolic function is normal with an estimated ejection fraction in the range of 55-60%. RIGHT VENTRICLE Normal right ventricular size and systolic function. LEFT ATRIUM The left atrial size is normal. RIGHT ATRIUM The right atrial size is normal. ATRIAL APPENDAGES Normal left atrial appendage size with no evidence of thrombus formation. ATRIAL SEPTUM Normal atrial septal thickness without atrial level shunting by limited color doppler interrogation. AORTA The aortic root and proximal ascending aorta are normal in size on limited imaging. MITRAL VALVE Structurally normal mitral valve. Trace mitral valve regurgitation. No mitral valve stenosis. AORTIC VALVE Trileaflet aortic valve. No aortic valve stenosis or regurgitation. TRICUSPID VALVE Structurally normal tricuspid valve. No tricuspid valve stenosis or regurgitation. VESSELS The inferior vena cava is normal in size. PULMONARY VALVE The pulmonary valve is not well visualized. PERICADIUM No pericardial effusion. Jose Martin Lopez MD, FACC (Electronically Signed) Final Date:18 September 2017 15:38
[2017-09-18] MEDS: WARFARIN SOD 2.5 MG TAB PO SCH (16:40)
[2017-09-18] MEDS: POTASSIUM CHLORIDE 25 MEQ EFFERVESCENT TAB PO SCH (21:00)
[2017-09-18] MEDS: ATORVASTATIN 40 MG TAB PO SCH (21:00)
[2017-09-18] MEDS: ASCORBIC ACID 500 MG TAB PO SCH (21:01)
[2017-09-19] VITALS: BP 112/76; PULSE 76; RESP 20; TEMP 95.6; O2SAT 95
[2017-09-19 00:25] VITALS: O2SAT 98
[2017-09-19] MEDS: RESP: ALBUTEROL 2.5 MG/IPRATROPIUM 0.5 MG NEB (SCH) INH ×5 (00:25→15:12)
[2017-09-19] MEDS: INSULIN NovoLIN REGULAR SUPPLEMENTAL SCALE SQ SCH ×3 (01:50→13:30)
[2017-09-19] MEDS: CHLORHEXIDINE GLUCONATE 2 % 1 PACK (2 CLOTHS) TOP SCH (03:51)
[2017-09-19] MEDS: PIPERACIL-TAZO 4.5 GM PREMIX 100 ML IV SCH ×3 (04:02→16:00)
[2017-09-19] MEDS ORDERED: VANCOMYCIN INJ 750 MG in SODIUM CHLOR 0.9% 250 ML INJ 250 ML IV SCH ×2 (05:00→08:00)
[2017-09-19] MEDS: AZITHROMYCIN INJ 500 MG in SODIUM CHLOR 0.9% 250 ML INJ 250 ML IV SCH (06:30)
[2017-09-19] MEDS: methylPREDNISolone SOD SUCC 40 MG/1 ML VIAL IV PUSH SCH (06:30)
[2017-09-19 07:54] VITALS: O2SAT 95
[2017-09-19 08:00] VITALS: BP 119/75; PULSE 68; RESP 17; TEMP 96.1; O2SAT 95
--- NOTE | 2017-09-19 08:05 | PD.CARD.PN ---
Subjective Subjective Remarks no events Objective Medications Current Medications Medications (Trade) Dose Ordered Sig/Anthony Route Start Time Stop Time Status Last Admin (Tylenol) 650 mg Q4H PRN PO 09/14/17 04:45 Azithromycin 500 mg/Sodium Chloride 250 ml @ 250 mls/hr Q24H IV 09/14/17 05:00 09/19/17 06:30 (Lipitor) 40 mg HS PO 09/14/17 21:00 09/18/17 21:00 (CeleXA) 10 mg DAILY PO 09/14/17 09:00 09/18/17 09:41 (Ferrous Sulfate Liq) 300 mg BID PO 09/14/17 09:00 09/17/17 22:12 (Lyrica) 75 mg BID PO 09/14/17 09:00 09/18/17 21:01 (Ultram) 50 mg Q8H PRN PO 09/14/17 06:00 (NS Flush) 2 ml UNSCH PRN IV FLUSH 09/14/17 06:00 (NS Flush) 2 ml BID IV FLUSH 09/14/17 09:00 09/18/17 20:57 (Tylenol) 650 mg Q6H PRN PO 09/14/17 06:00 (Pepcid Inj) 20 mg Q12HR IV PUSH 09/14/17 09:00 09/18/17 20:58 (Zofran Inj) 4 mg Q6H PRN IV PUSH 09/14/17 06:00 (Duoneb Neb) 1 ampule Q2HR NEB PRN INH 09/14/17 06:00 09/16/17 06:15 Miscellaneous Information 1 Q361D XX 09/14/17 06:00 (Chlorhexidine 2% Cloth) 3 pack Taper DAILY@04 TOP 09/15/17 04:00 09/11/18 03:59 09/17/17 04:00 (Chlorhexidine 2% Cloth) 3 pack UNSCH PRN TOP 09/14/17 06:00 (Ann-Colace) 1 tab BID PO 09/14/17 09:00 09/17/17 22:12 (Milk Of Magnesia Liq) 30 ml Q12H PRN PO 09/14/17 06:00 (Senokot) 17.2 mg Q12H PRN PO 09/14/17 06:00 (Dulcolax Supp) 10 mg DAILY PRN RECTAL 09/14/17 06:00 (Lactulose Liq) 30 ml DAILY PRN PO 09/14/17 06:00 Piperacillin Sod/ Tazobactam Sod 100 ml @ 200 mls/hr Q6H IV 09/14/17 10:00 09/19/17 04:02 Pharmacy Profile Note 0 ml @ 0 mls/hr UNSCH OTHER 09/14/17 06:00 (SoluMEDROL INJ) 40 mg Q12H IV PUSH 09/14/17 06:00 09/19/17 06:30 Pharmacy Profile Note 0 ml @ 0 mls/hr UNSCH OTHER 09/14/17 06:00 (D50w (Vial) Inj) 50 ml UNSCH PRN IV PUSH 09/14/17 13:30 (Glucagon Inj) 1 mg UNSCH PRN OTHER 09/14/17 13:30 (NovoLIN R SUPPLEMENTAL SCALE) 1 Q6H SQ 09/14/17 13:30 09/19/17 01:50 (ZyPREXA ZYDIS ODT) 5 mg Q8H PRN PO 09/16/17 08:45 (Duoneb Neb) 1 ampule Q4HR NEB INH 09/17/17 12:00 09/19/17 07:53 (Coumadin) 2.5 mg DAILY@1600 PO 09/17/17 16:00 09/18/17 16:40 (Vitamin C) 500 mg BID PO 09/18/17 21:00 09/18/17 21:01 (Pepcid) 20 mg DAILY PO 09/19/17 09:00 (Lidoderm 5% Patch.12 Hr) 1 patch DAILY T-DERMAL 09/19/17 09:00 (Theragran) 1 tab DAILY PO 09/19/17 09:00 (Duoneb Neb) 1 ampule Q2HR NEB PRN NEB 09/18/17 11:30 (Symbicort 80-4.5 Mcg Inh) 2 puff BID INH 09/18/17 21:00 09/18/17 20:56 (K-Lyte Cl Eff) 25 meq BID PO 09/18/17 21:00 09/18/17 21:00 Vancomycin HCl 750 mg/Sodium Chloride 250 ml @ 250 mls/hr Q12H IV 09/19/17 08:00 Vital Signs / I&O Vital Signs Date Time Temp Pulse Resp B/P (MAP) Pulse Ox O2 Delivery O2 Flow Rate FiO2 09/19/17 07:54 95 09/19/17 00:25 98 09/19/17 00:00 95.6 76 20 112/76 (88) 95 09/18/17 20:00 Nasal Cannula 3.00 09/18/17 20:00 97.8 80 20 119/65 (83) 91 09/18/17 16:49 93 Nasal Cannula 3.00 09/18/17 16:00 97.1 77 17 124/80 (95) 96 09/18/17 12:00 98.1 73 17 119/73 (88) 95 09/18/17 09:47 Nasal Cannula 3.00 I/O 09/18/17 09/18/17 09/18/17 09/19/17 09/19/17 09/19/17 07:00 15:00 23:00 07:00 15:00 23:00 Intake Total 350 ml 1330 ml 240 ml Balance 350 ml 1330 ml 240 ml Intake Oral 980 ml 240 ml IV Total 350 ml 350 ml # Voids 2 5 2 # Bowel Movements 0 1 Physical Exam NECK: Supple, trachea midline. No JVD or lymphadenopathy. CARDIOVASCULAR: Regular rate and rhythm without murmurs, gallops, or rubs. RESPIRATORY: Breath sounds equal bilaterally. No accessory muscle use. GASTROINTESTINAL: Abdomen soft, non-tender, nondistended. Laboratory Laboratory Tests Test 09/18/17 16:49 Vancomycin Level Trough 21.5 MCG/ML Assessment and Plan Problem List: (1) COPD (chronic obstructive pulmonary disease) ICD Codes: J44.9 - Chronic obstructive pulmonary disease, unspecified Status: Chronic (2) Acute ischemic left MCA stroke ICD Codes: I63.512 - Cerebral infarction due to unspecified occlusion or stenosis of left middle cerebral artery (3) Hypotension ICD Codes: I95.9 - Hypotension, unspecified Assessment and Plan MARIA ELENA - negative for cardioembolic source consider outpatient event monitor mgt per neuro will sign off call with questions Jose Martin Lopez MD Sep 19, 2017 08:05
[2017-09-19] MEDS: BUDESONIDE-FORMOTEROL 80/4.5 MCG INHALER INH SCH (08:58)
[2017-09-19] MEDS ORDERED: FAMOTIDINE 20 MG TAB PO SCH (09:00)
[2017-09-19] MEDS ORDERED: LIDOCAINE HCL 5% PATCH T-DERMAL SCH (09:00)
[2017-09-19] MEDS: POTASSIUM CHLORIDE 25 MEQ EFFERVESCENT TAB PO SCH (09:00)
[2017-09-19] MEDS: SODIUM CHLORIDE 0.9% FLUSH 10 ML FLUSH IV FLUSH SCH (09:00)
[2017-09-19] MEDS ORDERED: MULTIVITAMIN TAB PO SCH (09:00)
[2017-09-19] MEDS: DOCUSATE SODIUM 50 MG/SENNA 8.6 MG TAB PO SCH (09:00)
[2017-09-19] MEDS: FERROUS SULFATE 300 MG /5ML UDC PO SCH (09:00)
[2017-09-19] MEDS: PREGABALIN 75 MG CAP PO SCH (09:01)
[2017-09-19] MEDS: CITALOPRAM HYDROBROMIDE 20 MG TAB PO SCH (09:01)
[2017-09-19] MEDS: FAMOTIDINE 20 MG/2 ML VIAL IV PUSH SCH (09:01)
[2017-09-19] MEDS: ASCORBIC ACID 500 MG TAB PO SCH (09:02)
[2017-09-19 09:08] LABS: INTERNATIONAL NORMALIZED RATIO 2.7 RATIO; PROTHROMBIN TIME - PATIENT 26.8 SEC (9.8-11.6)
[2017-09-19 09:11] LABS: HEMATOCRIT 35.8 % (35.0-46.0); MEAN CELL VOLUME 86.5 FL (80.0-100.0); MEAN CORPUSCULAR HGB CONC 32.4 % (32.0-36.0); PLATELET COUNT 538 TH/MM3 (150-450); RED BLOOD COUNT 4.14 MIL/MM3 (4.00-5.30); RED CELL DISTRIBUTION WIDTH 28.4 % (11.6-17.2); WHITE BLOOD COUNT 8.8 TH/MM3 (4.0-11.0)
[2017-09-19 09:27] LABS: BICARBONATE 18.8 MEQ/L (21.0-32.0); POTASSIUM 3.1 MEQ/L (3.5-5.1)
[2017-09-19 09:29] LABS: REVIEW FLAG FINAL
--- NOTE | 2017-09-19 11:22 | PD.ONC.PN ---
Subjective Subjective Remarks Afebrile overnight. Patient resting in bed in nad. No complaints. Objective Data Date Time Temp Pulse Resp B/P (MAP) Pulse Ox O2 Delivery O2 Flow Rate FiO2 09/19/17 09:58 18 09/19/17 08:00 96.1 68 17 119/75 (90) 95 09/19/17 07:54 95 09/19/17 00:25 98 09/19/17 00:00 95.6 76 20 112/76 (88) 95 09/18/17 20:00 Nasal Cannula 3.00 09/18/17 20:00 97.8 80 20 119/65 (83) 91 09/18/17 16:49 93 Nasal Cannula 3.00 09/18/17 16:00 97.1 77 17 124/80 (95) 96 09/18/17 12:00 98.1 73 17 119/73 (88) 95 09/19/17 09/19/17 09/19/17 07:00 15:00 23:00 Intake Total 240 ml Balance 240 ml Result Diagram: 09/19/17 0726 09/19/17 0726 Laboratory Results Laboratory Tests Test 09/18/17 16:49 09/19/17 07:26 Vancomycin Level Trough 21.5 MCG/ML White Blood Count 8.8 TH/MM3 Red Blood Count 4.14 MIL/MM3 Hemoglobin 11.6 GM/DL Hematocrit 35.8 % Mean Corpuscular Volume 86.5 FL Mean Corpuscular Hemoglobin 28.0 PG Mean Corpuscular Hemoglobin Concent 32.4 % Red Cell Distribution Width 28.4 % Platelet Count 538 TH/MM3 Mean Platelet Volume 8.9 FL Prothrombin Time 26.8 SEC Prothromb Time International Ratio 2.7 RATIO Blood Urea Nitrogen 16 MG/DL Creatinine 0.76 MG/DL Random Glucose 92 MG/DL Calcium Level 8.9 MG/DL Sodium Level 146 MEQ/L Potassium Level 3.1 MEQ/L Chloride Level 114 MEQ/L Carbon Dioxide Level 18.8 MEQ/L Anion Gap 13 MEQ/L Estimat Glomerular Filtration Rate 77 ML/MIN Administered Medications Medications (Trade) Dose Ordered Sig/Anthony Route PRN Reason Start Time Stop Time Status Last Admin Dose Admin Azithromycin 500 mg/Sodium Chloride 250 ml @ 250 mls/hr Q24H IV 09/14/17 05:00 09/19/17 06:30 Atorvastatin Calcium (Lipitor) 40 mg HS PO 09/14/17 21:00 09/18/17 21:00 Citalopram Hydrobromide (CeleXA) 10 mg DAILY PO 09/14/17 09:00 09/19/17 09:01 Ferrous Sulfate (Ferrous Sulfate Liq) 300 mg BID PO 09/14/17 09:00 09/17/17 22:12 Pregabalin (Lyrica) 75 mg BID PO 09/14/17 09:00 09/19/17 09:01 Sodium Chloride (NS Flush) 2 ml BID IV FLUSH 09/14/17 09:00 09/19/17 09:00 Famotidine (Pepcid Inj) 20 mg Q12HR IV PUSH 09/14/17 09:00 09/19/17 09:01 Albuterol/ Ipratropium (Duoneb Neb) 1 ampule Q2HR NEB PRN INH WHEEZING 09/14/17 06:00 09/16/17 06:15 Chlorhexidine Gluconate (Chlorhexidine 2% Cloth) 3 pack Taper DAILY@04 TOP 09/15/17 04:00 09/11/18 03:59 09/17/17 04:00 Senna/Docusate Sodium (Ann-Colace) 1 tab BID PO 09/14/17 09:00 09/17/17 22:12 Piperacillin Sod/ Tazobactam Sod 100 ml @ 200 mls/hr Q6H IV 09/14/17 10:00 09/19/17 09:57 Methylprednisolone Sodium Succinate (SoluMEDROL INJ) 40 mg Q12H IV PUSH 09/14/17 06:00 09/19/17 06:30 Insulin Human Regular (NovoLIN R SUPPLEMENTAL SCALE) 1 Q6H SQ 09/14/17 13:30 09/19/17 01:50 Albuterol/ Ipratropium (Duoneb Neb) 1 ampule Q4HR NEB INH 09/17/17 12:00 09/19/17 07:53 Ascorbic Acid (Vitamin C) 500 mg BID PO 09/18/17 21:00 09/19/17 09:02 Famotidine (Pepcid) 20 mg DAILY PO 09/19/17 09:00 09/19/17 09:02 Multivitamins (Theragran) 1 tab DAILY PO 09/19/17 09:00 09/19/17 09:02 Budesonide/ Formoterol Fumarate (Symbicort 80-4.5 Mcg Inh) 2 puff BID INH 09/18/17 21:00 09/19/17 08:58 Potassium Bicarb/ Potassium Chloride (K-Lyte Cl Eff) 25 meq BID PO 09/18/17 21:00 09/19/17 09:00 Vancomycin HCl 750 mg/Sodium Chloride 250 ml @ 250 mls/hr Q12H IV 09/19/17 08:00 09/19/17 08:09 Objective Remarks GENERAL: Middle aged female upright in bed, on 3L O2 via NC SKIN: Warm and dry. HEAD: Normocephalic. EYES: No injection or drainage. NECK: Supple, trachea midline. CARDIOVASCULAR: Regular rate and rhythm RESPIRATORY: Breath sounds equal bilaterally. No accessory muscle use. GASTROINTESTINAL: Abdomen soft, non-tender, nondistended. EXTREMITIES: No cyanosis NEUROLOGICAL: awake and alert, normal speech. Assessment/Plan Problem List: (1) Acute ischemic left MCA stroke ICD Codes: I63.512 - Cerebral infarction due to unspecified occlusion or stenosis of left middle cerebral artery Plan: -- Patient has history of pulmonary embolism and is therapeutic on Coumadin -- Presented as a stroke alert in 2017 and received TPA at that time and then ultimately admitted to [place]. -- This admission she had a remote left MCA ischemic stroke and radiographic evidence of a new right anterior MCA stroke with her dysphasia. -- cardiology following, s/p MARIA ELENA on 09/18 which was negative for cardioembolic source. -- will arrange follow up in clinic to exclude possibility of the high risk thrombophilia such as homozygosity for Factor V Leiden or double heterozygosity for Factor V Leiden and prothrombin gene mutation as well as lupus anticoagulant and antiphospholipid antibody Assessment 62 -year-old female with history of pulmonary embolism and recurrent strokes; possibility for paradoxical embolism Plan 1. continue coumadin--patient therapeutic. 2. hematology will sign off. Patient to follow up in clinic once discharged 3. face sheet faxed to new patient referrals. Desiree Maki Sep 19, 2017 11:22
[2017-09-19 12:00] VITALS: BP 111/69; PULSE 84; RESP 17; TEMP 96.3; O2SAT 91
--- NOTE | 2017-09-19 12:04 | HHI.FF ---
Face to Face Verification Diagnosis: (1) Acute ischemic left MCA stroke (2) COPD (chronic obstructive pulmonary disease) (3) Healthcare-associated pneumonia (4) COPD with exacerbation (5) Anemia (6) Bronchitis (7) Hemiparesis of right dominant side (8) CVA (cerebral vascular accident) Physical Therapy Order: Evaluate and Treat, Improve ambulation, Strength and gait training Occupational Therapy Order: Evaluate and Treat, Improve ADL, Gross motor coordination, Fine motor coordination Home Health Nursing Order: Medical education Oxygen administration education Nursing assessment with vital signs Home Health Aide Order: To Assist In: Bathing and personal care, rod cup filler and meal prep Community Liaison Order: To Evaluate: Living conditions/environment, Support services Order: To Provide: Long range planning, Community services I have seen patient Becca Gaitan on 09/19/17. My clinical findings support the need for the requested home health care services because: Deconditioned w/ increased weakness Med compliance is questionable Limited ability to care for self Need for psychosocial assistance Impaired cognition/judgement I certify that my clinical findings support that this patient is homebound because: Impaired cognitive ability/safety Hx COPD- exertion dyspnea/weakness Unsteady gait/balance Unsafe to leave home unassisted Need for psychosocial assistance Vernon Schultz DO Sep 19, 2017 12:04
--- NOTE | 2017-09-19 12:12 | HHI.PR ---
Subjective Remarks 62-year-old female who is currently residing at a rehabilitation facility rehabilitating from a recent stroke presents for evaluation of altered mental status and dyspnea. [facility] staff told EMS they found the patient in a puddle of her own urine. Patient on arrival somewhat difficult to understand, apparently she has some history of dysarthria from the stroke. She is on 2 L nasal cannula at all times, and her 2 L nasal cannula at the care home she was saturating 82%. She was turned up to 4 L and a size 6 L for transport and had about a saturation of 89. Patient does admit some cough and congestion. 09/15 Patient is awake , alert on 2L oxygen. Afebrile. MRI brain last night showed large MCA subacute infarct with probable petechial hemorrhage. For repeat CT brain this morning. 09/16: patient remains on 2L o2 by NC. seen this AM for severe dyspnea, tachypnea and respiratory distress. patient stating she feels like she can't catch her breath. still on 2L o2 by NC. initially spo2 in 70s, but improved to 90s. ordered versed 2mg iv x 1, metoprolol 5mg iv x 1 for severe tachycardia, HR in 150s, and lasix 40mg iv x 1. patient tells me she does not want to be reintubated or back on BiPAP. when I asked further about goals of care, she says before she wants to make that official, she wants to talk with her son who is coming this morning to see her. leukocytosis persists. remains afebrile. BM x 5 overnight. 09/17: clinically much improved. tolerating diet. on NC. good diuresis by daily weight (unable to accurately measure uop). stable for transfer to floor. denies complaints. ROS negative. 09-18 she was been transferred to our service today. Transferred to hospitalist service today many questions answered for daughter and patient. Needs to quit smoking. To go for [facility] today. Patient will more likely need rehabilitation at discharge Needs physical therapy and occupational therapy Chest with patient and RN and case management on rounds 12-19 refuses to go to SNF today. Only wants to go home. We'll get do home health care [id number]. Is on a pured thin liquid diet [facility] was negative Continue on Coumadin per hematology oncology Needs follow-up Refuses to go to SNF We'll switch to by mouth Zithromax and by mouth Ceftin and can discharge Objective Vitals Vital Signs Date Time Temp Pulse Resp B/P (MAP) Pulse Ox O2 Delivery O2 Flow Rate FiO2 09/19/17 09:58 18 09/19/17 08:00 96.1 68 17 119/75 (90) 95 09/19/17 07:54 95 09/19/17 00:25 98 09/19/17 00:00 95.6 76 20 112/76 (88) 95 09/18/17 20:00 Nasal Cannula 3.00 09/18/17 20:00 97.8 80 20 119/65 (83) 91 09/18/17 16:49 93 Nasal Cannula 3.00 09/18/17 16:00 97.1 77 17 124/80 (95) 96 I/O 09/18/17 09/18/17 09/18/17 09/19/17 09/19/17 09/19/17 07:00 15:00 23:00 07:00 15:00 23:00 Intake Total 350 ml 1330 ml 240 ml Balance 350 ml 1330 ml 240 ml Intake Oral 980 ml 240 ml IV Total 350 ml 350 ml # Voids 2 5 2 # Bowel Movements 0 1 Result Diagram: 09/19/17 [id number] Other Results Laboratory Tests Test 09/16/17 13:57 09/17/17 03:28 09/17/17 03:38 09/18/17 05:58 Phosphorus Level 2.6 MG/DL 4.3 MG/DL Blood Urea Nitrogen 10 MG/DL 19 MG/DL Creatinine 0.66 MG/DL 0.80 MG/DL Random Glucose 125 MG/DL 106 MG/DL Calcium Level 9.2 MG/DL 9.5 MG/DL Sodium Level 143 MEQ/L 141 MEQ/L Potassium Level 3.3 MEQ/L 3.4 MEQ/L Chloride Level 106 MEQ/L 109 MEQ/L Carbon Dioxide Level 30.8 MEQ/L 25.8 MEQ/L Anion Gap 6 MEQ/L 6 MEQ/L Estimat Glomerular Filtration Rate 91 ML/MIN 73 ML/MIN White Blood Count 14.4 TH/MM3 9.6 TH/MM3 Red Blood Count 4.28 MIL/MM3 4.75 MIL/MM3 Hemoglobin 11.8 GM/DL 13.3 GM/DL Hematocrit 36.5 % 41.2 % Mean Corpuscular Volume 85.3 FL 86.6 FL Mean Corpuscular Hemoglobin 27.6 PG 27.9 PG Mean Corpuscular Hemoglobin Concent 32.4 % 32.2 % Red Cell Distribution Width 28.7 % 28.7 % Platelet Count 451 TH/MM3 521 TH/MM3 Mean Platelet Volume 9.0 FL 8.7 FL Prothrombin Time 27.1 SEC 25.6 SEC Prothrombin Time Control 10.9 SEC Prothromb Time International Ratio 2.7 RATIO 2.5 RATIO Activated Partial Thromboplast Time 42.2 SEC APTT Control 25.6 SEC Mix PT Normal Plasma Immediate 10.4 SEC Mix PT Normal Plasma 1 Hour 10.5 SEC Mix PT Patient/Normal 1:4 Immediate 10.7 SEC Mix PT Patient/Normal 1:1 Immediate 11.9 SEC Mix PT Patient/Normal 1:1 1 Hr 37c 12.0 SEC Mix PT Patient/Normal 4:1 Immediate 15.8 SEC Mix PT Patient Pre-Incubation 27.2 SEC Mix PTT Normal Plasma Immediate 25.0 SEC Mix PTT Normal Plasma 1 Hour 26.2 SEC Mix PTT Patient/Normal 1:4 Immed 25.5 SEC Mix PTT Patient/Normal 1:1 27.1 SEC Mix PTT Patient/Normal 1:1 1 Hr 37c 29.6 SEC Mix PTT Patient/Normal 4:1 Immed 32.0 SEC Mix PTT Patient Pre-Incubation 38.2 SEC Coagulation Factor Inhibitor Screen Magnesium Level 2.4 MG/DL Test 09/18/17 16:49 09/19/17 07:26 Vancomycin Level Trough 21.5 MCG/ML White Blood Count 8.8 TH/MM3 Red Blood Count 4.14 MIL/MM3 Hemoglobin 11.6 GM/DL Hematocrit 35.8 % Mean Corpuscular Volume 86.5 FL Mean Corpuscular Hemoglobin 28.0 PG Mean Corpuscular Hemoglobin Concent 32.4 % Red Cell Distribution Width 28.4 % Platelet Count 538 TH/MM3 Mean Platelet Volume 8.9 FL Prothrombin Time 26.8 SEC Prothromb Time International Ratio 2.7 RATIO Blood Urea Nitrogen 16 MG/DL Creatinine 0.76 MG/DL Random Glucose 92 MG/DL Calcium Level 8.9 MG/DL Sodium Level 146 MEQ/L Potassium Level 3.1 MEQ/L Chloride Level 114 MEQ/L Carbon Dioxide Level 18.8 MEQ/L Anion Gap 13 MEQ/L Estimat Glomerular Filtration Rate 77 ML/MIN Imaging Last Impressions Lower Extremity Ultrasound 09/16/17 0000 Signed Impressions: Service Date/Time: Saturday, September 16, 2017 16:55 - CONCLUSION: Normal examination. Familia Hewitt MD Head CT 09/15/17 0600 Signed Impressions: Service Date/Time: Friday, September 15, 2017 09:16 - CONCLUSION: 1. Stable followup CT scan of the brain compared to the prior examination. No evidence of any focal or acute intracranial hemorrhage. 2. Stable Nonhemorrhagic left MCA infarct 3. Stable Nonhemorrhagic infarct involving the anterior right temporal lobe. Jeffery Dorsey MD Chest X-Ray 09/14/17 0229 Signed Impressions: Service Date/Time: September 03:03 - CONCLUSION: Non-consolidative infiltrates in the right lower lung. Lino Langford MD Carotid Artery Ultrasound 09/14/17 0000 Signed Impressions: Service Date/Time: September 14:49 - CONCLUSION: 1. Atherosclerotic plaquing of the bifurcations bilaterally. No hemodynamically significant carotid artery stenosis identified. Edward Gonzalez MD Brain MRI 09/14/17 0000 Signed Impressions: Service Date/Time: September 18:53 - CONCLUSION: 1. Large left MCA distribution subacute infarct associated with a hemosiderin deposits, probably petechial hemorrhage. 2. Small right anterior portion middle cerebral artery distribution infarct. Pansinus disease. Familia Hewitt MD Objective Remarks GENERAL: SKIN: Warm and dry. HEAD: Atraumatic. Normocephalic. EYES: Pupils equal and round. No scleral icterus. No injection or drainage. ENT: No nasal bleeding or discharge. Mucous membranes pink and moist. NECK: Trachea midline. No JVD. CARDIOVASCULAR: Regular rate and rhythm. RESPIRATORY: No accessory muscle use. Clear to auscultation. Breath sounds equal bilaterally. GASTROINTESTINAL: Abdomen soft, non-tender, nondistended. Hepatic and splenic margins not palpable. MUSCULOSKELETAL: Extremities without clubbing, cyanosis, or edema. No obvious deformities. NEUROLOGICAL: Awake and alert. No obvious cranial nerve deficits. Motor grossly within normal limits. Five out of 5 muscle strength in the arms and legs. Normal speech. PSYCHIATRIC: Appropriate mood and affect; insight and judgment normal. Procedures INGE LAZCANO Echo Transesophageal Indication: cva/tia CONCLUSIONS BP: / HR: Rhythm: Technical Quality:Good Medications Complications Proc. Components FINDINGS LEFT VENTRICLE Normal left ventricular size. Mild concentric left ventricular hypertrophy. The left ventricular systolic function is normal with an estimated ejection fraction in the range of 55-60%. RIGHT VENTRICLE Normal right ventricular size and systolic function. LEFT ATRIUM The left atrial size is normal. RIGHT ATRIUM The right atrial size is normal. ATRIAL APPENDAGES Normal left atrial appendage size with no evidence of thrombus formation. ATRIAL SEPTUM Normal atrial septal thickness without atrial level shunting by limited color doppler interrogation. AORTA The aortic root and proximal ascending aorta are normal in size on limited imaging. MITRAL VALVE Structurally normal mitral valve. Trace mitral valve regurgitation. No mitral valve stenosis. AORTIC VALVE Trileaflet aortic valve. No aortic valve stenosis or regurgitation. TRICUSPID VALVE Structurally normal tricuspid valve. No tricuspid valve stenosis or regurgitation. VESSELS The inferior vena cava is normal in size. PULMONARY VALVE The pulmonary valve is not well visualized. PERICADIUM No pericardial effusion. Jose Martin Lopez MD, FACC (Electronically Signed) Final Date:18 September 2017 15:38 Medications and IVs Current Medications Sodium Chloride 1,000 ml @ 1,000 mls/hr Q1H ONCE IV Last administered on 09/14 02:35; Start 09/14/17 at 02:29; Stop 09/14/17 at 03:28; Status DC Sodium Chloride 800 ml @ 1,000 mls/hr Q48M ONCE IV Last administered on 02:35; Start 09/14/17 at 02:29; Stop 09/14/17 at 03:16; Status DC Albuterol/ Ipratropium (Duoneb Neb) 3 ampule ONCE ONCE NEB Last administered on 09/14/17 02:58; Start 09/14/17 at 02:30; Stop 09/14/17 at 02:31; Status DC Albuterol/ Ipratropium (Duoneb Neb) 1 ampule STK-MED ONCE .ROUTE ; Start at 02:31; Stop 09/14/17 at 02:32; Status DC Albuterol/ Ipratropium (Duoneb Neb) 2 ampule STK-MED ONCE .ROUTE ; Start at 02:32; Stop 09/14/17 at 02:33; Status DC Vancomycin HCl 1000 mg/Sodium Chloride 250 ml @ 250 mls/hr ONCE ONCE IV Last administered on 09/14/17 04:54; Start 09/14/17 at 04:00; Stop 09/14/17 at 05 :01; Status DC Piperacillin Sod/ Tazobactam Sod 100 ml @ 200 mls/hr ONCE ONCE IV Last administered on 09/14/17 03:56; Start 09/14/17 at 04:00; Stop 09/14/17 at 04 :29; Status DC Sodium Chloride (NS Flush) 2 ml UNSCH PRN IV FLUSH FLUSH AFTER USING IV ACCESS ; Start 09/14/17 at 04:45; Stop 09/14/17 at 06:40; Status DC Sodium Chloride (NS Flush) 2 ml BID IV FLUSH ; Start 09/14/17 at 09:00; Stop 09/14/17 at 09:00; Status DC Albuterol/ Ipratropium (Duoneb Neb) 1 ampule Q6HR NEB INH ; Start 09/14/17 at 10:00; Status Cancel Albuterol/ Ipratropium (Duoneb Neb) 1 ampule Q4HR NEB PRN INH SHORTNESS OF BREATH; Start 09/14/17 at 04:45; Status Cancel Acetaminophen (Tylenol) 650 mg Q4H PRN PO TEMPERATURE > 101 F; Start 09/14/17 at 04:45 Ondansetron HCl (Zofran Inj) 4 mg Q6H PRN IV PUSH NAUSEA; Start 09/14/17 at 04 :45; Status Cancel Cefepime HCl 2000 mg/Sodium Chloride 100 ml @ 200 mls/hr Q8H IV ; Start at 06:00; Stop 09/14/17 at 07:10; Status DC Azithromycin 500 mg/Sodium Chloride 250 ml @ 250 mls/hr Q24H IV Last administered on 09/19/17 06:30; Start 09/14/17 at 05:00 Atorvastatin Calcium (Lipitor) 40 mg HS PO ; Start 09/14/17 at 21:00; Status Cancel Atorvastatin Calcium (Lipitor) 40 mg HS PO Last administered on 09/18/17 21: 00; Start 09/14/17 at 21:00 Citalopram Hydrobromide (CeleXA) 10 mg DAILY PO ; Start 09/14/17 at 09:00; Status Cancel Citalopram Hydrobromide (CeleXA) 10 mg DAILY PO Last administered on 09:01; Start 09/14/17 at 09:00 Enoxaparin Sodium (Lovenox Inj) 40 mg Q12H SQ Last administered on 09/14/17 07:28; Start 09/14/17 at 06:00; Stop 09/14/17 at 09:10; Status DC Ferrous Sulfate (Ferrous Sulfate Liq) 300 mg BID PO Last administered on 22:12; Start 09/14/17 at 09:00 Pregabalin (Lyrica) 75 mg BID PO Last administered on 09/19/17 09:01; Start 09/14/17 at 09:00 Tramadol HCl (Ultram) 50 mg Q8H PRN PO PAIN SCALE 5 TO 10; Start 09/14/17 at 06:00 Warfarin Sodium (Coumadin) 2.5 mg DAILY@1600 PO Last administered on 17:08; Start 09/14/17 at 16:00; Stop 09/15/17 at 07:41; Status DC Budesonide/ Formoterol Fumarate (Symbicort 80-4.5 Mcg Inh) 2 puff BID INH Last administered on 09/18/17 09:40; Start 09/14/17 at 09:00; Stop 09/18/17 at 13 :10; Status DC Sodium Chloride 1,000 ml @ 84 mls/hr [id number] IV Last administered on 04:56; Start 09/14/17 at 05:49; Stop 09/16/17 at 08:40; Status DC Sodium Chloride (NS Flush) 2 ml UNSCH PRN IV FLUSH FLUSH AFTER USING IV ACCESS ; Start 09/14/17 at 06:00 Sodium Chloride (NS Flush) 2 ml BID IV FLUSH Last administered on 09/19/17 09 :00; Start 09/14/17 at 09:00 Acetaminophen (Tylenol) 650 mg Q6H PRN PO PAIN 1-4 AND/OR FEVER >101F; Start 09/14/17 at 06:00 Famotidine (Pepcid Inj) 20 mg Q12HR IV PUSH Last administered on 09/19/17 09: 01; Start 09/14/17 at 09:00 Ondansetron HCl (Zofran Inj) 4 mg Q6H PRN IV PUSH NAUSEA OR VOMITING; Start at 06:00 Albuterol/ Ipratropium (Duoneb Neb) 1 ampule Q4HR NEB INH Last administered on 09/17/17 07:56; Start 09/14/17 at 08:00; Stop 09/17/17 at 10:15; Status DC Albuterol/ Ipratropium (Duoneb Neb) 1 ampule Q2HR NEB PRN INH WHEEZING Last administered on 09/16/17 06:15; Start 09/14/17 at 06:00 Miscellaneous Information 1 Q361D XX ; Start 09/14/17 at 06:00 Chlorhexidine Gluconate (Chlorhexidine 2% Cloth) 3 pack Taper DAILY@04 TOP Last administered on 09/17/17 04:00; Start 09/15/17 at 04:00; Stop 09/11/18 at 03:59 Chlorhexidine Gluconate (Chlorhexidine 2% Cloth) 3 pack UNSCH PRN TOP HYGIENIC CARE; Start 09/14/17 at 06:00 Senna/Docusate Sodium (Ann-Colace) 1 tab BID PO Last administered on 22:12; Start 09/14/17 at 09:00 Magnesium Hydroxide (Milk Of Magnesia Liq) 30 ml Q12H PRN PO Mild constipation ; Start 09/14/17 at 06:00 Sennosides (Senokot) 17.2 mg Q12H PRN PO Moderate constipation; Start at 06:00 Bisacodyl (Dulcolax Supp) 10 mg DAILY PRN RECTAL SEVERE CONSITIPATION; Start 09/14/17 at 06:00 Lactulose (Lactulose Liq) 30 ml DAILY PRN PO SEVERE CONSITIPATION; Start 09/14 at 06:00 Piperacillin Sod/ Tazobactam Sod 100 ml @ 200 mls/hr Q6H IV Last administered on 09/19/17 09:57; Start 09/14/17 at 10:00 Azithromycin 500 mg/Sodium Chloride 250 ml @ 250 mls/hr Q24H IV ; Start at 06:00; Status Cancel Vancomycin HCl 1000 mg/Sodium Chloride 250 ml @ 250 mls/hr Q12H IV ; Start at 06:00; Status Cancel Pharmacy Profile Note 0 ml @ 0 mls/hr UNSCH OTHER ; Start 09/14/17 at 06:00 Methylprednisolone Sodium Succinate (SoluMEDROL INJ) 40 mg Q12H IV PUSH Last administered on 09/19/17 06:30; Start 09/14/17 at 06:00 Pharmacy Profile Note 0 ml @ 0 mls/hr UNSCH OTHER ; Start 09/14/17 at 06:00 Patient Medication Teaching (Coumadin Booklet) 1 ONCE ONCE .XX ; Start at 16:00; Stop 09/14/17 at 16:01; Status DC Vancomycin HCl 1000 mg/Sodium Chloride 250 ml @ 250 mls/hr Q12H IV Last administered on 09/18/17 16:48; Start 09/14/17 at 17:00; Stop 09/18/17 at 19 :41; Status DC Miscellaneous Information SPECIFIC LAB TO BE DRAWN:VANCOMYCIN TROUGH DATE TO... ONCE ONCE .XX Last administered on 09/16/17 04:28; Start 09/16/17 at 04:45 ; Stop 09/16/17 at 04:46; Status DC Dextrose (D50w (Vial) Inj) 50 ml UNSCH PRN IV PUSH HYPOGLYCEMIA-SEE COMMENTS; Start 09/14/17 at 13:30 Glucagon (Glucagon Inj) 1 mg UNSCH PRN OTHER HYPOGLYCEMIA-SEE COMMENTS; Start 09/14/17 at 13:30 Insulin Human Regular (NovoLIN R SUPPLEMENTAL SCALE) 1 Q6H SQ Last administered on 09/19/17 01:50; Start 09/14/17 at 13:30 Potassium Chloride 100 ml @ 50 mls/hr Q2H PRN IV For Potassium 2.8 - 3.2 mEq/L ; Start 09/14/17 at 13:30; Stop 09/17/17 at 15:33; Status DC Potassium Chloride 100 ml @ 50 mls/hr Q2H PRN IV For Potassium 2.8 - 3.2 mEq/ L Last administered on 12/17/17at 08:44; Start 09/14/17 at 13:30; Stop at 15:33; Status DC Potassium Bicarb/ Potassium Chloride (K-Lyte Cl Eff) 50 meq UNSCH PRN PO For Potassium 3.3 - 3.5 mEq/L; Start 09/14/17 at 13:30; Stop 09/17/17 at 15:33; Status DC Potassium Chloride 100 ml @ 25 mls/hr UNSCH PRN IV For Potassium 3.3 - 3.5 mEq /L; Start 09/14/17 at 13:30; Stop 09/17/17 at 15:33; Status DC Potassium Chloride 100 ml @ 50 mls/hr Q2H PRN IV For Potassium 3.3 - 3.5 mEq/L ; Start 09/14/17 at 13:30; Stop 09/17/17 at 15:33; Status DC Magnesium Sulfate 4 gm/Sodium Chloride 100 ml @ 50 mls/hr UNSCH PRN IV For Magnesium 0.9 - 1.1 mg/dL; Start 09/14/17 at 13:30; Stop 09/17/17 at 15:33; Status DC Magnesium Oxide (Mag-Ox) 800 mg UNSCH PRN PO For Magnesium 1.2 - 1.6 mg/dL; Start 09/14/17 at 13:30; Stop 09/17/17 at 15:33; Status DC Magnesium Sulfate 2 gm/Sodium Chloride 100 ml @ 50 mls/hr UNSCH PRN IV For Magnesium 1.2 - 1.6 mg/dL; Start 09/14/17 at 13:30; Stop 09/17/17 at 15:33; Status DC Potassium Phosphate (K-Phos) 2,000 mg Q4H PRN PO For Phosphorus < 2.5 mg/dL; Start 09/14/17 at 13:30; Stop 09/17/17 at 15:33; Status DC Sodium Phosphate 30 mmol/Sodium Chloride 250 ml @ 42 mls/hr UNSCH PRN IV For Phosphorus < 2.5 mg/dL; Start 09/14/17 at 13:30; Stop 09/17/17 at 15:33; Status DC Potassium Phosphate (K-Phos) 2,000 mg UNSCH PRN PO/TUBE SEE LABEL COMMENTS; Start 09/14/17 at 13:30; Stop 09/17/17 at 15:33; Status DC Potassium Phosphate 30 mmol/ Sodium Chloride 260 ml @ 42 mls/hr UNSCH PRN IV SEE LABEL COMMENTS Last administered on 09/15/17 16:06; Start 09/14/17 at 13: 30; Stop 09/17/17 at 15:33; Status DC Sodium Chloride 1,000 ml @ 999 mls/hr BOLUS ONCE IV Last administered on 17:08; Start 09/14/17 at 14:30; Stop 09/14/17 at 15:30; Status DC Sodium Chloride 500 ml @ 500 mls/hr BOLUS ONCE IV ; Start 09/14/17 at 17:00; Stop 09/14/17 at 18:02; Status DC Furosemide (Lasix Inj) 40 mg STAT ONCE IV PUSH Last administered on 09:17; Start 09/16/17 at 08:30; Stop 09/16/17 at 09:00; Status DC Midazolam HCl (Versed Inj) 2 mg STAT ONCE IV PUSH Last administered on 09:16; Start 09/16/17 at 08:30; Stop 09/16/17 at 09:01; Status DC Metoprolol Tartrate (Lopressor Inj) 5 mg STAT ONCE IV PUSH Last administered on 09/16/17 08:45; Start 09/16/17 at 08:45; Stop 09/16/17 at 09:00; Status DC Olanzapine (ZyPREXA ZYDIS ODT) 5 mg Q8H PRN PO anxiety; Start 09/16/17 at 08: 45 Miscellaneous Information SPECIFIC LAB TO BE ... ONCE ONCE .XX ; Start at 04:45; Stop 09/18/17 at 04:46; Status DC Albuterol/ Ipratropium (Duoneb Neb) 1 ampule Q4HR NEB INH Last administered on 09/19/17 07:53; Start 09/17/17 at 12:00 Acetazolamide Sodium (Diamox Inj) 500 mg Q12H IV PUSH Last administered on 22:48; Start 09/17/17 at 11:00; Stop 09/17/17 at 23:01; Status DC Furosemide (Lasix Inj) 40 mg ONCE ONCE IV PUSH Last administered on 11:11; Start 09/17/17 at 10:15; Stop 09/17/17 at 10:16; Status DC Warfarin Sodium (Coumadin) 3 mg DAILY@16 PO ; Start 09/17/17 at 16:00; Stop at 16:00; Status DC Warfarin Sodium (Coumadin) 2.5 mg DAILY@1600 PO Last administered on 16:40; Start 09/17/17 at 16:00; Stop 09/19/17 at 10:25; Status DC Ascorbic Acid (Vitamin C) 500 mg BID PO Last administered on 09/19/17 09:02; Start 09/18/17 at 21:00 Famotidine (Pepcid) 20 mg DAILY PO Last administered on 09/19/17 09:02; Start 09/19/17 at 09:00 Lidocaine HCl (Lidoderm 5% Patch.12 Hr) 1 patch DAILY T-DERMAL ; Start at 09:00 Multivitamins (Theragran) 1 tab DAILY PO Last administered on 09/19/17 09:02 ; Start 09/19/17 at 09:00 Albuterol/ Ipratropium (Duoneb Neb) 1 ampule Q2HR NEB PRN NEB SOB/WHEEZING; Start 09/18/17 at 11:30 Budesonide/ Formoterol Fumarate (Symbicort 80-4.5 Mcg Inh) 2 puff BID INH Last administered on 09/19/17 08:58; Start 09/18/17 at 21:00 Potassium Bicarb/ Potassium Chloride (K-Lyte Cl Eff) 25 meq BID PO Last administered on 09/19/17 09:00; Start 09/18/17 at 21:00 Miscellaneous Information SPECIFIC LAB TO BE ... ONCE ONCE .XX Last administered on 09/18/17 16:45; Start 09/18/17 at 16:45; Stop 09/18/17 at 16 :46; Status DC Propofol (Diprivan 200 Mg/20 ml Inj) 200 mg STK-MED ONCE .ROUTE ; Start at 14:16; Stop 09/18/17 at 14:17; Status DC Vancomycin HCl 750 mg/Sodium Chloride 250 ml @ 250 mls/hr Q12H IV ; Start at 05:00; Stop 09/19/17 at 07:48; Status DC Vancomycin HCl 750 mg/Sodium Chloride 250 ml @ 250 mls/hr Q12H IV Last administered on 09/19/17t 08:09; Start 09/19/17 at 08:00 Warfarin Sodium (Coumadin) 1.5 mg DAILY@1600 PO ; Start 09/19/17 at 16:00 A/P Assessment and Plan Assessment and Plan Assessment: 62yF with COPD and recurrent subacute large distribution strokes, now with COPD exacerbation, healthcare associated pneumonia, likely hypercoagulable state, anxiety. Clinically much improved from yesterday. stable for transfer to floor. Neuro: Left MCA subacute infract s/p Left MCA acute infarct with a thrombus in the distal M1 and proximal M2 branches s/p TPA in July. Right frontal/MCA subacute infarct Anxiety Depression Monitor neuro status. Awake and alert. zyprexa 5mg po q8h prn for agitation or anxiety (less sedating and less resp depression than benzodiazepines) MRI brain: Large left MCA distribution subacute infarct associated with a hemosiderin deposits, probably petechial hemorrhage. Small right anterior portion middle cerebral artery distribution infarct CT brain: There is evidence of left MCA infarction, nonhemorrhagic Carotid Doppler US: Atherosclerotic plaquing of the bifurcations bilaterally. No hemodynamically significant carotid artery stenosis identified. Repeat CT brain today-.No evidence of any focal or acute intracranial hemorrhage. . Stable Nonhemorrhagic left MCA infarct. Stable Nonhemorrhagic infarct involving the anterior right temporal lobe. Neuro is following- Dr. Rodgers Patient is in normal sinus rhythm, echo showed nl EF 60-65%, no thrombus seen., Carotid US: No stenosis s/p Left MCA acute infarct with a thrombus in the distal M1 and proximal M2 branches s/p TPA in July. Unclear etiology. Lupus anticoagulant, DANIEL: pending. To follow-up with oncology regarding hypercoagulable workup CV: Hypertension Sinus tachycardia Monitor HR and BP keep MAP>65mmHg metoprolol 5mg iv x 1 for tachycardia in the setting of respiratory distress and anxiety. Pulm: Acute hypercarbic respiratory failure - resolving. COPD Exacerbation Continue with oxygen keep sat >90% Bronchodilators, on Solumederol 40mg Q12 Switch to by mouth steroids and discharge : Acute intravascular volume overload - improving. metabolic alkalosis Monitor renal function, electrolytes replacement per protocol. saline lock ivf: appears slightly volume overloaded. Lasix 40mg iv x 1 again today diamox 500mg iv q12 x 2 doses for metabolic alkalosis. GI: Acute protein calorie malnutrition- moderate On PO diet daily bmp ID: Healthcare associated pneumonia continue vancomycin zosyn, azithromycin. (started 09/14). narrow spectrum based on available culture data. Culture data: 09/14 Bl Cx: NGTD 09/14 Urine Cx: gram variable sam Check strep pneumonia and Legionella urinary ag Switched to Zithromax and Ceftin and can be discharged Heme: Coumadin coagulopathy- supratherapeutic INR Anemia secondary to chronic disease daily cbc, coags continue to hold coumadin. Continue Coumadin hematology wants to follow up as an outpatient Endo: Hyperglycemia of critical illness SSI for glycemic control GI prophylaxis- on Pepcid DVT prophylaxis- INR 6.8, Coumadin held. SCDs WILL GET AM LABS DW RN AND PT AND DAUGHTER UTI with Escherichia coli. Switch to by mouth medications and discharge Refuses to go to SNF wants to only go home Discharge Planning Refusing SNF only wants home health care and to go home Vernon Schultz DO Sep 19, 2017 12:12
[2017-09-19] MEDS ORDERED: ASCO500 PO (12:26)
[2017-09-19] MEDS ORDERED: CELE20TA PO (12:26)
[2017-09-19] MEDS ORDERED: ATOR40TA16 PO (12:26)
[2017-09-19] MEDS ORDERED: LYRI75CA PO (12:26)
[2017-09-19] MEDS ORDERED: MEDR4PAK PO (12:26)
[2017-09-19] MEDS ORDERED: OLANZ5 PO (12:26)
[2017-09-19] MEDS ORDERED: KLYTECL PO (12:26)
[2017-09-19] MEDS ORDERED: Budeson-Formot 80-4.5 Mcg Inh INH (12:26)
[2017-09-19] MEDS ORDERED: COUM2.5T PO (12:26)
[2017-09-19] MEDS ORDERED: LIDO1ADH4 T-DERMAL (12:26)
[2017-09-19] MEDS ORDERED: Albuterol-Ipratropium Neb INH (12:26)
[2017-09-19] MEDS ORDERED: FERR300S PO (12:26)
[2017-09-19] MEDS ORDERED: FAMO20TA2 PO (12:26)
[2017-09-19] MEDS ORDERED: ZITH500T PO (12:26)
[2017-09-19] MEDS ORDERED: CEFU1TAB18 PO (12:26)
[2017-09-19] MEDS ORDERED: THERTAB15 PO (12:26)
[2017-09-19] MEDS ORDERED: TRAM50 PO (12:26)
[2017-09-19] MEDS ORDERED: WALKER WHEELS/F1 MIS (12:29)
[2017-09-19] MEDS ORDERED: NEBULIZER1 MI1 (12:29)
[2017-09-19] MEDS ORDERED: OXYGENDME NAS.CANULA (12:29)
[2017-09-19] MEDS ORDERED: COMMODE 3-IN-11 MIS (12:29)
[2017-09-19] MEDS ORDERED: HUMIBIDDM PO (12:34)
--- NOTE | 2017-09-19 12:38 | HHI.DS ---
Discharge Summary Admission Date Sep 14, 2017 at 04:43 Discharge Date: Sep 19, 2017 Admitting Diagnosis Pneumonia/Sepsis. (1) CVA (cerebral vascular accident) ICD Code: I63.9 - Cerebral infarction, unspecified Diagnosis: Principal (2) COPD (chronic obstructive pulmonary disease) ICD Code: J44.9 - Chronic obstructive pulmonary disease, unspecified Diagnosis: Principal Status: Chronic (3) Hemiparesis of right dominant side ICD Code: G81.91 - Hemiplegia, unspecified affecting right dominant side Diagnosis: Principal Status: Acute (4) COPD with exacerbation ICD Code: J44.1 - Chronic obstructive pulmonary disease with (acute) exacerbation Diagnosis: Principal Status: Acute (5) Bronchitis ICD Code: J40 - Bronchitis, not specified as acute or chronic Diagnosis: Principal Status: Acute (6) Anemia ICD Code: D64.9 - Anemia, unspecified Diagnosis: Secondary Status: Resolved (7) Acute ischemic left MCA stroke ICD Code: I63.512 - Cerebral infarction due to unspecified occlusion or stenosis of left middle cerebral artery (8) Healthcare-associated pneumonia ICD Code: J18.9 - Pneumonia, unspecified organism Diagnosis: Principal Status: Acute (9) Sepsis ICD Code: A41.9 - Sepsis, unspecified organism Diagnosis: Principal Status: Acute (10) Chronic obstructive pulmonary disease ICD Code: J44.9 - Chronic obstructive pulmonary disease, unspecified Status: Acute (11) Leukocytosis ICD Code: D72.829 - Elevated white blood cell count, unspecified Diagnosis: Secondary Procedures INGE LAZCANO Echo Transesophageal Indication: cva/tia CONCLUSIONS BP: / HR: Rhythm: Technical Quality:Good Medications Complications Proc. Components FINDINGS LEFT VENTRICLE Normal left ventricular size. Mild concentric left ventricular hypertrophy. The left ventricular systolic function is normal with an estimated ejection fraction in the range of 55-60%. RIGHT VENTRICLE Normal right ventricular size and systolic function. LEFT ATRIUM The left atrial size is normal. RIGHT ATRIUM The right atrial size is normal. ATRIAL APPENDAGES Normal left atrial appendage size with no evidence of thrombus formation. ATRIAL SEPTUM Normal atrial septal thickness without atrial level shunting by limited color doppler interrogation. AORTA The aortic root and proximal ascending aorta are normal in size on limited imaging. MITRAL VALVE Structurally normal mitral valve. Trace mitral valve regurgitation. No mitral valve stenosis. AORTIC VALVE Trileaflet aortic valve. No aortic valve stenosis or regurgitation. TRICUSPID VALVE Structurally normal tricuspid valve. No tricuspid valve stenosis or regurgitation. VESSELS The inferior vena cava is normal in size. PULMONARY VALVE The pulmonary valve is not well visualized. PERICADIUM No pericardial effusion. Jose Martin Lopez MD, FACC (Electronically Signed) Final Date:18 September 2017 15:38 Brief History - From Admission 62-year-old female who is currently residing at a rehabilitation facility rehabilitating from a recent stroke presents for evaluation of altered mental status and dyspnea. correction staff told EMS they found the patient in a puddle of her own urine. Patient on arrival somewhat difficult to understand, apparently she has some history of dysarthria from the stroke. She is on 2 L nasal cannula at all times, and her 2 L nasal cannula at the care home she was saturating 82%. She was turned up to 4 L and a size 6 L for transport and had about a saturation of 89. Patient does admit some cough and congestion. CBC/BMP: 09/19/17 0726 09/19/17 0726 Significant Findings Laboratory Tests Test 09/16/17 13:57 09/17/17 03:28 09/17/17 03:38 09/18/17 05:58 Random Glucose 125 MG/DL (74-106) Potassium Level 3.3 MEQ/L (3.5-5.1) 3.4 MEQ/L (3.5-5.1) White Blood Count 14.4 TH/MM3 (4.0-11.0) Red Cell Distribution Width 28.7 % (11.6-17.2) 28.7 % (11.6-17.2) Platelet Count 451 TH/MM3 (150-450) 521 TH/MM3 (150-450) Prothrombin Time 27.1 SEC (9.8-11.6) 25.6 SEC (9.8-11.6) Activated Partial Thromboplast Time 42.2 SEC (24.3-30.1) Mix PT Patient/Normal 1:1 Immediate 11.9 SEC (9.8-11.6) Mix PT Patient/Normal 1:1 1 Hr 37c 12.0 SEC (9.8-11.6) Mix PT Patient/Normal 4:1 Immediate 15.8 SEC (9.8-11.6) Mix PT Patient Pre-Incubation 27.2 SEC (9.8-11.6) Mix PTT Patient/Normal 4:1 Immed 32.0 SEC (24.3-30.1) Mix PTT Patient Pre-Incubation 38.2 SEC (24.3-30.1) Blood Urea Nitrogen 19 MG/DL (7-18) Chloride Level 109 MEQ/L (98-107) Estimat Glomerular Filtration Rate 73 ML/MIN (>89) Test 09/18/17 16:49 09/19/17 07:26 Vancomycin Level Trough 21.5 MCG/ML (5.0-10.0) Red Cell Distribution Width 28.4 % (11.6-17.2) Platelet Count 538 TH/MM3 (150-450) Prothrombin Time 26.8 SEC (9.8-11.6) Sodium Level 146 MEQ/L (136-145) Potassium Level 3.1 MEQ/L (3.5-5.1) Chloride Level 114 MEQ/L (98-107) Carbon Dioxide Level 18.8 MEQ/L (21.0-32.0) Estimat Glomerular Filtration Rate 77 ML/MIN (>89) Imaging Last Impressions Lower Extremity Ultrasound 09/16/17 0000 Signed Impressions: Service Date/Time: Saturday, September 16, 2017 16:55 - CONCLUSION: Normal examination. Familia Hewitt MD Head CT 09/15/17 0600 Signed Impressions: Service Date/Time: Friday, September 15, 2017 09:16 - CONCLUSION: 1. Stable followup CT scan of the brain compared to the prior examination. No evidence of any focal or acute intracranial hemorrhage. 2. Stable Nonhemorrhagic left MCA infarct 3. Stable Nonhemorrhagic infarct involving the anterior right temporal lobe. Jeffery Dorsey MD Chest X-Ray 09/14/17 0229 Signed Impressions: Service Date/Time: September 03:03 - CONCLUSION: Non-consolidative infiltrates in the right lower lung. Lino Langford MD Carotid Artery Ultrasound 09/14/17 0000 Signed Impressions: Service Date/Time: September 14:49 - CONCLUSION: 1. Atherosclerotic plaquing of the bifurcations bilaterally. No hemodynamically significant carotid artery stenosis identified. Edward Gonzalez MD Brain MRI 09/14/17 0000 Signed Impressions: Service Date/Time: September 18:53 - CONCLUSION: 1. Large left MCA distribution subacute infarct associated with a hemosiderin deposits, probably petechial hemorrhage. 2. Small right anterior portion middle cerebral artery distribution infarct. Pansinus disease. Familia Hewitt MD PE at Discharge GENERAL: SKIN: Warm and dry. HEAD: Atraumatic. Normocephalic. EYES: Pupils equal and round. No scleral icterus. No injection or drainage. ENT: No nasal bleeding or discharge. Mucous membranes pink and moist. NECK: Trachea midline. No JVD. CARDIOVASCULAR: Regular rate and rhythm. RESPIRATORY: No accessory muscle use. Clear to auscultation. Breath sounds equal bilaterally. GASTROINTESTINAL: Abdomen soft, non-tender, nondistended. Hepatic and splenic margins not palpable. MUSCULOSKELETAL: Extremities without clubbing, cyanosis, or edema. No obvious deformities. NEUROLOGICAL: Awake and alert. No obvious cranial nerve deficits. Motor grossly within normal limits. Five out of 5 muscle strength in the arms and legs. Normal speech. PSYCHIATRIC: Appropriate mood and affect; insight and judgment normal. Hospital Course 62-year-old female who is currently residing at a rehabilitation facility rehabilitating from a recent stroke presents for evaluation of altered mental status and dyspnea. correction staff told EMS they found the patient in a puddle of her own urine. Patient on arrival somewhat difficult to understand, apparently she has some history of dysarthria from the stroke. She is on 2 L nasal cannula at all times, and her 2 L nasal cannula at the care home she was saturating 82%. She was turned up to 4 L and a size 6 L for transport and had about a saturation of 89. Patient does admit some cough and congestion. 09/15 Patient is awake , alert on 2L oxygen. Afebrile. MRI brain last night showed large MCA subacute infarct with probable petechial hemorrhage. For repeat CT brain this morning. 09/16: patient remains on 2L o2 by GA. seen this AM for severe dyspnea, tachypnea and respiratory distress. patient stating she feels like she can't catch her breath. still on 2L o2 by NC. initially spo2 in 70s, but improved to 90s. ordered versed 2mg iv x 1, metoprolol 5mg iv x 1 for severe tachycardia, HR in 150s, and lasix 40mg iv x 1. patient tells me she does not want to be reintubated or back on BiPAP. when I asked further about goals of care, she says before she wants to make that official, she wants to talk with her son who is coming this morning to see her. leukocytosis persists. remains afebrile. BM x 5 overnight. 09/17: clinically much improved. tolerating diet. on NC. good diuresis by daily weight (unable to accurately measure uop). stable for transfer to floor. denies complaints. ROS negative. 09-18 she was been transferred to our service today. Transferred to hospitalist service today many questions answered for daughter and patient. Needs to quit smoking. To go for [facility] today. Patient will more likely need rehabilitation at discharge Needs physical therapy and occupational therapy Chest with patient and RN and case management on rounds 12- refuses to go to SNF today. Only wants to go home. We'll get do home health care [id number]. Is on a pured thin liquid diet [facility] was negative Continue on Coumadin per hematology oncology Needs follow-up Refuses to go to SNF We'll switch to by mouth Zithromax and by mouth Ceftin and can discharge Assessment and Plan Assessment and Plan Assessment: 62yF with COPD and recurrent subacute large distribution strokes, now with COPD exacerbation, healthcare associated pneumonia, likely hypercoagulable state, anxiety. Clinically much improved from yesterday. stable for transfer to floor. Neuro: Left MCA subacute infract s/p Left MCA acute infarct with a thrombus in the distal M1 and proximal M2 branches s/p TPA in July. Right frontal/MCA subacute infarct Anxiety Depression Monitor neuro status. Awake and alert. zyprexa 5mg po q8h prn for agitation or anxiety (less sedating and less resp depression than benzodiazepines) MRI brain: Large left MCA distribution subacute infarct associated with a hemosiderin deposits, probably petechial hemorrhage. Small right anterior portion middle cerebral artery distribution infarct CT brain: There is evidence of left MCA infarction, nonhemorrhagic Carotid Doppler US: Atherosclerotic plaquing of the bifurcations bilaterally. No hemodynamically significant carotid artery stenosis identified. Repeat CT brain today-.No evidence of any focal or acute intracranial hemorrhage. . Stable Nonhemorrhagic left MCA infarct. Stable Nonhemorrhagic infarct involving the anterior right temporal lobe. Neuro is following- Dr. Rodgers Patient is in normal sinus rhythm, echo showed nl EF 60-65%, no thrombus seen., Carotid US: No stenosis s/p Left MCA acute infarct with a thrombus in the distal M1 and proximal M2 branches s/p TPA in July. Unclear etiology. Lupus anticoagulant, DANIEL: pending. To follow-up with oncology regarding hypercoagulable workup CV: Hypertension Sinus tachycardia Monitor HR and BP keep MAP>65mmHg metoprolol 5mg iv x 1 for tachycardia in the setting of respiratory distress and anxiety. Pulm: Acute hypercarbic respiratory failure - resolving. COPD Exacerbation Continue with oxygen keep sat >90% Bronchodilators, on Solumederol 40mg Q12 Switch to by mouth steroids and discharge : Acute intravascular volume overload - improving. metabolic alkalosis Monitor renal function, electrolytes replacement per protocol. saline lock ivf: appears slightly volume overloaded. Lasix 40mg iv x 1 again today diamox 500mg iv q12 x 2 doses for metabolic alkalosis. GI: Acute protein calorie malnutrition- moderate On PO diet daily bmp ID: Healthcare associated pneumonia continue vancomycin zosyn, azithromycin. (started 09/14). narrow spectrum based on available culture data. Culture data: 09/14 Bl Cx: NGTD 09/14 Urine Cx: gram variable sam Check strep pneumonia and Legionella urinary ag Switched to Zithromax and Ceftin and can be discharged Heme: Coumadin coagulopathy- supratherapeutic INR Anemia secondary to chronic disease daily cbc, coags continue to hold coumadin. Continue Coumadin hematology wants to follow up as an outpatient Endo: Hyperglycemia of critical illness SSI for glycemic control GI prophylaxis- on Pepcid DVT prophylaxis- INR 6.8, Coumadin held. SCDs WILL GET AM LABS DW RN AND PT AND DAUGHTER UTI with Escherichia coli. Switch to by mouth medications and discharge Refuses to go to SNF wants to only go home Discharge Planning Refusing SNF only wants home health care and to go home Pt Condition on Discharge: Fair Discharge Disposition: Disch w/ Home Health Serv Discharge Time: > 30 minutes Discharge Instructions DIET: Follow Instructions for: Heart Healthy Diet, Diabetic Diet, Pureed Diet Speech Therapy-Diet Recommends: Pureed Activities you can perform: Weight Bearing as Sigifredo Follow up Referrals: Oncology/Hematology - 1 Week with Polly Adhikari MD PCP Follow-up - 1 Week New Medications: Azithromycin (Zithromax) 500 Mg Tab 500 MG PO DAILY for Infection for 5 Days, #5 TAB 0 Refills Cefuroxime (Ceftin) 250 Mg Tab 250 MG PO BID for Infection for 10 Days, #20 TAB Commode 3-in-1 (Commode 3-in-1) 1 Mis Mis EA .ROUTE DIRECTED, #1 0 Refills Dextromethorphan-Guaifenesin (Mucinex DM) 30-600 Mg Tab 1 TAB PO BID PRN for COUGH AND/OR COLD SYMPTOMS for 30 Days, #60 TAB 0 Refills Methylprednisolone Dosepak (Medrol Dosepak) 4 Mg Dspk 4 MG PO DIRECTED for Infection, #1 DSPK 0 Refills Per Pharmacist direction TAKE WITH FOOD Nebulizer (Nebulizer) 1 Mis Mis EA .ROUTE DIRECTED for Breathing Treatment, #1 0 Refills Oxygen (O2) (Oxygen (O2)) Device LITER MERI.CANULA CONTINUOUS for Prevent Hypoxemia, #2 Oxygen Concentrator Portable Gaseous 2 L/min via Nasal Canula Continuous For 99 months Walker with Front Wheels (Walker with Front Wheels) 1 Mis Mis EA .ROUTE DIRECTED for MOBILITY, #1 0 Refills Ferrous Sulfate Liq (Ferrous Sulfate Liq) 300 Mg/5 Ml Soln 300 MG PO BID for ANEMIA, #300 ML Olanzapine Odt (Zyprexa Zydis) 5 Mg Tab 5 MG PO Q8H PRN for anxiety, #90 TAB Potassium Bicarb-Chloride Effervescent (Effervescent Potassium Chloride 25 Meq) 25 Meq Tab 25 MEQ PO BID for Nutritional Supplement, #60 TAB [Albuterol-Ipratropium Neb] () 1 AMPULE NEBU 1 AMPULE INH Q4HR NEB for Shortness of Breath, #180 AMPULE Changed Medications: [Budeson-Formot 80-4.5 Mcg Inh] () 60 PUFF AERO 2 PUFF INH BID for Broncospasm, #1 INH (Changed from: [Budeson-Formot 80-4.5 Mcg Inh] (Symbicort 80-4.5 Mcg Inh) 60 PUFF AERO 2 Puff INH BID Broncospasm) Continued Medications: Ascorbic Acid (Sm Chewable C) 500 Mg Chw 500 MG PO BID for Nutritional Supplement for 30 Days, #60 EA (This prescription has been renewed) Atorvastatin (Atorvastatin) 40 Mg Tab 40 MG PO HS for Cholesterol Management for 30 Days, #30 TAB (This prescription has been renewed) Citalopram (Celexa) 20 Mg Tab 10 MG PO DAILY for Depression Control for 30 Days, #60 TAB (This prescription has been renewed) Famotidine (Famotidine) 20 Mg Tab 20 MG PO DAILY for Heartburn Management for 30 Days, #30 TAB (This prescription has been renewed) Lidocaine (Lidoderm) 5 % Adh..patch 1 PATCH T-DERMAL DAILY for Pain for 30 Days, #30 PATCH (This prescription has been renewed) Multivitamin with Folic Acid (Thera Tablet) 400 Mcg Tablet 1 TAB PO DAILY for Nutritional Supplement for 30 Days, #30 TAB (This prescription has been renewed) Pregabalin (Lyrica) 75 Mg Cap 75 MG PO BID for Pain Management, #60 CAP 0 Refills (This prescription has been renewed) Tramadol (Ultram) 50 Mg Tab 50 MG PO Q8H PRN for PAIN SCALE 5 TO 10, #60 TAB 0 Refills (This prescription has been renewed) Warfarin (Coumadin) 2.5 Mg Tab 2.5 MG PO DAILY@1600 for Blood Clot Prevention, #30 TAB (This prescription has been renewed) [Albuterol-Ipratropium Neb] () 1 AMPULE NEBU 1 AMPULE NEB Q2HR NEB PRN for SOB/WHEEZING Discontinued Medications: Atorvastatin (Atorvastatin) 40 Mg Tab 40 MG PO HS for Cholesterol Management, #30 TAB 0 Refills Citalopram (Citalopram) 20 Mg Tab 10 MG PO DAILY for Control Depression, #30 TAB 0 Refills Enoxaparin Inj (Lovenox Inj) 40 Mg/0.4 Ml Syr 40 MG SQ Q12H for Blood Clot Prevention for 30 Days, INJECTION Lovenox to coumadin bridge stop lovenox when INR > 2.0 Ferrous Sulfate Liq (Ferrous Sulfate Liq) 300 Mg/5 Ml Soln 300 MG PO BID for Nutritional Supplement for 30 Days Fluticasone-Salmeterol Inh (Advair Diskus Inh) 100-50 Mcg/Blist Aer 1 PUFF INH BID for Asthma Management, #1 INHALER 0 Refills Rinse mouth after use. Insulin Aspart Inj (Novolog Inj) 100 Unit/Ml Inj 1 UNIT SQ ACHS SLIDING SCALE for Blood Sugar Management for 30 Days, INJECTION Warfarin (Coumadin) 6 Mg Tab 7 MG PO DAILY@1600 for Blood Clot Prevention for 30 Days, TAB Warfarin (Coumadin) 5 Mg Tab 5.5 MG PO DAILY for Blood Clot Prevention, #30 TAB 0 Refills Vernon Schultz DO Sep 19, 2017 12:38
[2017-09-19 16:00] VITALS: BP 129/73; PULSE 76; RESP 17; TEMP 96.4; O2SAT 93
[2017-09-19] MEDS ORDERED: WARFARIN SOD 1 MG TAB PO SCH (16:00)
[2017-09-19] MEDS ORDERED: PILL SPLITTER OTHER PRN (16:45)
[2017-09-20] MEDS ORDERED: PHARMACY ORDERED LAB ONE (19:45)
[2017-09-22 03:51] LABS: BETA2 GLYCOPROTEIN I AB IGA LESS THAN 9.0 SAU (< OR = 20)
[2017-09-22 03:51] LABS: THROMBIN TIME FOR LA ND sec (13-19)
[2017-09-23 23:51] LABS: PHOS SERINE AB IGA LESS THAN 20 U/mL (<20); PHOS SERINE AB IGG LESS THAN 10 U/mL (<10); PHOS SERINE AB IGM LESS THAN 25 U/mL (<25)
--- NOTE | 2017-09-27 11:13 | PQ ---
Physician Query Response Document PATIENT: INGE LAZCANO : 1955 ADMIT DATE: 09/14/2017 4:43 AM DISCH DATE: 09/19/2017 5:37 PM RESPONDING PROVIDER #: PEPE QUERY TEXT: Rule Out Sepsis Clarification Sepsis is documented in the Medical Record. Please clarify whether: -- Patient has sepsis - Please document confirmed, suspected or probable causative organism - Please document confirmed, suspected or probable localized infection - Please clarify if sepsis is related to a device - Please clarify if sepsis was present on admission -- Sepsis was ruled out (include corresponding diagnosis for patient?s clinical picture and treatment ) -- Patient had sepsis which is resolved -- Other, please specify If you have any additional questions/comments andd/or concerns, please do not hesitate to reach out t o the CDI/Coding Hotline, Ext. [phone]. The patient's Clinical Indicators include: H Assessment and Plan : - Probably SIRS - Supportive care ED Record: Differential Diagnosis : Pneumonia, sepsis, hypercapnic respiratory failure, hypoxic re spiratory failure. Narrative Course : ... white blood cell count significant elevated, lactic acid normal. Started on se psis protocol, chest x-ray reviewed does show right lower lobe infiltrate. Started on broad-spectrum antibiotics for healthcare associated pneumonia. Discharge Summary did NOT list sepsis or SIRS on Discharge Diagnosis list. Patient was also found to have a UTI. Query created by: Sujey Daley on 09/22/2017 6:28 PM RESPONSE TEXT: Had uti and pneumonia and has sirs and resolved sepsis Electronically signed by: Vernon Schultz 09/27/2017 11:09 AM
== END 2017-09-19 17:37 | disposition home health service (06) | DRG 193 ==
LOC: NEPE 02:20 → NEDA 04:43 → NEDH 10:23 → HIMW 14:25 → N07A 09-17 13:03
PROVIDERS: ADMIT Hospitalist; ATTEND Hospitalist
PROC: 30233K1 Transfusion of Nonautologous Frozen Plasma into Peripheral Vein, Percutaneous Approach (ICD-10-PCS; 2017-09-15)
PROC: B24BZZ4 Ultrasonography of Heart with Aorta, Transesophageal (ICD-10-PCS; principal; 2017-09-18)
DX: J18.9 Pneumonia, unspecified organism (principal); J96.02 Acute respiratory failure with hypercapnia; E87.3 Alkalosis; E44.0 Moderate protein-calorie malnutrition; J44.0 Chronic obstructive pulmonary disease with (acute) lower respiratory infection; J44.1 Chronic obstructive pulmonary disease with (acute) exacerbation; D68.32 Hemorrhagic disorder due to extrinsic circulating anticoagulants; I69.354 Hemiplegia and hemiparesis following cerebral infarction affecting left non-dominant side; Z68.1 Body mass index [BMI] 19.9 or less, adult; N39.0 Urinary tract infection, site not specified; B96.20 Unspecified Escherichia coli [E. coli] as the cause of diseases classified elsewhere; T45.515A Adverse effect of anticoagulants, initial encounter; R47.1 Dysarthria and anarthria; D63.8 Anemia in other chronic diseases classified elsewhere; R73.9 Hyperglycemia, unspecified; F41.8 Other specified anxiety disorders; F32.9 Major depressive disorder, single episode, unspecified; B19.20 Unspecified viral hepatitis C without hepatic coma; G25.81 Restless legs syndrome; M19.90 Unspecified osteoarthritis, unspecified site; Z90.81 Acquired absence of spleen; Z79.4 Long term (current) use of insulin; Z79.52 Long term (current) use of systemic steroids; I10 Essential (primary) hypertension; Z86.711 Personal history of pulmonary embolism; F17.210 Nicotine dependence, cigarettes, uncomplicated; I25.10 Atherosclerotic heart disease of native coronary artery without angina pectoris; E87.70 Fluid overload, unspecified; Z95.1 Presence of aortocoronary bypass graft
CPT/HCPCS: 36430; 36600; 70450; 70551; 71010; 76937; 80048; 80053; 80202; 81001; 81240; 81241; 82805; 82948; 83605; 83690; 83695; 83735; 83880; 84100; 84484; 85007; 85025; 85027; 85335; 85597; 85598; 85610; 85613; 85730; 86038; 86146; 86147; 86148; 86927; 87040; 87077; 87086; 87186; 87641; 93005; 93306; 93312; 93320; 93325; 93880; 93970; 94640; 94664; 96361; 96365; J0456; J1120; J1650; J1940; J2250; J2543; J2920; J3370; J3480; J7030; J7050; P9017

== ENCOUNTER 2017-09-28 15:07 | Inpatient (IN) | payer MEDICARE, MEDICAID ==
[~2017-09-28] VITALS: Ht 157.5 cm; Wt 46.1 kg
[2017-09-28] VITALS (8 sets, daily range): BP systolic 79–115; BP diastolic 48–65; PULSE 55–82; RESP 15–20; TEMP 98.1–102.9; O2SAT 93–100
[~2017-09-28 15:07] MED LIST changes: -ADVA100A INH; +Albuterol-Ipratropium Neb INH; +CEFU1TAB18 PO; -CITA20TA4 PO; +COMMODE 3-IN-11 MIS; -COUM6TAB PO; -ENOX40P SQ; +HUMIBIDDM PO; +KLYTECL PO; +MEDR4PAK PO; +NEBULIZER1 MI1; -NOVOLOGSS SQ; +OLANZ5 PO; +OXYGENDME NAS.CANULA; -PRED20 PO; -PRED5TAB PO; -SENN1TAB PO; -SULF1TAB23 PO; +WALKER WHEELS/F1 MIS; +ZITH500T PO
[2017-09-28] MEDS ORDERED: SODIUM CHLORIDE 0.9% FLUSH 10 ML FLUSH IVF PRN (15:15)
[2017-09-28] MEDS: RESP: ALBUTEROL 2.5 MG/IPRATROPIUM 0.5 MG NEB (SCH) INH (15:41)
[2017-09-28] MEDS ORDERED: PIPERACIL-TAZO 4.5 GM PREMIX 100 ML IV STA (15:48)
[2017-09-28] MEDS ORDERED: AZITHROMYCIN INJ 500 MG in SODIUM CHLOR 0.9% 250 ML INJ 250 ML IV STA (15:48)
[2017-09-28] MEDS ORDERED: VANCOMYCIN INJ 1 MG in SODIUM CHLOR 0.9% 250 ML INJ 250 ML IV STA (15:48)
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
[2017-09-28 15:54] LABS: HEMATOCRIT 41.4 % (35.0-46.0); HEMOGLOBIN 12.6 GM/DL (11.6-15.3); MEAN CELL VOLUME 89.8 FL (80.0-100.0); MEAN CORPUSCULAR HEMOGLOBIN 27.3 PG (27.0-34.0); MEAN CORPUSCULAR HGB CONC 30.4 % (32.0-36.0); MEAN PLATELET VOLUME 8.7 FL (7.0-11.0); PLATELET COUNT 426 TH/MM3 (150-450); RED BLOOD COUNT 4.61 MIL/MM3 (4.00-5.30); RED CELL DISTRIBUTION WIDTH 28.1 % (11.6-17.2); WHITE BLOOD COUNT 31.7 TH/MM3 (4.0-11.0)
[2017-09-28] MEDS ORDERED: KETOROLAC TROMETHAMINE 30 MG/ML (IVP) VIAL IV PUSH ONE (16:00)
[2017-09-28] MEDS ORDERED: SODIUM CHLORID 0.9% 500 ML INJ 500 ML IV ONE ×2 (16:00→19:15)
[2017-09-28 16:03] LABS: INTERNATIONAL NORMALIZED RATIO 1.1 RATIO; PROTHROMBIN TIME - PATIENT 11.4 SEC (9.8-11.6)
[2017-09-28 16:20] LABS: ALT (GPT) 32 U/L (10-53); AST (GOT) 67 U/L (15-37); BICARBONATE 28.5 MEQ/L (21.0-32.0); BLOOD UREA NITROGEN 16 MG/DL (7-18); CHLORIDE 106 MEQ/L (98-107); CREATININE 0.81 MG/DL (0.50-1.00); GLOMERULAR FILTRATION RATE 72 ML/MIN (>89); GLUCOSE,RANDOM 88 MG/DL (74-106); SODIUM (NA) 141 MEQ/L (136-145)
--- NOTE | 2017-09-28 16:21 | RADRPT ---
EXAM DATE/TIME: 09/28/2017 15:32 [facility] COMPARISON: CHEST SINGLE AP, September 14, 2017, 3:03. INDICATIONS : Short of breath MEDICAL HISTORY : Myocardial infarction. Congestive heart failure. Chronic obstructive pulmonary disease. Asthma SURGICAL HISTORY : CABG. ENCOUNTER: Initial ACUITY: 1 day PAIN SCORE: 0/10 LOCATION: chest FINDINGS: Today's exam is compared to the prior study. There continues to be hyperaeration of both lung valle. There is a new infiltrate in the peripheral aspect along the inferior right upper lung. There contin ues to be an infiltrate in the right lung base which has improved. The left lung is grossly clear. Th e heart size is stable. Stable right hilar calcified lymph node. There are no pleural effusions. Ther e is evidence of previous cardiothoracic surgery. No evidence of pneumothorax. The bony structures ar e stable. CONCLUSION: 1. New infiltrate in the peripheral aspect lower portion of the right upper lung. 2. Improving infiltrate in the right lung base. 3. COPD. Jeffery Dorsey MD on September 28, 2017 at 16:17 Board Certified Radiologist. This report was verified electronically.
[2017-09-28 16:25] LABS: ALKALINE PHOSPHATASE 76 U/L (45-117); BANDS 7 % (0-6); BASOPHILS 1 % (0-2); LYMPHOCYTES 2 % (9-44); MONOCYTES 9 % (0-8); NEUTROPHIL # MANUAL DIFF 27.9 TH/MM3 (1.8-7.7); PHOSPHORUS 2.3 MG/DL (2.5-4.9); POLYS (SEG NEUTROPHILS) 81 % (16-70); TOTAL BILIRUBIN ADULT 0.4 MG/DL (0.2-1.0); TOTAL PROTEIN 7.8 GM/DL (6.4-8.2); TROPONIN I LESS THAN 0.02 NG/ML (0.02-0.05)
[2017-09-28 16:26] LABS: ACANTHOCYTES 1+ (NORMAL); BURR CELLS 1+ (NORMAL); OVALOCYTES 2+ (NORMAL)
[2017-09-28] MEDS ORDERED: ONDANSETRON HCL 4 MG/2 ML VIAL IVP PRN (17:30)
[2017-09-28] MEDS ORDERED: MAGNESIUM HYDROXIDE SUSP 30 ML CUP PO PRN (17:30)
[2017-09-28] MEDS ORDERED: LACTULOSE SYRUP 20 GM/30 ML CUP PO PRN (17:30)
[2017-09-28] MEDS ORDERED: SENNOSIDES 8.6 MG TAB PO PRN (17:30)
[2017-09-28] MEDS ORDERED: NALOXONE HCL 0.4 MG/ML AMP IV PUSH PRN (17:30)
[2017-09-28] MEDS ORDERED: BISACODYL 10 MG SUPP RECTAL PRN (17:30)
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
[2017-09-28] MEDS ORDERED: RESP: ALBUTEROL 2.5 MG/IPRATROPIUM 0.5 MG NEB (PRN) NEB (18:00)
[2017-09-28] MEDS ORDERED: VANCOMYCIN INJ 1,000 MG in SODIUM CHLOR 0.9% 250 ML INJ 250 ML IV SCH (18:00)
[2017-09-28] MEDS: WARFARIN SOD 2.5 MG TAB PO SCH (18:00)
[2017-09-28] MEDS ORDERED: PILL SPLITTER OTHER PRN (18:15)
[2017-09-28] MEDS ORDERED: guaiFENesin/DEXTROMETHORPHAN 200 MG/20 MG/10 ML CUP PO PRN (18:15)
[2017-09-28] MEDS: PIPERACIL-TAZO 3.375 GM PREMIX 50 ML IV SCH ×2 (18:50→23:31)
[2017-09-28] MEDS: RESP: ALBUTEROL 2.5 MG/IPRATROPIUM 0.5 MG NEB (SCH) NEB (19:45)
[2017-09-28] MEDS ORDERED: SODIUM CHLOR 0.9% 1000 ML INJ 1,000 ML IV ONE (20:15)
[2017-09-28] MEDS: BUDESONIDE-FORMOTEROL 80/4.5 MCG INHALER INH SCH (21:00)
[2017-09-28] MEDS: ASCORBIC ACID 500 MG TAB PO SCH (21:00)
[2017-09-28] MEDS: ATORVASTATIN 40 MG TAB PO SCH (21:00)
[2017-09-28] MEDS: FERROUS SULFATE 300 MG /5ML UDC PO SCH (21:00)
[2017-09-28] MEDS: methylPREDNISolone SOD SUCC 40 MG/1 ML VIAL IV PUSH SCH (21:24)
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
[2017-09-28] MEDS ORDERED: Vancomycin Consult Pharmacy 1 EA OTHER SCH (21:30)
[2017-09-28] MEDS ORDERED: ENOXAPARIN SODIUM 40 MG/0.4 ML SYRINGE SQ ONE (21:30)
--- NOTE | 2017-09-28 22:29 | RADRPT ---
EXAM DATE/TIME: 09/28/2017 22:16 [place] COMPARISON: MRI BRAIN W/O CONTRAST, September 14, 2017, 18:53. CT BRAIN W/O CONTRAST, September 15, 2017, 9:16. INDICATIONS : Altered mental status. RADIATION DOSE: 48.38 CTDIvol (mGy) MEDICAL HISTORY : Cerebrovascular disease. SURGICAL HISTORY : None. ENCOUNTER: Initial ACUITY: 1 day PAIN SCALE: 0/10 LOCATION: cranial TECHNIQUE: Multiple contiguous axial images were obtained of the head. Using automated exposure control and adj ustment of the mA and/or kV according to patient size, radiation dose was kept as low as reasonably a chievable to obtain optimal diagnostic quality images. DICOM format image data is available electro nically for review and comparison. FINDINGS: Evolving bifrontal strokes. No evidence of hemorrhage or mass. Nothing to suggest new acute infarctio n. Ventricles stable symmetric and unremarkable. Mucous retention cyst in the right sphenoid sinus. CONCLUSION: No new acute findings Eladio Todd MD on September 28, 2017 at 22:25 Board Certified Radiologist. This report was verified electronically.
[2017-09-29] VITALS (13 sets, daily range): BP systolic 89–124; BP diastolic 56–73; PULSE 52–71; RESP 20–26; TEMP 97.6–98.5; O2SAT 93–99
[2017-09-29 05:07] LABS: AUTOMATED NEUTROPHIL # 26.7 TH/MM3 (1.8-7.7); BASOPHIL % 0.1 % (0.0-2.0); HEMATOCRIT 33.2 % (35.0-46.0); HEMOGLOBIN 10.1 GM/DL (11.6-15.3); LYMPH % 2.8 % (9.0-44.0); LYMPHOCYTE # 0.8 TH/MM3 (1.0-4.8); MEAN CELL VOLUME 89.1 FL (80.0-100.0); MEAN CORPUSCULAR HEMOGLOBIN 27.2 PG (27.0-34.0); MEAN CORPUSCULAR HGB CONC 30.5 % (32.0-36.0); MEAN PLATELET VOLUME 8.9 FL (7.0-11.0); MONOCYTE # 0.6 TH/MM3 (0-0.9); NEUT % 95.1 % (16.0-70.0); PLATELET COUNT 371 TH/MM3 (150-450); RED BLOOD COUNT 3.73 MIL/MM3 (4.00-5.30); RED CELL DISTRIBUTION WIDTH 27.9 % (11.6-17.2); WHITE BLOOD COUNT 28.1 TH/MM3 (4.0-11.0)
[2017-09-29] MEDS: methylPREDNISolone SOD SUCC 40 MG/1 ML VIAL IV PUSH SCH ×3 (05:09→21:29)
[2017-09-29] MEDS: PIPERACIL-TAZO 3.375 GM PREMIX 50 ML IV SCH ×3 (05:10→17:18)
[2017-09-29] MEDS: VANCOMYCIN INJ 750 MG in SODIUM CHLOR 0.9% 250 ML INJ 250 ML IV SCH ×2 (05:16→17:42)
[2017-09-29 05:27] LABS: INTERNATIONAL NORMALIZED RATIO 1.3 RATIO; PROTHROMBIN TIME - PATIENT 12.9 SEC (9.8-11.6)
[2017-09-29 05:35] LABS: ALBUMIN 2.1 GM/DL (3.4-5.0); ALKALINE PHOSPHATASE 55 U/L (45-117); ALT (GPT) 18 U/L (10-53); AST (GOT) 23 U/L (15-37); BICARBONATE 26.5 MEQ/L (21.0-32.0); BLOOD UREA NITROGEN 17 MG/DL (7-18); CALCIUM 7.8 MG/DL (8.5-10.1); CHLORIDE 111 MEQ/L (98-107); GLOMERULAR FILTRATION RATE 125 ML/MIN (>89); GLUCOSE,RANDOM 134 MG/DL (74-106); SODIUM (NA) 145 MEQ/L (136-145); TOTAL BILIRUBIN ADULT 0.3 MG/DL (0.2-1.0); TOTAL PROTEIN 5.8 GM/DL (6.4-8.2)
--- NOTE | 2017-09-29 05:55 | HHI.CCPN ---
Subjective Remarks/Hospital Course 62 yo WF with PMH of COPD on 2 L home oxygen, coronary artery disease with prior CABG 2, left MCA stroke status post TPA 07/18 with residual aphasia, anxiety, hyperlipidemia, hepatitis C resolved status post treatment, osteoarthritis, ongoing tobacco abuse, prior history of alcoholism, , PE 05/18. Following hospitalization for stroke 07/16-07/24 she went to [facility] and then to [facility]. She was admitted for sepsis, pneumonia, COPD exacerbation 09/14/17 through 09/19/17 after her daughter states she had a slip and fall event at [facility]. Patient did not want to return to a SNF so arrangements were made for her to be discharged with home health, PT , OT, speech therapy. Her daughter states that she was initially doing well for the first few days after discharge. She then went to a follow-up appointment with her outpatient pain management physician. Her daughter states she had been taking tramadol for pain but the pain management physician changed to Percocet and she states her mother has been lethargic and confused ever since then. She has not been using her oxygen properly and has had decreased appetite. Today she was brought into [facility] by EVAC and reported subjective fevers, cough productive of brown sputum. She was initially communicating some with the admitting hospitalist and indicated that she wished to be DNR/DNI. She denied abdominal pain, nausea, vomiting, diarrhea at that time. Chest x- ray demonstrated a new right upper lobe infiltrate and she had leukocytosis with white count of 31 with left shift. Creatinine and lactic acid were normal. She was initially normotensive with blood pressure 115/65 with normal heart rate. She was treated with DuoNeb 3, azithromycin 500 mg IV, and an S5 100 bolus per the ED. Upon admission she was started on Zosyn and vancomycin, Solumedrol 40 mg IV q8 hours. I was contacted by ED RN when she was hypotensive with the SBP in the 70s with worsening lethargy. Giving IVF bolus. Daughter states she is designated healthcare surrogate and she confirms DNR/DNI status, would be amenable to CVL placement with pressors if needed. She would like to minimize narcotic analgesia and states she would not want hospice but states " My mom has given up". Subjective 09/29: Patient is currently on 2 L nasal cannula and hemodynamically stable. Received 3 L bolus is currently maintaining her blood pressure. Currently down for a modified barium swallow study. Palliative care see the patient patient will likely go home with hospice type tears on Monday. Healthcare proxy wants to "maximize" her medical condition prior to discharge. Remains DNR/DNI. Objective Vital Signs Date Time Temp Pulse Resp B/P (MAP) Pulse Ox O2 Delivery O2 Flow Rate FiO2 09/29/17 04:00 98.5 57 23 97/61 (73) 98 09/28/17 19:44 Nasal Cannula 4.00 09/28/17 15:39 60 Intake and Output 09/29/17 09/29/17 09/30/17 08:00 16:00 00:00 Intake Total 50 ml Balance 50 ml Result Diagram: 09/29/17 0351 09/29/17 0354 Other Results Microbiology Date/Time Source Procedure Growth Status 09/28/17 15:15 Blood Peripheral Aerobic Blood Culture - Preliminary NO GROWTH IN 1 DAY Resulted 09/28/17 15:15 Blood Peripheral Anaerobic Blood Culture - Preliminary NO GROWTH IN 1 DAY Resulted 09/28/17 18:24 Nasal Aspirate Influenza Types A,B Antigen (ROSA) - Final NEGATIVE FOR FLU A AND B ANTIGEN.... Complete Imaging Last Impressions Chest X-Ray 09/28/17 1511 Signed Impressions: Service Date/Time: September 15:32 - CONCLUSION: 1. New infiltrate in the peripheral aspect lower portion of the right upper lung. 2. Improving infiltrate in the right lung base. 3. COPD. Jeffery Dorsey MD Head CT 09/28/17 0000 Signed Impressions: Service Date/Time: September 22:16 - CONCLUSION: No new acute findings Eladio Todd MD Objective Remarks GENERAL: This is a 62-year-old female resting in bed in no acute distress SKIN: Warm and dry. No rash HEAD: Atraumatic. Normocephalic. EYES: Pupils equal and round about 2 millimeters bilaterally and reactive. No scleral icterus. No injection or drainage. ENT: No nasal bleeding or discharge. Mucous membranes pink and moist. NECK: Trachea midline. No JVD. CARDIOVASCULAR: Bradycardic, RR. S1, S2 no S4. RESPIRATORY: No accessory muscle use. Clear to auscultation. Breath sounds equal bilaterally. GASTROINTESTINAL: Abdomen soft, non-tender, nondistended. Hepatic and splenic margins not palpable. MUSCULOSKELETAL: Extremities without clubbing, cyanosis, or edema. No obvious deformities. NEUROLOGICAL: Awake and alert. No obvious cranial nerve deficits. Moving all 4 extremities spontaneously. Expressive aphasia. A/P Assessment and Plan NEURO/Psych: Acute toxic metabolic encephalopathy -Multifactorial secondary to sepsis, medication induced/etc. 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 CT brain 09/29 revealed evolving bilateral frontal CVAs. No hemorrhage. Patient is currently on tramadol 50 mg every 8 hours as needed for pain 5-10 Currently on citalopram 10 mg daily for depression Pregabalin 75 mg daily continue Currently holding clonazepam 0.5 mg by mouth twice a day Olanzapine 5 mg every 8 hours as needed anxiety Continue Lidoderm patch 5% on 12 hours off 12 hours RESP: COPD - end-stage Ongoing tobacco abuse Acute on chronic hypercapnia Nasal cannula to maintain saturations greater than equal to 90% Incentive spirometry while awake Albuterol/ipratropium aerosols every 4 hours with albuterol aerosols every 2 hours as needed dyspnea Budesonide/Formoterol 80/4.5 2 puffs twice a day Methylprednisolone 40 mg IV every 8 Follow-up on chest x-ray in a.m. Chest x-ray 09/20 revealed possible focal right upper lobe pneumonia See infectious disease for antibiotic workup CV: Coronary artery disease status post CABG 2 Hypotension, resolved Hyperlipidemia Sinus bradycardia Hypotension multifactorial secondary to dehydration, sepsis. Responded to 3 L normal saline bolus Scheduled and will saline at 100 cc an hour Troponin negative Lactic acid normal Atorvastatin 40 mg by mouth daily at bedtime for dyslipidemia will be continued Stress nuclear medicine test 03/18 revealed EF 52%. No regional wall motion abnormality's. GI: History of hepatitis C resolved s/p treatment Gastroesophageal reflux disease Hypoalbuminemia Currently for barium swallow evaluation Famotidine 20 mg daily for gastroesophageal reflux disease Docusate sodium 100 mg twice a day for bowel regimen Bedside swallow eval. FEN/RENAL: Voiding. Monitor intake and output. Monitor electrolytes and replace as indicated ID: Sepsis Pneumonia aspiration vs healthcare associated present on admission H/o surgical Splenectomy Continue piperacillin/tazobactam, vancomycin and azithromycin started 09/28. Pertinent cultures 09/28 - blood cultures 2 - no growth Influenza negative Urine Legionella and pneumococcal antigens, mycoplasma and chlamydia antibodies pending HEME: Chronic anticoagulation - warfarin History of left lower lung pulmonary embolism 05/18 Leukocytosis neutrophil predominant Normocytic anemia INR is subtherapeutic. She was not able to take her warfarin tonight due to lethargy. INR may increase due to abx, monitor daily. Therapeutic anticoagulation with enoxaparin 40 q12 until INR target 2-3. Previously evaluated by hematology. Hypercoagulable workup negative. Continue warfarin 2.5 mg by mouth daily Continue iron sulfate 300 mg by mouth twice a day for anemia ENDO: Placed on sliding scale insulin with Accu-Cheks before meals/at bedtime Novulin R low regimen to maintain euglycemia while on systemic steroids MSK: Osteoarthritis Physical therapy evaluate and treat PROPH: SCDs for DVT prophylaxis. Enoxaparin 40 mg subcutaneous twice a day. Amoxapine 20 no grams daily/home medication for stress ulcer prophylaxis. ACCESS: Peripheral IV providing adequate access at this time. Will place central venous line if needed. Level II follow-up Patient is stable from a critical care medicine standpoint. Assign care to hospitalist in a.m. 09/30. Transfer to general medical floor. Palliative care has evaluated. Plan to maximize medical care and likely transition to hospice Monday Daniel Acosta MD Sep 29, 2017 05:55
[2017-09-29 06:58] LABS: HOWELL-JOLLY BODIES PRESENT (NONE SEEN)
[2017-09-29] MEDS: RESP: ALBUTEROL 2.5 MG/IPRATROPIUM 0.5 MG NEB (SCH) NEB ×2 (07:49→16:03)
[2017-09-29] MEDS ORDERED: traMADol HCL 50 MG TAB PO PRN (08:30)
[2017-09-29] MEDS: BUDESONIDE-FORMOTEROL 80/4.5 MCG INHALER INH SCH ×2 (09:00→21:30)
[2017-09-29] MEDS: FERROUS SULFATE 300 MG /5ML UDC PO SCH ×2 (09:12→21:29)
[2017-09-29] MEDS: FAMOTIDINE 20 MG TAB PO SCH (09:12)
[2017-09-29] MEDS: CITALOPRAM HYDROBROMIDE 20 MG TAB PO SCH (09:12)
[2017-09-29] MEDS: MULTIVITAMIN TAB PO SCH (09:12)
[2017-09-29] MEDS: ASCORBIC ACID 500 MG TAB PO SCH ×2 (09:12→21:28)
[2017-09-29] MEDS: ENOXAPARIN SODIUM 40 MG/0.4 ML SYRINGE SQ SCH ×2 (09:22→21:29)
[2017-09-29] MEDS ORDERED: DEXTROSE 50% IN WATER 50 ML VIAL(D50) IV PUSH PRN (14:30)
[2017-09-29] MEDS ORDERED: RESP: ALBUTEROL 2.5 MG/3 ML NEB (PRN) NEB (14:30)
[2017-09-29] MEDS ORDERED: GLUCAGON 1 MG/ML VIAL OTHER PRN (14:30)
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
--- NOTE | 2017-09-29 14:50 | EKG ---
Date Performed: 09/28/2017 Time Performed: 15:25:42 PTAGE: 62 years EKG: Sinus rhythm POSSIBLE LEFT ATRIAL ENLARGEMENT NONSPECIFIC T-WAVE ABNORMALITY Since previous tracing, no significa nt change noted BORDERLINE ECG PREVIOUS TRACING : 09/14/2017 05.33 DOCTOR: Oral Lovelace Interpretating Date/Time 09/29/2017 14:49:41
--- NOTE | 2017-09-29 15:21 | RADRPT ---
EXAM DATE/TIME: 09/29/2017 00:00 [place] COMPARISON: BA SWALLOW W/SPEECH PATHOLOGY, August 09, 2017, 12:19. INDICATIONS : History of aspiration FLUORO TIME: 2.4 minutes IMAGE COUNT: 0 CONTRAST: Dose as prescribed by speech pathologist. MEDICAL HISTORY : Myocardial infarction. Congestive heart failure. Chronic obstructive pulmonary disease. asthma SURGICAL HISTORY : CABG. ENCOUNTER: Initial ACUITY: 1 month PAIN SCORE: 0/10 LOCATION: Bilateral neck FINDINGS: A modified barium swallow was performed with speech pathology. Patient was given a variety of liquids to swallow. Moderate vallecular pooling. Persistent moderate laryngeal penetration with occasional aspiration. For a full detailed report, see report by the speech pathologist. CONCLUSION: 1. Please see consultation from speech pathology. Cody Lamb MD on September 29, 2017 at 15:18 Board Certified Radiologist. This report was verified electronically.
[2017-09-29] MEDS ORDERED: RESP: ALBUTEROL 2.5 MG/IPRATROPIUM 0.5 MG NEB (SCH) NEB (16:00)
[2017-09-29] MEDS ORDERED: WARFARIN SOD 2.5 MG TAB PO ONE (16:00)
[2017-09-29] MEDS ORDERED: Vancomycin Consult Pharmacy 1 EA OTHER SCH (16:15)
[2017-09-29] MEDS: WARFARIN SOD 2.5 MG TAB PO SCH (16:27)
[2017-09-29] MEDS: AZITHROMYCIN 250 MG TAB PO SCH (16:27)
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
[2017-09-29] MEDS: INSULIN NovoLIN REGULAR SUPPLEMENTAL SCALE SQ SCH ×2 (17:00→22:25)
[2017-09-29] MEDS: ATORVASTATIN 40 MG TAB PO SCH (21:28)
[2017-09-29] MEDS: DOCUSATE SODIUM 100 MG CAP PO SCH (21:29)
[2017-09-29] MEDS: PREGABALIN 75 MG CAP PO SCH (21:29)
[2017-09-30] VITALS (10 sets, daily range): BP systolic 100–146; BP diastolic 59–79; PULSE 60–75; RESP 18–20; TEMP 97.6–98.9; O2SAT 92–97
[2017-09-30] MEDS: PIPERACIL-TAZO 3.375 GM PREMIX 50 ML IV SCH ×4 (00:35→17:48)
[2017-09-30 01:10] LABS: BILIRUBIN, URINE NEG (NEG); BLOOD, URINE SMALL (NEG); GLUCOSE,URINE NEG (NEG); KETONE, URINE NEG (NEG); MUCUS URINE FEW /lpf (OCC); NITRITE,URINE NEG (NEG); SQUAMOUS EPITHELIAL CELL URINE 2 /hpf (0-5); URIC ACID CRYSTALS, URINE RARE /hpf; URINE COLOR YELLOW (YELLW/STRAW); URINE LEUKOCYTE ESTERASE NEG (NEG)
[2017-09-30] MEDS: RESP: ALBUTEROL 2.5 MG/IPRATROPIUM 0.5 MG NEB (SCH) NEB ×6 (04:00→19:56)
[2017-09-30] MEDS: methylPREDNISolone SOD SUCC 40 MG/1 ML VIAL IV PUSH SCH ×2 (05:21→13:08)
[2017-09-30] MEDS ORDERED: PHARMACY ORDERED LAB ONE (05:45)
[2017-09-30 05:46] LABS: HEMATOCRIT 30.2 % (35.0-46.0); HEMOGLOBIN 9.5 GM/DL (11.6-15.3); MEAN CELL VOLUME 87.5 FL (80.0-100.0); MEAN CORPUSCULAR HEMOGLOBIN 27.5 PG (27.0-34.0); MEAN CORPUSCULAR HGB CONC 31.4 % (32.0-36.0); MEAN PLATELET VOLUME 8.8 FL (7.0-11.0); PLATELET COUNT 344 TH/MM3 (150-450); RED BLOOD COUNT 3.45 MIL/MM3 (4.00-5.30); RED CELL DISTRIBUTION WIDTH 27.3 % (11.6-17.2); WHITE BLOOD COUNT 18.6 TH/MM3 (4.0-11.0)
[2017-09-30 05:58] LABS: INTERNATIONAL NORMALIZED RATIO 1.9 RATIO; PROTHROMBIN TIME - PATIENT 19.1 SEC (9.8-11.6)
[2017-09-30 06:32] LABS: BICARBONATE 25.2 MEQ/L (21.0-32.0); CALCIUM 8.3 MG/DL (8.5-10.1); CREATININE 0.49 MG/DL (0.50-1.00)
[2017-09-30 06:33] LABS: PHOSPHORUS 2.3 MG/DL (2.5-4.9)
[2017-09-30 06:35] LABS: VANCOMYCIN TROUGH 13.1 MCG/ML (5.0-10.0)
[2017-09-30] MEDS: VANCOMYCIN INJ 750 MG in SODIUM CHLOR 0.9% 250 ML INJ 250 ML IV SCH (06:59)
[2017-09-30] MEDS: INSULIN NovoLIN REGULAR SUPPLEMENTAL SCALE SQ SCH ×4 (08:00→20:55)
[2017-09-30] MEDS: FERROUS SULFATE 300 MG /5ML UDC PO SCH ×2 (09:00→20:59)
[2017-09-30] MEDS: LIDOCAINE HCL 5% PATCH T-DERMAL SCH (09:00)
[2017-09-30] MEDS: DOCUSATE SODIUM 100 MG CAP PO SCH ×2 (09:00→20:59)
[2017-09-30] MEDS: MULTIVITAMIN TAB PO SCH (09:00)
[2017-09-30] MEDS: ENOXAPARIN SODIUM 40 MG/0.4 ML SYRINGE SQ SCH ×2 (09:00→20:55)
[2017-09-30] MEDS: PREGABALIN 75 MG CAP PO SCH ×2 (09:42→20:53)
[2017-09-30] MEDS: AZITHROMYCIN 250 MG TAB PO SCH (09:44)
[2017-09-30] MEDS: ASCORBIC ACID 500 MG TAB PO SCH ×2 (09:45→20:53)
[2017-09-30] MEDS: CITALOPRAM HYDROBROMIDE 20 MG TAB PO SCH (09:45)
[2017-09-30] MEDS: FAMOTIDINE 20 MG TAB PO SCH (09:46)
[2017-09-30] MEDS: BUDESONIDE-FORMOTEROL 80/4.5 MCG INHALER INH SCH ×2 (09:52→20:54)
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
--- NOTE | 2017-09-30 13:51 | HHI.PR ---
Subjective Remarks She says she is feeling all right. Denies any chest pain or shortness of breath. Denies any nausea or vomiting. Objective Vital Signs Date Time Temp Pulse Resp B/P (MAP) Pulse Ox O2 Delivery O2 Flow Rate FiO2 09/30/17 12:00 71 09/30/17 12:00 97.6 64 18 146/76 (99) 92 09/30/17 09:37 93 Nasal Cannula 3.00 09/30/17 08:00 97.6 72 18 125/79 (94) 95 09/30/17 08:00 65 09/30/17 04:00 97.7 67 20 100/60 (73) 97 09/30/17 04:00 60 09/30/17 00:00 97.9 73 20 106/59 (75) 97 09/30/17 00:00 Nasal Cannula 3.00 09/29/17 23:50 69 09/29/17 20:46 69 09/29/17 20:15 97.6 68 20 114/66 (82) 97 09/29/17 20:00 Nasal Cannula 3.00 09/29/17 19:33 93 Nasal Cannula 2.00 09/29/17 18:00 71 09/29/17 16:00 63 09/29/17 16:00 97.8 63 26 124/73 (90) 97 09/29/17 14:00 62 I/O 09/29/17 09/29/17 09/29/17 09/30/17 09/30/17 09/30/17 07:00 15:00 23:00 07:00 15:00 23:00 Intake Total 350 ml 50 ml 310 ml 160 ml Output Total 650 ml 675 ml 200 ml Balance -300 ml 50 ml -365 ml -40 ml Intake Oral 0 ml 260 ml 60 ml IV Total 350 ml 50 ml 50 ml 100 ml Output Urine Total 650 ml 675 ml 200 ml # Voids 2 2 # Bowel Movements 0 1 Result Diagram: 09/30/17 0500 09/30/17 0500 Objective Remarks GENERAL: Sitting up in bed. Appears comfortable. SKIN: Warm and dry. HEAD: Normocephalic. EYES: No scleral icterus. No injection or drainage. NECK: Supple, trachea midline. No JVD . CARDIOVASCULAR: Regular rate and rhythm without murmurs, gallops, or rubs. RESPIRATORY: Breath sounds equal bilaterally. No accessory muscle use. GASTROINTESTINAL: Abdomen soft, non-tender, nondistended. MUSCULOSKELETAL: No cyanosis, or edema. BACK: Nontender without obvious deformity. No CVA tenderness. A/P Assessment and Plan Patient is a 62-year-old female with primary medical history of COPD, recurrent hospitalizations secondary to chronic respiratory failure, pulmonary embolism 2016, recent 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 Patient was recently hospitalized 09/14/17-09/19/17 secondary to COPD exacerbation, sepsis, pneumonia. Patient returns with COPD exacerbation, sepsis , pneumonia, and is on broad-spectrum antibiotics as per infectious disease. Swallow evaluation positive for aspiration, and patient is on honey thick. Palliative care following. //Acute toxic metabolic encephalopathy -Multifactorial secondary to sepsis, medication induced/etc. //Chronic pain syndrome NOS //Depression/anxiety //Restless leg syndrome //History of bilateral MCA CVA with resultant aphasia //History of alcoholism in remission CT brain 09/29 revealed evolving bilateral frontal CVAs. No hemorrhage. Patient is currently on tramadol 50 mg every 8 hours as needed for pain 5-10 Currently on citalopram 10 mg daily for depression Pregabalin 75 mg daily continue Currently holding clonazepam 0.5 mg by mouth twice a day Olanzapine 5 mg every 8 hours as needed anxiety Continue Lidoderm patch 5% on 12 hours off 12 hours = Patient appears calm, although disoriented. Continue to monitor. RESP: //COPD - end-stage //Ongoing tobacco abuse //Acute on chronic hypercapnia Nasal cannula to maintain saturations greater than equal to 90% Incentive spirometry while awake Albuterol/ipratropium aerosols every 4 hours with albuterol aerosols every 2 hours as needed dyspnea Budesonide/Formoterol 80/4.5 2 puffs twice a day Methylprednisolone 40 mg IV every 8 Follow-up on chest x-ray in a.m. Chest x-ray 09/20 revealed possible focal right upper lobe pneumonia See infectious disease for antibiotic workup = Continue broad-spectrum antibiotics as per infectious disease. Taper steroids. White blood cell count improving 18.6 today. CV: //Coronary artery disease status post CABG 2 //Hypotension, resolved //Hyperlipidemia //Sinus bradycardia Hypotension multifactorial secondary to dehydration, sepsis. Responded to 3 L normal saline bolus Scheduled and will saline at 100 cc an hour Troponin negative Lactic acid normal Atorvastatin 40 mg by mouth daily at bedtime for dyslipidemia will be continued Stress nuclear medicine test 03/18 revealed EF 52%. No regional wall motion abnormality's. = Appears acceptable. Continue to monitor. GI: //History of hepatitis C resolved s/p treatment //Gastroesophageal reflux disease //Hypoalbuminemia Currently for barium swallow evaluation Famotidine 20 mg daily for gastroesophageal reflux disease Docusate sodium 100 mg twice a day for bowel regimen = Modified swallow eval shows aspiration. Patient continues on thickened diet.. ID: //Sepsis //Pneumonia aspiration vs healthcare associated present on admission //H/o surgical Splenectomy Pertinent cultures 09/28 - blood cultures 2 - no growth Influenza negative Urine Legionella and pneumococcal antigens, mycoplasma and chlamydia antibodies negative =Continue piperacillin/tazobactam, vancomycin and azithromycin started 09/28. As per infectious disease. HEME: //Chronic anticoagulation - warfarin //History of left lower lung pulmonary embolism 05/18 //Leukocytosis neutrophil predominant //Normocytic anemia INR is subtherapeutic. She was not able to take her warfarin tonight due to lethargy. INR may increase due to abx, monitor daily. Therapeutic anticoagulation with enoxaparin 40 q12 until INR target 2-3. Previously evaluated by hematology. Hypercoagulable workup negative. Continue warfarin 2.5 mg by mouth daily Continue iron sulfate 300 mg by mouth twice a day for anemia ENDO: Placed on sliding scale insulin with Accu-Cheks before meals/at bedtime Novulin R low regimen to maintain euglycemia while on systemic steroids MSK: Osteoarthritis Discharge Planning Palliative care following. Rio Gates MD Sep 30, 2017 13:51
[2017-09-30] MEDS: VANCOMYCIN INJ 850 MG in SODIUM CHLOR 0.9% 250 ML INJ 250 ML IV SCH (18:35)
[2017-09-30] MEDS: ATORVASTATIN 40 MG TAB PO SCH (20:53)
[2017-09-30] MEDS: predniSONE 20 MG TAB PO SCH (20:53)
--- NOTE | 2017-09-30 21:58 | EKG ---
Date Performed: 09/30/2017 Time Performed: 15:22:32 PTAGE: 62 years EKG: Sinus rhythm NORMAL ECG PREVIOUS TRACING : 09/28/2017 15.25 Compared to prior tracing no significant change DOCTOR: Venancio Albright Interpretating Date/Time 09/30/2017 21:57:46
[2017-10-01] VITALS (8 sets, daily range): BP systolic 122–159; BP diastolic 67–86; PULSE 58–76; RESP 17–20; TEMP 97.7–98.3; O2SAT 92–99
[2017-10-01] MEDS: PIPERACIL-TAZO 3.375 GM PREMIX 50 ML IV SCH ×4 (00:12→18:00)
[2017-10-01] MEDS: RESP: ALBUTEROL 2.5 MG/IPRATROPIUM 0.5 MG NEB (SCH) NEB ×7 (03:41→23:27)
[2017-10-01] MEDS: VANCOMYCIN INJ 850 MG in SODIUM CHLOR 0.9% 250 ML INJ 250 ML IV SCH ×2 (05:04→18:01)
[2017-10-01] MEDS: INSULIN NovoLIN REGULAR SUPPLEMENTAL SCALE SQ SCH ×4 (08:00→20:17)
[2017-10-01 08:06] LABS: BASOPHIL % 0.2 % (0.0-2.0); EOSINOPHIL % 0.1 % (0.0-4.0); HEMATOCRIT 29.9 % (35.0-46.0); HEMOGLOBIN 9.8 GM/DL (11.6-15.3); LYMPH % 8.7 % (9.0-44.0); LYMPHOCYTE # 1.1 TH/MM3 (1.0-4.8); MEAN CELL VOLUME 87.9 FL (80.0-100.0); MEAN CORPUSCULAR HEMOGLOBIN 28.6 PG (27.0-34.0); MEAN CORPUSCULAR HGB CONC 32.6 % (32.0-36.0); MEAN PLATELET VOLUME 9.3 FL (7.0-11.0); MONO % 5.8 % (0.0-8.0); MONOCYTE # 0.8 TH/MM3 (0-0.9); NEUT % 85.2 % (16.0-70.0); PLATELET COUNT 314 TH/MM3 (150-450); RED BLOOD COUNT 3.41 MIL/MM3 (4.00-5.30); RED CELL DISTRIBUTION WIDTH 27.5 % (11.6-17.2); WHITE BLOOD COUNT 12.9 TH/MM3 (4.0-11.0)
[2017-10-01 08:14] LABS: INTERNATIONAL NORMALIZED RATIO 1.5 RATIO; PROTHROMBIN TIME - PATIENT 14.7 SEC (9.8-11.6)
[2017-10-01 08:26] LABS: BICARBONATE 27.4 MEQ/L (21.0-32.0); CALCIUM 8.4 MG/DL (8.5-10.1); CREATININE 0.49 MG/DL (0.50-1.00)
[2017-10-01] MEDS: FERROUS SULFATE 300 MG /5ML UDC PO SCH ×2 (08:57→21:00)
[2017-10-01] MEDS: DOCUSATE SODIUM 100 MG CAP PO SCH ×2 (08:57→21:00)
[2017-10-01] MEDS: FAMOTIDINE 20 MG TAB PO SCH (08:57)
[2017-10-01] MEDS: AZITHROMYCIN 250 MG TAB PO SCH (08:57)
[2017-10-01] MEDS: CITALOPRAM HYDROBROMIDE 20 MG TAB PO SCH (08:57)
[2017-10-01] MEDS: PREGABALIN 75 MG CAP PO SCH ×2 (08:57→21:16)
[2017-10-01] MEDS: ASCORBIC ACID 500 MG TAB PO SCH ×2 (08:57→21:16)
[2017-10-01] MEDS: ENOXAPARIN SODIUM 40 MG/0.4 ML SYRINGE SQ SCH ×2 (08:57→21:16)
[2017-10-01] MEDS: predniSONE 20 MG TAB PO SCH ×2 (08:57→21:16)
[2017-10-01] MEDS: MULTIVITAMIN TAB PO SCH (08:57)
[2017-10-01] MEDS: BUDESONIDE-FORMOTEROL 80/4.5 MCG INHALER INH SCH ×2 (08:58→21:17)
[2017-10-01] MEDS: LIDOCAINE HCL 5% PATCH T-DERMAL SCH (08:58)
[2017-10-01 10:27] LABS: ACANTHOCYTES OCC (NORMAL); OVALOCYTES 1+ (NORMAL)
--- NOTE | 2017-10-01 14:43 | HHI.PR ---
Subjective Remarks Patient without any meaningful conversation as yesterday. Does appear to deny any pain. No acute issues per nursing. Objective Vital Signs Date Time Temp Pulse Resp B/P (MAP) Pulse Ox O2 Delivery O2 Flow Rate FiO2 10/01/17 12:06 98.1 76 17 126/71 (89) 92 10/01/17 11:15 Nasal Cannula 3.00 10/01/17 08:06 98.1 71 17 156/81 (106) 92 10/01/17 07:53 92 Nasal Cannula 3.00 10/01/17 04:00 58 10/01/17 04:00 97.7 63 20 147/67 (93) 95 10/01/17 00:00 98.1 76 20 136/86 (103) 96 09/30/17 23:46 75 09/30/17 20:05 98.1 72 18 127/66 (86) 95 09/30/17 20:00 71 09/30/17 20:00 71 09/30/17 19:59 93 Nasal Cannula 3.00 09/30/17 19:00 95 Nasal Cannula 3.00 09/30/17 16:00 98.9 73 18 136/75 (95) 96 09/30/17 16:00 75 I/O 09/30/17 09/30/17 09/30/17 10/01/17 10/01/17 10/01/17 07:00 15:00 23:00 07:00 15:00 23:00 Intake Total 160 ml 498.5 ml 368.5 ml Output Total 200 ml 500 ml 700 ml Balance -40 ml -1.5 ml -331.5 ml Intake Oral 60 ml 240 ml 60 ml IV Total 100 ml 258.5 ml 308.5 ml Output Urine Total 200 ml 500 ml 700 ml # Voids 3 # Bowel Movements 1 0 Result Diagram: 10/01/1772510/01/17725 Objective Remarks GENERAL: Sitting up in bed. Appears comfortable. no Changes on exam from yesterday SKIN: Warm and dry. HEAD: Normocephalic. EYES: No scleral icterus. No injection or drainage. NECK: Supple, trachea midline. No JVD . CARDIOVASCULAR: Regular rate and rhythm without murmurs, gallops, or rubs. RESPIRATORY: Breath sounds equal bilaterally. No accessory muscle use. GASTROINTESTINAL: Abdomen soft, non-tender, nondistended. MUSCULOSKELETAL: No cyanosis, or edema. BACK: Nontender without obvious deformity. No CVA tenderness. A/P Assessment and Plan Patient is a 62-year-old female with primary medical history of COPD, recurrent hospitalizations secondary to chronic respiratory failure, pulmonary embolism 2016, recent 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 Patient was recently hospitalized 09/14/17-09/19/17 secondary to COPD exacerbation, sepsis, pneumonia. Patient returns with COPD exacerbation, sepsis , pneumonia, and is on broad-spectrum antibiotics as per infectious disease. Swallow evaluation positive for aspiration, and patient is on honey thick. Palliative care following. ===10/01. Hypernatremia. Sodium 147. Start D5 1 half normal saline. Hypokalemia. Potassium 3.4. Replace in IV fluids. Continue antibiotics for pneumonia. Leukocytosis improving. Await hospice discussion with family. //Acute toxic metabolic encephalopathy -Multifactorial secondary to sepsis, medication induced/etc. //Chronic pain syndrome NOS //Depression/anxiety //Restless leg syndrome //History of bilateral MCA CVA with resultant aphasia //History of alcoholism in remission CT brain 09/29 revealed evolving bilateral frontal CVAs. No hemorrhage. Patient is currently on tramadol 50 mg every 8 hours as needed for pain 5-10 Currently on citalopram 10 mg daily for depression Pregabalin 75 mg daily continue Currently holding clonazepam 0.5 mg by mouth twice a day Olanzapine 5 mg every 8 hours as needed anxiety Continue Lidoderm patch 5% on 12 hours off 12 hours = Patient appears calm, although disoriented. Continue to monitor. RESP: //COPD - end-stage //Ongoing tobacco abuse //Acute on chronic hypercapnia Nasal cannula to maintain saturations greater than equal to 90% Incentive spirometry while awake Albuterol/ipratropium aerosols every 4 hours with albuterol aerosols every 2 hours as needed dyspnea Budesonide/Formoterol 80/4.5 2 puffs twice a day Methylprednisolone 40 mg IV every 8 Follow-up on chest x-ray in a.m. Chest x-ray 09/20 revealed possible focal right upper lobe pneumonia See infectious disease for antibiotic workup = Continue broad-spectrum antibiotics as per infectious disease. Taper steroids. White blood cell count improving 18.6 today. = 10/01. White blood cell count improving 12.9 today. Opinion antibiotics as ordered. CV: //Coronary artery disease status post CABG 2 //Hypotension, resolved //Hyperlipidemia //Sinus bradycardia Hypotension multifactorial secondary to dehydration, sepsis. Responded to 3 L normal saline bolus Scheduled and will saline at 100 cc an hour Troponin negative Lactic acid normal Atorvastatin 40 mg by mouth daily at bedtime for dyslipidemia will be continued Stress nuclear medicine test 03/18 revealed EF 52%. No regional wall motion abnormality's. = Appears acceptable. Continue to monitor. GI: //History of hepatitis C resolved s/p treatment //Gastroesophageal reflux disease //Hypoalbuminemia Currently for barium swallow evaluation Famotidine 20 mg daily for gastroesophageal reflux disease Docusate sodium 100 mg twice a day for bowel regimen = Modified swallow eval shows aspiration. Patient continues on thickened diet.. ID: //Sepsis //Pneumonia aspiration vs healthcare associated present on admission //H/o surgical Splenectomy Pertinent cultures 09/28 - blood cultures 2 - no growth Influenza negative Urine Legionella and pneumococcal antigens, mycoplasma and chlamydia antibodies negative =Continue piperacillin/tazobactam, vancomycin and azithromycin started 09/28. As per infectious disease. HEME: //Chronic anticoagulation - warfarin //History of left lower lung pulmonary embolism 05/18 //Leukocytosis neutrophil predominant //Normocytic anemia INR is subtherapeutic. She was not able to take her warfarin tonight due to lethargy. INR may increase due to abx, monitor daily. Therapeutic anticoagulation with enoxaparin 40 q12 until INR target 2-3. Previously evaluated by hematology. Hypercoagulable workup negative. Continue warfarin 2.5 mg by mouth daily Continue iron sulfate 300 mg by mouth twice a day for anemia ENDO: //hyperGlycemia Placed on sliding scale insulin with Accu-Cheks before meals/at bedtime Novulin R low regimen to maintain euglycemia while on systemic steroids MSK: Osteoarthritis Discharge Planning Palliative care following. hospice to meet with family Rio Gates MD Oct 01, 2017 14:43
[2017-10-01] MEDS: traMADol HCL 50 MG TAB PO PRN (15:03)
[2017-10-01] MEDS: D5-1/2 NS + KCL 20 MEQ INJ 1,000 ML IV SCH (15:03)
[2017-10-01] MEDS: WARFARIN SOD 2.5 MG TAB PO SCH (15:04)
[2017-10-01] MEDS: OLANZapine ODT 5 MG TAB PO PRN (18:00)
[2017-10-01] MEDS: ATORVASTATIN 40 MG TAB PO SCH (21:16)
[2017-10-02] VITALS (11 sets, daily range): BP systolic 111–153; BP diastolic 63–80; PULSE 52–85; RESP 18–21; TEMP 98–98.9; O2SAT 95–99
[2017-10-02] MEDS: PIPERACIL-TAZO 3.375 GM PREMIX 50 ML IV SCH ×4 (00:32→16:21)
[2017-10-02] MEDS: D5-1/2 NS + KCL 20 MEQ INJ 1,000 ML IV SCH ×4 (02:40→22:08)
[2017-10-02] MEDS: RESP: ALBUTEROL 2.5 MG/IPRATROPIUM 0.5 MG NEB (SCH) NEB ×6 (03:01→23:08)
[2017-10-02] MEDS: VANCOMYCIN INJ 850 MG in SODIUM CHLOR 0.9% 250 ML INJ 250 ML IV SCH ×2 (05:13→16:20)
[2017-10-02] MEDS: INSULIN NovoLIN REGULAR SUPPLEMENTAL SCALE SQ SCH ×4 (08:00→21:00)
[2017-10-02] MEDS: MULTIVITAMIN TAB PO SCH (08:16)
[2017-10-02] MEDS: ENOXAPARIN SODIUM 40 MG/0.4 ML SYRINGE SQ SCH ×2 (08:16→22:10)
[2017-10-02] MEDS: CITALOPRAM HYDROBROMIDE 20 MG TAB PO SCH (08:16)
[2017-10-02] MEDS: FAMOTIDINE 20 MG TAB PO SCH (08:16)
[2017-10-02] MEDS: AZITHROMYCIN 250 MG TAB PO SCH (08:16)
[2017-10-02] MEDS: predniSONE 20 MG TAB PO SCH ×2 (08:16→22:10)
[2017-10-02] MEDS: PREGABALIN 75 MG CAP PO SCH ×2 (08:16→22:10)
[2017-10-02] MEDS: ASCORBIC ACID 500 MG TAB PO SCH ×2 (08:16→22:09)
[2017-10-02] MEDS: BUDESONIDE-FORMOTEROL 80/4.5 MCG INHALER INH SCH ×2 (09:00→22:11)
[2017-10-02] MEDS: FERROUS SULFATE 300 MG /5ML UDC PO SCH ×2 (09:00→21:00)
[2017-10-02] MEDS: DOCUSATE SODIUM 100 MG CAP PO SCH ×2 (09:00→21:00)
[2017-10-02] MEDS: LIDOCAINE HCL 5% PATCH T-DERMAL SCH (09:00)
[2017-10-02 09:48] LABS: BASOPHIL % 0.2 % (0.0-2.0); HEMATOCRIT 33.2 % (35.0-46.0); HEMOGLOBIN 10.7 GM/DL (11.6-15.3); LYMPH % 16.8 % (9.0-44.0); LYMPHOCYTE # 1.3 TH/MM3 (1.0-4.8); MEAN CELL VOLUME 88.1 FL (80.0-100.0); MEAN CORPUSCULAR HEMOGLOBIN 28.3 PG (27.0-34.0); MEAN CORPUSCULAR HGB CONC 32.2 % (32.0-36.0); MONO % 5.1 % (0.0-8.0); MONOCYTE # 0.4 TH/MM3 (0-0.9); NEUT % 77.9 % (16.0-70.0); PLATELET COUNT 352 TH/MM3 (150-450); RED BLOOD COUNT 3.77 MIL/MM3 (4.00-5.30); RED CELL DISTRIBUTION WIDTH 26.9 % (11.6-17.2); WHITE BLOOD COUNT 7.7 TH/MM3 (4.0-11.0)
[2017-10-02 09:54] LABS: INTERNATIONAL NORMALIZED RATIO 1.2 RATIO; PROTHROMBIN TIME - PATIENT 12.2 SEC (9.8-11.6)
[2017-10-02 10:06] LABS: ALBUMIN 2.4 GM/DL (3.4-5.0); CALCIUM 8.7 MG/DL (8.5-10.1); CREATININE 0.64 MG/DL (0.50-1.00); MAGNESIUM 1.9 MG/DL (1.5-2.5)
[2017-10-02 10:07] LABS: PHOSPHORUS 2.4 MG/DL (2.5-4.9)
[2017-10-02 10:33] LABS: ACANTHOCYTES OCC (NORMAL); HOWELL-JOLLY BODIES PRESENT (NONE SEEN); OVALOCYTES 1+ (NORMAL)
[2017-10-02] MEDS: traMADol HCL 50 MG TAB PO PRN ×3 (11:36→22:09)
--- NOTE | 2017-10-02 13:16 | HHI.HCPN ---
Reason for visit a. To assist with evaluation and management of symptoms including: Shortness of breath, debility. b. To assist medical decision maker(s) with: better understanding of current medical conditions; weighing benefits/burdens of medical treatment options; making medical treatment decisions. . (Rosalind Easley) Subjective/Interval History Palliative care follow-up for further clarifications of goals of care. Patient seen in medical floor, she was resting in bed in no acute distress. Alert to self, disoriented as to place and situation. Expressive aphasia, world salad. Following simple commands. Patient denies shortness of breath, nausea/vomiting or abdominal discomfort. Endorsing " not feeling well", and able to elaborate on details. Infectious disease, Dr. Cordero consulted on 09/29/17 consulted for evaluation and management of sepsis, pneumonia. Blood cultures with no growth in 4 days, negative influenza. UA negative for nitrates or leukocytes. Laboratory workup today revealing WBC 7.7, Hgb stable 10.7, platelet count 352. Patient underwent modified barium swallow evaluation in 09/29/17 revealing dysphagia. Patient on pured diet and honey thickened liquids. She remains afebrile, stable hemodynamically. 3 L O2 via nasal cannula, oxygen saturation in the mid to high 90s. No new imaging for review. Telephone call to patient's daughter Micki Gonzales. Left message in voicemail. As per previous telephone conversation with patient's daughter, family considering transitioning patient to comfort-directed care upon discharge home. Hospice referral was made. Hospice following. . Family/friend interactions See interval note. . (Rosalind Easley) Advance Directives Living Will: Copy in medical record Health Care Surrogate: Copy in medical record Durable Power of Financial Report Service Sales Agent: Copy in medical record (Rosalind Easley) Advance Directive Specifics Date completed: 04/25/2016. . Health Care Surrogate(s): Patient electing her daughter Micki Gonzales as HCS. . Documented care wishes: Patient requesting to be kept alive using all means possible unless "I am suffering or I am brain- and we will not be able to live a normal life". . Significant change in goals: Goals of therapy remain unchanged. . (Rosalind Easley) Objective Vital Signs Date Time Temp Pulse Resp B/P (MAP) Pulse Ox O2 Delivery O2 Flow Rate FiO2 10/02/17 12:06 98.0 67 18 111/63 (79) 96 10/02/17 09:43 98 Nasal Cannula 3.00 10/02/17 08:23 98.3 60 19 143/71 (95) 95 10/02/17 04:00 98.0 62 19 148/70 (96) 98 10/02/17 03:55 52 10/02/17 00:00 56 10/02/17 00:00 98.2 58 21 153/75 (101) 98 10/01/17 20:34 97 Nasal Cannula 3.00 10/01/17 20:00 98.3 64 19 159/78 (105) 99 10/01/17 20:00 97 Nasal Cannula 3.00 10/01/17 20:00 64 10/01/17 16:06 98.3 76 17 122/68 (86) 94 Intake & Output 10/02/17 10/02/17 07:00 19:00 Intake Total 1586.5 ml Output Total 1100 ml Balance 486.5 ml Intake Oral 280 ml IV Total 1306.5 ml Output Urine Total 1100 ml # Bowel Movements 0 Physical Exam CONSTITUTIONAL/GENERAL: This is an adequately nourished patient, in no apparent distress. Looks older than stated age. TUBES/LINES/DRAINS: Nasal cannula, PIV's. SKIN: No jaundice, rashes, or lesions. Ecchymoses on upper extremities. No wounds seen anteriorly. Skin temperature appropriate. Not diaphoretic. HEAD: Atraumatic. Normocephalic. EYES: Pupils equal and round and reactive. Extraocular motions intact. No scleral icterus. No injection or drainage. ENT: Hearing grossly normal. Nose without bleeding or purulent drainage. Moist oral mucosa, poor dentition. NECK: Trachea midline. Supple, nontender. CARDIOVASCULAR: Regular rate and rhythm without murmurs, gallops, or rubs. Peripheral pulses symmetric. RESPIRATORY/CHEST: Symmetric, unlabored respirations. Clear to auscultation. Breath sounds equal bilaterally. GASTROINTESTINAL: Abdomen soft, non-tender, nondistended. No guarding. Bowel sounds present. GENITOURINARY: Without palpable bladder distension. MUSCULOSKELETAL: Extremities without clubbing, cyanosis, or edema. NEUROLOGICAL: Awake and alert to self. Confused as to place, time and situation. Aphasic. Follows some commands. PSYCHIATRIC: Unable to evaluate secondary to clinical condition, confused. Appears calm. . (Rosalind Easley) Diagnostic Tests Laboratory Laboratory Tests Test 09/29/17 14:52 09/30/17 00:45 09/30/17 05:00 10/01/17 07:26 Urine Color YELLOW (YELLW/STRAW) Urine Turbidity CLEAR (CLEAR) Urine pH 6.0 (5.0-8.5) Urine Specific [place] 1.027 (1.002-1.035) Urine Protein TRACE mg/dL (NEG-TRACE) Urine Glucose (UA) NEG mg/dL (NEG) Urine Ketones NEG mg/dL (NEG) Urine Occult Blood SMALL (NEG) Urine Nitrite NEG (NEG) Urine Bilirubin NEG (NEG) Urine Urobilinogen LESS THAN 2.0 MG/DL (LESS Urine Leukocyte Esterase NEG (NEG) Urine RBC 6 /hpf (0-3) Urine WBC 2 /hpf (0-5) Urine Squamous Epithelial Cells 2 /hpf (0-5) Urine Uric Acid Crystals RARE /hpf (NONE) Urine Mucus FEW /lpf (OCC) Microscopic Urinalysis Comment CULT NOT INDICATED White Blood Count 18.6 TH/MM3 (4.0-11.0) 12.9 TH/MM3 (4.0-11.0) Red Blood Count 3.45 MIL/MM3 (4.00-5.30) 3.41 MIL/MM3 (4.00-5.30) Hemoglobin 9.5 GM/DL (11.6-15.3) 9.8 GM/DL (11.6-15.3) Hematocrit 30.2 % (35.0-46.0) 29.9 % (35.0-46.0) Mean Corpuscular Volume 87.5 FL (80.0-100.0) 87.9 FL (80.0-100.0) Mean Corpuscular Hemoglobin 27.5 PG (27.0-34.0) 28.6 PG (27.0-34.0) Mean Corpuscular Hemoglobin Concent 31.4 % (32.0-36.0) 32.6 % (32.0-36.0) Red Cell Distribution Width 27.3 % (11.6-17.2) 27.5 % (11.6-17.2) Platelet Count 344 TH/MM3 (150-450) 314 TH/MM3 (150-450) Mean Platelet Volume 8.8 FL (7.0-11.0) 9.3 FL (7.0-11.0) Prothrombin Time 19.1 SEC (9.8-11.6) 14.7 SEC (9.8-11.6) Prothromb Time International Ratio 1.9 RATIO 1.5 RATIO Blood Urea Nitrogen 15 MG/DL (7-18) 14 MG/DL (7-18) Creatinine 0.49 MG/DL (0.50-1.00) 0.49 MG/DL (0.50-1.00) Random Glucose 132 MG/DL (74-106) 128 MG/DL (74-106) Calcium Level 8.3 MG/DL (8.5-10.1) 8.4 MG/DL (8.5-10.1) Phosphorus Level 2.3 MG/DL (2.5-4.9) Magnesium Level 2.0 MG/DL (1.5-2.5) Sodium Level 145 MEQ/L (136-145) 147 MEQ/L (136-145) Potassium Level 3.5 MEQ/L (3.5-5.1) 3.4 MEQ/L (3.5-5.1) Chloride Level 110 MEQ/L (98-107) 114 MEQ/L (98-107) Carbon Dioxide Level 25.2 MEQ/L (21.0-32.0) 27.4 MEQ/L (21.0-32.0) Anion Gap 10 MEQ/L (5-15) 6 MEQ/L (5-15) Estimat Glomerular Filtration Rate 128 ML/MIN (>89) 128 ML/MIN (>89) Vancomycin Level Trough 13.1 MCG/ML (5.0-10.0) Neutrophils (%) (Auto) 85.2 % (16.0-70.0) Lymphocytes (%) (Auto) 8.7 % (9.0-44.0) Monocytes (%) (Auto) 5.8 % (0.0-8.0) Eosinophils (%) (Auto) 0.1 % (0.0-4.0) Basophils (%) (Auto) 0.2 % (0.0-2.0) Neutrophils # (Auto) 11.0 TH/MM3 (1.8-7.7) Lymphocytes # (Auto) 1.1 TH/MM3 (1.0-4.8) Monocytes # (Auto) 0.8 TH/MM3 (0-0.9) Eosinophils # (Auto) 0.0 TH/MM3 (0-0.4) Basophils # (Auto) 0.0 TH/MM3 (0-0.2) CBC Comment AUTO DIFF Differential Comment AUTO DIFF CONFIRMED Ovalocytes 1+ (NORMAL) Acanthocytes OCC (NORMAL) Test 10/02/17 09:10 White Blood Count 7.7 TH/MM3 (4.0-11.0) Red Blood Count 3.77 MIL/MM3 (4.00-5.30) Hemoglobin 10.7 GM/DL (11.6-15.3) Hematocrit 33.2 % (35.0-46.0) Mean Corpuscular Volume 88.1 FL (80.0-100.0) Mean Corpuscular Hemoglobin 28.3 PG (27.0-34.0) Mean Corpuscular Hemoglobin Concent 32.2 % (32.0-36.0) Red Cell Distribution Width 26.9 % (11.6-17.2) Platelet Count 352 TH/MM3 (150-450) Mean Platelet Volume 9.0 FL (7.0-11.0) Neutrophils (%) (Auto) 77.9 % (16.0-70.0) Lymphocytes (%) (Auto) 16.8 % (9.0-44.0) Monocytes (%) (Auto) 5.1 % (0.0-8.0) Eosinophils (%) (Auto) 0.0 % (0.0-4.0) Basophils (%) (Auto) 0.2 % (0.0-2.0) Neutrophils # (Auto) 6.0 TH/MM3 (1.8-7.7) Lymphocytes # (Auto) 1.3 TH/MM3 (1.0-4.8) Monocytes # (Auto) 0.4 TH/MM3 (0-0.9) Eosinophils # (Auto) 0.0 TH/MM3 (0-0.4) Basophils # (Auto) 0.0 TH/MM3 (0-0.2) CBC Comment AUTO DIFF Differential Comment AUTO DIFF CONFIRMED Platelet Estimate NORMAL (NORMAL) Platelet Morphology Comment NORMAL (NORMAL) Ovalocytes 1+ (NORMAL) Poole-Gregory Bodies PRESENT (NONE SEEN) Acanthocytes OCC (NORMAL) Prothrombin Time 12.2 SEC (9.8-11.6) Prothromb Time International Ratio 1.2 RATIO Blood Urea Nitrogen 8 MG/DL (7-18) Creatinine 0.64 MG/DL (0.50-1.00) Random Glucose 141 MG/DL (74-106) Albumin 2.4 GM/DL (3.4-5.0) Calcium Level 8.7 MG/DL (8.5-10.1) Phosphorus Level 2.4 MG/DL (2.5-4.9) Magnesium Level 1.9 MG/DL (1.5-2.5) Sodium Level 144 MEQ/L (136-145) Potassium Level 3.7 MEQ/L (3.5-5.1) Chloride Level 109 MEQ/L (98-107) Carbon Dioxide Level 28.0 MEQ/L (21.0-32.0) Anion Gap 7 MEQ/L (5-15) Estimat Glomerular Filtration Rate 94 ML/MIN (>89) (Rosalind Easley) Result Diagram: 10/02/17 0910 10/02/17 0910 Microbiology Microbiology Date/Time Source Procedure Growth Status 09/29/17 22:55 Urine Catheterized Urine Legionella Antigen - Final PRESUMPTIVE NEGATIVE FOR LEGIONELLA P... Complete 09/29/17 22:55 Urine Catheterized Urine Streptococcus pneumoniae Antigen (M - Final PRESUMPTIVE NEGATIVE FOR STREPTOCOCCU... Complete (Rosalind Easley) Assessment and Plan Disease Oriented Problem List: (1) Sepsis (2) COPD with exacerbation (3) Hospital-acquired pneumonia (4) CVA (cerebral vascular accident) (5) Leukocytosis (6) Physical deconditioning Symptom Scale: (1) Shortness of breath 0-10 Scale: Unable to quantify Comment: Currently tolerating O2 via nasal cannula. (2) Debility 0-10 Scale: Unable to quantify Comment: Progressive. Pertinent Non-Medical Issues Psychosocial: Patient originally from [place]. Moved to [place] in May 2016. 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 Highest level of education is high school. No service. Patient is , has 2 children, one daughter and one son, son 6 years ago. Spiritual: No catholic affiliations. Legal: Advance directives completed. Ethical issues impacting care: No ethical issues identified. . Important Contacts Patient's daughter Micki Gonzales . . Prognosis Mrs. Gaitan its a 62-year-old female with a medical history significant for CVA, COPD -O2 dependent, hypertension, history of PE and physical deconditioning. Patient with history of ischemic left MCA stroke status post TPA in July 2017 , followed by rehabilitation for 2 months. Multiple recent acute hospitalizations and documented progressive decline. Clinical course complicated by sepsis, pneumonia, COPD exacerbation. Patient's overall prognosis for a prolong survival appears poor. Patient appears hospice appropriate should she/family elects comfort directed care. . Code Status: No Code Plan * CODE STATUS: No code. DNR/DNI. * HEALTHCARE DECISION-MAKING: Patient unable to participate in medical decision- making secondary to persistent confusion. Unclear if she will regain capacity. Advance directives completed. Patient has designated her daughter Micki Gonzales as healthcare surrogate decision maker. Daughter has accepted this role. * GOALS OF CARE: Patient's daughter Micki Gonzales acting as HCS has elected conservative management short of no code, maximize current medical management with goal to discharge patient home. Daughter considering home with hospice once patient is medically cleared. Hospice referral made for informative visit. * SYMPTOMS: = Shortness of breath, history of COPD -O2 dependent at home. Exacerbated by pneumonia, sepsis. Currently tolerating O2 via nasal cannula. = Debility, progressive. Worsen since stroke in July 2017. Likely to continue to worsen. * Case discussed with hospice implant polisher Debbie. * Palliative care contact information has been provided to patient's family. * Palliative care will continue to follow-up for further clarifications of goals of care as patient's clinical course continues to evolve. . (Rosalind Easley) Time Spent Total Floor Time (mins): 22 (Total time to include review medical records, physical exam, telephone call to patient's daughter, case review with bedside RN.) >50% Counseling/Coord of Care: Yes (Rosalind Easley) Attestation To help prompt me to consider important information that might be impacting today's encounter and assessment, information from prior notes written by myself or my colleagues may have been "brought forward" into today's note. My signature on this note, however, is an attestation that I personally performed the exam, history, and/or decision-making noted today, and, unless otherwise indicated, the interactions with patient, family, and staff as well as the review of records all occurred today. I also attest that the listed assessment and stated plan reflect my best clinical judgment today based on the combination of historical information, prior notes, and today's exam/ interactions. When time spent is documented, it refers only to time spent today by the signer, or if indicated, combined time spent today by collaborating physician/nurse practitioner. (Rosalind Easley) Collaborating MD Comments Chart reviewed. Case discussed with palliative care DELINQUENCY PREVENTION SOCIAL WORKER. Above DELINQUENCY PREVENTION SOCIAL WORKER note reviewed and I concur. . (Abelino Mcwilliams MD) Rosalind Easley Oct 02, 2017 13:16 Abelino Mcwilliams MD Oct 10, 2017 14:35
--- NOTE | 2017-10-02 14:34 | HHI.PR ---
Subjective Remarks No meaningful conversation as yesterday. No acute events per nursing. Objective Vital Signs Date Time Temp Pulse Resp B/P (MAP) Pulse Ox O2 Delivery O2 Flow Rate FiO2 10/02/17 12:06 98.0 67 18 111/63 (79) 96 10/02/17 09:43 98 Nasal Cannula 3.00 10/02/17 08:23 98.3 60 19 143/71 (95) 95 10/02/17 04:00 98.0 62 19 148/70 (96) 98 10/02/17 03:55 52 10/02/17 00:00 56 10/02/17 00:00 98.2 58 21 153/75 (101) 98 10/01/17 20:34 97 Nasal Cannula 3.00 10/01/17 20:00 98.3 64 19 159/78 (105) 99 10/01/17 20:00 97 Nasal Cannula 3.00 10/01/17 20:00 64 10/01/17 16:06 98.3 76 17 122/68 (86) 94 I/O 10/01/17 10/01/17 10/01/17 10/02/17 10/02/17 10/02/17 07:00 15:00 23:00 07:00 15:00 23:00 Intake Total 368.5 ml 428 ml 1586.5 ml Output Total 700 ml 1100 ml Balance -331.5 ml 428 ml 486.5 ml Intake Oral 60 ml 380 ml 280 ml IV Total 308.5 ml 48 ml 1306.5 ml Output Urine Total 700 ml 1100 ml # Voids 3 5 # Bowel Movements 0 1 0 Result Diagram: 10/02/1710 10/02/17 0910 Objective Remarks GENERAL: Sitting up in bed. Appears comfortable. Patient with no meaningful conversation, however does appear to indicate she is comfortable. No change on exam SKIN: Warm and dry. HEAD: Normocephalic. EYES: No scleral icterus. No injection or drainage. NECK: Supple, trachea midline. No JVD . CARDIOVASCULAR: Regular rate and rhythm without murmurs, gallops, or rubs. RESPIRATORY: Breath sounds equal bilaterally. No accessory muscle use. GASTROINTESTINAL: Abdomen soft, non-tender, nondistended. MUSCULOSKELETAL: No cyanosis, or edema. BACK: Nontender without obvious deformity. No CVA tenderness. A/P Assessment and Plan Patient is a 62-year-old female with primary medical history of COPD, recurrent hospitalizations secondary to chronic respiratory failure, pulmonary embolism 2016, recent 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 Patient was recently hospitalized 09/14/17-09/19/17 secondary to COPD exacerbation, sepsis, pneumonia. Patient returns with COPD exacerbation, sepsis , pneumonia, and is on broad-spectrum antibiotics as per infectious disease. Swallow evaluation positive for aspiration, and patient is on honey thick. Palliative care following. ===10/02. -Hypernatremia. Sodium 144. Improving. Continue D5 1 half normal saline. -Hypokalemia. Potassium 3.7. AFTER replacement. -Continue antibiotics for pneumonia. Leukocytosis improving. possible discharge tomorrow home with hospice and by mouth antibiotics -Await hospice discussion with familyattempted today. //Acute toxic metabolic encephalopathy -Multifactorial secondary to sepsis, medication induced/etc. //Chronic pain syndrome NOS //Depression/anxiety //Restless leg syndrome //History of bilateral MCA CVA with resultant aphasia //History of alcoholism in remission CT brain 09/29 revealed evolving bilateral frontal CVAs. No hemorrhage. Patient is currently on tramadol 50 mg every 8 hours as needed for pain 5-10 Currently on citalopram 10 mg daily for depression Pregabalin 75 mg daily continue Currently holding clonazepam 0.5 mg by mouth twice a day Olanzapine 5 mg every 8 hours as needed anxiety Continue Lidoderm patch 5% on 12 hours off 12 hours = Patient appears calm, although disoriented. Continue to monitor. RESP: //COPD - end-stage //Ongoing tobacco abuse //Acute on chronic hypercapnia Nasal cannula to maintain saturations greater than equal to 90% Incentive spirometry while awake Albuterol/ipratropium aerosols every 4 hours with albuterol aerosols every 2 hours as needed dyspnea Budesonide/Formoterol 80/4.5 2 puffs twice a day Methylprednisolone 40 mg IV every 8 Follow-up on chest x-ray in a.m. Chest x-ray 09/20 revealed possible focal right upper lobe pneumonia See infectious disease for antibiotic workup = Continue broad-spectrum antibiotics as per infectious disease. Taper steroids. White blood cell count improving 18.6 today. = 10/01. White blood cell count improving 12.9 today. Opinion antibiotics as ordered. CV: //Coronary artery disease status post CABG 2 //Hypotension, resolved //Hyperlipidemia //Sinus bradycardia Hypotension multifactorial secondary to dehydration, sepsis. Responded to 3 L normal saline bolus Scheduled and will saline at 100 cc an hour Troponin negative Lactic acid normal Atorvastatin 40 mg by mouth daily at bedtime for dyslipidemia will be continued Stress nuclear medicine test 03/18 revealed EF 52%. No regional wall motion abnormality's. = Appears acceptable. Continue to monitor. GI: //History of hepatitis C resolved s/p treatment //Gastroesophageal reflux disease //Hypoalbuminemia Currently for barium swallow evaluation Famotidine 20 mg daily for gastroesophageal reflux disease Docusate sodium 100 mg twice a day for bowel regimen = Modified swallow eval shows aspiration. Patient continues on thickened diet.. ID: //Sepsis //Pneumonia aspiration vs healthcare associated present on admission //H/o surgical Splenectomy Pertinent cultures 09/28 - blood cultures 2 - no growth Influenza negative Urine Legionella and pneumococcal antigens, mycoplasma and chlamydia antibodies negative =Continue piperacillin/tazobactam, vancomycin and azithromycin started 09/28. As per infectious disease. HEME: //Chronic anticoagulation - warfarin //History of left lower lung pulmonary embolism 05/18 //Leukocytosis neutrophil predominant //Normocytic anemia INR is subtherapeutic. She was not able to take her warfarin tonight due to lethargy. INR may increase due to abx, monitor daily. Therapeutic anticoagulation with enoxaparin 40 q12 until INR target 2-3. Previously evaluated by hematology. Hypercoagulable workup negative. Continue warfarin 2.5 mg by mouth daily Continue iron sulfate 300 mg by mouth twice a day for anemia ENDO: //hyperGlycemia Placed on sliding scale insulin with Accu-Cheks before meals/at bedtime Novulin R low regimen to maintain euglycemia while on systemic steroids MSK: Osteoarthritis Discharge Planning possible discharge home tomorrow with hospice, by mouth antibiotics. Pending palliative care discussion with family. Rio Gates MD Oct 02, 2017 14:34
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
--- NOTE | 2017-10-02 15:30 | RADRPT ---
EXAM DATE/TIME: 10/02/2017 14:55 [facility] COMPARISON: CHEST SINGLE AP, September 28, 2017, 15:32. INDICATIONS : Short of breath. Pneumonia per order. MEDICAL HISTORY : Myocardial infarction. Congestive heart failure. Chronic obstructive pulmonary disease. Asthma SURGICAL HISTORY : CABG. ENCOUNTER: Subsequent ACUITY: 4 - 6 days PAIN SCORE: 0/10 LOCATION: Bilateral chest FINDINGS: There is improvement in right mid and lateral consolidation, however persistent consolidation remains in the right lower lobe possibly slightly worse. The rest of the examination has not significantly c hanged. CONCLUSION: Improvement in airspace process in the right midlung laterally, however right lower lobe consolidatio n appears slightly worse. Vu Sage MD on October 02, 2017 at 15:27 Board Certified Radiologist. This report was verified electronically.
[2017-10-02] MEDS: WARFARIN SOD 2.5 MG TAB PO SCH (16:21)
[2017-10-02] MEDS: ATORVASTATIN 40 MG TAB PO SCH (22:09)
[2017-10-02] MEDS: OLANZapine ODT 5 MG TAB PO PRN (22:09)
[2017-10-03] VITALS (11 sets, daily range): BP systolic 135–159; BP diastolic 66–92; PULSE 50–64; RESP 18–21; TEMP 97.4–99; O2SAT 94–98
[2017-10-03] MEDS: PIPERACIL-TAZO 3.375 GM PREMIX 50 ML IV SCH ×2 (00:19→05:44)
[2017-10-03] MEDS: RESP: ALBUTEROL 2.5 MG/IPRATROPIUM 0.5 MG NEB (SCH) NEB ×3 (03:09→11:18)
[2017-10-03] MEDS: traMADol HCL 50 MG TAB PO PRN ×4 (03:22→17:20)
[2017-10-03] MEDS: VANCOMYCIN INJ 850 MG in SODIUM CHLOR 0.9% 250 ML INJ 250 ML IV SCH (06:00)
[2017-10-03] MEDS: INSULIN NovoLIN REGULAR SUPPLEMENTAL SCALE SQ SCH ×4 (07:59→20:41)
[2017-10-03] MEDS: FERROUS SULFATE 300 MG /5ML UDC PO SCH ×2 (09:00→20:24)
[2017-10-03] MEDS: LIDOCAINE HCL 5% PATCH T-DERMAL SCH (09:00)
[2017-10-03] MEDS: BUDESONIDE-FORMOTEROL 80/4.5 MCG INHALER INH SCH ×2 (09:10→20:27)
[2017-10-03] MEDS: CITALOPRAM HYDROBROMIDE 20 MG TAB PO SCH (09:11)
[2017-10-03] MEDS: MULTIVITAMIN TAB PO SCH (09:11)
[2017-10-03] MEDS: FAMOTIDINE 20 MG TAB PO SCH (09:11)
[2017-10-03] MEDS: DOCUSATE SODIUM 100 MG CAP PO SCH ×2 (09:11→20:24)
[2017-10-03] MEDS: AZITHROMYCIN 250 MG TAB PO SCH (09:11)
[2017-10-03] MEDS: ASCORBIC ACID 500 MG TAB PO SCH ×2 (09:11→20:24)
[2017-10-03] MEDS: PREGABALIN 75 MG CAP PO SCH ×2 (09:11→20:24)
[2017-10-03] MEDS: predniSONE 20 MG TAB PO SCH ×2 (09:11→20:24)
[2017-10-03] MEDS: ENOXAPARIN SODIUM 40 MG/0.4 ML SYRINGE SQ SCH ×2 (09:12→20:24)
--- NOTE | 2017-10-03 11:58 | HHI.PR ---
Subjective Remarks Follow-up sepsis/aspiration pneumonia 10/03/17-patient seen and examined, alert and oriented to self and place. Vitals stable and awaiting for hospice Objective Vitals Vital Signs Date Time Temp Pulse Resp B/P (MAP) Pulse Ox O2 Delivery O2 Flow Rate FiO2 10/03/17 08:43 96 Nasal Cannula 3.00 10/03/17 08:06 97.4 64 18 135/73 (93) 94 10/03/17 08:00 53 10/03/17 07:29 Nasal Cannula 3.00 10/03/17 04:00 Nasal Cannula 3.00 10/03/17 04:00 98.4 53 20 150/73 (98) 97 10/03/17 03:44 50 10/03/17 00:00 Nasal Cannula 3.00 10/03/17 00:00 98.8 56 21 138/66 (90) 98 10/02/17 23:45 58 10/02/17 20:00 Nasal Cannula 3.00 10/02/17 20:00 98.9 61 19 133/69 (90) 99 10/02/17 19:47 96 Nasal Cannula 3.00 10/02/17 19:42 85 10/02/17 16:24 98.6 63 18 151/80 (103) 95 10/02/17 12:06 98.0 67 18 111/63 (79) 96 I/O 10/02/17 10/02/17 10/02/17 10/03/17 10/03/17 10/03/17 07:00 15:00 23:00 07:00 15:00 23:00 Intake Total 1586.5 ml 717 ml 1562 ml Output Total 1100 ml 1150 ml Balance 486.5 ml 717 ml 412 ml Intake Oral 280 ml 360 ml 750 ml IV Total 1306.5 ml 357 ml 812 ml Output Urine Total 1100 ml 1150 ml # Voids 3 # Bowel Movements 0 0 2 Result Diagram: 10/02/17 0910 10/02/17 0910 Imaging Last Impressions Chest X-Ray 10/02/17 0000 Signed Impressions: Service Date/Time: Monday, October 02, 2017 14:55 - CONCLUSION: Improvement in airspace process in the right midlung laterally, however right lower lobe consolidation appears slightly worse. Vu Sage MD Modified Barium Swallow 09/29/17 0000 Signed Impressions: Service Date/Time: Friday, September 29, 2017 00:00 - CONCLUSION: 1. Please see consultation from speech pathology. Cody Lamb MD Head CT 09/28/17 0000 Signed Impressions: Service Date/Time: September 22:16 - CONCLUSION: No new acute findings Eladio Todd MD Objective Remarks GENERAL: NAD SKIN: Warm and dry. HEAD: Normocephalic. EYES: No scleral icterus. No injection or drainage. NECK: Supple, trachea midline. No JVD or lymphadenopathy. CARDIOVASCULAR: Regular rate and rhythm without murmurs, gallops, or rubs. RESPIRATORY: Breath sounds equal bilaterally. No accessory muscle use. GASTROINTESTINAL: Abdomen soft, non-tender, nondistended. MUSCULOSKELETAL: No cyanosis, or edema. BACK: Nontender without obvious deformity. No CVA tenderness. Procedures none A/P Problem List: (1) Hospital-acquired pneumonia ICD Code: J18.9 - Pneumonia, unspecified organism Status: Acute (2) COPD (chronic obstructive pulmonary disease) ICD Code: J44.9 - Chronic obstructive pulmonary disease, unspecified Status: Chronic (3) Sepsis ICD Code: A41.9 - Sepsis, unspecified organism Status: Acute (4) COPD with exacerbation ICD Code: J44.1 - Chronic obstructive pulmonary disease with (acute) exacerbation Status: Acute (5) CVA (cerebral vascular accident) ICD Code: I63.9 - Cerebral infarction, unspecified Status: Chronic Assessment and Plan 62 year-old female with Acute toxic metabolic encephalopathy -Multifactorial secondary to sepsis, medication induced/etc. 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 currently on tramadol 50 mg every 8 hours as needed for pain 5-10 Currently on citalopram 10 mg daily for depression Pregabalin 75 mg daily continue Olanzapine 5 mg every 8 hours as needed anxiety Continue Lidoderm patch 5% on 12 hours off 12 hours COPD - end-stage Ongoing tobacco abuse Acute on chronic hypercapnia Albuterol/ipratropium aerosols every 4 hours with albuterol aerosols every 2 hours as needed dyspnea Budesonide/Formoterol 80/4.5 2 puffs twice a day s/p Methylprednisolone 40 mg IV every 8; Now on Prednisone 20mg BID Coronary artery disease status post CABG 2 Hypotension, resolved Hyperlipidemia Sinus bradycardia Atorvastatin 40 mg by mouth daily at bedtime for dyslipidemia will be continued Stress nuclear medicine test 03/18 revealed EF 52%. No regional wall motion abnormality's. History of hepatitis C resolved s/p treatment Gastroesophageal reflux disease Hypoalbuminemia Famotidine 20 mg daily for gastroesophageal reflux disease Docusate sodium 100 mg twice a day for bowel regimen Modified swallow eval shows aspiration. Patient continues on thickened diet.. Sepsis Pneumonia aspiration vs healthcare associated present on admission H/o surgical Splenectomy d/c piperacillin/tazobactam, vancomycin and azithromycin started 09/28. Start Ceftin 500mg BID Appreciate input from ID Chronic anticoagulation - warfarin History of left lower lung pulmonary embolism 05/18 Leukocytosis neutrophil predominant-Resolved Normocytic anemia INR is subtherapeutic. Therapeutic anticoagulation with enoxaparin 40 q12 until INR target 2-3. Previously evaluated by hematology. Hypercoagulable workup negative. Continue warfarin 3.5 mg by mouth daily Continue iron sulfate 300 mg by mouth twice a day for anemia Hyperglycemia on sliding scale insulin with Accu-Cheks before meals/at bedtime Novulin R low regimen to maintain euglycemia while on systemic steroids Problem Qualifiers (1) COPD (chronic obstructive pulmonary disease): Qualified Codes: J44.1 - Chronic obstructive pulmonary disease with (acute) exacerbation (2) Sepsis: Qualified Codes: A41.9 - Sepsis, unspecified organism Clarence Talamantes MD Oct 03, 2017 11:58
[2017-10-03] MEDS: D5-1/2 NS + KCL 20 MEQ INJ 1,000 ML IV SCH (12:37)
[2017-10-03] MEDS ORDERED: WARFARIN SOD 1 MG TAB PO ONE (16:00)
[2017-10-03] MEDS: WARFARIN SOD 2.5 MG TAB PO SCH (16:08)
[2017-10-03] MEDS: ATORVASTATIN 40 MG TAB PO SCH (20:23)
[2017-10-03] MEDS: OLANZapine ODT 5 MG TAB PO PRN (20:24)
[2017-10-03] MEDS: CEFUROXIME AXETIL 500 MG TAB PO SCH (20:27)
[2017-10-04] VITALS (7 sets, daily range): BP systolic 110–162; BP diastolic 55–88; PULSE 49–122; RESP 17–20; TEMP 97.9–99.1; O2SAT 93–98
[2017-10-04] MEDS: D5-1/2 NS + KCL 20 MEQ INJ 1,000 ML IV SCH ×2 (01:57→08:39)
[2017-10-04] MEDS: traMADol HCL 50 MG TAB PO PRN (01:57)
[2017-10-04] MEDS ORDERED: PHARMACY ORDERED LAB ONE (05:45)
[2017-10-04 06:59] LABS: INTERNATIONAL NORMALIZED RATIO 1.1 RATIO; PROTHROMBIN TIME - PATIENT 11.4 SEC (9.8-11.6)
[2017-10-04] MEDS: INSULIN NovoLIN REGULAR SUPPLEMENTAL SCALE SQ SCH ×2 (07:55→11:48)
[2017-10-04] MEDS: FAMOTIDINE 20 MG TAB PO SCH (08:34)
[2017-10-04] MEDS: predniSONE 20 MG TAB PO SCH (08:34)
[2017-10-04] MEDS: FERROUS SULFATE 300 MG /5ML UDC PO SCH (08:34)
[2017-10-04] MEDS: DOCUSATE SODIUM 100 MG CAP PO SCH (08:34)
[2017-10-04] MEDS: ASCORBIC ACID 500 MG TAB PO SCH (08:34)
[2017-10-04] MEDS: CITALOPRAM HYDROBROMIDE 20 MG TAB PO SCH (08:34)
[2017-10-04] MEDS: LIDOCAINE HCL 5% PATCH T-DERMAL SCH (08:34)
[2017-10-04] MEDS: MULTIVITAMIN TAB PO SCH (08:34)
[2017-10-04] MEDS: ENOXAPARIN SODIUM 40 MG/0.4 ML SYRINGE SQ SCH (08:34)
[2017-10-04] MEDS: CEFUROXIME AXETIL 500 MG TAB PO SCH (08:34)
[2017-10-04] MEDS: BUDESONIDE-FORMOTEROL 80/4.5 MCG INHALER INH SCH (08:35)
[2017-10-04] MEDS: PREGABALIN 75 MG CAP PO SCH (08:35)
--- NOTE | 2017-10-04 10:14 | HHI.PR ---
Subjective Remarks Follow-up sepsis/aspiration pneumonia 10/03/17-patient seen and examined, alert and oriented to self and place. Vitals stable and awaiting for hospice 10/04/17-patient seen and examined; no acute event overnight ,denies any shortness of breath. Good appetite Objective Vitals Vital Signs Date Time Temp Pulse Resp B/P (MAP) Pulse Ox O2 Delivery O2 Flow Rate FiO2 10/04/17 08:00 98.0 62 17 140/65 (90) 94 10/04/17 04:26 49 10/04/17 04:00 97.9 53 20 142/71 (94) 95 10/04/17 04:00 Nasal Cannula 2.00 10/04/17 00:02 58 10/04/17 00:00 99.1 106 20 142/71 (94) 98 10/04/17 00:00 Nasal Cannula 2.00 10/03/17 20:00 Nasal Cannula 3.00 10/03/17 20:00 60 10/03/17 20:00 99.0 57 20 157/80 (105) 98 10/03/17 16:06 97.8 61 19 156/92 (113) 97 10/03/17 16:00 59 10/03/17 12:12 97.8 62 19 159/81 (107) 95 10/03/17 12:00 60 I/O 10/03/17 10/03/17 10/03/17 10/04/17 10/04/17 10/04/17 07:00 15:00 23:00 07:00 15:00 23:00 Intake Total 1562 ml 600 ml 1084 ml Output Total 1150 ml Balance 412 ml 600 ml 1084 ml Intake Oral 750 ml 600 ml IV Total 812 ml 1084 ml Output Urine Total 1150 ml # Voids 4 # Bowel Movements 2 0 Result Diagram: 10/02/17 0910 10/02/17 0910 Imaging Last Impressions Chest X-Ray 10/02/17 0000 Signed Impressions: Service Date/Time: Monday, October 02, 2017 14:55 - CONCLUSION: Improvement in airspace process in the right midlung laterally, however right lower lobe consolidation appears slightly worse. Vu Sage MD Modified Barium Swallow 09/29/17 0000 Signed Impressions: Service Date/Time: Friday, September 29, 2017 00:00 - CONCLUSION: 1. Please see consultation from speech pathology. Cody Lamb MD Head CT 09/28/17 0000 Signed Impressions: Service Date/Time: September 22:16 - CONCLUSION: No new acute findings Eladio Todd MD Objective Remarks GENERAL: NAD SKIN: Warm and dry. HEAD: Normocephalic. EYES: No scleral icterus. No injection or drainage. NECK: Supple, trachea midline. No JVD or lymphadenopathy. CARDIOVASCULAR: Regular rate and rhythm without murmurs, gallops, or rubs. RESPIRATORY: Breath sounds equal bilaterally. No accessory muscle use. GASTROINTESTINAL: Abdomen soft, non-tender, nondistended. MUSCULOSKELETAL: No cyanosis, or edema. BACK: Nontender without obvious deformity. No CVA tenderness. Procedures none A/P Problem List: (1) Hospital-acquired pneumonia ICD Code: J18.9 - Pneumonia, unspecified organism Status: Acute (2) COPD (chronic obstructive pulmonary disease) ICD Code: J44.9 - Chronic obstructive pulmonary disease, unspecified Status: Chronic (3) Sepsis ICD Code: A41.9 - Sepsis, unspecified organism Status: Acute (4) COPD with exacerbation ICD Code: J44.1 - Chronic obstructive pulmonary disease with (acute) exacerbation Status: Acute (5) CVA (cerebral vascular accident) ICD Code: I63.9 - Cerebral infarction, unspecified Status: Chronic Assessment and Plan 62 year-old female with Acute toxic metabolic encephalopathy -Multifactorial secondary to sepsis, medication induced/etc. 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 currently on tramadol 50 mg every 8 hours as needed for pain 5-10 Currently on citalopram 10 mg daily for depression Pregabalin 75 mg daily continue Olanzapine 5 mg every 8 hours as needed anxiety Continue Lidoderm patch 5% on 12 hours off 12 hours COPD - end-stage Ongoing tobacco abuse Acute on chronic hypercapnia Albuterol/ipratropium aerosols every 4 hours with albuterol aerosols every 2 hours as needed dyspnea Budesonide/Formoterol 80/4.5 2 puffs twice a day s/p Methylprednisolone 40 mg IV every 8; Now on Prednisone 20mg BID Coronary artery disease status post CABG 2 Hypotension, resolved Hyperlipidemia Sinus bradycardia Atorvastatin 40 mg by mouth daily at bedtime for dyslipidemia will be continued Stress nuclear medicine test 03/18 revealed EF 52%. No regional wall motion abnormality's. History of hepatitis C resolved s/p treatment Gastroesophageal reflux disease Hypoalbuminemia Famotidine 20 mg daily for gastroesophageal reflux disease Docusate sodium 100 mg twice a day for bowel regimen Modified swallow eval shows aspiration. Patient continues on thickened diet.. Sepsis Pneumonia aspiration vs healthcare associated present on admission H/o surgical Splenectomy d/c piperacillin/tazobactam, vancomycin and azithromycin started 09/28. continue Ceftin 500mg BID Appreciate input from ID Chronic anticoagulation - warfarin History of left lower lung pulmonary embolism 05/18 Leukocytosis neutrophil predominant-Resolved Normocytic anemia INR is subtherapeutic. Therapeutic anticoagulation with enoxaparin 40 q12 until INR target 2-3. Previously evaluated by hematology. Hypercoagulable workup negative. Continue warfarin 3.5 mg by mouth daily Continue iron sulfate 300 mg by mouth twice a day for anemia Hyperglycemia on sliding scale insulin with Accu-Cheks before meals/at bedtime Novulin R low regimen to maintain euglycemia while on systemic steroids Problem Qualifiers (1) COPD (chronic obstructive pulmonary disease): Qualified Codes: J44.1 - Chronic obstructive pulmonary disease with (acute) exacerbation (2) Sepsis: Qualified Codes: A41.9 - Sepsis, unspecified organism Clarence Talamantes MD Oct 04, 2017 10:14
[2017-10-04] MEDS ORDERED: PRED20 PO (10:18)
[2017-10-04] MEDS ORDERED: COUM3TAB PO (10:18)
[2017-10-04] MEDS ORDERED: ENOX40P SQ (10:18)
[2017-10-04] MEDS ORDERED: CEFU1TAB20 PO (10:18)
--- NOTE | 2017-10-04 10:23 | HHI.DS ---
Discharge Summary Admission Date Sep 28, 2017 at 16:56 Discharge Date: Oct 04, 2017 Admitting Diagnosis sepsis, copd exacerbation (1) Hospital-acquired pneumonia ICD Code: J18.9 - Pneumonia, unspecified organism Status: Acute (2) COPD (chronic obstructive pulmonary disease) ICD Code: J44.9 - Chronic obstructive pulmonary disease, unspecified Status: Chronic (3) Sepsis ICD Code: A41.9 - Sepsis, unspecified organism Status: Acute (4) COPD with exacerbation ICD Code: J44.1 - Chronic obstructive pulmonary disease with (acute) exacerbation Status: Acute (5) CVA (cerebral vascular accident) ICD Code: I63.9 - Cerebral infarction, unspecified Status: Chronic Procedures none Brief History - From Admission Patient is a 62-year-old female with primary medical history of COPD, recurrent hospitalizations secondary to chronic respiratory failure, pulmonary embolism 2016, recent 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 Patient was recently hospitalized 09/14/17-09/19/17 secondary to COPD exacerbation, sepsis pneumonia. She was supposedly discharged to SNF but patient has refused. She was treated with IV antibiotics and was discharged with by mouth azithromycin 5 days, by mouth Ceftin 10 days. Review records patient received Solu-Medrol and 2 breathing treatments in route to the hospital. Elevated temperature 101. She was supposed to wear oxygen at home but the EMS states that patient is not always compliant. Patient seen and examined today. Appears weak and lethargic. Able to respond to questions and commands however speech is somewhat slurred and occasionally incomprehensible. Patient states that she has fevers, and was feeling with increased shortness of breath. She admits that she hasn't stopped smoking. She had 1-2 cigarettes per day when she was discharged from the hospital. States that she lives at home with daughter but daughter is not home all the time. Patient reports she doesn't want to be intubated or resuscitated and that she feels that her chronic illness is not going to get better. Discussed with patient that smoking is a contributing factor to her recurrent exacerbations. States that she knows about it she can't help it. She has been coughing a lot, somewhat brown or dark. She reports fevers but did not take her temperature she just feels warm. Patient appears with increasing shortness of breath with conversation. Reports compliance with oxygen use and medication. Poor historian secondary to increasing fatigue and shortness of breath with conversation. Denies abdominal pain, nausea, vomiting, diarrhea. CBC/BMP: 10/02/17 0910 10/02/17 0910 Significant Findings Laboratory Tests Test 10/02/17 09:10 10/03/17 05:10 10/04/17 05:27 Red Blood Count 3.77 MIL/MM3 (4.00-5.30) Hemoglobin 10.7 GM/DL (11.6-15.3) Hematocrit 33.2 % (35.0-46.0) Red Cell Distribution Width 26.9 % (11.6-17.2) Neutrophils (%) (Auto) 77.9 % (16.0-70.0) Ovalocytes 1+ (NORMAL) Acanthocytes OCC (NORMAL) Prothrombin Time 12.2 SEC (9.8-11.6) Random Glucose 141 MG/DL (74-106) Albumin 2.4 GM/DL (3.4-5.0) Phosphorus Level 2.4 MG/DL (2.5-4.9) Chloride Level 109 MEQ/L (98-107) Imaging Last Impressions Chest X-Ray 10/02/17 0000 Signed Impressions: Service Date/Time: Monday, October 02, 2017 14:55 - CONCLUSION: Improvement in airspace process in the right midlung laterally, however right lower lobe consolidation appears slightly worse. Vu Sage MD Modified Barium Swallow 09/29/17 0000 Signed Impressions: Service Date/Time: Friday, September 29, 2017 00:00 - CONCLUSION: 1. Please see consultation from speech pathology. Cody Lamb MD Head CT 09/28/17 0000 Signed Impressions: Service Date/Time: September 22:16 - CONCLUSION: No new acute findings Eladio Todd MD PE at Discharge GENERAL: NAD SKIN: Warm and dry. HEAD: Normocephalic. EYES: No scleral icterus. No injection or drainage. NECK: Supple, trachea midline. No JVD or lymphadenopathy. CARDIOVASCULAR: Regular rate and rhythm without murmurs, gallops, or rubs. RESPIRATORY: Breath sounds equal bilaterally. No accessory muscle use. GASTROINTESTINAL: Abdomen soft, non-tender, nondistended. MUSCULOSKELETAL: No cyanosis, or edema. BACK: Nontender without obvious deformity. No CVA tenderness. Hospital Course While in hospital, patient was treated for Acute toxic metabolic encephalopathy -Multifactorial secondary to sepsis, medication induced/etc. 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 she was provided tramadol 50 mg every 8 hours as needed for pain 5-10 Home medications were eventually resumed including citalopram 10 mg daily for depression,Pregabalin 75 mg daily ,Olanzapine 5 mg every 8 hours as needed anxiety and Lidoderm patch 5% on 12 hours off 12 hours COPD - end-stage Ongoing tobacco abuse Acute on chronic hypercapnia she was provided Albuterol/ipratropium aerosols every 4 hours with albuterol aerosols every 2 hours as needed dyspnea,Budesonide/Formoterol 80/4.5 2 puffs twice a day s/p Methylprednisolone 40 mg IV every 8; she will completed Prednisone 20mg BID taper on discharge Coronary artery disease status post CABG 2 Hypotension, resolved Hyperlipidemia Sinus bradycardia Continued on Atorvastatin 40 mg by mouth daily at bedtime for dyslipidemia Stress nuclear medicine test 03/18 revealed EF 52%. No regional wall motion abnormality's. History of hepatitis C resolved s/p treatment Gastroesophageal reflux disease Hypoalbuminemia Started on Famotidine 20 mg daily for gastroesophageal reflux disease Docusate sodium 100 mg twice a day for bowel regimen was provided Modified swallow eval shows aspiration. Patient continues on thickened diet.. Sepsis Pneumonia aspiration vs healthcare associated present on admission H/o surgical Splenectomy s/p piperacillin/tazobactam, vancomycin and azithromycin Started on Ceftin 500mg BID x 7 days per infectious disease specialist Chronic anticoagulation - warfarin History of left lower lung pulmonary embolism 05/18 Leukocytosis neutrophil predominant-Resolved Normocytic anemia INR is subtherapeutic. Therapeutic anticoagulation with enoxaparin 40 q12 until INR target 2-3. Will be discharged home on 5 days of subcutaneous Lovenox Previously evaluated by hematology. Hypercoagulable workup negative. warfarin was increased to 3.5 mg by mouth daily Continue iron sulfate 300 mg by mouth twice a day for anemia Hyperglycemia She was started on sliding scale insulin with Accu-Cheks before meals/at bedtime Novulin R low regimen to maintain euglycemia while on systemic steroids Pt Condition on Discharge: Deteriorating Discharge Disposition: Hospice/ Home Discharge Time: > 30 minutes Discharge Instructions DIET: Follow Instructions for: Pureed Diet Activities you can perform: Regular-No Restrictions Follow up Referrals: PCP Follow-up - 1 Week New Medications: Cefuroxime (Cefuroxime) 500 Mg Tab 500 MG PO Q12HR for Infection, #14 TAB Enoxaparin Inj (Lovenox Inj) 40 Mg/0.4 Ml Syr 40 MG SQ Q12H for Prevent Blood Clot, #10 INJECTION Prednisone (Prednisone) 20 Mg Tab 20 MG PO BID for Infection, #10 TAB Warfarin (Coumadin) 3 Mg Tab 3 MG PO DAILY@1600 for Prevent Blood Clot, #30 TAB Continued Medications: Ascorbic Acid (Sm Chewable C) 500 Mg Chw 500 MG PO BID for Nutritional Supplement for 30 Days, #60 EA Atorvastatin (Atorvastatin) 40 Mg Tab 40 MG PO HS for Cholesterol Management for 30 Days, #30 TAB Citalopram (Celexa) 20 Mg Tab 10 MG PO DAILY for Depression Control for 30 Days, #60 TAB Dextromethorphan-Guaifenesin (Mucinex DM) 30-600 Mg Tab 1 TAB PO BID PRN for COUGH AND/OR COLD SYMPTOMS for 30 Days, #60 TAB 0 Refills Famotidine (Famotidine) 20 Mg Tab 20 MG PO DAILY for Heartburn Management for 30 Days, #30 TAB Ferrous Sulfate Liq (Ferrous Sulfate Liq) 300 Mg/5 Ml Soln 300 MG PO BID for ANEMIA, #300 ML Lidocaine (Lidoderm) 5 % Adh..patch 1 PATCH T-DERMAL DAILY for Pain for 30 Days, #30 PATCH Multivitamin with Folic Acid (Thera Tablet) 400 Mcg Tablet 1 TAB PO DAILY for Nutritional Supplement for 30 Days, #30 TAB Olanzapine Odt (Zyprexa Zydis) 5 Mg Tab 5 MG PO Q8H PRN for anxiety, #90 TAB Potassium Bicarb-Chloride Effervescent (Effervescent Potassium Chloride 25 Meq) 25 Meq Tab 25 MEQ PO BID for Nutritional Supplement, #60 TAB Pregabalin (Lyrica) 75 Mg Cap 75 MG PO BID for Pain Management, #60 CAP 0 Refills Tramadol (Ultram) 50 Mg Tab 50 MG PO Q8H PRN for PAIN SCALE 5 TO 10, #60 TAB 0 Refills [Albuterol-Ipratropium Neb] () 1 AMPULE NEBU 1 AMPULE NEB Q2HR NEB PRN for SOB/WHEEZING [Albuterol-Ipratropium Neb] () 1 AMPULE NEBU 1 AMPULE INH Q4HR NEB for Shortness of Breath, #180 AMPULE [Budeson-Formot 80-4.5 Mcg Inh] () 60 PUFF AERO 2 PUFF INH BID for Broncospasm, #1 INH Discontinued Medications: Warfarin (Coumadin) 2.5 Mg Tab 2.5 MG PO DAILY@1600 for Blood Clot Prevention, #30 TAB Clarence Talamantes MD Oct 04, 2017 10:23
[2017-10-04] MEDS ORDERED: WARFARIN SOD 3 MG TAB PO SCH (16:00)
[2017-10-04] MEDS ORDERED: WARFARIN SOD 1 MG TAB PO ONE (16:00)
[2017-10-04 16:11] LABS: MYCOPLASMA PNEUMONIAE IGG Positive (Negative); MYCOPLASMA PNEUMONIAE IGM Negative (Negative)
[2017-10-05 03:51] LABS: C PNEUMO IGA <1:16 (<1:16); C PNEUMO IGM <1:10 (<1:10); C PNEUMO INTERPRETATION PAST INFECTION
== END 2017-10-04 13:30 | disposition hospice, home (50) | DRG 871 ==
LOC: NEPE 15:07 → NEDA 16:56 → HIMW 20:12 → N04A 09-29 20:12
PROVIDERS: ADMIT Hospitalist; ATTEND Hospitalist
DX: A41.9 Sepsis, unspecified organism (principal); J69.0 Pneumonitis due to inhalation of food and vomit; G92 Toxic encephalopathy; R13.10 Dysphagia, unspecified; E87.0 Hyperosmolality and hypernatremia; J44.1 Chronic obstructive pulmonary disease with (acute) exacerbation; I11.0 Hypertensive heart disease with heart failure; I50.9 Heart failure, unspecified; J96.10 Chronic respiratory failure, unspecified whether with hypoxia or hypercapnia; Z86.74 Personal history of sudden cardiac arrest; Z99.81 Dependence on supplemental oxygen; Z51.5 Encounter for palliative care; R65.20 Severe sepsis without septic shock; I25.10 Atherosclerotic heart disease of native coronary artery without angina pectoris; G89.4 Chronic pain syndrome; I69.320 Aphasia following cerebral infarction; E86.0 Dehydration; E78.5 Hyperlipidemia, unspecified; E87.6 Hypokalemia; K21.9 Gastro-esophageal reflux disease without esophagitis; R73.9 Hyperglycemia, unspecified; R00.1 Bradycardia, unspecified; D64.9 Anemia, unspecified; G25.81 Restless legs syndrome; M17.10 Unilateral primary osteoarthritis, unspecified knee; F10.20 Alcohol dependence, uncomplicated; F10.21 Alcohol dependence, in remission; F32.9 Major depressive disorder, single episode, unspecified; F41.9 Anxiety disorder, unspecified; F17.210 Nicotine dependence, cigarettes, uncomplicated; Z66 Do not resuscitate; Z79.01 Long term (current) use of anticoagulants; Z86.19 Personal history of other infectious and parasitic diseases; Z86.711 Personal history of pulmonary embolism; Z88.6 Allergy status to analgesic agent; Z88.5 Allergy status to narcotic agent; Z91.19 Patient's noncompliance with other medical treatment and regimen; Z95.1 Presence of aortocoronary bypass graft; Z90.81 Acquired absence of spleen
CPT/HCPCS: 36600; 70450; 71010; 71045; 74230; 80048; 80053; 80069; 80202; 81001; 82550; 82552; 82805; 82948; 83605; 83735; 84100; 84484; 85007; 85025; 85027; 85610; 85730; 86631; 86632; 86738; 87040; 87449; 87641; 87804; 93005; 94002; 94150; 94640; 94664; J0456; J1650; J1885; J2543; J2920; J3370; J3480; J7030; J7040; J7050; J7512

== ENCOUNTER 2018-02-15 19:31 | Emergency (ER) | payer MEDICARE, MEDICAID ==
[~2018-02-15 19:31] MED LIST changes: -CEFU1TAB18 PO; +CEFU1TAB20 PO; -COMMODE 3-IN-11 MIS; -COUM2.5T PO; +COUM3TAB PO; +ENOX40P SQ; -MEDR4PAK PO; -NEBULIZER1 MI1; +PRED20 PO; -WALKER WHEELS/F1 MIS; -ZITH500T PO
[2018-02-15 19:50] VITALS: BP 146/87; PULSE 78; RESP 20; TEMP 99; O2SAT 94
[2018-02-15] MEDS ORDERED: SODIUM CHLORIDE 0.9% FLUSH 10 ML FLUSH IVF PRN (20:15)
[2018-02-15 20:16] VITALS: RESP 20; O2SAT 94
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
[2018-02-15] MEDS: RESP: ALBUTEROL 2.5 MG/IPRATROPIUM 0.5 MG NEB (SCH) INH ×2 (20:39→20:40)
[2018-02-15 21:15] LABS: AUTOMATED NEUTROPHIL # 10.4 TH/MM3 (1.8-7.7); BASOPHIL # 0.2 TH/MM3 (0-0.2); BASOPHIL % 1.3 % (0.0-2.0); EOSINOPHIL # 0.1 TH/MM3 (0-0.4); EOSINOPHIL % 0.7 % (0.0-4.0); HEMATOCRIT 45.1 % (35.0-46.0); HEMOGLOBIN 14.8 GM/DL (11.6-15.3); LYMPH % 12.2 % (9.0-44.0); LYMPHOCYTE # 1.5 TH/MM3 (1.0-4.8); MEAN CELL VOLUME 88.8 FL (80.0-100.0); MEAN CORPUSCULAR HGB CONC 32.7 % (32.0-36.0); MEAN PLATELET VOLUME 8.7 FL (7.0-11.0); MONO % 3.3 % (0.0-8.0); MONOCYTE # 0.4 TH/MM3 (0-0.9); NEUT % 82.5 % (16.0-70.0); PLATELET COUNT 323 TH/MM3 (150-450); RED BLOOD COUNT 5.08 MIL/MM3 (4.00-5.30); RED CELL DISTRIBUTION WIDTH 17.2 % (11.6-17.2); WHITE BLOOD COUNT 12.6 TH/MM3 (4.0-11.0)
[2018-02-15 21:22] LABS: CHLORIDE 105 MEQ/L (98-107); SODIUM (NA) 140 MEQ/L (136-145)
[2018-02-15 21:25] LABS: ALBUMIN 3.4 GM/DL (3.4-5.0); BICARBONATE 27.1 MEQ/L (21.0-32.0); GLUCOSE,RANDOM 137 MG/DL (74-106); MAGNESIUM 2.7 MG/DL (1.5-2.5)
[2018-02-15 21:26] VITALS: BP 115/66; PULSE 81; RESP 18; O2SAT 95
[2018-02-15 21:26] LABS: BLOOD UREA NITROGEN 13 MG/DL (7-18)
[2018-02-15 21:28] LABS: ALT (GPT) 17 U/L (10-53)
[2018-02-15 21:29] LABS: AST (GOT) 12 U/L (15-37); GLOMERULAR FILTRATION RATE 101 ML/MIN (>89)
[2018-02-15 21:30] LABS: TOTAL BILIRUBIN ADULT 0.7 MG/DL (0.2-1.0); TOTAL PROTEIN 6.6 GM/DL (6.4-8.2)
[2018-02-15 21:31] LABS: ALKALINE PHOSPHATASE 58 U/L (45-117)
--- NOTE | 2018-02-15 22:18 | RADRPT ---
EXAM DATE/TIME: 02/15/2018 21:00 [place] COMPARISON: CHEST SINGLE AP, October 02, 2017, 14:55. INDICATIONS : Shortness of breath. MEDICAL HISTORY : Stroke. Myocardial infarction. Congestive heart failure. Neck pain. Glasses. Hypertension. COPD. Asth ma. Dyspnea. Arthritis. Depression. Anxiety. Hepatitis. Pulmonary embolism. SURGICAL HISTORY : CABG Ruben and plate in left arm. Splenectomy. ENCOUNTER: Initial ACUITY: 1 day PAIN SCORE: 0/10 LOCATION: Bilateral chest FINDINGS: The patient is status post sternotomy. The heart size is normal. The lungs are hyperinflated. Calcifi ed lymph nodes are seen. There is a granuloma in the left upper lung. The lungs appear otherwise kurtis sly clear. Clips are seen in the left upper quadrant of the abdomen. CONCLUSION: 1. Hyperinflated lungs consistent with COPD. 2. Evidence of granulomatous disease. Eladio Gomes MD on February 15, 2018 at 22:15 Board Certified Radiologist. This report was verified electronically.
[2018-02-15] MEDS ORDERED: AZIT500T2 PO (22:27)
[2018-02-15] MEDS ORDERED: PRED20 PO (22:27)
[2018-02-15] MEDS ORDERED: AZITHROMYCIN 250 MG TAB PO ONE (22:30)
[2018-02-15 22:58] VITALS: BP 106/61; PULSE 92; RESP 16; O2SAT 98
[2018-02-16 00:33] VITALS: BP 100/66; PULSE 93; RESP 16; O2SAT 95
--- NOTE | 2018-02-16 12:15 | EKG ---
Date Performed: 02/15/2018 Time Performed: 20:33:43 PTAGE: 63 years EKG: Sinus rhythm POSSIBLE RIGHT ATRIAL ENLARGEMENT LEFT ATRIAL ENLARGEMENT NONSPECIFIC ST & T-WAVE ABNORMALITY ABNORM AL ECG PREVIOUS TRACING : 09/30/2017 15.22 Compared to the prior study, nonspecific ST-T wave changes are now present. Evidence for right and left atrial enlargement is also present. Clinical correlation is recommended. DOCTOR: Edy Brambila Interpretating Date/Time 02/16/2018 12:12:52
== END 2018-02-16 00:58 | disposition home or self-care (01) ==
LOC: PHED 19:31
DX: J44.1 Chronic obstructive pulmonary disease with (acute) exacerbation (principal); R94.31 Abnormal electrocardiogram [ECG] [EKG]; C34.90 Malignant neoplasm of unspecified part of unspecified bronchus or lung; I11.0 Hypertensive heart disease with heart failure; I50.9 Heart failure, unspecified; F32.9 Major depressive disorder, single episode, unspecified; F41.9 Anxiety disorder, unspecified; M19.90 Unspecified osteoarthritis, unspecified site; F17.210 Nicotine dependence, cigarettes, uncomplicated
CPT/HCPCS: 71045; 80053; 83735; 83880; 85025; 87040; 87804; 93005; 94640; 94664; 99285

== ENCOUNTER 2018-03-31 08:24 | Inpatient (IN) ==
[2018-03-31] MEDS ORDERED: Potassium Phosphate 500 MG Soluble Tablet PO PRN (23:56)
[2018-04-01] MEDS ORDERED: Bisacodyl 10 MG Supp RECTAL PRN (00:42)
[2018-04-01] MEDS ORDERED: Magnesium Sulfate Inj 2 GM in Sodium Chlor 0.9% Inj 96 ML IV.SIG PRN (01:00)
[2018-04-01] MEDS ORDERED: Potassium Phosphate Inj 30 MMOL in Sodium Chlor 0.9% Inj 250 ML IV.SIG PRN (01:00)
[2018-04-01] MEDS ORDERED: Potassium Chlor 20 mEq Premix 20 MEQ/100 ML PIGGYBACK IV.SIG PRN ×2 (01:00)
[2018-04-01] MEDS ORDERED: Sod Chloride 0.9% Inj 1,000 ML IV.SIG SCH (01:00)
[2018-04-01] MEDS ORDERED: Magnesium Oxide 400 MG Tablet PO PRN (01:00)
[2018-04-01] MEDS ORDERED: Propofol 1000 mg/100 ml Inj 1,000 MG/100 ML BOTTLE IV.CONT PRN (01:00)
[2018-04-01] MEDS ORDERED: Magnesium Sulfate Inj 4 GM in Sodium Chlor 0.9% Inj 92 ML IV.SIG PRN (01:00)
[2018-04-01] MEDS ORDERED: Potassium Chloride 25 MEQ Effervescent Tablet PO PRN (01:00)
[2018-04-01] MEDS ORDERED: Sodium Phosphate Inj 30 MMOL in Sodium Chlor 0.9% Inj 250 ML IV.SIG PRN (01:00)
[2018-04-01] MEDS ORDERED: Vancomycin Consult Pharmacy 1 EACH OTHER SCH (01:00)
[2018-04-01] MEDS ORDERED: Potassium Phosphate 500 MG Soluble Tablet PO PRN (01:00)
[2018-04-01] MEDS: Vancomycin Inj 800 MG in Sodium Chlor 0.9% Inj 250 ML IV.SIG SCH ×2 (01:55→13:06)
[2018-04-01] MEDS ORDERED: Vancomycin Inj 800 MG in Sodium Chlor 0.9% Inj 250 ML IV.SIG SCH (02:00)
[2018-04-01] MEDS: Oral Hygiene Kit OROPHARYNG SCH ×2 (03:08→13:10)
[2018-04-01] MEDS: Piperacil/Tazo 3.375 GM Premix 50 ML IV.SIG SCH ×3 (03:28→14:45)
--- NOTE | 2018-04-01 03:47 | XR ---
EXAM DATE: 04/01/2018 3:39 AM EDT AGE/SEX: 63 years / Female INDICATIONS: Respiratory failure. CLINICAL DATA: This is the patient's subsequent encounter. Patient reports that signs and symptoms h ave been present for 2 days and indicates a pain score of Nonresponsive. MEDICAL/SURGICAL HISTORY: . Hypertension. Arthritis. Chronic obstructive pulmonary disease. Ast hma. ID. Hepatitis C. Pulmonary embolism. . CABG. Splenectomy. Ruben in left arm. COMPARISON: [facility], CHEST SINGLE AP, 03/31/2018. . FINDINGS: Endotracheal tube in good position. Lungs hyperinflated. NG enters stomach. Minimal right perihilar a nd basilar density which may represent atelectasis or scarring. No effusion or pneumothorax. CONCLUSION: Endotracheal tube and nasogastric tube in good position. Scattered lung density, probably atelectasis or scarring. Remote granulomatous disease. Electronically signed by: Familia Hewitt MD 04/01/2018 3:45 AM EDT
[2018-04-01] MEDS ORDERED: Chlorhexidine Gluconate 2% 1 Pack (2 Cloths) TOPICAL SCH (04:00)
[2018-04-01] MEDS ORDERED: Chlorhexidine Gluconate 2% 1 Pack (2 Cloths) TOPICAL PRN (04:00)
[2018-04-01 04:49] VITALS: TEMP 98.3
[2018-04-01 05:24] LABS: Baso % (Auto) 0.2 % (0.0-2.0); Eos % (Auto) 0.1 % (0.0-4.0); Hematocrit 39.1 % (35.0-46.0); Hemoglobin 12.4 gm/dL (11.6-15.3); Lymph # (Auto) 0.5 th/mm3 (1.0-4.8); Lymph % (Auto) 2.9 % (9.0-44.0); Mean Corpuscular HGB Conc 31.8 % (32.0-36.0); Mean Corpuscular Hemoglobin 29.7 pg (27.0-34.0); Mean Corpuscular Volume 93.4 fL (80.0-100.0); Mean Platelet Volume 9.2 fL (7.0-11.0); Mono # (Auto) 0.9 th/mm3 (0.0-0.9); Mono % (Auto) 5.5 % (0.0-8.0); Neut # (Auto) 15.7 th/mm3 (1.8-7.7); Neut % (Auto) 91.3 % (16.0-70.0); Platelet Count 378 th/mm3 (150-450); Red Blood Count 4.18 mil/mm3 (4.00-5.30); Red Cell Distribution Width 16.5 % (11.6-17.2); White Blood Count 17.1 th/mm3 (4.0-11.0)
[2018-04-01 05:37] LABS: Chloride 106 meq/L (98-107); Potassium 3.7 meq/L (3.5-5.1); Sodium 141 meq/L (136-145)
[2018-04-01 05:39] LABS: INR 1.1 Ratio; Prothrombin Time 11.1 sec (9.8-11.6)
[2018-04-01 05:40] LABS: Albumin 2.5 g/dL (3.4-5.0); Anion Gap 8 meq/L (5-15); Blood Urea Nitrogen 17 mg/dL (7-18); Calcium 8.2 mg/dL (8.5-10.1); Carbon Dioxide 26.6 meq/L (21.0-32.0); Glucose,Random 115 mg/dL (74-106)
[2018-04-01 05:43] LABS: Alanine Aminotransferase 17 U/L (10-53); Aspartate Aminotransferase 17 U/L (15-37); Glomerular Filtration Rate Greater Than 89 mL/min (>89)
[2018-04-01 05:44] LABS: Phosphorus 2.8 mg/dL (2.5-4.9)
[2018-04-01 05:45] LABS: Total Protein 5.5 g/dL (6.4-8.2)
[2018-04-01 05:46] LABS: Alkaline Phosphatase 58 U/L (45-117)
[2018-04-01 05:53] LABS: ABG Base Excess 1.2 mmol/L (-2-2); ABG PCO2 43 mmHg (38-42); ABG PO2 79 mmHg (61-120)
--- NOTE | 2018-04-01 07:55 | P.PNCC ---
Subjective Subjective Remarks/Hospital Course: This is a 63-year-old female that presented to the ED with history of respiratory distress. Per report the patient was not patient able to answer any questions and seems extremely confused or possible expressive aphasia. History was obtained from EMS. I am not sure who called 911 since patient has not been able to talk at all since I came to see her in the room. As per EMS patient, the patient was found to be in respiratory distress and oxygen saturation of 87%. Patient has history of COPD and apparently has been intubated multiple times. She received bronchodilators which brought her oxygen saturation up to 97% as per EMS. When patient arrived on nasal cannula she was saturating in high 90s. Patient is not a good historian and no further history could be obtained. The patient was emergently intubated. Imaging and laboratory studies were performed. Critical care medicine was consulted. Upon further review of the medical records the patient was found to be a DNR and under [facility] hosp[facility] care with home visiting 3 times a week. Her family came to look for her and could not find her and had been trying to locate her 4 hours before locating her at [facility]. Upon my evaluation the patient was noted to be alert responsive nodding yes and no to my questions following commands on propofol minimal infusion, overbreathing the ventilator. The patient informed myself and the nurse she had taken too much medication meaning Xanax and Celexa. Noted copious bloody secretions out of endotracheal tube, informed that it was a traumatic intubation. Subjective: 04/01: No acute events overnight. The patient has remained on CPAP trials since admission to ICU last evening. No further bloody noted from endotracheal tube .chest x-ray unchanged, with atelectasis and scarring. WBC count downtrending. Patient continues on Levaquin and vancomycin and Zosyn. Blood urine and sputum cultures are pending. Upon sedation vacation the patient is alert oriented following commands. Objective Vital Signs / I&O: Vital Signs 04/01/18 00:00 04/01/18 01:00 04/01/18 01:10 Temperature 98.3 F Pulse Rate 78 Respiratory Rate 28 H 20 27 H Blood Pressure 92/78 L 107/80 Pulse Oximetry 98 99 100 04/01/18 02:00 04/01/18 03:00 04/01/18 03:15 Temperature Pulse Rate 66 62 64 Respiratory Rate 27 H 20 24 Blood Pressure 103/80 117/91 H Pulse Oximetry 99 99 04/01/18 04:00 04/01/18 04:35 Temperature 98.3 F Pulse Rate 70 Respiratory Rate 21 Blood Pressure 90/67 L Pulse Oximetry 96 95 Intake & Output 03/31/18 04/01/18 04/01/18 18:59 06:59 18:59 Weight 48 kg Result Diagrams: 04/01/18 04:33 04/01/18 04:33 Other Results: Impressions Chest X-Ray 04/01/18 00:00 CONCLUSION: Endotracheal tube and nasogastric tube in good position. Scattered lung density , probably atelectasis or scarring. Remote granulomatous disease. Imaging: Impressions Chest X-Ray 04/01/18 00:00 CONCLUSION: Endotracheal tube and nasogastric tube in good position. Scattered lung density , probably atelectasis or scarring. Remote granulomatous disease. Objective Remarks: GENERAL: Thin cachectic female intubated and lightly sedated SKIN: Warm and dry. Ecchymotic multiple bruises bilateral upper and lower extremity HEAD: Atraumatic. Normocephalic. EYES: Pupils equal and round. No scleral icterus. No injection or drainage. ENT: No nasal bleeding or discharge. Mucous membranes pink and moist. NECK: Trachea midline. No JVD. CARDIOVASCULAR: Normal rate, regular rhythm. RESPIRATORY: No accessory muscle use. Scattered rhonchi. Breath sounds equal bilaterally. GASTROINTESTINAL: Abdomen soft, non-tender, nondistended. No guarding. Bowel sounds active MUSCULOSKELETAL: Extremities without clubbing, cyanosis, or edema. No obvious deformities. NEUROLOGICAL: RASS -1. Patient currently sedated on propofol infusion , but responseive.no gross focal/sensory deficits. Follows commands in all 4 extremities. Assessment and Plan - Problem List (1) Hypoxemic respiratory failure, chronic Code(s): J96.11 - Chronic respiratory failure with hypoxia Status: Acute (2) COPD exacerbation Code(s): J44.1 - Chronic obstructive pulmonary disease with (acute) exacerbation Status: Acute - Assessment and Plan Plan: Assessment and Plan Problem List: (1) Impaired mobility and activities of daily living ICD Code: Z74.09 - Other reduced mobility (2) Acute respiratory failure ICD Code: J96.00 - Acute respiratory failure, unspecified whether with hypoxia or hypercapnia Status: Acute (3) Leukocytosis ICD Code: D72.829 - Elevated white blood cell count, unspecified (4) Acute exacerbation of chronic obstructive pulmonary disease (COPD) ICD Code: J44.1 - Chronic obstructive pulmonary disease with (acute) exacerbation Status: Acute (5) Altered mental status ICD Code: R41.82 - Altered mental status, unspecified Status: Acute (6) Chronic respiratory failure ICD Code: J96.10 - Chronic respiratory failure, unspecified whether with hypoxia or hypercapnia Status: Chronic Assessment and Plan Plan by systems: Neurologic: Toxic encephalopathy-resolved History of ischemic left MCA stroke with right hemiparesis Anxiety disorder Chronic pain syndrome Neuro checks per ICU Apply cooling blanket for fever Home medications include oxycodone 10 mg every 4 hours Patient's home medications include Celexa , Xanax will hold for now Begin sedation vacation Patient currently on propofol infusion at 25 mcgs/hr undergoing CPAP trials 03/31 CT brain- negative Respiratory: Acute on chronic hypoxemic respiratory failure COPD exacerbation 03/31 patient intubated emergently secondary to hypoxemia and no PMH available Bronchodilators every 6 hours scheduled every 2 hours as needed Ventilator bundle Begin CPAP trials immediately Initiate empiric antibiotics see below Repeat ABG-post intubation and initiation of CPAP trial 04/01 chest [id number] lung density, probably atelectasis 03/31 CT angio pulm-no pulmonary emboli Cardiovascular: Maintain MAP greater than 65 mmHG Echo 09/2017-EF 60-65%, no RWMA, trace MR, Trace TR Telemetry sinus rhythm Renal: Maintain Sage -- Strict I/Os FEN/GI: gentle hydration normal saline at 42 cc/hour Monitor BMP Maintain n.p.o. status for now Maintain NG tube Zofran for nausea Famotidine GI prophylaxis Heme/ID: Leukocytosis Obtain blood, urine ,sputum cultures Begin empiric antibiotics-Levaquin Zosyn and vancomycin (day 2) WBC downtrending 19->17 Endocrine: Glucose monitoring per ICU protocol. Low-dose regimen -- SSI Prophylaxis: GI Prophylaxis Famotidine DVT Prophylaxis -- SCDs Heparin BID Lines: Peripheral IVs 2 providing adequate access. Central line if indicated my billing statement This patient remains critically ill with one or more organ systems which are or may become a threat to life. I have spent in excess of 45 minutes discontinuously in the care and management of this patient. This time is exclusive of procedures, and includes, but is not limited to, evaluation of the patient, review of the medical record, discussions with family, consultants, nursing staff, or respiratory therapy, and documentation in the medical record. Dispo: I discussed with daughter extensively plan for optimization of patient's respiratory status prior to extubation the patient continues to have a leukocytosis though downtrending will continue antibiotics continue CPAP trials with a plan for SBT, as the patient will not be reintubated. The patient remains DNR. Code Status: DNR Discussed Condition With: Patient's daughter and [employer] at bedside.
[2018-04-01] MEDS ORDERED: Chlorhexidine 0.12% Oral Kit 15 ML UDC OROPHARYNG SCH (08:00)
[2018-04-01] MEDS ORDERED: Heparin - SQ 10,000 UNITS/ML Vial SQ SCH (09:00)
[2018-04-01] MEDS ORDERED: Senna/Docusate Sodium 8.6/50 MG Tablet PO SCH (09:00)
[2018-04-01] MEDS ORDERED: Famotidine PF Inj 20 MG/2 ML Vial IV.PUSH SCH (09:00)
[2018-04-01] MEDS: Artificial Tears Opth Drops 15 ML Bottle EACH EYE SCH ×2 (09:51→13:10)
--- NOTE | 2018-04-01 13:39 | ECHRPT ---
Indication: CONCLUSIONS The left ventricular systolic function is low normal with an estimated ejection fraction in the rang e of 50- 55%. Normal left ventricular size. Wall thickness is normal. No regional wall motion abnormalities are present. Trace mitral valve regurgitation. BP: / HR: Rhythm: Sinus MEASUREMENTS (Male / Female) Normal Values Technical Quality:Fair 2D ECHO LV Diastolic Diameter PLAX 3.8 cm 4.2 - 5.9 / 3.9 - 5.3 cm LV Systolic Diameter PLAX 3.0 cm IVS Diastolic Thickness 1.0 cm 0.6 - 1.0 / 0.6 - 0.9 cm LVPW Diastolic Thickness 1.0 cm 0.6 - 1.0 / 0.6 - 0.9 cm LV Relative Wall Thickness 0.5 LVOT Diameter 2.0 cm LA Systolic Diameter LX 2.6 cm 3.0 - 4.0 / 2.7 - 3.8 cm LV Ejection Fraction MOD 4C 51.5 % LV Ejection Fraction 4C AL 56.3 % M-MODE Aortic Root Diameter MM 2.8 cm AV Cusp Separation MM 2.1 cm DOPPLER AV Peak Velocity 97.7 cm/s AV Peak Gradient 3.8 mmHg LVOT Peak Velocity 76.5 cm/s LVOT Peak Gradient 2.3 mmHg AV Area Cont Eq pk 2.5 cm MV Area PHT 3.7 cm Mitral E Point Velocity 63.7 cm/s Mitral A Point Velocity 70.6 cm/s Mitral E to A Ratio 0.9 LV E' Lateral Velocity 5.7 cm/s Mitral E to LV E' Lateral Ratio 11.3 LV E' Septal Velocity 4.7 cm/s Mitral E to LV E' Septal Ratio 13.6 TR Peak Velocity 162.0 cm/s TR Peak Gradient 10.5 mmHg Right Atrial Pressure 10.0 mmHg Pulmonary Artery Systolic Pressu 20.5 mmHg Right Ventricular Systolic Press 20.5 mmHg PV Peak Velocity 85.5 cm/s PV Peak Gradient 2.9 mmHg FINDINGS LEFT VENTRICLE The left ventricular systolic function is low normal with an estimated ejection fraction in the rang e of 50- 55%. Normal left ventricular size. Wall thickness is normal. No regional wall motion abnormalities are present. RIGHT VENTRICLE Normal right ventricular size and systolic function. LEFT ATRIUM The left atrial size is normal. RIGHT ATRIUM The right atrial size is normal. ATRIAL SEPTUM Normal atrial septal thickness without atrial level shunting by limited color doppler interrogation. AORTA The aortic root and proximal ascending aorta are normal in size on limited imaging. MITRAL VALVE Structurally normal mitral valve. Trace mitral valve regurgitation. AORTIC VALVE Trileaflet aortic valve. No aortic valve stenosis or regurgitation. TRICUSPID VALVE Structurally normal tricuspid valve. No tricuspid valve stenosis or regurgitation. PULMONARY VALVE No pulmonary valve regurgitation or stenosis. VESSELS The inferior vena cava is normal in size. PERICARDIUM No pericardial effusion. Jose Martin Lopez MD, FACC (Electronically Signed) Final Date:01 April 2018 13:38
[2018-04-01] MEDS ORDERED: Levofloxacin 500 mg Premix Inj 500 MG/100 ML PIGGYBACK IV.SIG SCH (20:00)
--- NOTE | 2018-04-02 07:45 | MG ---
cc: Edy Randhawa MD DATE: 04/01/2018 [facility]: [id number] INDICATION: The patient is intubated. Diprivan on. DESCRIPTION: Diffuse beta rhythms are noted. Recording overall is synchronous and symmetric. Some alpha rhythms are noted. A 7-1/2 Hz posterior rhythm is seen, which is synchronous and symmetric. Hyperventilation is not performed. There may be some left mid temporal theta slowing versus artifact. Photic stimulation is performed without significant posterior driving. IMPRESSION: There appears to be a little bit of left temporal theta slowing. No epileptiform or seizure activity is noted. Clinical correlation, as a left temporal abnormality should be ruled out. Edy Randhawa MD DJM/TL , 10:04 AM , 10:15 AM
--- NOTE | 2018-04-02 11:36 | P.DS ---
Date of admission: 03/31/18 10:16 Primary care physician: UNKNOWN Brief History from admission: The patient was a DNR under Hospice Care, found unconscious with no immediate available information. She was transported emergently to [facility], emergently intubated. Family arrived post admission and it was discovered that the patient was a DNR under Hospice care. Decision was made to optimize patient' s health status prior to extubation by daughter , healthcare surrogate. The patient was pllaced on CPAP trials with sedation after neuro assessment. The patient subsequently self extubated and desired to return home,requesting to leave AMA. The healthcare surrogate was immediately notified of events and returned to the hospital. Decision made for inpatient Hospice by patient and family. Verbal telephone order was given. DS: Diagnosis - Discharge Diagnosis (1) Hypoxemic respiratory failure, chronic Status: Acute (2) COPD exacerbation Status: Acute DS: Summary Hospital Course: This is a 63-year-old female that presented to the ED with history of respiratory distress. Per report the patient was not patient able to answer any questions and seems extremely confused or possible expressive aphasia. History was obtained from EMS. I am not sure who called 911 since patient has not been able to talk at all since I came to see her in the room. As per EMS patient, the patient was found to be in respiratory distress and oxygen saturation of 87%. Patient has history of COPD and apparently has been intubated multiple times. She received bronchodilators which brought her oxygen saturation up to 97% as per EMS. When patient arrived on nasal cannula she was saturating in high 90s. Patient is not a good historian and no further history could be obtained. The patient was emergently intubated. Imaging and laboratory studies were performed. Critical care medicine was consulted. Upon further review of the medical records the patient was found to be a DNR and under [facility] care with home visiting 3 times a week. Her family came to look for her and could not find her and had been trying to locate her 4 hours before locating her at [facility]. Upon my evaluation the patient was noted to be alert responsive nodding yes and no to my questions following commands on propofol minimal infusion, overbreathing the ventilator. The patient informed myself and the nurse she had taken too much medication meaning Xanax and Celexa. Noted copious bloody secretions out of endotracheal tube, informed that it was a traumatic intubation. Subjective: 7/1: No acute events overnight. The patient has remained on CPAP trials since admission to ICU last evening. No further bloody noted from endotracheal tube .chest x-ray unchanged, with atelectasis and scarring. WBC count downtrending. Patient continues on Levaquin and vancomycin and Zosyn. Blood urine and sputum cultures are pending. Upon sedation vacation the patient is alert oriented following commands. - Time Spent with Patient Total time spent providing and/or coordinating discharge services: Exam Vital signs: Vital Signs 04/01/18 12:00 04/01/18 13:00 04/01/18 14:00 Temperature 98.7 F Pulse Rate 72 70 76 Respiratory Rate 30 H 20 26 H Blood Pressure 156/91 H 146/91 H 144/82 H Pulse Oximetry 97 97 98 04/01/18 14:11 04/01/18 15:00 04/01/18 15:07 Temperature Pulse Rate 74 71 Respiratory Rate 27 H 32 H 16 Blood Pressure 137/80 Pulse Oximetry 97 97 04/01/18 16:00 04/01/18 17:00 04/01/18 17:16 Temperature 98.3 F Pulse Rate 76 82 98 H Respiratory Rate 26 H 33 H 36 H Blood Pressure 133/77 119/77 125/70 Pulse Oximetry 92 L 96 94 L 04/01/18 17:17 04/01/18 18:00 04/01/18 18:20 Temperature Pulse Rate 80 80 Respiratory Rate 38 H Blood Pressure 125/75 Pulse Oximetry 91 L 94 L 04/01/18 19:00 04/01/18 19:55 04/01/18 20:11 Temperature 98.3 F Pulse Rate 80 85 Respiratory Rate 39 H 32 H Blood Pressure 119/73 Pulse Oximetry 96 95 04/01/18 20:15 Temperature Pulse Rate Respiratory Rate Blood Pressure Pulse Oximetry 90 L Intake & Output 04/01/18 04/02/18 04/02/18 18:59 06:59 18:59 Intake Total 50 / 50 Output Total 400 / 400 Balance -350 / -350 Intake: IV 50 / 50 Zosyn 3.375 GM Premix 50 ML @ 50 / 50 100 mls/hr IV.SIG Q6H GREGORIO Rx#: [id number] Output: Urine 400 / 400 Results Procedures completed during hospitalization: NONE Labs on day of discharge: Labs from last 24 hours 04/01/18 08:15 Nasal Screen MRSA (PCR) Not detected Preliminary micro results at discharge 04/01/18 08:15 Urine Culture - Preliminary Catheterized Urine No growth in 24 hours 04/01/18 08:50 Aerobic Blood Culture - Preliminary Blood - Peripheral No growth in 1 day Anaerobic Blood Culture - Preliminary No growth in 1 day 04/01/18 09:05 Aerobic Blood Culture - Preliminary Blood - Peripheral No growth in 1 day Anaerobic Blood Culture - Preliminary No growth in 1 day - Impressions ITS Impressions Chest X-Ray 04/01/18 00:00 CONCLUSION: Endotracheal tube and nasogastric tube in good position. Scattered lung density , probably atelectasis or scarring. Remote granulomatous disease. - Additional Comments This is a 63-year-old female that presented to the ED with history of respiratory distress. Per report the patient was not patient able to answer any questions and seems extremely confused or possible expressive aphasia. History was obtained from EMS. I am not sure who called 911 since patient has not been able to talk at all since I came to see her in the room. As per EMS patient, the patient was found to be in respiratory distress and oxygen saturation of 87%. Patient has history of COPD and apparently has been intubated multiple times. She received bronchodilators which brought her oxygen saturation up to 97% as per EMS. When patient arrived on nasal cannula she was saturating in high 90s. Patient is not a good historian and no further history could be obtained. The patient was emergently intubated. Imaging and laboratory studies were performed. Critical care medicine was consulted. Upon further review of the medical records the patient was found to be a DNR and under [facility] care with home visiting 3 times a week. Her family came to look for her and could not find her and had been trying to locate her 4 hours before locating her at [facility]. Upon my evaluation the patient was noted to be alert responsive nodding yes and no to my questions following commands on propofol minimal infusion, overbreathing the ventilator. The patient informed myself and the nurse she had taken too much medication meaning Xanax and Celexa. Noted copious bloody secretions out of endotracheal tube, informed that it was a traumatic intubation. Subjective: 04/01: No acute events overnight. The patient has remained on CPAP trials since admission to ICU last evening. No further bloody noted from endotracheal tube .chest x-ray unchanged, with atelectasis and scarring. WBC count downtrending. Patient continues on Levaquin and vancomycin and Zosyn. Blood urine and sputum cultures are pending. Upon sedation vacation the patient is alert oriented following commands. 04/01: I was notified in the evening by telephone,l I was located [place] [facility] [place] that the patient had self extubated, and placed on N/C. The patient requested to leave AMA.The patient's daughter was notified and returned to [facility]. The decision was made by patient and family (daughter) (healthcare surrogate to be discharged to Hospice inpatient center. Orders were placed by telephone to transfer patient to Hospice Inpatient. party host/hostess was at [facility] to facilitate the process. Discharge Plan - Discharge Disposition Patient Disposition: [facility] Hospice[facility]Med Facility - Discharge Order Discharge Orders: Discharge Order (Routine); Ordered 04/01/18 Ordered By: Leanne Gonzalez - Discharge Details Anticipated Discharge Date/Time: 04/01/18 20:00 - Physicians Team Primary Care Provider: UNKNOWN, Attending Provider: Leanne Gonzalez - Rxs /Orders / Referrals /Forms Referrals: UNKNOWN, [Primary Care Provider] - See Instructions - Discharge Instructions Additional Instructions: Discharge with [facility] and IV
[2018-04-02] MEDS ORDERED: Pharmacy Ordered Lab Info OTHER ONE (13:45)
[2018-04-03 10:21] VITALS: BP 119/73; PULSE 85; RESP 32; O2SAT 90
== END 2018-04-01 20:00 | disposition hospice, inpatient (51) ==
LOC: UNDODISIN → PHEDA 10:16 → PHICU 14:21
PROVIDERS: ADMIT Anesthesiology; ATTEND Anesthesiology